=== PATIENT | male | born 1980 | race Caucasian/White ===

== ENCOUNTER → 2020-11-23 08:59 | Outpatient (CLI) | payer OTHER, SELFPAY ==
[2020-11-23] MEDS: Lidocaine 2% (5ml sdv) 5 ML VIAL.MPF INFILT (09:00)
[2020-11-23] MEDS: Iopamidol 10 ML in Syringe 1 EACH 600 ML IV (09:00)
--- NOTE | 2020-11-23 09:05 | MRI_ITS ---
STUDY: MR LEFT HIP ARTHROGRAPHY REASON FOR EXAM: Left hip pain for 2 months. TECHNIQUE: Standardized fat and water weighted pulse sequences were obtained in all 3 orthogonal planes after intra-articular instillation of dilute Dotarem. COMPARISON: Fluoroscopic images from arthrogram preceding the MRI. FINDINGS: Normal hip joint without articular joint space narrowing. Normal acetabulum. There is a tear of the anterosuperior labrum (ASHLEY image 12). Normal femoral head. Normal femoral neck and intratrochanteric region. Normal gluteus minimus, medius and iliopsoas tendons and distal insertions. There is no trochanteric, iliopsoas or iliopectineal bursitis. Normal visualized superior and inferior pubic rami. Normal ischial tuberosity. Normal origin of the hamstring tendons. Normal visualized iliac wing. Normal visualized soft tissue structures of the pelvis. MRI/Lower Ext/Jt Only/W Contrast IMPRESSION: Anterosuperior labral tear. Electronically Signed: Juan Cage MD at 12:38 EDT Tel , Service support ,
--- NOTE | 2020-11-23 09:20 | RAD_ITS ---
EXAM DESCRIPTION: Left hip injection CLINICAL HISTORY: 40 years Male, PAIN IN L HIP COMPARISON: None. TECHNIQUE: 43 seconds of fluoroscopy was performed. The skin site was marked and sterilely prepped and draped in usual fashion. After this LIDOCAINE was instilled along the expected needle tract into the left hip joint. FINDINGS: A 22-gauge spinal needle was inserted into the left hip down to the level of the lateral aspect of the left femoral neck. Intra-articular position of the needle tip was confirmed with injection of about 5 cc of ISOVUE-300. After this, 7 cc of diluted Dotarem was injected into fluoroscopic images were obtained. The patient tolerated the procedure well and was sent to MR for additional imaging. RAD/Arthrogram Hip w/ MRI IMPRESSION: A left hip injection was performed without incident, and the patient was sent to MR for additional imaging. Electronically Signed: Jorge Alberto Jacob DO at 10:48 EDT Tel , Service support ,
== END ==
PROVIDERS: PCP Internal Medicine; Referring Provider Specialist; Visit Provider Specialist
DX: M25.552 Pain in left hip (principal)
CPT/HCPCS: 27093; 73722; 77002; Q9967; A9575

== ENCOUNTER 2020-11-23 21:04 | Emergency (ER) | payer OTHER, SELFPAY ==
[2020-11-23 21:05] VITALS: BP 149/99; PULSE 99; RESP 18; TEMP 36.3; O2SAT 98; BMI 40.4
[2020-11-23] MEDS: oxyCODONE 5 MG Tablet PO (22:28)
--- NOTE | 2020-11-23 22:47 | ED.VIS.LOWEX ---
HPI History of Present Illness Chief Complaint: Lower Extremity Injury Narrative Narrative: Patient presenting with left hip pain for months. States is worse today. Patient had MRI and left hip injection today and was not given results of his testing. Apparently had a labral tear on MRI. Patient will be following up with Dr. Ferguson. Patient is here for worsening pain. He is ambulatory. He denies systemic signs or symptoms. Denies paresthesias. PFSH PFSH Home Medications bupropion HCl 300 mg PO DAILY 08/02/13 [History Last Taken 08/07/13 10:30 300 mg] levothyroxine [Synthroid] 88 mcg PO DAILY 08/02/13 [History Last Taken 08/07/13 10:30 200 mcg] liothyronine [Cytomel] 50 mcg PO DAILY 08/02/13 [History Last Taken 08/07/13 10:30 50 mcg] naproxen 500 mg PO BID PRN PRN #20 tab 08/03/13 [Rx Last Taken 08/07/13 10:30 500 mg] ondansetron [Zofran Odt] 8 mg PO Q8H PRN PRN #10 08/03/13 [Rx Last Taken 08/06/13 21:00 8 mg] oxycodone-acetaminophen 1 - 2 tab PO Q6H PRN PRN #20 tab 08/03/13 [Rx Last Taken 08/07/13 10:30 2 tabs] phenazopyridine 200 mg PO TID #20 tab 08/08/13 [Rx Last Taken Unknown] cetirizine 10 mg PO DAILY 11/23/20 [History Last Taken Unknown] oxycodone-acetaminophen [Percocet] 1 tab PO Q6H PRN 3 Days #12 tab 11/23/20 [Rx Last Taken Unknown] Allergy/AdvReac Type Severity Reaction Status Date / Time vancomycin Allergy Hives Verified 11/23/20 21:07 Social History Smoking Status: Former smoker ROS ROS ED Constitutional Constitutional ED: Denies chills, fever(s) or sweats Eyes Eyes: Denies blurry vision or change in vision ENT ENT ED: Denies ear pain, rhinorrhea or sore throat Cardiovascular Cardiovascular: Denies chest pain, palpitations or racing heartbeat Respiratory/Chest Respiratory/Chest: Denies cough, dyspnea or sputum Gastrointestinal Gastrointestinal: Denies abdominal pain, constipation, diarrhea or vomiting Genitourinary Genitourinary ED: Denies dysuria, hematuria or urinary frequency Musculoskeletal Musculoskeletal: Reports other Details: Left hip pain ; Denies myalgias or neck pain Integumentary Denies abscess, Abrasions or rash Neurologic Neurologic: Denies headache(s), paresthesias or weakness Psychiatric Psychiatric: Denies anxiety, depression, suicidal ideation or suicidal thoughts Endocrine Endocrinology: Denies polydipsia or polyuria EXAM Physical Exam Const Vital Signs: 11/23/20 21:05 Temperature 97.4 F L Temperature Source Temporal Pulse Rate 99 Respiratory Rate 18 Blood Pressure 149/99 H Blood Pressure Mean 115 Pulse Ox 98 Oxygen Delivery Method Room Air Positive well nourished General Appearance ED: NAD HEENT normocephalic and atraumatic Resp normal respiratory effort and clear to auscultation bilaterally Cardio regular rate and regular rhythm Extremity Extremity Narrative: Tenderness to palpation over left hip. Negative logroll. Patient is weightbearing and walking in the room. Injection site in the left hip shows no erythema or swelling. There is no ecchymosis. Neuro oriented x3 Sensorium / Orientation: alert Psych mental status grossly normal Skin Lesions: no lesions Rashes: no rashes MDM MDM MDM Narrative Medical decision making narrative: Patient had MRI today which showed a labral tear in the left hip. Patient was unaware of this finding until he arrived to the ED. Patient has continuing pain and has not been prescribed any pain medication as of yet. Patient has no erythema or swelling at the injection site in the left hip. MRI was reviewed and does show a labral tear. Patient will be given oxycodone in the ED and Percocet for home. He will follow up with Dr. Ferguson. Impression: 1. Left hip pain with labral tear Discharge Plan Triage Chief Complaint: Lower Extremity Injury ED Provider: Wilmer Castro Dx/Rx/DC Orders Instructions: Arthroscopy Hip Repair Labral Tear Prescriptions: New oxycodone-acetaminophen [Percocet] 5-325 mg tablet 1 tab PO Q6H PRN (Reason: pain) 3 Days Qty: 12 RF: 0 No Action liothyronine [Cytomel] 50 MCG tablet 50 mcg PO DAILY RF: 0 levothyroxine [Synthroid] 200 MCG tablet 88 mcg PO DAILY RF: 0 bupropion HCl 300 MG tablet extended release 24 hr 300 mg PO DAILY RF: 0 ondansetron [Zofran ODT] 8 MG tablet,disintegrating 8 mg PO Q8H PRN PRN (Reason: Nausea) Qty: 10 RF: 0 oxycodone-acetaminophen 1 TABLET tablet 1 - 2 tab PO Q6H PRN PRN (Reason: Pain) Qty: 20 RF: 0 naproxen 500 MG tablet 500 mg PO BID PRN PRN (Reason: Pain) Qty: 20 RF: 0 phenazopyridine 200 MG tablet 200 mg PO TID Qty: 20 RF: 0 cetirizine 10 mg tablet 10 mg PO DAILY RF: 0 Primary Care Provider: Joe Faria Referrals: Joe Faria MD [Primary Care Provider] - Disposition Disposition: Home, Self Care
== END 2020-11-23 23:13 | disposition home or self-care (01) ==
PROVIDERS: Emergency Provider Student in an Organized Health Care Education/Training Program; PCP Internal Medicine
DX: S73.102A Unspecified sprain of left hip, initial encounter (principal); X58.XXXA Exposure to other specified factors, initial encounter; Y93.89 Activity, other specified; Y92.9 Unspecified place or not applicable; Y99.9 Unspecified external cause status; Z87.891 Personal history of nicotine dependence
CPT/HCPCS: 99283

== ENCOUNTER → 2020-12-30 11:09 | Outpatient (CLI) | payer OTHER, SELFPAY ==
--- NOTE | 2020-12-30 11:40 | RAD_ITS ---
STUDY: X-RAY CHEST REASON FOR EXAM: Male, 40 years old. ENCOUNTER FOR PREPROCEDURAL RESP EXAM TECHNIQUE: PA and lateral views of the chest. COMPARISON: Comparison is made with prior study dated 11/08/2011. FINDINGS: The lungs are clear and expanded. There is no demonstrated pleural abnormality. Normal size heart. Normal mediastinum and sean. Normal visualized pulmonary arteries. Normal visualized aortic arch and descending thoracic aorta. There are mild degenerative changes of the visualized thoracic spine. Normal visualized ribs, clavicles, and shoulders. There is no demonstrated abnormality of the visualized soft tissue structures of the upper abdomen. RAD/Chest PA and Lateral IMPRESSION: Normal x-ray examination of the chest. Electronically Signed: Jorge Asif MD at 14:27 EDT , Service support ,
[2020-12-30 15:40] LABS: Absolute Lymphocyte Count 2.59 X10^3/uL (0.83-4.51); Absolute Neutrophil Count 3.9 X10^3/uL (2.0-7.7); Basophil% 1.3 % (0-1); Eosinophil# 0.19 X10^3/uL; Eosinophils% 2.6 % (0-5); Hematocrit 48.2 % (40-54); Hemoglobin 16.1 g/dL (13.0-16.5); Lymphocyte # 2.59 X10^3/ul (0.83-4.51); Mean Corp Hgb Conc 33.4 g/dL (32-36); Mean Corpuscular Hgb 29.9 pg (27.0-32.0); Mean Corpuscular Volume 89.4 fL (80-94); Mean Platelet Vol. 10.5 fl (6.2-12.0); Monocyte% 8.1 % (0-10); NRBC Flagged by Analyzer 0 % (0-5); Neutrophil # 3.91 X10^3/uL (2.7-7.7); Neutrophil % 52.7 % (47-70); Platelet Count 224 K/mm3 (150-450); RBC Distribution Width CV 12.6 % (11.6-14.6); RBC Distribution Width SD 41.1 fl (35.1-43.9); Red Blood Count 5.39 M/mm3 (4.6-6.2); White Blood Count 7.4 K/mm3 (4.4-11.0)
[2020-12-30 17:00] LABS: Anion Gap 6 (5-15); BUN 17 mg/dL (7-18); BUN/Creat Ratio 18.2 RATIO (10-20); Calcium,Total 9.2 mg/dL (8.5-10.1); Chloride 109 mmol/L (98-107); Creatinine, Serum 0.94 mg/dL (0.70-1.30); EST Glomerular Filtration Rate 95 mL/min (>60); Est Glom Filt Rate - Afr Amer 115 mL/min (>60); Glucose 92 mg/dL (74-106); Sodium Level 139 mmol/L (136-145)
== END ==
PROVIDERS: PCP Internal Medicine; Referring Provider Specialist; Visit Provider Specialist
DX: Z01.818 Encounter for other preprocedural examination (principal); Z01.811 Encounter for preprocedural respiratory examination
CPT/HCPCS: 36415; 71046; 80048; 85025

== ENCOUNTER 2024-06-24 13:50 | Emergency (ER) | payer OTHER, SELFPAY ==
[2024-06-24 13:51] VITALS: BP 170/97; PULSE 89; RESP 15; TEMP 37; O2SAT 100; BMI 43.2
[2024-06-24 13:53] VITALS: BP 170/97; PULSE 89; RESP 15; TEMP 37; O2SAT 100
--- NOTE | 2024-06-24 14:25 | RAD_ITS ---
PROCEDURE: CHEST PA AND LATERAL REASON FOR EXAM: Chest pain. TECHNIQUE: Frontal and lateral views of the chest. COMPARISON: None. FINDINGS: The heart is nonenlarged. The lungs are clear. Degenerative changes of the thoracic vertebrae. RAD/Chest PA and Lateral IMPRESSION: No acute abnormality is seen. Reading Location: [id number]
--- NOTE | 2024-06-24 15:36 | CT_ITS ---
PROCEDURE: CTA CHEST W/ CONTRAST REASON FOR EXAM: Dyspnea, chest pain TECHNIQUE: CTA chest was performed following the administration of IV contrast. MIP reconstructions were generated. CONTRAST: 100 mL Isovue-300 COMPARISON: Radiographs of same date. No prior CT or CTA is available. FINDINGS: Although opacification of the main and central right/left pulmonary arteries is adequate, segmental/subsegmental branches is slightly suboptimally opacified, mildly limiting sensitivity for peripheral pulmonary embolism. Heart/pericardium: Unremarkable. Aorta: Unremarkable. Pulmonary arteries: Normal in caliber. No central or definite pulmonary embolism identified. Lymph nodes: Unremarkable. Lungs/pleura: No focal consolidation. 5 mm subpleural posterior superior segment right lower lobe nodule versus nodular appearance of the tendon atelectasis (series 2, image 118). Airways: Unremarkable. Chest wall: Gynecomastia. Upper abdomen: Grossly unremarkable. Musculoskeletal: Multilevel spondylosis. CT/CTA Chest W/WO Contrast IMPRESSION: 1. No central/definite pulmonary embolism or other acute abnormality identified . 2. 5 mm right lower lobe nodule versus nodular appearance of dependent atelecta sis, statistically benign and requiring no specific follow-up in a low risk patient. Otherwise, recommend follow-up CT ch est in one year per the Fleischner society recommendations for pulmonary nodule follow-up, presuming no history of maligna ncy or known immunosuppression. 3. Additional description as above. Reading Location: [facility]
--- NOTE | 2024-06-24 15:41 | ED.VIS.DYS ---
HPI History of Present Illness Chief Complaint: Shortness of Breath Informant: patient and spouse/S.O. Narrative Narrative: Presents here with spouse worsening dyspnea dry cough pain with deep breath in his chest. States he feels hot. Patient's been feeling ill since April. Had multiple healthcare visits, spouse had influenza at that time he states he tested negative [facility] urgent care diagnosed with clinical pneumonia was placed on doxycycline. He states he was feeling better. Today symptoms returned. Denies tobacco. Denies asthma or COPD. Denies recent travel or surgeries. No history of PE or DVT. He is only on medications for hypothyroidism. No leg swelling or cramping. Prior similar symptoms: No PFSH PFSH Home Medications ?Medication ?Instructions ?Recorded ?Last Taken ?Type bupropion HCl 300 mg 24 hr tablet, 300 mg PO DAILY 08/02/13 08/07/13 10:30 History extended release 300 mg levothyroxine 200 mcg tablet 88 mcg PO DAILY 08/02/13 08/07/13 10:30 History (Synthroid) 200 mcg liothyronine 50 mcg tablet 50 mcg PO DAILY 08/02/13 08/07/13 10:30 History (Cytomel) 50 mcg naproxen 500 mg tablet 500 mg PO BID PRN PRN Pain #20 tabs 08/03/13 08/07/13 10:30 Rx 500 mg ondansetron 8 mg disintegrating 8 mg PO Q8H PRN PRN Nausea ##10 08/03/13 08/06/13 21:00 Rx tablet (Zofran ODT) 8 mg oxycodone-acetaminophen 5 mg-325 1 - 2 tab PO Q6H PRN PRN Pain #20 08/03/13 08/07/13 10:30 Rx mg tablet tabs 2 tabs phenazopyridine 200 mg tablet 200 mg PO TID #20 tabs 08/08/13 Unknown Rx cetirizine 10 mg tablet 10 mg PO DAILY 11/23/20 Unknown History oxycodone-acetaminophen 5 mg-325 1 tab PO Q6H PRN pain 3 days #12 11/23/20 Unknown Rx mg tablet (Percocet) tabs Allergy/AdvReac Type Severity Reaction Status Date / Time vancomycin Allergy Hives Verified 06/24/24 13:53 Social History Smoking Status: Former smoker ROS ROS ED Constitutional Constitutional ED: Denies chills, fever(s) or sweats ENT ENT ED: Denies sore throat Cardiovascular Cardiovascular: Reports chest pain; Denies leg edema, palpitations or racing heartbeat Respiratory/Chest Respiratory/Chest: Reports cough and dyspnea; Denies dyspnea on exertion Gastrointestinal Gastrointestinal: Denies abdominal pain, diarrhea, nausea or vomiting Genitourinary Genitourinary ED: Denies dysuria, hematuria or urinary frequency Musculoskeletal Musculoskeletal: Denies back pain, extremity pain or neck pain Integumentary Denies rash or wounds Neurologic Neurologic: Denies headache(s), paresthesias or weakness EXAM Physical Exam Const Vital Signs: 06/24/24 13:51 06/24/24 13:53 06/24/24 15:51 Temperature 98.6 F 98.6 F Temperature Source Temporal Temporal Pulse Rate 89 89 78 Respiratory Rate 15 15 18 Respiratory Effort Respiratory Depth Respiratory Pattern Blood Pressure 170/97 H 170/97 H 134/83 H Blood Pressure Mean 121 121 100 Pulse Ox 100 100 95 Oxygen Delivery Method Room Air Room Air Room Air 06/24/24 15:51 06/24/24 17:06 06/24/24 18:38 Temperature 98.3 F Temperature Source Pulse Rate 68 58 L Respiratory Rate 18 16 Respiratory Effort Normal Non-Labored Respiratory Depth Normal Respiratory Pattern Normal Blood Pressure 128/75 H 111/83 H Blood Pressure Mean 92 92 Pulse Ox 96 98 Oxygen Delivery Method Room Air Room Air Positive well nourished and well developed General Appearance ED: well developed and NAD HEENT Reports moist mucous membranes normocephalic and atraumatic Eyes General Eye ED: Yes normal appearance of both eyes Neck full ROM Chest Wall Chest: Negative for tenderness Resp normal respiratory effort and normal air movement Effort and Inspection: symmetric chest movement; Negative for respiratory distress Cardio regular rate, regular rhythm and no murmurs Peripheral Pulses: pulses 2+ throughout GI normal to inspection, nondistended, normoactive bowel sounds and non-tender Palpation: Negative for guarding or rebound tenderness present Extremity normal to inspection General Extremety ED: Negative for edema or tenderness General Extremity: Negative for edema Neuro oriented x3 and no sensory deficits noted Sensorium / Orientation: awake and alert Skin no rashes or lesions noted and no wounds MDM MDM MDM Narrative Medical decision making narrative: Interventions / MDM: Differential diagnosis: Chest pain, bronchitis Diagnosis considered but do not suspect: ACS however workup negative. PE however CT negative. Pneumonia however image studies negative. My EKG interpretation: Sinus rate of 75, no ST changes, T wave flattening leads III nonspecific. QTc 424. Imaging independently reviewed and interpreted by myself: Two-view chest x-ray: No acute process also read by radiology. CTA chest: No PE or pneumonia. External documents reviewed: N/A Test considered but not ordered:N/A ED course: Patient workup started in triage. Chest x-ray negative. Basic labs obtained negative. Further discussion the patient had recurrent symptoms chest pain pain with deep breath and dyspnea. Will add cardiac enzymes. EKG added which was normal. Discussed with symptoms worsen today with dyspnea never fully recovered from illness in April. Will obtain CT of the chest for further evaluation. He agrees with this plan. 1835: CTA chest neck for pneumonia or PE. Initial troponin delta troponin was negative. He is reassured on findings. Discussed viral syndrome with his recurrent cough. Outpatient follow-up with his doctor. All questions were answered. Re-evaluation: stable Disposition discussed with patient/family/significant other: Patient Case discussed with consulting clinician: N/A This note was generated with [employer] dictation software. It may contain incorrect words, spelling, and punctuation that were not noted in checking the note before signing. Lab Data Attestation: I reviewed the patient's lab results. Labs: Laboratory Results - last 24 hr 06/24/24 06/24/24 15:49 18:00 WBC 6.5 RBC 4.96 Hgb 15.4 Hct 42.9 MCV 86.5 MCH 31.0 MCHC 35.9 RDW Std Deviation 38.4 RDW Coeff of Liliam 12.4 Plt Count 236 MPV 10.1 Immature Gran % (Auto) 0.300 Neut % (Auto) 51.5 Lymph % (Auto) 34.5 Nash % (Auto) 10.1 H Eos % (Auto) 1.8 Baso % (Auto) 1.8 H Absolute Neuts (auto) 3.4 Absolute Lymphs (auto) 2.25 Nucleated RBC % 0 Sodium 139 Potassium 3.7 Chloride 104 Carbon Dioxide 22.2 Anion Gap 13 BUN 13 Creatinine 1.19 Estim Creat Clear Calc 113.64 Est GFR (MDRD) Non-Af 77 BUN/Creatinine Ratio 11.1 Glucose 108 H Calcium 9.4 Troponin T High Sens 7 Troponin T Hi Sens 2 Hr < 6 Troponin T Hi Sens 2Hr Delta UNABLE TO CALCULATE Radiography Diagnostic Testing: Clinical Impression(s) from Imaging Studies Chest X-Ray 06/24/24 14:25 IMPRESSION: No acute abnormality is seen. Reading Location: [id number] Chest CTA 06/24/24 15:36 IMPRESSION: 1. No central/definite pulmonary embolism or other acute abnormality identified. 2. 5 mm right lower lobe nodule versus nodular appearance of dependent atelectasis, statistically benign and requiring no specific follow-up in a low risk patient. Otherwise, recommend follow-up CT chest in one year per the Fleischner society recommendations for pulmonary nodule follow-up, presuming no history of malignancy or known immunosuppression. 3. Additional description as above. Reading Location: [id number] Discharge Plan Triage Chief Complaint: Shortness of Breath ED Provider: Jose Alvarado Dx/Rx/DC Orders Clinical Impression: Chest pain, Bronchitis, Dyspnea Instructions: ED Bronchitis, No Antibiotic (Adult), ED Chest Pain, Uncertain Cause Prescriptions: No Action liothyronine [Cytomel] 50 MCG tablet 50 mcg PO DAILY Patient Comments: hypothryroidism levothyroxine [Synthroid] 200 MCG tablet 88 mcg PO DAILY Patient Comments: hypothryoidism bupropion HCl 300 MG tablet extended release 24 hr 300 mg PO DAILY Patient Comments: depression ondansetron [Zofran ODT] 8 MG tablet,disintegrating 8 mg PO Q8H PRN PRN (Reason: Nausea) Qty: 10 0RF Patient Comments: nausea oxycodone-acetaminophen 1 TABLET tablet 1 - 2 tab PO Q6H PRN PRN (Reason: Pain) Qty: 20 0RF Patient Comments: pain naproxen 500 MG tablet 500 mg PO BID PRN PRN (Reason: Pain) Qty: 20 0RF Patient Comments: pain phenazopyridine 200 MG tablet 200 mg PO TID Qty: 20 0RF Patient Comments: burning w/ urination cetirizine 10 mg tablet 10 mg PO DAILY Patient Comments: TAKE 1 TABLET BY MOUTH EVERY DAY oxycodone-acetaminophen [Percocet] 5-325 mg tablet 1 tab PO Q6H PRN (Reason: pain) 3 Days Qty: 12 0RF Primary Care Provider: Joe Faria Referrals: Joe Faria MD [Primary Care Provider] - 1 Week Activity Restrictions/Additional Instructions: EKG cardiac workup negative. Your CT chest negative for pneumonia or pulmonary embolism. Your COVID, flu, RSV negative. Monitor symptoms and follow-up with your doctor for further testing as needed. Print Language: Somali Disposition Disposition: Home, Self Care Discharge Date/Time: 06/24/24 18:41
[2024-06-24 15:51] VITALS: BP 134/83; PULSE 78; RESP 18; O2SAT 95
[2024-06-24 16:01] LABS: Absolute Lymphocyte Count 2.25 X10^3/uL (0.83-4.51); Absolute Neutrophil Count 3.4 X10^3/uL (2.0-7.7); Basophil# 0.12 X10^3/uL; Basophil% 1.8 % (0-1); Eosinophil# 0.12 X10^3/uL; Eosinophils% 1.8 % (0-5); Hematocrit 42.9 % (40-54); Hemoglobin 15.4 g/dL (13.0-16.5); Lymphocyte # 2.25 X10^3/ul (0.83-4.51); Lymphocyte % 34.5 % (19-41); Mean Corp Hgb Conc 35.9 g/dL (32-36); Mean Corpuscular Volume 86.5 fL (80-94); Mean Platelet Vol. 10.1 fl (6.2-12.0); Monocyte# 0.66 X10^3/uL; Monocyte% 10.1 % (0-10); NRBC Flagged by Analyzer 0 % (0-5); Neutrophil # 3.36 X10^3/uL (2.7-7.7); Neutrophil % 51.5 % (47-70); Platelet Count 236 K/mm3 (150-450); RBC Distribution Width CV 12.4 % (11.6-14.6); RBC Distribution Width SD 38.4 fl (35.1-43.9); Red Blood Count 4.96 M/mm3 (4.6-6.2); White Blood Count 6.5 K/mm3 (4.4-11.0)
[2024-06-24 16:39] LABS: Anion Gap 13 (5-15); BUN 13 mg/dL (4-19); BUN/Creat Ratio 11.1 RATIO (10-20); Calcium,Total 9.4 mg/dL (7.6-11.0); Carbon Dioxide 22.2 mmol/L (21.0-32.0); Chloride 104 mmol/L (98-108); Creatinine, Serum 1.19 mg/dL (0.70-1.20); EST Glomerular Filtration Rate 77 (>60); Estimated Creatinine Clearance 113.64 ml/min (50-250); Glucose 108 mg/dL (70-99); Potassium 3.7 mmol/L (3.3-5.1); Sodium Level 139 mmol/L (133-145)
[2024-06-24 17:06] VITALS: BP 128/75; PULSE 68; RESP 18; O2SAT 96
[2024-06-24 17:06] LABS: Troponin T High Sensitivity 7 ng/L (<=19)
[2024-06-24 18:32] LABS: TROPONIN VARIANCE 2 HR UNABLE TO CALCULATE; Troponin T High Sens 2 HR < 6 ng/L (<=22)
[2024-06-24 18:38] VITALS: BP 111/83; PULSE 58; RESP 16; TEMP 36.8; O2SAT 98
== END 2024-06-24 18:41 | disposition home or self-care (01) ==
PROVIDERS: Emergency Provider Emergency Medicine; PCP Internal Medicine; Referring Provider Emergency Medicine; Visit Provider Emergency Medicine
DX: J40 Bronchitis, not specified as acute or chronic (principal); Z87.891 Personal history of nicotine dependence; E03.9 Hypothyroidism, unspecified; R07.9 Chest pain, unspecified; R06.00 Dyspnea, unspecified
CPT/HCPCS: 71046; 71275; 80048; 84484; 85025; 87631; 93005; 99284; Q9967; A4216

== ENCOUNTER 2024-09-15 13:01 | Day surgery (SDC) | payer OTHER, SELFPAY ==
[2024-09-15] VITALS (7 sets, daily range): BP systolic 119–136; BP diastolic 60–83; PULSE 62–79; RESP 12–16; TEMP 36.2–36.9; O2SAT 95–100; BMI 44.6
--- NOTE | 2024-09-15 13:36 | HP.PCM_ITS ---
HPI - General General Date of Admission: 09/15/24 Date of Service: 09/15/24 Chief Complaint: GERD HPI Narrative SHANNON CHASE, is a 44 M who presents with the Chief Complaint: heartburn Over the past 2 months pt has been having burning epigastric pain and nausea. He notes he has also had two occurrences of PNA. His PCP recommended pulmonology for his symptoms but he thinks it is GI in nature. His pain is constant and worse with fatty foods. He is having nausea but had not vomited yet. He does not smoke. Endorses drinking alcohol 3-4 timer per week but since this has started he has not drank. He has had a lot of stress and anxiety lately with work and he feels this may be a apart of it. He has started OTC omeprazole twice a day and noticed some benefit. He is avoiding certain foods that he finds triggering. He still has his gallbladder. [facility] Medical History Anxiety Alcohol use Thyroid disease Back pain Dietary restriction History of ulceration Gastric reflux CPAP (continuous positive airway pressure) dependence Non-smoker History of pain when walking Chest pain Home Medications ?Medication ?Instructions ?Recorded ?Last Taken ?Type levothyroxine 200 mcg tablet 88 mcg PO DAILY 08/02/13 08/07/13 10:30 History (Synthroid) 200 mcg cetirizine 10 mg tablet 10 mg PO DAILY 11/23/20 Unkn own History liothyronine 50 mcg tablet 25 mcg PO DAILY 07/10/24 Un known History (Cytomel) vonoprazan 10 mg tablet (Voquezna) 10 mg PO QDAY #30 t abs 07/29/24 Unknown Rx ondansetron 4 mg disintegrating 4 mg PO Q8H PRN nausea and vomiting 09/10/24 Unknown History tablet Allergy/AdvReac Type Severity Reaction Status Date / Time vancomycin Allergy Hives Verified 09/15/24 13:38 Surgical History Hx of total hip arthroplasty History of cystoscopy Social History Smoking Status: Never smoker ROS Constitutional Constitutional: Denies fatigue, fever(s), poor appetite, weight gain or weight loss Gastrointestinal Gastrointestinal: Denies belching, bloating, change in bowel habits, change in stool character, chewing difficulty, coffee ground emesis, constipation, cramping, diarrhea, dyspepsia, dysphagia, early satiety, excessive flatus, fecal incontinence, heartburn, hematemesis, hematochezia, hemorrhoids, loose stools, melena, nausea, odynophagia, rectal bleeding, tenesmus, vomiting or weight changes Physical Exam Const alert, oriented x3, no apparent distress and healthy appearing General Appearance: cooperative GI normal to inspection, nondistended, normoactive bowel sounds, soft to palpation, non-tender and non-distended Percussion: normal to percussion Rectal Exam: deferred Assessment & Plan Assessment/Plan (1) GERD (gastroesophageal reflux disease): PLAN: Assessment and Plan Assessment and Plan (1) Gastroesophageal reflux disease: Plan: This is a 44 yo male pt here today for evaluation of epigastric pain and heartburn for 2 months. Pt has not had heartburn like this before. He endorses having a lot of stress in his life at this time. OTC omeprazole has been somewhat helpful. I will prescribe Pantoprazole 40 mg BID. I advised he take this 30 minutes before he eat. I also sent in famotidine 20 mg for him to take if he has breakthrough heartburn. He will be scheduled for an ED to assess his upper GI tract. If his symptoms continue will consider prescribing Voquenza. He is agreeable to plan and will f/u after procedure. -EGD -Pantoprazole 40 mg BID -Famotidine PRN -Consider Voquezna -f/u after procedure Medications:
[2024-09-15] MEDS: Lactated Ringers 1,000 ML 15 ML IV (13:45)
--- NOTE | 2024-09-15 13:58 | PRE.ANES_ITS ---
ASA Classification* ASA Classification ASA Classification: 3 Assessment & Plan Anesthesia* Anesthesia Assessment Anesthesia Assessment: Discussed sedation and/or anesthesia options, risks, benefits, and alternatives with patient/parents/legal guardian/POA. Questions invited. The patient/parents/legal guardian/POA seems to understand and agrees to proceed with anesthesia plan. Reviewed the physical assessment, medical history, allergy history and patient home medications list prior to surgery/procedure/anesthetic and documented any changes. Performed airway and anesthesia risk assessments. Anesthesia Type Anesthesia Type: MAC History Source History Obtained from:: Patient and Chart Anesthesia Focused Assessment* Temperature: 97.8 F Pulse Rate: 62 Blood Pressure: 136/83 Respiratory Rate: 12 Pulse Ox: 100 Oxygen Delivery Method: Room Air Airway Assessment Mouth opens: >3 cm Mallampati Score: II Teeth Condition: Intact Neck Range of motion (ROM): Limited ROM (Slight decrease in extension) Focused Labs Anesthesia Preop lab: CBC WBC 6.5 K/mm3 (4.4-11.0) 06/24/24 15:49 06/24/24 RBC 4.96 M/mm3 (4.6-6.2) 06/24/24 15:49 06/24/24 Hgb 15.4 g/dL (13.0-16.5) 06/24/24 15:49 06/24/24 Hct 42.9 % (40-54) 06/24/24 15:49 06/24/24 Plt Count 236 K/mm3 (150-450) 06/24/24 15:49 06/24/24 CHEMISTRY Potassium 3.7 mmol/L (3.3-5.1) 06/24/24 15:49 06/24/24 Sodium 139 mmol/L (133-145) 06/24/24 15:49 06/24/24 Phosphorus 1.9 mg/dL (2.5-4.9) L 01/12/13 08:49 01/12/13 BUN 13 mg/dL (4-19) 06/24/24 15:49 06/24/24 Creatinine 1.19 mg/dL (0.70-1.20) 06/24/24 15:49 06/24/24 Glucose 108 mg/dL (70-99) H 06/24/24 15:49 06/24/24 TSH < 0.01 uIU/mL (0.358-3.74) L 05/07/13 07:06 COAG Pre-Assessment Diagnosis/Proposed Procedure Planned Operative Procedure(s): EGD Anesthesia History 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 When Was Last Pacemaker Check QUESTION #4 FULL TEXT: You/Your Family Experience fever (hyperthermia) with Anesthesia Last Oral Intake Last Oral intake: Last Oral Intake NPO since 08:00 09/15/24 13:45 Meds taken in AM with sips of Yes 09/15/24 13:45 water? Meds patient instructed to Synthroid, cytomel, voquezna 09/15/24 13:45 take am of surgery Any additional information?: Yes NPO since: 08:00 (Patient took a.m. meds at 8 AM.) Meds taken in AM with sips of water?: Yes PONV PONV - project manager interior design: PONV - project manager interior design Female No 09/10/24 13:37 HX of Motion Sickness Yes 09/10/24 13:37 HX of N/V After Surgery No 09/10/24 13:37 Non-Smoker Yes 09/10/24 13:37 Duration of Surgery greater No 09/10/24 13:37 than 60 minutes Number of Risk Factors 2 09/10/24 13:37 PONV Score Moderate Risk 09/10/24 13:37 Height & Weight Height & Weight: Anesthesia: Height & Weight Height 6 ft 09/15/24 13:45 Weight: 149.1 kg 09/15/24 13:45 Body Mass Index (BMI) 44.6 09/15/24 13:45 Respiratory Assessment Respiratory Assessment - project manager interior design: Respiratory Tract Infection Hx - project manager interior design Hx Respiratory Tract Infection No 09/10/24 13:37 STOP Sleep Apnea STOP Sleep Apnea - project manager interior design: STOP Sleep Apnea - project manager interior design Hx Hypertension No 09/10/24 13:37 Hx Sleep Apnea Yes 09/10/24 13:37 CPAP Yes 09/10/24 13:37 BIPAP No 09/10/24 13:37 Do you snore loudly (louder than talking or can be heard Do you often feel tired/ fatigued/ sleepy during daytime? Has anyone observed you stop breathing during sleep? STOP Results Positive 09/10/24 13:37 QUESTION #5 FULL TEXT : Do you snore loudly (louder than talking or can be heard through closed doors)? 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 confused, unrespo /Reproduction History /Reproductive History - project manager interior design: /Reproductive Hx- project manager interior design Hx Now No 09/10/24 13:37 Gestational Age (in weeks): EDC: Hx Hx Para Hx Section SAB No 09/10/24 13:37 Active Medications Active Medications: Current Medications Generic Name Dose Route Start Last Admin Trade Name Freq PRN Reason Stop Dose Admin Lactated Ringer's 1,000 mls @ 15 mls/hr 09/15/24 13:30 09/15/24 13:45 IV 15 mls/hr .Q48H GUZMAN Administration PFSH Medical History Anxiety Alcohol use Thyroid disease Back pain Dietary restriction History of ulceration Gastric reflux CPAP (continuous positive airway pressure) dependence Non-smoker History of pain when walking Chest pain Home Medications ?Medication ?Instructions ?Recorded ?Last Taken ?Type levothyroxine 200 mcg tablet 88 mcg PO DAILY 08/02/13 09/15/24 History (Synthroid) cetirizine 10 mg tablet 10 mg PO DAILY 11/23/20 Unkn own History liothyronine 50 mcg tablet 25 mcg PO DAILY 07/10/24 History (Cytomel) vonoprazan 10 mg tablet (Voquezna) 10 mg PO QDAY #30 t abs 07/29/24 09/15/24 Rx ondansetron 4 mg disintegrating 4 mg PO Q8H PRN nausea and vomiting 09/10/24 Unknown History tablet Allergy/AdvReac Type Severity Reaction Status Date / Time vancomycin Allergy Hives Verified 09/15/24 13:38 Surgical History Hx of total hip arthroplasty History of cystoscopy Social History Smoking Status: Never smoker Review of Systems (Anesthesia) ROS Narrative System reviewed and no additional complaints, except as documented.
--- NOTE | 2024-09-15 14:15 | EGD_PTH ---
PATIENT: SHANNON CHASE LOC: EN U#:[id number] AGE/SX: 44/M ROOM: RE09/15/[address]: Dr. Santiago Holden DO : 1980 BED: DIS: 09/15/2024 SPEC #: [id number] RECD: 09/15/24 16:46 STATUS: MARIVEL ALDEN #: [id number] RAZA: 09/15/24 14:[address]: Santiago Holden DEPT: SURGICAL PATHOLOGY RECD BY: César Franco ENTERED: 09/16/24 08:56 SP TYPE: EGD BIOPSY LIN DR: Dr. Joe Faria MD Tissues: A - Esophagus, NOS B - Duodenum, NOS C - Gastric mucous membrane Procedures: Immunohistochemical Stains Surgery Specimen Level IV HEADER OPERATION: EGD with biopsy PRE-OP DIAGNOSIS: GERD TISSUE SUBMITTED: A- Distal esophagus biopsy, B- Duodenum biopsy, C- Gastric body biopsy MICROSCOPIC DIAGNOSIS A. Esophagus, distal, biopsy: Squamous mucosa with reactive changes. Columnar mucosa, negative for goblet cell metaplasia. B. Small bowel, duodenum, biopsy: Normal villous architecture with no specific pathologic change. Negative for increased intraepithelial lymphocytes. C. Stomach, gastric body, biopsy: Oxyntic mucosa with features of reactive gastropathy. IHC negative for H.pylori organisms. MICROSCOPIC DESCRIPTION Slides are reviewed. All matched controls reacted appropriately. These tests were developed and their performance characteristics determined by [facility]. They may not have been cleared or approved by the U.S. Food and Drug Administration. The FDA has determined that such clearance or approval is not necessary. The above immunohistochemical/dualISH markers are ordered and reviewed by the Pathologist. GROSS DESCRIPTION A. Received in formalin in a container labeled with the patient's name, date of , and distal esophagus biopsy are 3 holden-pink strips of mucosal tissue ranging from 0.4 x 0.3 x 0.2 cm to 0.8 x 0.2 x 0.2 cm. Submitted in toto in A1. B. Received in formalin in a container labeled with the patient's name, date of , and duodenum biopsy are multiple holden-pink fragments of mucosal tissue measuring 1.2 x 0.5 x 0.2 cm in aggregate. Submitted in toto in B1. C. Received in formalin in a container labeled with the patient's name, date of , and gastric body biopsy for H. pylori and path are 2 holden-pink fragments of mucosal tissue measuring 0.3 x 0.3 x 0.2 cm and 0.5 x 0.2 x 0.2 cm. Submitted in toto in C1. B 09-16-2024 CPT:79843s7,10197
--- NOTE | 2024-09-15 14:53 | PCM.POST.ANE ---
Anesthesia: Postop Eval I Current Vital Signs Temperature: 98.5 F Pulse Rate: 79 Blood Pressure: 119/73 Respiratory Rate: 16 Pulse Ox: 97 Oxygen Delivery Method: Room Air Assessment Airway patent: Yes Spontaneous unlabored respirations: Yes Mental status: Asleep nausea: No Vomiting: No Anesthesia Complication: No Fluid Hydration Crystalloid volume administer (ml): 500 Total IV fluid infused: 500 Progress Note Anesthesia document: Postop Eval 1 completed: Yes
--- NOTE | 2024-09-15 14:56 | OP.CCLET_ITS ---
09/15/2024 Joe Faria [address] [place] [address] Re : Upper GI endoscopy procedure for Haim Hurtado Dear Dr. Faria This procedure was performed on Sunday, September 15, 2024. My impressions and recommendations are as follows: Impressions : - Z-line irregular, 40 cm from the incisors. Biopsied. - Erythematous mucosa in the gastric body. Biopsied. - Erythematous duodenopathy. Biopsied. Recommendations : - Await pathology results. - Continue present medications. My findings are described in the full procedure note, which is enclosed. If I can be of further assistance, please feel free to contact me at . Sincerely, Santiago Holden, 09/15/2024 2:56:20 PM This report has been signed electronically.
--- NOTE | 2024-09-15 14:56 | OP.EGD_ITS ---
Patient Name: Haim Hurtado Procedure Date: 09/15/2024 2:27 PM Date of : 1980 Age: 44 Procedure: Upper GI endoscopy Indications: Epigastric abdominal pain, Heartburn Providers: DO Karolina Navas MD: Joe Faria Medicines: Monitored Anesthesia Care Patient Profile: This is a 44 year old male. Refer to note in patient chart for documentation of history and physical. Patient has symptoms of chronic dyspepsia, chronic heartburn and chronic nausea. Complications: No immediate complications. Procedure: Pre-Anesthesia Assessment: - Prior to the procedure, a History and Physical was performed, and patient medications and allergies were reviewed. The patient is competent. The risks and benefits of the procedure and the sedation options and risks were discussed with the patient. All questions were answered and informed consent was obtained. Patient identification and proposed procedure were verified by the physician in the pre-procedure area. Mental Status Examination: alert and oriented. Airway Examination: normal oropharyngeal airway and neck mobility. Respiratory Examination: clear to auscultation. CV Examination: normal. Prophylactic Antibiotics: The patient does not require prophylactic antibiotics. Prior Anticoagulants: The patient has taken no anticoagulant or antiplatelet agents. ASA Grade Assessment: II - A patient with mild systemic disease. After reviewing the risks and benefits, the patient was deemed in satisfactory condition to undergo the procedure. The anesthesia plan was to use monitored anesthesia care (MAC). Immediately prior to administration of medications, the patient was re-assessed for adequacy to receive sedatives. The heart rate, respiratory rate, oxygen saturations, blood pressure, adequacy of pulmonary ventilation, and response to care were monitored throughout the procedure. The physical status of the patient was re-assessed after the procedure. After obtaining informed consent, the endoscope was passed under direct vision. Throughout the procedure, the patient's blood pressure, pulse, and oxygen saturations were monitored continuously. The Endoscope was introduced through the mouth, and advanced to the third part of the duodenum. Small bowel enteroscopy was deemed necessary. The upper GI endoscopy was accomplished without difficulty. The patient tolerated the procedure well. Scope In: 2:36:12 PM Scope Out: 2:41:46 PM Total Procedure Duration Time 0 hours 5 minutes 34 seconds Findings: The Z-line was irregular and was found 40 cm from the incisors. Biopsies were taken with a cold forceps for histology. Verification of patient identification for the specimen was done. Estimated blood loss was minimal. Patchy mildly erythematous mucosa without bleeding was found in the gastric body. Biopsies were taken with a cold forceps for histology. Verification of patient identification for the specimen was done. Estimated blood loss was minimal. Biopsies were taken with a cold forceps for Helicobacter pylori testing. Verification of patient identification for the specimen was done. Estimated blood loss was minimal. Patchy mildly erythematous mucosa without active bleeding and with no stigmata of bleeding was found in the first portion of the duodenum. Biopsies were taken with a cold forceps for histology. Impression: - Z-line irregular, 40 cm from the incisors. Biopsied. - Erythematous mucosa in the gastric body. Biopsied. - Erythematous duodenopathy. Biopsied. Recommendation: - Await pathology results. - Continue present medications. Procedure Code(s): --- Professional --- 81837, Small intestinal endoscopy, enteroscopy beyond second portion of duodenum, not including ileum; with biopsy, single or multiple CPT copyright 2021 [employer]. All rights reserved. The codes documented in this report are preliminary and upon general accounting clerk review may be revised to meet current compliance requirements. Santiago Holden DO 09/15/2024 2:56:20 PM This report has been signed electronically. Number of Addenda: 0 Note Initiated On: 09/15/2024 2:27 PM
--- NOTE | 2024-09-15 20:42 | PCM.POSTANE2 ---
Anesthesia Postop Eval I Sum Postop Eval Completion status Anesthesia document: Postop Eval 1 completed: Yes Anesthesia Postop Eval I Summary Anesthesia Postop Eval I Summary: Anesthesia Postop Eval I: Assessment Summary Airway patent Yes 09/15/24 14:56 [email or web address] Spontaneous unlabored Yes 09/15/24 14:56 [email or web address] respirations Mental status Asleep 09/15/24 14:56 [email or web address] nausea No 09/15/24 14:56 [email or web address] Vomiting No 09/15/24 14:56 [email or web address] Anesthesia Postop Eval I: Fluid Summary Crystalloid volume administer 500 09/15/24 14:56 [email or web address] (ml) Colloids volume administered ( ml) Blood Product volume administered (ml) Total IV fluid infused 500 09/15/24 14:56 [email or web address] Anesthesia Postop Eval I: Summary Notes Anesthesia Complication No 09/15/24 14:56 [email or web address] Anesthesia Complication Comment: Post-operative progress note Anesthesia: Postop Eval II Evaluation Mental status: Awake and Calm Pain Level: 0 nausea: No Vomiting: No Complications Anesthesia Complication: No
== END 2024-09-15 15:33 | disposition home or self-care (01) ==
LOC: EN 13:08 → AC 13:11
PROVIDERS: PCP Internal Medicine; Referring Provider Internal Medicine; Visit Provider Internal Medicine Gastroenterology
PROC: 0DJ08ZZ Inspection of Upper Intestinal Tract, Via Natural or Artificial Opening Endoscopic (ICD-10-PCS; CPT 43235; principal; 2024-09-15 14:10)
DX: K21.9 Gastro-esophageal reflux disease without esophagitis (principal); Z79.890 Hormone replacement therapy; Z99.89 Dependence on other enabling machines and devices; R10.13 Epigastric pain
CPT/HCPCS: 43239; 88305; 88342; J2405

== ENCOUNTER → 2024-10-07 | Outpatient (CLI) | payer OTHER, SELFPAY ==
--- NOTE | 2024-10-07 07:23 | US_ITS ---
PROCEDURE: GALLBLADDER 10/07/2024 REASON FOR EXAM: ABD PAIN COMPARISON: None FINDINGS: Liver: Diffusely echogenic suggesting fatty infiltration. Hepatomegaly. The liver measures 18.4 cm. Gallbladder: Unremarkable Common bile duct: Normal measuring 4.2 mm . Pancreas: Visualized portions are unremarkable. The distal body and tail are obscured by bowel gas. Other: Visualized portions of the right kidney are unremarkable. No right upper quadrant ascites. US/Gallbladder IMPRESSION: Hepatomegaly and fatty infiltration of the liver. Reading Location: [place] [id number]
--- OUTSIDE RECORDS SUMMARY | 2024-10-07 07:36 | XMS RPT_ITS | CCD ---
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 Name Role Phone PEPPER MANJARREZ, ANNA GENE Unavailable Unavaila ble GANREBA JR, ANNA GENE Unavailable Unavaila ble GANGEL, ANNA Unavailable Unavailable GANGEL, ANNA Unavailable Unavailable Faria, Joe Unavailable Unavailable GANGEL, ANNA Unavailable Unavailable GANGEL, ANNA Unavailable Unavailable Bienvenido, Joe Unavailable Unavailable GANGEL, ANNA Unavailable Unavailable Joe Faria MD Primary Care Provider [phone] Joe Faria MD Primary Care Provider Joe Faria MD Primary Care Provider [phone] Maria Alejandra APRN.RN [facility], Caorl M Unavailable DR JOE FARIA MD Primary Care Physician DR JOE FARIA MD Primary Care Unavaila claire WILCOX MD, RICHARD Og Attending Unavail able Dr. Joe Faria MD Primary Care Provider Dr. Jose Alvarado DO Attending Provider Dr. Jose Alvarado DO Referring Provider Dr. Jose Alvarado DO Emergency Provider Dr. Joe Faria MD Referring Provider Jossie Angela Attending Provider Dr. Santiago Holden DO Attending Provider Dr. Santiago Holden DO Other Provider JOE FARIA Primary Care Unavailable JOE FARIA Primary Care Unavailable JOE FARIA Referring Unavailable JOE FARIA Primary Care Unavailable JOE FARIA Primary Care Unavailable FARIA, JACOBO Attending Unavailable FARIA, JACOBO Primary Care Unavailable FARIA, JACOBO Primary Care Unavailable FARIA, JACOBO Attending Unavailable FARIA, JACOBO Primary Care Unavailable FARRAH BORDEN Referring Unavailable FARIA, JACOBO Primary Care Unavailable FARIA, JACOBO Referring Unavailable FARIA, JACOBO Primary Care Unavailable SELF Referring Unavailable FARIA, JACOBO Attending Unavailable FARIA, JACOBO Primary Care Unavailable FARIA, JACOBO Primary Care Unavailable FARIA, JACOBO Attending Unavailable Faria, Joe Primary Care Unavailable Jossie Hall Attending Unavailable Faria, Joe Referring Unavailable Santiago Holden Consulting Unavailable Santiago Holden Attending Unavailable Faria, Joe Primary Care Unavailable Faria, Joe Referring Unavailable Faria, Joe Primary Care Unavailable AtanasJossie garcia Attending Unavailable Jossie Hall Referring Unavailable Faria, Joe Primary Care Unavailable Jossie Hall Attending Unavailable RiveranasJossie garcia Referring Unavailable Santiago Holden Attending Unavailable Faria, Joe Primary Care Unavailable Faria, Joe Referring Unavailable Faria, Joe Referring Unavailable Jossie Hall Attending Unavailable Faria, Joe Primary Care Unavailable Jose Alvarado Attending Unavailable Jose Alvarado Referring Unavailable Faria, Joe Primary Care Unavailable Allergies Allergy Classification Reported Allergen(s) Allergy Type Date of Onset Reaction(s) Facility (20 sources) Vancomycin; Translations: [VANCOMYCIN] Drug Allergy 02-08-2013 Rash [facility] Other [facility] Medications Current Medications Medication Drug Class(es) Dates Sig (Normalized) Sig (Original) amoxicillin 875 mg oral tablet (2 sources) Penicillin-class Antibacterial Start: 03-16-2024 End: 03-23-2024 take 1 tablet by mouth twice daily amoxicillin (AMOXIL) 875 mg tablet Take 1 tablet by mouth two times a day for 7 days. 14 tablet 03/16/2024 03/23/2024 Active cetirizine hydrochloride 10 mg oral tablet (20 sources) Histamine-1 Receptor Antagonist Start: 09-21-2020 End: 02-04-2024 take 1 tablet by mouth once daily cetirizine (ZYRTEC) 10 mg tablet Indications: Allergic rhinitis, unspecified seasonality, unspecified trigger Take 1 tablet by mouth once daily. 90 tablet 3 02/04/2024 Active Comment on above: Take 1 tablet by michael th once daily. colestipol hydrochloride 1000 mg oral tablet (2 sources) Bile Acid Sequestrant Start: 09-29-2024 End: 09-29-2024 Colestipol 1 gram tablet Active 1 g PO daily September 29, 2024 10:24am CPAP (20 sources) Start: 09-21-2020 CPAP Indications: SHERIN (obstructive sleep apnea) Mask Fitting requested (per patient preference, try Dream ricci nasal tube like head gear) optional chin strap (if indicated), filters, tubing / heated tubing, heated humidity and lifetime supplies. Dx. SHERIN G47.33 327.23 1 Device 09/21/2020 Active Start: 09-21-2020 CPAP Indicatio ns: SHERIN (obstructive sleep apnea) Mask Fitting requested (per patient preference, try Dream ricci nasal tube like head gear) optional chin strap (if indicated), filters, tubing / heated tubing, heated humidity and lifetime supplies. Dx. SHERIN G47.33 327.23 1 Device 0 09/21/2020 Active Start: 01-02-2017 CPAP Indicatio ns: SHERIN (obstructive sleep apnea) AutoPAP 7-20 cmH2O, suitable mask, humidity, filters. Lifetime supplies. Dx: G47.ee 1 Device 01/02/2017 Active Start: 01-02-2017 CPAP Indicatio ns: SHERIN (obstructive sleep apnea) AutoPAP 7-20 cmH2O, suitable mask, humidity, filters. Lifetime supplies. Dx: G47.ee 1 Device 0 01/02/2017 Active Comment on above: AutoPAP 7-20 cmH2O, suitable mask, humidity, filters. Lifetime supplies. Dx: G47.ee Mask Fitting request ed (per patient preference, try Dream ricci nasal tube like head gear) optional chin strap (if indicated), filters, tubing / heated tubing, heated humidity and lifetime supplies. Dx. SHERIN G47.33 327.23 doxycycline hyclate 100 mg oral tablet (2 sources) Tetracycline-class Drug Start: 05-29-19 End: 06-05-19 take 1 tablet by mouth twice daily doxycycline (VIBRA-TABS) 100 mg tablet Indications: Sinobronchitis Take 1 tablet by mouth two times a day for 7 days. 14 tablet 05/29/2024 06/05/2024 Active fluticasone propionate 0.05 mg/actuat metered dose nasal spray (20 sources) Corticosteroid Start: 06-25-19 End: 11-30-19 take 2 spray(s) by mouth once daily fluticasone (FLONASE) 50 mcg/actuation nasal spray Indications: ETD (Eustachian tube dysfunction), bilateral Use 2 Sprays in each nostril once daily. Rinse mouth after use. 1 Each 11 11/29/2022 Active Start: 07-28-2019 End: 06-21-2022 take 2 spray(s) by mouth once daily fluticasone (FLONASE) 50 mcg/actuation nasal spray Indications: ETD (Eustachian tube dysfunction), bilateral Use 2 Sprays in each nostril once daily. Rinse mouth after use. 1 Bottle 5 09/21/2020 03/04/2021 Discontinued Comment on above: Use 2 Sprays in each nostril once daily. Rinse mouth after use. levothyroxine sodium 0.088 mg oral tablet (20 sources) l-Thyroxine Start: 06-25-19 End: 07-02-19 take 1 tablet by mouth once daily before breakfast levothyroxine (SYNTHROID) 88 mcg tablet Indications: Acquired hypothyroidism Take 1 tablet by mouth daily before breakfast. 90 tablet 1 07/01/2024 Active Start: 01-29-2020 End: 06-21-2022 take 1 tablet by mouth once daily before breakfast levothyroxine (SYNTHROID) 88 mcg tablet Indications: Acquired hypothyroidism Take 1 tablet by mouth daily before breakfast. 90 tablet 3 06/22/2021 06/21/2022 Discontinued Start: 08-02-2013 Levothyroxine (Synthroid) 200 MCG tablet Active 88 ug PO DAILY August 02, 2013 12:00am Comment on above: Take 1 tablet by michael th daily before breakfast. liothyronine sodium 0.05 mg oral tablet (20 sources) l-Triiodothyronine Start: 3 End: 4 take 1 tablet by mouth once daily liothyronine (CYTOMEL) 25 mcg tablet Indications: Acquired hypothyroidism Take 1 tablet by mouth once daily. 90 tablet 3 02/04/2024 Active Start: 07-04-2020 End: 06-21-2022 take 1 tablet by mouth once daily liothyronine (CYTOMEL) 25 mcg tablet Indications: Acquired hypothyroidism Take 1 tablet by mouth once daily. 90 tablet 3 06/22/2021 06/21/2022 Discontinued Start: 08-02-2013 End: 07-10-2024 take 1 tablet by mouth once daily Liothyronine (Cytomel) 50 mcg tablet Active 25 ug PO DAILY July 10, 2024 11:12am Comment on above: Take 1 tablet by michael once daily. ondansetron 4 mg disintegrating oral tablet (6 sources) Serotonin-3 Receptor Antagonist Start: 07-15-19 End: 09-11-19 take 1 tablet by mouth every eight hours as needed for nausea and vomiting Ondansetron 4 mg tablet,disintegrati ng Active 4 mg PO Q8H as needed for nausea and vomiting September 10, 2024 12:00am Start: 08-03-2013 End: 07-10-2024 take 1 tablet by mouth every eight hours as needed for nausea Ondansetron (Zofran Odt) 8 MG tablet,disintegrating Discontinued 8 mg PO EVERY 8 HOURS NEEDED as needed for Nausea August 03, 2013 12:00am July 10, 2024 11:11am pantoprazole 40 mg delayed release oral tablet (3 sources) Proton Pump Inhibitor Start: 09-29-2024 take 1 tablet by mouth twice daily Pantoprazole 40 mg tablet,delayed release (DR/EC) Active 40 mg PO TWICE A DAY September 29, 2024 12:00am Start: 07-10-2024 End: 09-10-2024 take 1 tablet by mouth once daily Pantoprazole 40 mg tablet,delayed release (DR/EC) Discontinued 40 mg PO daily 60 July 10, 2024 12:00am September 10, 2024 1:36pm phentermine hydrochloride 37.5 mg oral tablet (20 sources) Sympathomimetic Amine Anorectic Start: 12-16-2023 End: 03-15-2024 take 1 tablet by mouth once daily Phentermine HCl 37.5 mg tablet Indications: Obesity, Class III, BMI 40-49.9 (morbid obesity) (HCC) Take 1 tablet by mouth once daily for 90 days. 30 tablet 2 12/16/2023 03/15/2024 Active Start: 08-22-2023 End: 09-21-2023 take 1 capsule by mouth once daily Phentermine HCl 37.5 mg capsule Indications: Obesity, Class III, BMI 40-49.9 (morbid obesity) (HCC) Take 1 capsule by mouth once daily for 30 days. 30 capsule 0 08/22/2023 09/21/2023 Active Start: 06-06-2023 End: 08-05-2023 take 1 capsule by mouth once daily Phentermine HCl 37.5 mg capsule Indications: Obesity, Class III, BMI 40-49.9 (morbid obesity) (HCC) Take 1 capsule by mouth once daily for 30 days. Do not start before July 06, 2023. 30 capsule 0 07/06/2023 08/05/2023 Active Start: 08-29-2022 End: 02-27-2023 Phentermine HCl 37.5 mg caps ule Indications: Obesity, Class III, BMI 40-49.9 (morbid obesity) (HCC) Take 1 capsule by mouth once daily for 30 days. Do not start before January 28, 2023. 30 capsule 0 01/28/2023 02/27/2023 Start: 03-24-2022 End: 04-23-2022 Phentermine HCl 37.5 mg caps ule Indications: Obesity, Class III, BMI 40-49.9 (morbid obesity) (HCC) Take 1 capsule by mouth once daily for 30 days. Do not start before March 24, 2022. 30 capsule 0 03/24/2022 04/23/2022 Active Start: 01-25-2022 End: 03-19-2022 Phentermine HCl 37.5 mg caps ule Indications: Obesity, Class III, BMI 40-49.9 (morbid obesity) (HCC) Take 1 capsule by mouth once daily for 30 days. Do not start before February 23, 2022. 30 capsule 0 02/23/2022 03/19/2022 Discontinued Start: 10-17-2020 End: 11-14-2020 take 1 capsule by mouth once daily Phentermine HCl 37.5 mg capsule Indications: Obesity, Class II, BMI 35-39.9 Take 1 capsule by mouth once daily for 30 days. 30 capsule 10/17/2020 11/14/2020 Discontinued Comment on above: Take 1 capsule by mo uth once daily for 30 days. Take 1 capsule by mo uth once daily for 30 days. Do not start before March 24, 2022. Take 1 capsule by mo uth once daily for 30 days. Do not start before February 23, 2022. Take 1 capsule by mo uth once daily for 30 days. Do not start before October 29, 2022. Take 1 capsule by mo uth once daily for 30 days. Do not start before September 28, 2022. Take 1 capsule by mo uth once daily for 30 days. Do not start before January 28, 2023. Take 1 capsule by mo uth once daily for 30 days. Do not start before December 29, 2022. Take 1 capsule by mo uth once daily for 30 days. Do not start before July 06, 2023. Take 1 capsule by mo uth once daily for 30 days. Do not start before June 06, 2023. predniSONE 20 mg oral tablet (1 source) Start: End: take 1 tablet by mouth once daily predniSONE (DELTASONE) 20 mg tablet Indications: Subacute cough Take 1 tablet by mouth once daily for 5 days. 5 tablet 07/01/2024 07/06/2024 Active Vonoprazan (Voquezna) 10 mg tablet (2 sources) Start: 5 take 1 tablet by mouth once daily Vonoprazan (Voquezna) 10 mg tablet Active 10 mg PO daily July 29, 2024 12:00am vonoprazan (VOQUEZNA) 10 mg tablet (1 source) Start: 5 take 1 tablet by mouth once daily vonoprazan (VOQUEZNA) 10 mg tablet Indications: Gastroesophageal reflux disease, unspecified whether esophagitis present Take 1 tablet by mouth once daily. 09/21/2024 Active Completed/Discontinued Medications Medication Drug Class(es) Dates Sig (Normalized) Sig (Original) acetaminophen 325 mg / oxyCODONE hydrochloride 5 mg oral tablet (4 sources) Opioid Agonist Start: 08-03-2013 End: 07-10-2024 Oxycodone-Acetaminop hen (Percocet) 5-325 mg tablet Discontinued 1 {tbl} PO EVERY 6 HOURS as needed for pain 12 3 November 23, 2020 July 10, 2024 11:11am [id number] 200 actuat albuterol 0.09 mg/actuat metered dose inhaler (9 sources) beta2-Adrenergic Agonist Start: 03-20-2017 End: 11-29-2022 take 2 puff(s) by inhalation every four hours as needed for wheezing albuterol HFA (VENTOLIN HFA) 90 mcg/actuation inhaler Indications: URI with cough and congestion Inhale 2 Puffs as instructed every 4 hours as needed for Wheezing/Shortness of Breath. 1 Inhaler 3 03/20/2017 11/29/2022 Discontinued Comment on above: Inhale 2 Puffs as in structed every 4 hours as needed for Wheezing/Shortness of Breath. 24 hr buPROPion hydrochloride 300 mg extended release oral tablet (2 sources) Aminoketone Start: 08-02-2013 End: 07-10-2024 take 1 tablet by mouth once daily Bupropion Hcl 300 MG tablet extended release 24 hr Discontinued 300 mg PO DAILY August 02, 2013 12:00am July 10, 2024 11:12am famotidine 20 mg oral tablet (3 sources) Histamine-2 Receptor Antagonist Start: 07-10-2024 End: 09-21-2024 take 1 tablet by mouth once daily Famotidine 20 mg tablet Discontinued 20 mg PO daily July 10, 2024 12:00am September 10, 2024 1:36pm naproxen 500 mg oral tablet (2 sources) Nonsteroidal Anti-inflammatory Drug Start: 08-03-2013 End: 07-10-2024 take 1 tablet by mouth twice daily as needed for pain Naproxen 500 MG tablet Discontinued 500 mg PO TWICE DAILY NEEDED as needed for Pain August 03, 2013 12:00am July 10, 2024 11:12am phenazopyridine hydrochloride 200 mg oral tablet (2 sources) Start: 08-08-2013 End: 07-10-2024 take 1 tablet by mouth three times daily Phenazopyridine 200 MG tablet Discontinued 200 mg PO THREE TIMES A DAY August 08, 2013 12:00am July 10, 2024 11:13am Problems Active Problems Problem Classification Problem Date Documented Da te Episodic/Chronic Calculus of urinary tract (2 sources) Ureteric stone; Translations: [Calculus of ureter] 08-04-2013 Episodic Chronic obstructive pulmonary disease and bronchiectasis (2 sources) Bronchitis; Translations: [Bronchitis, not specified as acute or chronic] 07-02-2024 Episodic Disorders of lipid metabolism (20 sources) Mixed hyperlipidemia; Translations: [Mixed hyperlipidemia] Onset: 7 07-31-2018 Chronic Esophageal disorders (14 sources) Gastroesophageal reflux disease; Translations: [Gastro-esophageal reflux disease without esophagitis] Onset: 5 07-08-2024 Chronic Immunizations and screening for infectious disease (1 source) Needs influenza immunization; Translations: [Encounter for immunization] Episodic Influenza (1 source) Influenza-like illness; Translations: [Influenza due to unidentified influenza virus with other respiratory manifestations] 05-21-2024 Episodic Nausea and vomiting (1 source) Nausea; Translations: [Nausea] Onset: 5 Episodic Nonspecific chest pain (7 sources) Chest pain; Translations: [Other chest pain] Onset: Episodic Nutritional deficiencies (20 sources) Vitamin D deficiency; Translations: [Vitamin D deficiency, unspecified] Onset: 5 01-18-2015 Chronic Other circulatory disease (2 sources) Elevated blood pressure; Translations: [Elevated blood-pressure reading, without diagnosis of hypertension] 12-16-2023 Episodic Other circulatory disease (1 source) Elevated blood-pressure reading, without diagnosis of hypertension; Translations: [Elevated blood pressure reading] Onset: Episodic Other diseases of kidney and ureters (2 sources) Renal insufficiency; Translations: [Disorder of kidney and ureter, unspecified] 08-04-2013 Episodic Other ear and sense organ disorders (1 source) Otalgia, right ear; Translations: [Otalgia, unspecified] 05-21-2024 Episodic Other gastrointestinal disorders (2 sources) Diarrhea; Translations: [Diarrhea, unspecified] 08-04-2013 Episodic Other lower respiratory disease (1 source) Cough; Translations: [Acute cough] 05-29-2024 Episodic Other lower respiratory disease (3 sources) Cough; Translations: [Subacute cough] 07-01-2024 Episodic Other lower respiratory disease (2 sources) Dyspnea; Translations: [Dyspnea, unspecified] 07-02-2024 Episodic Other nervous system disorders (8 sources) Unable to concentrate ; Translations: [Attention and concentration deficit] Onset: 5 05-25-2024 Chronic Other non-traumatic joint disorders (1 source) Hip pain; Translations: [Pain in left hip] 10-20-2020 Episodic Other nutritional; endocrine; and metabolic disorders (20 sources) Body mass index 40+ - severely obese; Translations: [Morbid (severe) obesity due to excess calories] Onset: 0 04-29-2019 Chronic Other nutritional; endocrine; and metabolic disorders (1 source) Morbid (severe) obesity due to excess calories; Translations: [Obesity, Class III, BMI 40-49.9 (morbid obesity) (HCC)] Onset: 0 Chronic Other upper respiratory disease (20 sources) Allergic rhinitis; Translations: [Allergic rhinitis, unspecified] Onset: 5 10-19-2014 Chronic Other upper respiratory infections (1 source) Chronic sinusitis; Translations: [Chronic sinusitis, unspecified] 05-29-2024 Chronic Other upper respiratory infections (3 sources) Acute upper respiratory infection; Translations: [Acute upper respiratory infection, unspecified] Episodic Otitis media and related conditions (3 sources) Dysfunction of bilateral eustachian tubes; Translations: [Other specified disorders of Eustachian tube, bilateral] Episodic Residual codes; unclassified (20 sources) Obstructive sleep apnea syndrome; Translations: [Obstructive sleep apnea (adult) (pediatric)] Onset: 7 07-10-2017 Chronic Residual codes; unclassified (1 source) Viral syndrome; Translations: [Other general symptoms and signs] 05-29-2024 Episodic Sprains and strains (18 sources) Glenoid labrum tear; Translations: [Superior glenoid labrum lesion of unspecified shoulder, initial encounter] Onset: 7 Resolved: 7 03-13-2017 Episodic Thyroid disorders (20 sources) Acquired hypothyroidism; Translations: [Hypothyroidism, unspecified] Onset: 9 Chronic Unclassified (1 source) Unknown / UNK(Unknown) Onset: 8 Unclassified (1 source) Obesity, Class III, BMI 40-49.9 (morbid obesity); Translations: [Obesity, Class III, BMI 40-49.9 (morbid obesity)] Onset: 0 Unclassified (1 source) Earache Onset: 11-25-202 4 Urinary tract infections (2 sources) Urinary tract infectious disease; Translations: [Urinary tract infection, site not specified] 08-04-2013 Episodic Viral infection (2 sources) Disease caused by 2019-nCoV; Translations: [COVID-19] Episodic Past or Other Problems Problem Classification Problem Date Documented Date Episodic/Chronic Abdominal pain (17 sources) Unspecified abdominal pain; Translations: [Flank pain] Onset: 02-06-2018 Resolved: 06-10-2018 06-10-2018 Episodic Anxiety disorders (20 sources) Anxiety; Translations: [Anxiety disorder, unspecified] Onset: 06-10-2009 Resolved: 01-03-2017 01-03-2017 Chronic Conditions associated with dizziness or vertigo (16 sources) Benign paroxysmal positional vertigo; Translations: [Benign paroxysmal vertigo, unspecified ear] Onset: 10-22-2012 Resolved: 10-19-2014 10-19-2014 Episodic Contraceptive and procreative management (18 sources) Patient encounter status; Translations: [Encounter for sterilization] Onset: 02-24-2009 Resolved: 01-04-2010 01-04-2010 Episodic Diabetes mellitus without complication (11 sources) Hyperglycemia; Translations: [Hyperglycemia, unspecified] Onset: 05-25-2024 05-25-2024 Episodic Genitourinary symptoms and ill-defined conditions (20 sources) Frequency of micturition; Translations: [Urgency of urination] Onset: 02-06-2018 Resolved: 12-29-2020 12-29-2020 Episodic Mood disorders (16 sources) Depressive disorder; Translations: [Depressive disorder] Onset: 09-26-2011 Resolved: 04-29-2019 04-29-2019 Chronic Mycoses (16 sources) Candidiasis; Translations: [Candidiasis of skin and nail] Onset: 09-26-2015 Resolved: 03-11-2017 03-11-2017 Episodic Other non-traumatic joint disorders (11 sources) Disorder of hip joint; Translations: [Other specified joint disorders, left hip] Onset: 12-29-2020 12-29-2020 Episodic Other non-traumatic joint disorders (17 sources) Arthropathy of left hip joint; Translations: [Other specified joint disorders, left hip] Onset: 12-29-2020 12-29-2020 Episodic Other non-traumatic joint disorders (16 sources) Pain in left shoulder; Translations: [Pain in joint, shoulder region] Onset: 04-26-2017 Resolved: 06-10-2018 06-10-2018 Episodic Other nutritional; endocrine; and metabolic disorders (16 sources) Morbid obesity; Translations: [Morbid (severe) obesity due to excess calories] Onset: 01-04-2010 Resolved: 04-29-2019 04-29-2019 Chronic Residual codes; unclassified (16 sources) History of operative procedure on shoulder; Translations: [Other specified postprocedural states] Onset: 04-26-2017 Resolved: 06-10-2018 06-10-2018 Episodic Residual codes; unclassified (8 sources) Low motivation; Translations: [Other specified personal risk factors, not elsewhere classified] Onset: 05-25-2024 05-25-2024 Episodic Spondylosis; intervertebral disc disorders; other back problems (16 sources) Backache; Translations: [Dorsalgia, unspecified] Onset: 04-08-2017 Resolved: 05-02-2017 05-02-2017 Episodic Results Test Name Value Interpretation Reference Range Facility Gastroenterology Visit Repor ton 09-29-2024 [address] [facility] [address] [place] [address] OFFICE VISIT Date of Service: 09/29/24 MR#: [id number] Acct: [id number] Name: HAIM CHASE Rep #: [id number] : 1980 Provider: GABRIELA Bright Age/Sex: 44/M [place] [facility] [place] Status: Signed Intake Vital Signs 09/15/24 13:45 09/29/24 10:26 Height 6 ft 6 ft Weight: 339 lb BMI 45.9 Intake Visit Reasons: FU Chief Complaint: heartburn Allergies vancomycin Allergy (Verified 09/29/24 10:08) Hives Medications ???Medication ???Instructions ???Recorded ???Confirmed ???Type levothyroxine 200 mcg tablet 88 mcg PO DAILY 08/02/13 09/29/24 History (Synthroid) cetirizine 10 mg tablet 10 mg PO DAILY 11/23/20 09/29/24 H istory liothyronine 50 mcg tablet 25 mcg PO DAILY 07/10/24 09/29/24 History (Cytomel) vonoprazan 10 mg tablet (Voquezna) 10 mg PO QDAY #30 tabs 07/29/24 09/29/24 Rx ondansetron 4 mg disintegrating 4 mg PO Q8H PRN nausea and vomitin g 09/10/24 09/29/24 History tablet colestipol 1 gram tablet 1 g PO QDAY #30 tabs 09/29/2409/20 Rx pantoprazole 40 mg tablet,delayed 40 mg PO BID #90 tabs 09/29/24 Rx release Nurse's Note: Patient is here states he is still having the chest pain, acid reflux, and heartburn. Seems to be happening all of the time. PFSH Medical History Anxiety Alcohol use Thyroid disease Back pain Dietary restriction History of ulceration Gastric reflux CPAP (continuous positive airway pressure) dependence Non-smoker History of pain when walking Chest pain Surgical History Hx of total hip arthroplasty History of cystoscopy Social History Smoking Status: Never smoker HPI HPI Chief Complaint: heartburn Details: HAIM CHASE, is a 44 M who presents to the office today for f/u. [facility]GI established 3.21.25 for burning epigastric pain and nausea. Pt also having two instance of PNA recently. Pain is worse with dairy foods. Drinks alcohol a few times per week but has not since these symptoms started. Recently started OTC PPI twice a day with some relief. Pt does not smoke. He still has his gallbladder. EGD 5 Z-line irregular, 40 cm from the incisors. Biopsied. - Erythematous mucosa in the gastric body. Biopsied. - Erythematous duodenopathy. Biopsied OV 6..25 Pt continues to have daily issues with heartburn. Voquezna has helped intermittently however it is too expensive for him to continue. He has had weight gain since all of this started. He has been on phentermine in the past for weight loss. ROS Const Constitutional: Positive for fatigue and weight change Gastro GI: Positive for abdominal pain, bloating, change in bowel habits, heartburn and nausea/dyspepsia Musc Musculoskeletal: Positive for joint pain, back pain, stiffness and Arthritis Endo Endocrine: Positive for fatigue and weight change Exam Const General: cooperative Nutritional Appearance: overweight Orientation: alert Resp Effort Inspection: normal respiratory effort GI Inspection: normal to inspection Assessment and Plan Assessment and Plan (1) GERD (gastroesophageal reflux disease): Status: Acute Plan: Haim is a 44 yo male pt here today for f/u after EGD. EGD showing reactive changes in the esophagus and stomach. He continues to have daily heartburn while on Voquezna. Will start him on colestipol to bind bile out of his stomach and esophagus. Voquenza has been too expensive so will send in pantoprazole 40 mg BID. Will order gallbladder US and HIDA scan. He has interest in starting weight loss medication however pt already has heartburn and nausea therefor I do not feel GLP-1 will be a good fit for him. he has had good results in the past with phentermine. Will consider prescription for this. -Start Pantoprazole 40 mg BID -Start colestipol 1 gram daily -Gallbladder US and HIDA scan -Consider phentermine Orders: Orders Hepatobilliary Img w/Pharm Int Today K21.9 - Gastro-esophageal reflux disease without esophagitis Gallbladder Today K21.9 - Gastro-esophageal reflux disease without esophagitis Medications: New colestipol 1 g PO ONCE 30 tabs 1RF pantoprazole 40 mg PO BID 90 tabs 1RF colestipol 1 g PO QDAY 30 tabs 1RF Coding Level of Care Code Off vis,est,level 4 Diagnoses GERD (gastroesophageal reflux disease) K21.9 09/29/24 1038 Date Jossie Ann Signature: Date (if applicable) CC: Normal [facility] NARAYANOVon 09-21-2024 CNOV Office Visit (INTMWS ) -- HAIM CHASE ([id number]) 1980 M Date Time Provider Department 09/21/24 4:20 PM JOE FARIA INTMWS During your visit today, we recorded the following information about you: Pulse Respiration Blood pressure Weight 76/minute 18/minute 132/80 149.3 kg Joe Faria MD 09/21/2024 10:50 PM Signed This note was created using AudioBeta. Subjective Haim Chase is a 44 year old male. He was seeing Dr. Tamara Holden for GERD and just had an upper endoscopy. Biopsy results were pending. He was on vonaprazan (Voquezna). He was again interested in phentermine for weight loss. He was on phentermine most of 2023 with no clear weight loss, and diversion of stated benefit to increased energy, focus, and motivation. His focus was fine now. He did not pursue psychiatry referral. He also had subacute cough which was better, and felt to be more from GERD. He did not pursue pulmonary consultation. Review of Systems Constitutional: Negative for unexpected weight change. Respiratory: Negative for shortness of breath. Cardiovascular: Negative for chest pain. Psychiatric/Behavioral: Negative for decreased concentration. ACTIVE PROBLEM LIST Hypothyroidism Allergic Rhinitis Vitamin D Deficiency SHERIN (obstructive sleep apnea) on AutoPAP Mixed Hyperlipidemia Obesity, Class III, BMI >= 40 Other Specified Joint Disorders, Left Hip Lack of Concentration Lack of Motivation Impaired Glucose Metabolism Social History Tobacco Use Smoking status: Never Smokeless tobacco: Never Substance Use Topics Alcohol use: Not Currently Alcohol/week: 2.0 standard drinks of alcohol Types: 2 Shots of liquor per week Drug use: No Current Outpatient Medications Medication Sig levothyroxine (SYNTHROID) 88 mcg tablet Take 1 tablet by mouth daily before breakfast. cetirizine (ZYRTEC) 10 mg tablet Take 1 tablet by mouth once daily. liothyronine (CYTOMEL) 25 mcg tablet Take 1 tablet by mouth once daily. fluticasone (FLONASE) 50 mcg/actuation nasal spray Use 2 Sprays in each nostril once daily. Rinse mouth after use. CPAP Mask Fitting requested (per patient preference, try Dream ricci nasal tube like head gear) optional chin strap (if indicated), filters, tubing / heated tubing, heated humidity and lifetime supplies. Dx. SHERIN G47.33 327.23 CPAP AutoPAP 7-20 cmH2O, suitable mask, humidity, filters. Lifetime supplies. Dx: G47.ee vonoprazan (VOQUEZNA) 10 mg tablet Take 1 tablet by mouth once daily. No current facility-administered medications for this visit. Objective BP 138/86 Pulse 76 Resp 18 Wt (!) 149.3 kg (329 lb 2.4 oz) BMI 46.43 kg/m? Physical Exam Constitutional: General: He is not in acute distress. Appearance: He is not ill-appearing. Cardiovascular: Heart sounds: Normal heart sounds. Pulmonary: Breath sounds: Normal breath sounds. Neurological: Mental Status: He is alert. BP 132/80 (BP Site: Right Arm, BP Position: Sitting) Latest Ref Rng 09/17/2024 Glucose 74 - 99 mg/dL 126 (H) BUN 9 - 24 mg/dL 12 Creatinine 0.73 - 1.22 mg/dL 0.90 Sodium 136 - 144 mmol/L 138 Potassium 3.7 - 5.1 mmol/L 4.6 Chloride 98 - 107 mmol/L 102 CO2 22 - 30 mmol/L 22 Anion Gap 8 - 15 mmol/L 14 Calcium 8.5 - 10.2 mg/dL 9.2 eGFR >=60 mL/min/1.73m? 108 Cholesterol, Total <200 mg/dL 237 (H) Triglyceride <150 mg/dL 185 (H) HDL Cholesterol >39 mg/dL 47 LDL Cholesterol, Calculated <100 mg/dL 156 (H) Non HDL Cholesterol <130 mg/dL 190 (H) VLDL Cholesterol <30 mg/dL 35 (H) TC:HDL Ratio <5.10 5.04 LDL:HDL Ratio <2.54 3.32 (H) Fasting Time hrs 12 Hemoglobin A1C 4.3 - 5.6 % 5.9 (H) Estimated Average Glucose mg/dL 123 Legend: (H) High ASSESSMENT/PLAN: 1. Impaired glucose metabolism - ICD9: 790.29, ICD10: R73.09 (primary diagnosis) Check for diabetes mellitus. If positive, we can try GLP1a. - GLUC DARIA, 2-HR NON-GEST, 75 GM, FASTING 2. Gastroesophageal reflux disease, unspecified whether esophagitis present - ICD9: 530.81, ICD10: K21.9 - Per Dr. Tamara Holden. - VOQUEZNA 10 MG TABLET 3. Elevated blood pressure reading - ICD9: 796.2, ICD10: R03.0 - Encouraged dietary sodium restriction/DASH diet - Recommended regular aerobic exercise. - Recommend home blood pressure monitoring, to bring results in on next visit - Reviewed risks of HTN and principles of treatment - Goal of BP <130/80 4. Obesity, Class III, BMI >= 40 - ICD9: 278.01, ICD10: E66.813 Weight increasing - I do not recommend more appetite suppressant/stimulant due to risks. - If diabetes, confirmed start GLP1 in addition to diet. 5. Mixed hyperlipidemia - ICD9: 272.2, ICD10: E78.2 - Worsening control - Diet only for now. Joe Faria MD Referring Provider: SELF [200] Allergies As of Date: 09/21/2024 Noted Allergy Reaction VANCOMYCIN 02/08/2013 2 - Rash Comments: (more content not included)... Normal [facility] Basic metabolic 2000 panelon 09-17-2024 Anion gap [Moles/Vol] 14 mmol/L Normal 8-15 [facility] Comment on above: Order Comment: Speci men Type: BLOOD SPECIMENOrdering Facility: [facility] Address: [address] [place] [address] Performed By: #### 2 4321-2, 21568-9 ####[facility] LABCLIA [id number] [place] [address] [place] Calcium [Mass/Vol] 9.2 mg/dL Normal 8.5-10.2 [facility] Comment on above: Order Comment: Speci men Type: BLOOD SPECIMENOrdering Facility: [facility] Address: [address] [place] [address] Performed By: #### 2 4321-2, 52379-7 ####[facility]CL[facility] [id number] [place] [address] [place] Chloride [Moles/Vol] 102 mmol/L Normal 98-107 [facility] Comment on above: Order Comment: Speci men Type: BLOOD SPECIMENOrdering Facility: [facility] Address: [address] [place] [address] Performed By: #### 2 4321-2, 53242-0 ####[facility] LABIA [id number] [place] [id number] [place] CO2 [Moles/Vol] 22 mmol/L Normal 22-30 [facility] Comment on above: Order Comment: Speci men Type: BLOOD SPECIMENOrdering Facility: [facility] Address: [address] [place] [address] Performed By: #### 2 4321-2, 36648-1 ####[facility] LABIA [id number] [place] [address] [place] Creatinine [Mass/Vol] 0.90 mg/dL Normal 0.73-1.22 [facility] Comment on above: Order Comment: Speci men Type: BLOOD SPECIMENOrdering Facility: [facility] Address: [address] [place] [address] Performed By: #### 2 4321-2, 33241-9 ####[facility] LABIA [id number] [place] [address] [place] Creatinine and Glomerular filtration rate.predicted panel (S/P/Bld) 108 mL/min/1.73m??? Normal >=60 [facility] Comment on above: Order Comment: Speci men Type: BLOOD SPECIMENOrdering Facility: [facility] Address: [address] [place] [address] Result Comment: Haylie mated Glomerular Filtration Rate (eGFR) is calculated using the 2020 CKD-EPI creatinine equation. This equation utilizes serum creatinine, sex, and age as parameters. The creatinine assay has traceable calibration to isotope dilution-mass spectrometry. Refer to KDIGO guidelines for clinical interpretation. In patients with unstable renal function, e.g. those with acute kidney injury, the eGFR may not accurately reflect actual GFR. Performed By: #### 2 432-2, 15251-9 ####[facility]IA [id number] [place] [address] [place] Glucose [Mass/Vol] 126 mg/dL High 74-99 [facility] Comment on above: Order Comment: Speci men Type: BLOOD SPECIMENOrdering Facility: [facility] Address: [address] [place] [address] Result Comment: The [place] Diabetes Association (ADA) provides guidance for cutoff values for fasting glucose and random glucose. The ADA defines fasting as no caloric intake for at least 8 hours. Fasting plasma glucose results between 100 to 125 mg/dL indicate increased risk for diabetes (prediabetes). Fasting plasma glucose results greater than or equal to 126 mg/dL meet the criteria for diagnosis of diabetes. In the absence of unequivocal hyperglycemia, results should be confirmed by repeat testing. In a patient with classic symptoms of hyperglycemia or hyperglycemic crisis, random plasma glucose results greater than or equal to 200 mg/dL meet the criteria for diagnosis of diabetes. Reference: Standards of Medical Care in Diabetes 2016, [place] Diabetes Association. Diabetes Care. 2016.39(Suppl 1). Performed By: #### 2 432-, 29773-5 ####[facility]IA [id number] [place] [address] [place] Potassium [Moles/Vol] 4.6 mmol/L Normal 3.7-5.1 [facility] Comment on above: Order Comment: Speci men Type: BLOOD SPECIMENOrdering Facility: [facility] Address: [address] [place] [address] Performed By: #### 2 432-2, 32189-7 ####[facility]IA [id number] [place] [address] [place] Sodium [Moles/Vol] 138 mmol/L Normal 136-144 [facility] Comment on above: Order Comment: Speci men Type: BLOOD SPECIMENOrdering Facility: [facility] Address: [address] [place] [address] Performed By: #### 2 4321-2, 35458-2 ####[facility]CL[facility] [id number] [address] [address] [place] Urea nitrogen [Mass/Vol] 12 mg/dL Normal 9-24 [facility] Comment on above: Order Comment: Speci men Type: BLOOD SPECIMENOrdering Facility: [facility] Address: [address] [place] [address] Performed By: #### 2 4321-2, 10883-0 ####[facility]CL[facility] [id number] [address] [place] [address] [place] HbA1c (Bld)on 09-17-2024 Average glucose Estimated from glycated hemoglobin (Bld) [Mass/Vol] 123 mg/dL Normal [facility] Comment on above: Order Comment: [facility] Type: BLOOD SPECIMENOrdering Facility: [facility] Address: [address] [place] [address] Result Comment: eAG: (Estimated average glucose) is a calculated value from HgbA1c and is public service representative of the average blood glucose level in the last 2-3 month period. Performed By: #### 5 5454-3 ####[facility] [id number] [address] [address] [place] [facility] HbA1c (Bld) [Mass fraction] 5.9 % High 4.3-5.6 [facility] Comment on above: Order Comment: Speci [facility] Type: BLOOD SPECIMENOrdering Facility: [facility] Address: [address] [place] [address] Result Comment: Amer [place] Diabetes Association guidelines indicate that patients with HgbA1c in the range 5.7-6.4% are at increased risk for development of diabetes, and intervention by lifestyle modification may be beneficial. HgbA1c greater or equal to 6.5% is considered diagnostic of diabetes. Performed By: #### 5 5454-3 ####[facility] [id number] [address] [place] [address] [place] Lipid 1996 panelon 05-29-202 5 Cholesterol [Mass/Vol] 237 mg/dL High <200 [facility] Comment on above: Order Comment: Speci men Type: BLOOD SPECIMENOrdering Facility: [facility] Address: [address] [place] [address] Result Comment: <200 mg/dL, Desirable 200-239 mg/dL, Borderline high >239 mg/dL, High Performed By: #### 2 4321-2, 29096-1 ####[facility] [id number] [address], [facility] Cholesterol in HDL [Mass/Vol] 47 mg/dL Normal >39 [facility] Comment on above: Order Comment: Speci men Type: BLOOD SPECIMENOrdering Facility: [facility] Address: [address] [place] [address] Result Comment: 40-5 9 mg/dL, Acceptable >59 mg/dL, High: Negative risk factor for coronary heart disease <40 mg/dL, Low: Positive risk factor for coronary heart disease Performed By: #### 2 4321-2, 98707-2 ####[facility] [id number] [address], [address] [place] [facility] Cholesterol in LDL [Mass/Vol] 156 mg/dL High <100 [facility] Comment on above: Order Comment: Speci men Type: BLOOD SPECIMENOrdering Facility: [facility] Address: [address] [place] [address] Result Comment: <100 mg/dL, Optimal 100-129 mg/dL, Near optimal/above optimal 130-159 mg/dL, Borderline high 160-189 mg/dL, High >189 mg/dL, Very high Secondary prevention optimal LDL Cholesterol levels are recommended to be <70 mg/dL LDL cholesterol is calculated using the Foster-NIH equation. Performed By: #### 2 4321-2, 33911-0 ####[facility]CL[facility] [id number] [facility] [address] [place] [address] [place] Cholesterol in LDL/Cholesterol in HDL [Mass ratio] 3.32 {ratio} High <2.54 [facility] Comment on above: Order Comment: Speci men Type: BLOOD SPECIMENOrdering Facility: [facility] Address: [address] [place] [address] Result Comment: Yazan godoy: 1. National Cholesterol Education Program ATP III Guideline At-A-Glance Quick Desk Reference: National Heart, Lung, and Blood [place]. National Institutes of Health. 2001: NIH Publication No. 01-3305. 2. An International Atherosclerosis Society position paper: global recommendations for the management of dyslipidemia: executive summary, Atherosclerosis. 2014: 232(2):410-413. Performed By: #### 2 4321-2, 33686-2 ####[facility] [id number] [place] [address] [place] Cholesterol in VLDL [Mass/Vol] 35 mg/dL High <30 [facility] Comment on above: Order Comment: Speci men Type: BLOOD SPECIMENOrdering Facility: [facility] Address: [address] [place] [address] Performed By: #### 2 432-2, 52984-0 ####[facility]CL[facility] [id number] [place] [address] [place] Cholesterol non HDL [Mass/Vol] 190 mg/dL High <130 [facility] Comment on above: Order Comment: Vaughni zach Type: BLOOD SPECIMENOrdering Facility: [facility] Address: [address] [place] [address] Result Comment: <130 mg/dL, Optimal 130-159 mg/dL, Near optimal/above optimal 160-189 mg/dL, Borderline high 190-219 mg/dL, High >219 mg/dL, Very high Secondary prevention optimal non HDL Cholesterol levels are recommended to be <100 mg/dL Performed By: #### 2 4321-2, 15502-0 ####[facility]CL[facility] [id number] [address] [address] [place] Cholesterol.total/Chol esterol in HDL [Mass ratio] 5.04 {ratio} Normal <5.10 [facility] Comment on above: Order Comment: Speci men Type: BLOOD SPECIMENOrdering Facility: [facility] Address: [address] [place], [place] [address] Performed By: #### 2 4321-2, 70422-5 ####[facility]CL[facility] [id number] [address] [address] [place] FASTING TIME 12 hrs Normal [facility] Comment on above: Order Comment: Speci men Type: BLOOD SPECIMENOrdering Facility: [facility] Address: [address] [place], [place] [address] Performed By: #### 2 4321-2, 79222-1 ####[facility]CL[facility] [id number] [address] [address] [place] Triglyceride [Mass/Vol] 185 mg/dL High <150 [facility] Comment on above: Order Comment: Speci men Type: BLOOD SPECIMENOrdering Facility: [facility] Address: [address] [place], [place] [address] Result Comment: <150 mg/dL, Normal 150-199 mg/dL, Borderline high 200-499 mg/dL, High >499 mg/dL, Very high Performed By: #### 2 4321-2, 96154-1 ####[facility]CL[facility] [id number] [address] [address] [place] EGD Reporton 09-15-2024 EGD Report [facility] Medical Records Department [address] [place] [address] EGD Report MR#: [id number] Acct: [id number] Name: HAIM CHASE Rep #: [id number] : 1980 44 From: Santiago Holden DO PCP: Dr. Joe Faria MD Status:[facility] Patient Name: Haim Chase Procedure Date: 09/15/2024 2:27 PM Date of : 1980 Age: 44 Procedure: Upper GI endoscopy Indications: Epigastric abdominal pain, Heartburn Providers: Santiago Holden DO Referring MD: Joe Faria Medicines: Monitored Anesthesia Care Patient Profile: This is a 44 year old male. Refer to note in patient chart for documentation of history and physical. Patient has symptoms of chronic dyspepsia, chronic heartburn and chronic nausea. Complications: No immediate complications. Procedure: Pre-Anesthesia Assessment: - Prior to the procedure, a History and Physical was performed, and patient medications and allergies were reviewed. The patient is competent. The risks and benefits of the procedure and the sedation options and risks were discussed with the patient. All questions were answered and informed consent was obtained. Patient identification and proposed procedure were verified by the physician in the pre-procedure area. Mental Status Examination: alert and oriented. Airway Examination: normal oropharyngeal airway and neck mobility. Respiratory Examination: clear to auscultation. CV Examination: normal. Prophylactic Antibiotics: The patient does not require prophylactic antibiotics. Prior Anticoagulants: The patient has taken no anticoagulant or antiplatelet agents. ASA Grade Assessment: II - A patient with mild systemic disease. After reviewing the risks and benefits, the patient was deemed in satisfactory condition to undergo the procedure. The anesthesia plan was to use monitored anesthesia care (MAC). Immediately prior to administration of medications, the patient was re-assessed for adequacy to receive sedatives. The heart rate, respiratory rate, oxygen saturations, blood pressure, adequacy of pulmonary ventilation, and response to care were monitored throughout the procedure. The physical status of the patient was re-assessed after the procedure. After obtaining informed consent, the endoscope was passed under direct vision. Throughout the procedure, the patient's blood pressure, pulse, and oxygen saturations were monitored continuously. The Endoscope was introduced through the mouth, and advanced to the third part of the duodenum. Small bowel enteroscopy was deemed necessary. The upper GI endoscopy was accomplished without difficulty. The patient tolerated the procedure well. Scope In: 2:36:12 PM Scope Out: 2:41:46 PM Total Procedure Duration Time 0 hours 5 minutes 34 seconds Findings: The Z-line was irregular and was found 40 cm from the incisors. Biopsies were taken with a cold forceps for histology. Verification of patient identification for the specimen was done. Estimated blood loss was minimal. Patchy mildly erythematous mucosa without bleeding was found in the gastric body. Biopsies were taken with a cold forceps for histology. Verification of patient identification for the specimen was done. Estimated blood loss was minimal. Biopsies were taken with a cold forceps for Helicobacter pylori testing. Verification of patient identification for the specimen was done. Estimated blood loss was minimal. Patchy mildly erythematous mucosa without active bleeding and with no stigmata of bleeding was found in the first portion of the duodenum. Biopsies were taken with a cold forceps for histology. Impression: - Z-line irregular, 40 cm from the incisors. Biopsied. - Erythematous mucosa in the gastric body. Biopsied. - Erythematous duodenopathy. Biopsied. Recommendation: - Await pathology results. - Continue present medications. Procedure Code(s): --- Professional --- 33640, Small intestinal endoscopy, enteroscopy beyond second portion of duodenum, not including ileum; with biopsy, single or multiple CPT copyright 2021 [place] [employer]. All rights reserved. The codes documented in this report are preliminary and upon wood carver hand review may be revised to meet current compliance requirements. Santiago Holden DO 09/15/2024 2:56:20 PM This report has been signed electronically. Number of Addenda: 0 Note Initiated On: 09/15/2024 2:27 PM 09/15/24 1456 Date Santiago Holden DO Cosigner Signature: Date (if indicated) CC: Dr. Joe Faria MD; Santiago Holden DO Date Dictated: 09/15/24 1427 Date Transcribed: Metal Fabricator: LANDON Signed [facility] Immunohistochemical Stainson 09-15-2024 Immunohistochemical Stains Patient Age/Sex Location Account Attending Physician HAIM CHASE 44/M EN [id number] Santiago Holden DO Specimen: [id number] Received: 09/15/24 Status: MARIVEL Aguayo Num: [id number] Spec Type: EGD BIOPSY Subm Dr: Santiago Holden DO HEADER OPERATION: EGD with biopsy PRE-OP DIAGNOSIS: GERD TISSUE SUBMITTED: A- Distal esophagus biopsy, B- Duodenum biopsy, C- Gastric body biopsy MICROSCOPIC DIAGNOSIS A. Esophagus, distal, biopsy: Squamous mucosa with reactive changes. Columnar mucosa, negative for goblet cell metaplasia. B. Small bowel, duodenum, biopsy: Normal villous architecture with no specific pathologic change. Negative for increased intraepithelial lymphocytes. C. Stomach, gastric body, biopsy: Oxyntic mucosa with features of reactive gastropathy. IHC negative for H.pylori organisms. MICROSCOPIC DESCRIPTION Slides are reviewed. All matched controls reacted appropriately. These tests were developed and their performance characteristics determined by [facility]. They may not have been cleared or approved by the U.S. Food and Drug Administration. The FDA has determined that such clearance or approval is not necessary. The above immunohistochemical/dualIS H markers are ordered and reviewed by the Pathologist. GROSS DESCRIPTION A. Received in formalin in a container labeled with the patient's name, date of , and distal esophagus biopsy are 3 holden-pink strips of mucosal tissue ranging from 0.4 x 0.3 x 0.2 cm to 0.8 x 0.2 x 0.2 cm. Submitted in toto in A1. B. Received in formalin in a container labeled with the patient's name, date of , and duodenum biopsy are multiple holden-pink fragments of mucosal tissue measuring 1.2 x 0.5 x 0.2 cm in aggregate. Submitted in toto in B1. C. Received in formalin in a container labeled with the patient's name, date of , and gastric body biopsy for H. pylori and path are 2 holden-pink fragments of mucosal tissue measuring 0.3 x 0.3 x 0.2 cm and 0.5 x 0.2 x 0.2 cm. Submitted in toto in C1. [facility] 09-16-2024 [facility] HOSPITAL:[id number] Patient Age/Sex Location Account Attending Physician HAIM CHASE/Mariya EN [id number] Santiago Holden DO Signed (signature on file) Dr. Areli Cosby MD 09/21/24 1211 Normal [facility] Comment on above: Performed By: #### P [facility] #### [facility] Laboratory [address] [place], [address] MR/POSTOP.ANE 09-15-2024 MR/POSTOP.[facility] Medical Records Department [address] [place] [address] Anesthesia Postop Eval I 09/15/24 1453 MR#: [id number] Acct: [id number] Name: HAIM CHASE Rep #: [id number] : 1980 44 From: Alex Jensen PCP: Dr. Joe Faria MD Status:REG [facility] Y Race: C Location: [place] [address] Anesthesia: Postop Eval I Current Vital Signs Temperature: 98.5 F Pulse Rate: 79 Blood Pressure: 119/73 Respiratory Rate: 16 Pulse Ox: 97 Oxygen Delivery Method: Room Air Assessment Airway patent: Yes Spontaneous unlabored respirations: Yes Mental status: Asleep nausea: No Vomiting: No Anesthesia Complication: No Fluid Hydration Crystalloid volume administer (ml): 500 Total IV fluid infused: 500 Progress Note Anesthesia document: Postop Eval 1 completed: Yes 09/15/241455 Date Alex Ann Signature: Date CC: Signed Normal [facility] MR/[id number] 09-15-2024 MR/POSTOPAN2 [facility] Medical Records Department [address] [place] [address] Anesthesia Postop Eval II 09/15/242041 MR#: [id number] Acct: [id number] Name: HAIM CHASE Rep #: [id number] : 1980 44 From: Hill Mast MD PCP: Dr. Joe Faria MD Status:[facility] Y Race: C Location: EN Anesthesia Postop Eval I Sum Postop Eval Completion status Anesthesia document: Postop Eval 1 completed: Yes Anesthesia Postop Eval I Summary Anesthesia Postop Eval I Summary: Anesthesia Postop Eval I: Assessment Summary Airway patent Yes 09/15/24 14:56 [email or web address] Spontaneous unlabored Yes 09/15/24 14:56 [email or web address] respirations Mental status Asleep 09/15/24 14:56 [email or web address] nausea No 09/15/24 14:56 [email or web address] Vomiting No 09/15/24 14:56 [email or web address] Anesthesia Postop Eval I: Fluid Summary Crystalloid volume administer 500 09/15/24 14:56 [email or web address] (ml) Colloids volume administered ( ml) Blood Product volume administered (ml) Total IV fluid infused 500 09/15/24 14:56 [email or web address] Anesthesia Postop Eval I: Summary Notes Anesthesia Complication No 09/15/24 14:56 [email or web address] Anesthesia Complication Comment: Post-operative progress note Anesthesia: Postop Eval II Evaluation Mental status: Awake and Calm Pain Level: 0 nausea: No Vomiting: No Complications Anesthesia Complication: No 09/15/242042 Date Hill Mast MD Cosigner Signature: Date CC: Signed Normal [facility] Gastroenterology Visit Repor anen 07-10-[address] [facility] [address] [place] [address] OFFICE VISIT Date of Service: 07/10/24 MR#: [id number] Acct: [id number] Name: HAIM CHASE Rep #: [id number] : 1980 Provider: GABRIELA Bright Age/Sex: 44/M [place] [facility] [place] Status: Signed Intake Vital Signs 06/24/24 13:51 Height 5 ft 11 in Intake Visit Reasons: Gastroesophageal reflux disease (GERD) Chief Complaint: heartburn Allergies vancomycin Allergy (Verified 06/24/24 13:53) Hives Have you fallen in the past year?: No Nurse's Note: OV 07.10.24 Pt here to establish care with [facility]. Pt reports GERD symptoms, nausea,and upper abdominal pain. No prior hx of EGD or colonoscopy. Pt states he started taking omeprazole OTC and find it a little helpful. [facility] Social History Smoking Status: Never smoker HPI HPI Chief Complaint: heartburn Details: HAIM CHASE, is a 44 M who presents to the office today for establishment with [facility]. Over the past 2 months pt has been having burning epigastric pain and nausea. He notes he has also had two occurrences of PNA. His PCP recommended pulmonology for his symptoms but he thinks it is GI in nature. His pain is constant and worse with fatty foods. He is having nausea but had not vomited yet. He does not smoke. Endorses drinking alcohol 3-4 timer per week but since this has started he has not drank. He has had a lot of stress and anxiety lately with work and he feels this may be a apart of it. He has started OTC omeprazole twice a day and noticed some benefit. He is avoiding certain foods that he finds triggering. He still has his gallbladder. ROS Const Constitutional: Positive for fatigue; No fever(s) or weight change ENT ENT: No difficulty swallowing Gastro GI: Positive for abdominal pain, bloating, heartburn, excessive flatus and nausea/dyspepsia; No belching, change in bowel habits, change in stool character, coffee ground emesis, constipation, cramping, diarrhea, difficulty swallowing, feeling full early, incontinent of stools, Vomiting blood/hematemesis, Blood in stool, loose stools, Black,tarry stools, pain with swallowing, vomiting or other Musc Musculoskeletal: Positive for joint pain, back pain, stiffness and Arthritis Skin Skin: No yellowing of the eye or itchy eyes Psych Psychiatric: Positive for anxiety and No depression Endo Endocrine: Positive for fatigue; No weight change Aller/Imm Allergy/Immunologic: No itchy eyes Jake/Lymp Hematologic/Lymphatic: No easy bleeding or easy bruising Exam Const General: cooperative and comfortable Nutritional Appearance: average body habitus and well nourished HENMT Head: normal to inspection Ears: hearing grossly normal bilaterally Nose: external nose normal Face and sinus: normal facial exam Eyes General: appearance normal, both eyes and all related structures Neck Neck: normal visual inspection Chest Chest palpation inspection: normal inspection of the chest and normal palpation of entire chest wall Resp Effort Inspection: normal respiratory effort Auscultation: Bilateral: Clear to Auscultation Cardio Palpation: normal PMI Rate: regular rate Rhythm: regular rhythm GI Inspection: normal to inspection Auscultation: normal bowel sounds Percussion: normal to percussion Palpation: no hepatosplenomegaly Skin General: no rashes or lesions noted Neuro General: patient alert Extrem General: normal to inspection Psych Affect: normal affect Assessment and Plan Assessment and Plan (1) Gastroesophageal reflux disease: Plan: This is a 44 yo male pt here today for evaluation of epigastric pain and heartburn for 2 months. Pt has not had heartburn like this before. He endorses having a lot of stress in his life at this time. OTC omeprazole has been somewhat helpful. I will prescribe Pantoprazole 40 mg BID. I advised he take this 30 minutes before he eat. I also sent in famotidine 20 mg for him to take if he has breakthrough heartburn. He will be scheduled for an ED to assess his upper GI tract. If his symptoms continue will consider prescribing Voquenza. He is agreeable to plan and will f/u after procedure. -EGD -Pantoprazole 40 mg BID -Famotidine PRN -Consider Voquezna -f/u after procedure Medications: New pantoprazole 40 mg PO QDAY 60 tabs 2RF famotidine 20 mg PO QDAY 30 tabs 1RF Discontinued oxycodone-acetaminophen 5-325 mg Discontinued Reason: Pt no longer taking 1 - 2 tabs PO Q6H PRN PRN 20 tabs Pain ondansetron (Zofran ODT) Discontinued Reason: Pt no longer taking 8 mg PO Q8H PRN PRN #10 Nausea naproxen Discontinued Reason: Pt no longer taking 500 mg PO BID PRN PRN 20 tabs Pain phenazopyridine Discontinued Reason: Pt no longer taking 20 (more content not included)... Normal [facility] CNOVon 07-01-2024 CNOV Office Visit (INTMWS ) -- HAIM CHASE ([id number]) 1980 M Date Time Provider Department 07/01/24 4:00 PM JOE FARIA INTMWS During your visit today, we recorded the following information about you: Temperature Pulse Blood pressure 98.7 degrees 80/minute 124/80 Joe Faria MD 07/01/2024 11:17 PM Signed This note was created using CellARideriter. Subjective Patient presents with: ER F/U Haim Chase is a 44 year old male. He was in the ER 06/24/24 for chest pain and bronchitis. Work up for acute coronary syndrome and pulmonary embolism were negative (including labs and CTA of the chest). He continued with cough, productive at times, with some dyspnea and chest tightness. He started using his 's albuterol nebulizer with only slight improvement. He's had recurrent respiratory illness in the past 3 months, having been treated for upper respiratory infection, otitis media, flu, sinobronchitis. Review of Systems Constitutional: Negative for chills, diaphoresis and fever. HENT: Negative for congestion, sore throat and trouble swallowing. Respiratory: Positive for cough, chest tightness and shortness of breath. Cardiovascular: Negative for palpitations and leg swelling. Gastrointestinal: Negative for abdominal pain, constipation and diarrhea. Genitourinary: Negative for difficulty urinating. Neurological: Negative for dizziness and headaches. ACTIVE PROBLEM LIST Hypothyroidism Allergic Rhinitis Vitamin D Deficiency SHERIN (obstructive sleep apnea) on AutoPAP Mixed Hyperlipidemia Obesity, Class III, BMI >= 40 Other Specified Joint Disorders, Left Hip Lack of Concentration Lack of Motivation Impaired Glucose Metabolism Social History Tobacco Use Smoking status: Never Smokeless tobacco: Never Substance Use Topics Alcohol use: Not Currently Alcohol/week: 2.0 standard drinks of alcohol Types: 2 Shots of liquor per week Drug use: No Current Outpatient Medications Medication Sig cetirizine (ZYRTEC) 10 mg tablet Take 1 tablet by mouth once daily. liothyronine (CYTOMEL) 25 mcg tablet Take 1 tablet by mouth once daily. fluticasone (FLONASE) 50 mcg/actuation nasal spray Use 2 Sprays in each nostril once daily. Rinse mouth after use. CPAP Mask Fitting requested (per patient preference, try Dream ricci nasal tube like head gear) optional chin strap (if indicated), filters, tubing / heated tubing, heated humidity and lifetime supplies. Dx. SHERIN G47.33 327.23 CPAP AutoPAP 7-20 cmH2O, suitable mask, humidity, filters. Lifetime supplies. Dx: G47.ee levothyroxine (SYNTHROID) 88 mcg tablet Take 1 tablet by mouth daily before breakfast. predniSONE (DELTASONE) 20 mg tablet Take 1 tablet by mouth once daily for 5 days. No current facility-administered medications for this visit. Objective BP 124/80 (BP Site: Left Arm, BP Position: Sitting, BP Cuff Size: Large Adult) Pulse 80 Temp 37.1 ?C (98.7 ?F) (Temporal) SpO2 99% Physical Exam Constitutional: General: He is not in acute distress. Appearance: He is not ill-appearing or diaphoretic. HENT: Right Ear: Tympanic membrane normal. Nose: No congestion or rhinorrhea. Mouth/Throat: Mouth: Mucous membranes are moist. Pharynx: Oropharynx is clear. Cardiovascular: Rate and Rhythm: Normal rate and regular rhythm. Pulmonary: Effort: Pulmonary effort is normal. Breath sounds: Normal breath sounds. No wheezing or rales. Musculoskeletal: Right lower leg: No edema. Left lower leg: No edema. Lymphadenopathy: Cervical: No cervical adenopathy. Neurological: Mental Status: He is alert. Assessment and Plan 1. Subacute cough - ICD9: 786.2, ICD10: R05.2 (primary diagnosis) Etiology not clear. - CONSULT TO PULMONARY MEDICINE - SPIROMETRY - BASELINE AND POST DILATOR - LUNG VOLUMES - PREDNISONE 20 MG TABLET 2. Acquired hypothyroidism - ICD9: 244.9, ICD10: E03.9 - continue current dose of Synthroid. - LEVOTHYROXINE 88 MCG TABLET 3. SHERIN (obstructive sleep apnea) on AutoPAP - ICD9: 327.23, ICD10: G47.33 - He was using and benefiting from regular CPAP use. Joe Faria MD Allergies As of Date: 07/01/2024 Noted Allergy Reaction VANCOMYCIN 02/08/2013 2 - Rash Comments: Red man syndrome Date Reviewed: 07/01/2024 Reviewed by: Myesha Mansfield LPN - Fully Assessed Reason for Visit: ER F/U [41] Primary Visit Diagnosis:Subacute cough [R05.2] Other Visit Diagnoses:Acquired hypothyroidism [E03.9] SHERIN (obstructive sleep apnea) on AutoPAP [G47.33] Order(s):levothyroxine (SYNTHROID) 88 mcg tabletTake 1 tablet by mouth daily before breakfast.Disp: 90 tabletRfl: 1 CONSULT TO PULMONARY MEDICINE [5672017] Order #: [id number]: 1 SPIROMETRY - BASELINE AND POST DILATOR [4994025] Order #: [id number]: 1 FUTURE LUNG VOLUMES [6681517] Order #: [id number]: 1 FUTURE predniSONE (more content not included)... Normal [facility] Absolute lymphocyte countOrd ered By: Jose Alvarado on 06-24-2024 Lymphocytes Auto (Unsp spec) [#/Vol] 2.25 10*3/uL 0.83-4.51 [facility] Absolute neutrophil countOrd ered By: Jose Alvarado on 06-24-2024 Neutrophils (Bld) [#/Vol] 3.4 10*3/uL 2.0-7.7 [facility] Anion gap in Serum or Plasma Ordered By: Jose Alvarado on 06-24-2024 Anion gap [Moles/Vol] 13 mmol/L 5-15 [facility] Automated lymphocyte count a s percentage of total leukocytesOrdered By: Jose Alvarado on 06-24-2024 Lymphocytes/100 WBC Auto (Unsp spec) 34.5 % - [facility] BUN/creatinine ratioOrdered By: Jose Alvarado on 06-24-2024 Urea nitrogen/Creatinine [Mass ratio] 11.1 mg/mg 10- [facility] Basic Metabolic Profile (BMP )on 06-24-2024 BUN/CRE 11.1 RATIO Normal - [facility] Comment on above: Performed By: #### L 500.2500, L100.0100 #### [facility] Laboratory [address] [place], [address] Calcium [Mass/Vol] 9.4 mg/dL Normal 7.6-11.0 [facility] Comment on above: Performed By: #### L 500.2500, L100.0100 #### [facility] [address] [place], [address] Chloride [Moles/Vol] 104 mmol/L Normal 98-108 [facility] Comment on above: Performed By: #### L 500.2500, L100.0100 #### [facility] [address] [place], [address] CO2 [Moles/Vol] 22.2 mmol/L Normal 21.0-32.0 [facility] Comment on above: Performed By: #### L 500.2500, L100.0100 #### [facility] [address] [place], [address] Creatinine [Mass/Vol] 1.19 mg/dL Normal 0.70-1.20 [facility] Comment on above: Performed By: #### L 500.2500, L100.0100 #### [facility] [address] [place], [address] ECRCL 113.64 ml/min Normal 50-250 [facility] Comment on above: Performed By: #### L 500.2500, L100.0100 #### [facility] [address] [place], [address] GAP 13 Normal 5-15 [facility] Comment on above: Performed By: #### L 500.2500, L100.0100 #### [facility] [address] [place], [address] GFR/1.73 sq M.predicted among non-blacks MDRD (S/P/Bld) [Vol rate/Area] 77 mL/min/{1.73_m2} Normal >60 [facility] Comment on above: Result Comment: mL/m in/1.73m2 CKD-EPI Creatinine Equation (2020) Performed By: #### L 500.2500, L100.0100 #### [facility] [address] [place], [address] Glucose [Mass/Vol] 108 mg/dL High 70-99 [facility] Comment on above: Performed By: #### L 500.2500, L100.0100 #### [facility] [address] [place], [address] Potassium [Moles/Vol] 3.7 mmol/L Normal 3.3-5.1 [facility] Comment on above: Performed By: #### L 500.2500, L100.0100 #### [facility] [address] [place], [address] Sodium [Moles/Vol] 139 mmol/L Normal 133-145 [facility] Comment on above: Performed By: #### L 500.2500, L100.0100 #### [facility] [address] [place], [address] Urea nitrogen [Mass/Vol] 13 mg/dL Normal 4-19 [facility] Comment on above: Performed By: #### L 500.2500, L100.0100 #### [facility] [address] [place], [address] Basophil percentageOrdered B y: Jose Alvarado on 06-24-2024 Basophils/100 WBC (Bld) 1.8 % High 0-1 [facility] CBC W/Diff, Automatedon Absolute Lymph 2.25 X10 3/uL Normal 0.83-4.51 [facility] Comment on above: Performed By: #### L 500.2500, L100.0100 #### [facility] [address] [place], [address] Absolute Neut 3.4 X10 3/uL Normal 2.0-7.7 [facility] Comment on above: Performed By: #### L 500.2500, L100.0100 #### [facility] [address] [place], [address] Basophils/100 WBC (Bld) 1.8 % High 0-1 [facility] Comment on above: Performed By: #### L 500.2500, L100.0100 #### [facility] [address] [place], [address] Eosinophils/100 WBC (Bld) 1.8 % Normal 0-5 [facility] Comment on above: Performed By: #### L 500.2500, L100.0100 #### [facility] [address] [place], [address] Erythrocyte distribution width (RBC) [Ratio] 12.4 % Normal 11.6-14.6 [facility] Comment on above: Performed By: #### L 500.2500, L100.0100 #### [facility] [address] [place], [address] Hematocrit (Bld) [Volume fraction] 42.9 % Normal 40-54 [facility] Comment on above: Performed By: #### L 500.2500, L100.0100 #### [facility] [address] [place], [address] Hemoglobin (Bld) [Mass/Vol] 15.4 g/dL Normal 13.0-16.5 [facility] Comment on above: Performed By: #### L 500.2500, L100.0100 #### [facility] [address] [place], [address] IG% 0.300 Normal 0.0-0.9 [facility] Comment on above: Result Comment: IG% - Immature Granulocytes (promyelocytes, myelocytes and metamyelocytes) > 1% indicates that a LEFT SHIFT is Present. Performed By: #### L 500.2500, L100.0100 #### [facility] [address] [place], [address] Lymphocytes/100 WBC (Bld) 34.5 % Normal 19-41 [facility] Comment on above: Performed By: #### L 500.2500, L100.0100 #### [facility] [address] [place], [address] MCH (RBC) [Entitic mass] 31.0 pg Normal 27.0-32.0 [facility] Comment on above: Performed By: #### L 500.2500, L100.0100 #### [facility] [address] [place], [address] MCHC (RBC) [Mass/Vol] 35.9 g/dL Normal 32-36 [facility] Comment on above: Performed By: #### L 500.2500, L100.0100 #### [facility] [address] [place], [address] MCV (RBC) [Entitic vol] 86.5 fL Normal 80-94 [facility] Comment on above: Performed By: #### L 500.2500, L100.0100 #### [facility] [address] [place], [address] Monocytes/100 WBC (Bld) 10.1 % High 0-10 [facility] Comment on above: Performed By: #### L 500.2500, L100.0100 #### [facility] [address] [place], [address] Neutrophils/100 WBC (Bld) 51.5 % Normal 47-70 [facility] Comment on above: Performed By: #### L 500.2500, L100.0100 #### [facility] [address] [place], [address] Nucleated RBC (Bld) [#/Vol] 0 10*3/uL Normal 0-5 [facility] Comment on above: Performed By: #### L 500.2500, L100.0100 #### [facility] [address] [place], [address] Platelet mean volume (Bld) [Entitic vol] 10.1 fL Normal 6.2-12.0 [facility] Comment on above: Performed By: #### L 500.2500, L100.0100 #### [facility] [address] [place], [address] Platelets (Bld) [#/Vol] 236 10*3/uL Normal 150-450 [facility] Comment on above: Performed By: #### L 500.2500, L100.0100 #### [facility] [address] [place], [address] RBC (Bld) [#/Vol] 4.96 10*6/uL Normal 4.6-6.2 [facility] Comment on above: Performed By: #### L 500.2500, L100.0100 #### [facility] [address] [place], [address] RDW SD 38.4 fl Normal 35.1-43.9 [facility] Comment on above: Performed By: #### L 500.2500, L100.0100 #### [facility] [address] [place], [address] WBC (Bld) [#/Vol] 6.5 10*3/uL Normal 4.4-11.0 [facility] Comment on above: Performed By: #### L 500.2500, L100.0100 #### [facility] [address] [place], [address] CTA Chest W/WO Contraston CTA Chest W/WO Contrast [facility] Imaging Services [address] [facility] [place] [address] CTA Chest W/WO Contrast MR#: [id number] Acct: [id number] Name: HAIM CHASE Rep #: [id number] : 1980 M 44 From: Federico Hernandez MD PCP: Dr. Joe Faria MD Status: REG ER Study: CTA Chest W/WO Contrast Date of Exam: 06/24/24 Exam# [id number] Ordering Dr: Jose Alvarado DO PROCEDURE: CTA CHEST W/ CONTRAST REASON FOR EXAM: Dyspnea, chest pain TECHNIQUE: CTA chest was performed following the administration of IV contrast. MIP reconstructions were generated. CONTRAST: 100 mL Isovue-300 COMPARISON: Radiographs of same date. No prior CT or CTA is available. FINDINGS: Although opacification of the main and central right/left pulmonary arteries is adequate, segmental/subsegmental branches is slightly suboptimally opacified, mildly limiting sensitivity for peripheral pulmonary embolism. Heart/pericardium: Unremarkable. Aorta: Unremarkable. Pulmonary arteries: Normal in caliber. No central or definite pulmonary embolism identified. Lymph nodes: Unremarkable. Lungs/pleura: No focal consolidation. 5 mm subpleural posterior superior segment right lower lobe nodule versus nodular appearance of the tendon atelectasis (series 2, image 118). Airways: Unremarkable. Chest wall: Gynecomastia. Upper abdomen: Grossly unremarkable. Musculoskeletal: Multilevel spondylosis. CT/CTA Chest W/WO Contrast IMPRESSION: 1. No central/definite pulmonary embolism or other acute abnormality identified. 2. 5 mm right lower lobe nodule versus nodular appearance of dependent atelectasis, statistically benign and requiring no specific follow-up in a low risk patient. Otherwise, recommend follow-up CT chest in one year per the Fleischner society recommendations for pulmonary nodule follow-up, presuming no history of malignancy or known immunosuppression. 3. Additional description as above. Reading Location: [id number] CC: Dr. Jose Alvarado DO; Dr. Joe Faria MD Metal Fabricator: Signed Normal [facility] Carbon dioxide, total [Moles /volume] in Central venous bloodOrdered By: Jose Alvarado on 06-24-2024 CO2 [Moles/Vol] 22.2 mmol/L 21.0-32.0 [facility] Chest PA and Lateralon 06-24 Chest PA and Lateral [facility] Imaging Services [address] [place] [id number] Chest PA and Lateral MR#: [id number] Acct: [id number] Name: HAIM CHASE Rep #: [id number] : 1980 M 44 From: Jorge joshua MD PCP: Dr. Joe Faria MD Status: PRE ER Study: Chest PA and Lateral Date of Exam: 06/24/24 Exam# [id number] Ordering Dr: Provider,Ed P. PROCEDURE: CHEST PA AND LATERAL REASON FOR EXAM: Chest pain. TECHNIQUE: Frontal and lateral views of the chest. COMPARISON: None. FINDINGS: The heart is nonenlarged. The lungs are clear. Degenerative changes of the thoracic vertebrae. RAD/Chest PA and Lateral IMPRESSION: No acute abnormality is seen. Reading Location: [id number] CC: Dr. Joe Faria MD; ED PHYSICIAN PROVIDER Metal Fabricator: Signed Normal [facility] Chloride assayOrdered By: Derek Alvarado on 06-24-2024 Chloride [Moles/Vol] 104 mmol/L 98-108 [facility] Emergency Department Summary on 06-24-2024 Emergency Department Summary [facility] Medical Records Department [address] [place] [address] Emergency Department Summary 06/24/24 MR#: [id number] Acct: [id number] Name: HAIM CHASE Rep #: [id number] : 1980 44 From: Jose Maharaj PCP: Dr. Joe Faria MD Status:DEP ER Location: ED HPI History of Present Illness Chief Complaint: Shortness of Breath Informant: patient and spouse/S.O. Narrative Narrative: Presents here with spouse worsening dyspnea dry cough pain with deep breath in his chest. States he feels hot. Patient's been feeling ill since April. Had multiple healthcare visits, spouse had influenza at that time he states he tested negative [facility] urgent care diagnosed with clinical pneumonia was placed on doxycycline. He states he was feeling better. Today symptoms returned. Denies tobacco. Denies asthma or COPD. Denies recent travel or surgeries. No history of PE or DVT. He is only on medications for hypothyroidism. No leg swelling or cramping. Prior similar symptoms: No PFSH PFS Home Medications ???Medication ???Instructions ???Recorded ???Last Taken ???Type bupropion HCl 300 mg 24 hr tablet, 300 mg PO DAILY 08/02/13 4 10:30 History extended release 300 mg levothyroxine 200 mcg tablet 88 mcg PO DAILY 08/02/13 08/07/13 10:30 History (Synthroid) 200 mcg liothyronine 50 mcg tablet 50 mcg PO DAILY 08/02/13 08/07/13 10:30 History (Cytomel) 50 mcg naproxen 500 mg tablet 500 mg PO BID PRN PRN Pain #20 tab s 08/03/13 08/07/13 10:30 Rx 500 mg ondansetron 8 mg disintegrating 8 mg PO Q8H PRN PRN Nausea ##10 08/06/13 21:00 Rx tablet (Zofran ODT) 8 mg oxycodone-acetaminophen 5 mg-325 1 - 2 tab PO Q6H PRN PRN Pain #20 08/03/13 08/07/13 10:30 Rx mg tablet tabs 2 tabs phenazopyridine 200 mg tablet 200 mg PO TID #20 tabs 08/08/13 Un known Rx cetirizine 10 mg tablet 10 mg PO DAILY 11/23/20 Unknown Hi story oxycodone-acetaminophen 5 mg-325 1 tab PO Q6H PRN pain 3 days #12 0 11/23/20 Unknown Rx mg tablet (Percocet) tabs Allergy/AdvReac Type Severity Reaction Status Date / Time vancomycin Allergy Hives Verified 06/24/24 13:53 Social History Smoking Status: Former smoker ROS ROS ED Constitutional Constitutional ED: Denies chills, fever(s) or sweats ENT ENT ED: Denies sore throat Cardiovascular Cardiovascular: Reports chest pain; Denies leg edema, palpitations or racing heartbeat Respiratory/Chest Respiratory/Chest: Reports cough and dyspnea; Denies dyspnea on exertion Gastrointestinal Gastrointestinal: Denies abdominal pain, diarrhea, nausea or vomiting Genitourinary Genitourinary ED: Denies dysuria, hematuria or urinary frequency Musculoskeletal Musculoskeletal: Denies back pain, extremity pain or neck pain Integumentary Denies rash or wounds Neurologic Neurologic: Denies headache(s), paresthesias or weakness EXAM Physical Exam Const Vital Signs: 06/24/24 13:51 06/24/24 13:53 06/24/24 15:51 Temperature 98.6 F 98.6 F Temperature Source Temporal Temporal Pulse Rate 89 89 78 Respiratory Rate 15 15 18 Respiratory Effort Respiratory Depth Respiratory Pattern Blood Pressure 170/97 H 170/97 H 134/83 H Blood Pressure Mean 121 121 100 Pulse Ox 100 100 95 Oxygen Delivery Method Room Air Room Air Room Air 06/24/24 15:51 06/24/24 17:06 06/24/24 18:38 Temperature 98.3 F Temperature Source Pulse Rate 68 58 L Respiratory Rate 18 16 Respiratory Effort Normal Non-Labored Respiratory Depth Normal Respiratory Pattern Normal Blood Pressure 128/75 H 111/83 H Blood Pressure Mean 92 92 Pulse Ox 96 98 Oxygen Delivery Method Room Air Room Air Positive well nourished and well developed General Appearance ED: well developed and NAD HEENT Reports moist mucous membranes normocephalic and atraumatic Eyes General Eye ED: Yes normal appearance of both eyes Neck full ROM Chest Wall Chest: Negative for tenderness Resp normal respiratory effort and normal air movement Effort and Inspection: symmetric chest movement; Negative for respiratory distress Cardio regular rate, regular rhythm and no murmurs Peripheral Pulses: pulses 2+ throughout GI normal to inspection, nondistended, normoactive bowel sounds and non-tender Palpation: Negative for guarding or rebound tenderness present Extremity normal to inspection General Extremety ED: Negative for edema or tenderness General Extremity: Negative for edema Neuro oriented x3 and no sensory deficits noted Sensorium / Orientation: awake and alert Skin no rashes or lesions noted and no wounds MDM MDM MDM Narrative Medical decision making narrative: Interventions / MDM: Dif (more content not included)... Normal [facility] Eosinophil percentageOrdered By: Jose Alvarado on 06-24-2024 Eosinophils/100 WBC (Bld) 1.8 % 0-5 [facility] Erythrocyte distribution wid th ratioOrdered By: Jose Alvarado on 06-24-2024 Erythrocyte distribution width (RBC) [Ratio] 12.4 % 11.6-14.6 [facility] Erythrocyte distribution wid th standard deviationOrdered By: Jose Alvarado on 06-24-2024 Erythrocyte distribution width (RBC) [Ratio] 38.4 fl 35.1-43.9 [facility] Glomerular filtration rate ( GFR) estimation/1.73 sq m using serum, plasma, or whole bOrdered By: Jose Alvarado on 06-24-2024 GFR/1.73 sq M.predicted among non-blacks MDRD (S/P/Bld) [Vol rate/Area] 77 mL/min/{1.73_m2} >60 [facility] Comment on above: mL/min/1.73m2 CKD-EP I Creatinine Equation (2020) Hematocrit Auto (Bld) [Volum e fraction]Ordered By: Jose Alvarado on 06-24-2024 Hematocrit (Bld) [Volume fraction] 42.9 % 40-54 [facility] Hemoglobin measurementOrdere d By: Jose Alvarado on 06-24-2024 Hemoglobin (Bld) [Mass/Vol] 15.4 g/dL 13.0-16.5 [facility] Immature granulocytes/100 WB C Auto (Bld)Ordered By: Jose Alvarado on 06-24-2024 Immature granulocytes/100 WBC (Bld) 0.300 % 0.0-0.9 [facility] Comment on above: IG% - Immature Granu locytes (promyelocytes, myelocytes and metamyelocytes) > 1% indicates that a LEFT SHIFT is Present. Influenza virus A and B and SARS-CoV-2 (COVID-19) and Respiratory syncytial virus RNAOrdered By: Jose Alvarado on 06-24-2024 SARS-CoV-2 (COVID-19) RNA LASHONDA+probe Ql (Unsp spec) [facility] [id number] 06-24-2024 Trop T Delta UNABLE TO CALCULATE Normal [facility] Comment on above: Result Comment: [place] ble to calculate due to result outside of linear range UNABLE TO CALCULATE Performed By: #### L 499.0042 #### [facility] [address] [place], [address] Trop T High Sen < 6 Normal <=22 [facility] Comment on above: Performed By: #### L 499.0042 #### [facility] [address] [place], [address] [id number] 06-24-2024 Trop T Delta Normal [facility] Comment on above: Result Comment: Canc elled via OM: Order cancelled - Patient discharged Performed By: #### L 499.0043 #### [facility] [address] [place], [address] Trop T High Sen Normal <=19 [facility] Comment on above: Result Comment: Canc elled via OM: Order cancelled - Patient discharged Performed By: #### L 499.0043 #### [facility] [address] [place], [address] [id number] 06-24-2024 Trop T High Sen 7 ng/L Normal <=19 [facility] Comment on above: Performed By: #### L 501.4021 #### [facility] [address] [place], [address] M100.678on 06-24-2024 M100.678 Pending SARS-CoV-2 (COVID 19) Negative INFLUENZA A Negative INFLUENZA B Negative RSV PCR Negative Normal [facility] Comment on above: Performed By: #### M 739.184 ####[facility] [address] [place], [address] MCV (mean corpuscular volume ) determinationOrdered By: Jose Alvarado on 06-24-2024 MCV (RBC) [Entitic vol] 86.5 fL 80-94 [facility] Mean corpuscular hemoglobin (MCH) determinationOrdered By: Jose Alvarado on 06-24-2024 MCH (RBC) [Entitic mass] 31.0 pg 27.0-32.0 [facility] Mean corpuscular hemoglobin concentration (MCHC) determinationOrdered By: Jose Alvarado on 06-24-2024 MCHC (RBC) [Mass/Vol] 35.9 g/dL 32-36 [facility] Mean platelet volume determi nationOrdered By: Jose Alvarado on 06-24-2024 Platelet mean volume (Bld) [Entitic vol] 10.1 fL 6.2-12.0 [facility] Monocyte percentageOrdered B y: Jose Alvarado on 06-24-2024 Monocytes/100 WBC (Bld) 10.1 % High 0-10 [facility] Neutrophil percentageOrdered By: Jose Alvarado on 06-24-2024 Neutrophils/100 WBC (Bld) 51.5 % 47-70 [facility] No Panel InformationOrdered By: Jose Alvarado on 06-24-2024 Troponin T Hi Sensitivity 2Hr Delta UNABLE TO CALCULATE [facility] Comment on above: Unable to calculate due to result outside of linear rangeUNABLE TO CALCULATE Troponin T High Sensitivity 7 ng/L <19 [facility] Nucleated red blood cell per centageOrdered By: Jose Alvarado on 06-24-2024 Nucleated RBC/100 WBC (Bld) [Ratio] 0 % 0-5 [facility] Platelet countOrdered By: Derek Alvarado on 06-24-2024 Platelets (Bld) [#/Vol] 236 10*3/uL 150-450 [facility] Potassium measurement (mass/ volume)Ordered By: Jose Alvarado on 06-24-2024 Potassium (Unsp spec) [Mass/Vol] 3.7 mmol/L 3.3-5.1 [facility] RBC Auto (Bld) [#/Vol]Ordere d By: Jose Alvarado on 06-24-2024 RBC (Bld) [#/Vol] 4.96 10*6/uL 4.6-6.2 [facility] Serum creatinine measurement (mass/volume)Ordered By: Jose Alvarado on 06-24-2024 Creatinine [Mass/Vol] 1.19 mg/dL 0.70-1.20 [facility] Serum glucose measurement (m ass/volume)Ordered By: Jose Alvarado on 06-24-2024 Glucose [Mass/Vol] 108 mg/dL High 70-99 [facility] Serum or plasma calcium marty urement (mass/volume)Ordered By: Jose Alvarado on 06-24-2024 Calcium [Mass/Vol] 9.4 mg/dL 7.6-11.0 [facility] Serum or plasma urea nitroge n measurement (mass/volume)Ordered By: Jose Alvarado on 06-24-2024 Urea nitrogen [Mass/Vol] 13 mg/dL 4-19 [facility] Sodium levelOrdered By: Jose Alvarado on 06-24-2024 Sodium [Moles/Vol] 139 mmol/L 133-145 [facility] Troponin T.cardiac [Mass/vol ume] in Serum or Plasma by High sensitivity methodOrdered By: Jose Alvarado on 06-24-2024 Troponin T.cardiac High sensitivity method [Mass/Vol] < 6 ng/L <22 [facility] White blood cell (WBC) count Ordered By: Jose Alvarado on 06-24-2024 WBC (Bld) [#/Vol] 6.5 10*3/uL 4.4-11.0 [facility] CNOVon 06-04-2024 CNOV Office Visit ([facility] ) -- HAIM CHASE ([id number]) 1980 M Date Time Provider Department 06/04/24 3:30 PM CONSTANTINE BOYCE [facility] During your visit today, we recorded the following information about you: Temperature Pulse Respiration Blood pressure 98.6 degrees 85/minute 24/minute 142/95 Weight 148.2 kg Constantine Boyce APRN.CNP 06/04/2024 3:49 PM Signed This note was created using NoteWriter. Subjective Haim Chase is a 44 year old male. HPI Pt was seen here 05/21 and 05/29 for respiratory symptoms, fatigue, cough, body aches. Symptoms have not improved. He was put on Doxycycline 05/29 but again notes no improvement of symptoms. No fevers but does not chills. He notes that he did have some chest pain and was seen in the ER May 25 with an extensive workup with no acute findings noted. Review of Systems As above Objective BP 142/95 Pulse 85 Temp 37 ?C (98.6 ?F) Resp 24 Wt (!) 148.2 kg (326 lb 11.6 oz) SpO2 99% BMI 46.09 kg/m? Physical Exam Vitals and nursing note reviewed. Constitutional: General: He is not in acute distress. Appearance: Normal appearance. He is not ill-appearing. HENT: Head: Normocephalic. Mouth/Throat: Mouth: Mucous membranes are moist. Eyes: Conjunctiva/sclera: Conjunctivae normal. Cardiovascular: Rate and Rhythm: Normal rate and regular rhythm. Pulmonary: Effort: Pulmonary effort is normal. Breath sounds: Normal breath sounds. Musculoskeletal: General: Normal range of motion. Cervical back: Normal range of motion. Skin: General: Skin is warm and dry. Neurological: General: No focal deficit present. Mental Status: He is alert. Psychiatric: Mood and Affect: Mood normal. Behavior: Behavior normal. Assessment and Plan ASSESSMENT/PLAN: 1. Viral illness - ICD9: 079.99, ICD10: B34.9 -Patient had negative flu and COVID testing May 21 and then negative flu testing May 29. Per patient he had an extensive workup at the emergency department May 25 including cardiac evaluation and most likely chest x-ray which he states was unremarkable. Discussed with him that symptoms are most likely viral in origin and we did discuss possible retesting for viral illness which he declines at this time as there is no specific treatment indicated. I discussed with him that I did not feel that additional antibiotics were indicated at this time and recommended continued symptomatic treatment and close follow-up with PCP to which patient was agreeable. Constantine Boyce APRN.RN HOME HEALTH Allergies As of Date: 06/04/2024 Noted Allergy Reaction VANCOMYCIN 02/08/2013 2 - Rash Comments: Red man syndrome Date Reviewed: 06/04/2024 Reviewed by: Constantine Boyce APRN.RN HOME HEALTH - Fully Assessed Reason for Visit: Cough [28] Cmt: Chest congestion, SOB, PEDRO, bodyaches x2 weeks Primary Visit Diagnosis:Viral illness [B34.9] Prescriptions as of 06/04/2024 - doxycycline (VIBRA-TABS) 100 mg tablet Take 1 tablet by mouth two times a day for 7 days. - cetirizine (ZYRTEC) 10 mg tablet Take 1 tablet by mouth once daily. - liothyronine (CYTOMEL) 25 mcg tablet Take 1 tablet by mouth once daily. - levothyroxine (SYNTHROID) 88 mcg tablet Take 1 tablet by mouth daily before breakfast. - fluticasone (FLONASE) 50 mcg/actuation nasal spray Use 2 Sprays in each nostril once daily. Rinse mouth after use. - CPAP Mask Fitting requested (per patient preference, try Dream ricci nasal tube like head gear) optional chin strap (if indicated), filters, tubing / heated tubing, heated humidity and lifetime supplies. Dx. SHERIN G47.33 327.23 - CPAP AutoPAP 7-20 cmH2O, suitable mask, humidity, filters. Lifetime supplies. Dx: G47.ee Problem List As Of Date 06/04/2024 Noted Resolved Hypothyroidism [E03.9] 04/28/2008 Sterilization [Z30.2] 02/24/2009 01/04/2010 Anxiety [F41.9] 06/10/2009 01/03/2017 Stress Reaction [F43.0] 06/10/2009 01/04/2010 Morbid Obesity [E66.01] 01/04/2010 04/29/2019 Routine general medical examination at [facility]*01/04/2010 10/19/2014 Class: Chronic Depressive disorder [F32.A] 09/26/2011 04/29/2019 BPPV (benign paroxysmal positional vertigo) [H8*10/22/2012 10/19/2014 Allergic rhinitis [J30.9] 10/19/2014 Vitamin D deficiency [E55.9] 01/18/2015 Candidiasis of skin and nail [B37.2] 09/26/2015 03/11/2017 SHERIN (obstructive sleep apnea) on AutoPAP [G47.3*11/17/2016 Labral tear of shoulder [S43.439A] 02/20/2017 03/13/2017 Upper back pain on left side [M54.9] 04/08/2017 05/02/2017 Left shoulder pain [M25.512] 04/26/2017 06/10/2018 Status post labral repair of shoulder [Z98.890] 04/26/2017 06/10/2018 Urinary frequency [R35.0] 02/06/2018 12/29/2020 Urinary urgency [R39.15] 02/06/2018 04/29/2019 Flank pain [R10.9] 02/06/2018 06/10/2018 Urgency of urination [R39.15] 03/19/2018 12/29/2020 Urination frequency [R35.0] 03/19/2018 06/10/2018 Mixed hyperli (more content not included)... Normal [facility] CNOVon 05-29-2024 CNOV Office Visit ([facility] ) -- HAIM CHASE ([id number]) 1980 M Date Time Provider Department 05/29/24 10:30 AM FARRAH BORDEN [facility] During your visit today, we recorded the following information about you: Temperature Pulse Respiration Blood pressure 99.1 degrees 95/minute 19/minute 158/88 Weight 147.4 kg Farrah Borden APRN.CNP 05/29/2024 11:38 AM Signed Subjective HPI HPI Haim Chase is a 44 year old male who presents today for CC of cough, congestion, body aches. This started 2 weeks ago. Has tried otc medication for relief. Symptoms are worsened by notghing. Risk factors sick exposures at work. .Patient presents with: Cough: Sinus, chest congestion, body aches x 2 weeks PAST MEDICAL HISTORY Diagnosis Date Allergic rhinitis 10/19/2014 Anxiety 06/10/2009 Intolerant of Celexa (anorgasmia) -- did well on Zoloft 200 mg, in the mid-s --> restarted Zoloft 12/2009 BPPV (benign paroxysmal positional vertigo) 10/22/2012 COVID-19 03/18/2022 Depressive disorder 09/26/2011 Hypothyroidism 04/28/[address] Mcleod, who retired; MASSIVE weight loss, improvement in cold intolerance, with treatment; Labs tend to be normal, clinically excellent reponse, normalization of hypothermic basal body temperature Mixed hyperlipidemia 12/27/2016 Morbid Obesity 01/04/2010 SHERIN (obstructive sleep apnea) 01/02/2017 [facility] AutoPAP Other specified joint disorders, left hip 12/29/2020 Renal calculi PAST SURGICAL HISTORY Procedure Laterality Date ARTHROSCOPY KNEE DIAGNOSTIC W/WO SYNOVIAL BX SPX Right 09/22/2014 meniscus tear, Dr. Cabrera ARTHROSCOPY KNEE DIAGNOSTIC W/WO SYNOVIAL BX SPX Left 11/24/2010 Medial meniscectomy, chondroplasty patella AND medial femoral condyle CYSTOSCOPY 03/10/2018 CYSTOSCOPY, URETERAL STENT CHANGE/INSERTION Right 08/03/2013 CYSTOSCOPY, URETERAL STENT CHANGE/INSERTION Right 08/07/2013 PAST SURGICAL HISTORY OF WISDOM TEETH REM LESION TRUNK,ARM,LEG 0.6 -1.0CM Right 10/26/2015 Exc. neal cyst right post. shoulder SHOULDER ARTHROSCOPY/SURGERY Left 03/13/2017 SKIN BX, 1 LESION 1989 Skin biopsy, foot age 8 TOTAL HIP REPLACEMENT Left 01/06/2021 VASECTOMY UNI/BI SPX W/POSTOP SEMEN EXAMS Bilateral 10/19/2015 ALLERGIES Vancomycin MEDICATIONS cetirizine (ZYRTEC) 10 mg tablet Take 1 tablet by mouth once daily. liothyronine (CYTOMEL) 25 mcg tablet Take 1 tablet by mouth once daily. levothyroxine (SYNTHROID) 88 mcg tablet Take 1 tablet by mouth daily before breakfast. fluticasone (FLONASE) 50 mcg/actuation nasal spray Use 2 Sprays in each nostril once daily. Rinse mouth after use. CPAP Mask Fitting requested (per patient preference, try Dream ricci nasal tube like head gear) optional chin strap (if indicated), filters, tubing / heated tubing, heated humidity and lifetime supplies. Dx. SHERIN G47.33 327.23 CPAP AutoPAP 7-20 cmH2O, suitable mask, humidity, filters. Lifetime supplies. Dx: G47.ee doxycycline (VIBRA-TABS) 100 mg tablet Take 1 tablet by mouth two times a day for 7 days. FAMILY HISTORY Problem Relation Age of Onset Diabetes Mother Diabetes Father Factor 5 Leiden Sister DVT Sister Kidney stones Sister No Known Problems Sister No Known Problems Sister Thyroid Brother hyperthyroidism Social History Tobacco Use Smoking status: Never Smokeless tobacco: Never Substance Use Topics Alcohol use: Not Currently Alcohol/week: 2.0 standard drinks of alcohol Types: 2 Shots of liquor per week Drug use: No Review of Systems Constitutional: Positive for chills, fever and malaise/fatigue. HENT: Positive for congestion. Negative for ear pain, nosebleeds and sore throat. Respiratory: Positive for cough and sputum production. Negative for shortness of breath and wheezing. Musculoskeletal: Negative for neck pain. Skin: Negative for itching and rash. Objective Blood pressure 158/88, pulse 95, temperature 37.3 ?C (99.1 ?F), resp. rate 19, weight (!) 147.4 kg (324 lb 15.3 oz), SpO2 99%. Physical Exam Constitutional: General: He is not in acute distress. Appearance: He is ill-appearing. He is not toxic-appearing or diaphoretic. HENT: Head: Normocephalic and atraumatic. Cardiovascular: Rate and Rhythm: Normal rate and regular rhythm. Heart sounds: Normal heart sounds, S1 normal and S2 normal. Pulmonary: Effort: Pulmonary effort is normal. Breath sounds: Normal breath sounds. Lymphadenopathy: Cervical: No cervical adenopathy. Right cervical: No superficial cervical adenopathy. Left cervical: No superficial cervical adenopathy. Neurological: Mental Status: He is alert and oriented to person, place, and time. Gait: Gait is intact. ASSESSMENT/PLAN: 1. Sinobronchitis - ICD9: 473.9, 490, ICD10: J32.9, J40 (primary diagnosis) - Will begin treatment with as per antibiotic as written, see (more content not included)... Normal [facility] INFLUENZA A&B MOLECULAR (POC )on 05-29-2024 Flu A (POCT) Negative Negative [facility] Flu B (POCT) Negative Negative [facility] Procedural Control Valid [facility] Location:[facility], [address] [place] [address], [place], [place], [id number] [place] [address] POINT OF CARE [facility] XR CHEST 2V FRONTAL/LATon XR CHEST 2V FRONTAL/LAT * * *Final Report* * * DATE OF EXAM: May 29 2024 11:08AM WOX [id number] - XR CHEST 2V FRONTAL/LAT / PROCEDURE REASON: Acute cough * * * * Physician Interpretation * * * * EXAMINATION: CHEST RADIOGRAPH (2 VIEW FRONTAL and LATERAL) CLINICAL HISTORY: Acute cough MQ: XC2_6 EXAM DATE/TIME: 05/29/2024 11:08 AM COMPARISON: 03/08/2017 RESULT: Lines, tubes, and devices: None. Lungs and pleura: No consolidation. No lung mass. No pleural effusion. No pneumothorax. Cardiomediastinal silhouette: Normal cardiomediastinal silhouette. Bones and soft tissues: Unremarkable. IMPRESSION: No acute radiographic abnormality. Metal Fabricator: PAM Transcribe Date/Time: May 29 2024 11:11A Dictated by : DAVID BRENNAN MD This examination was interpreted and the report reviewed and electronically signed by: DAVID BRENNAN MD on May 29 2024 11:11AM EST [id number] Normal [facility] XR Chest PA and Lateralon IMPRESSION: No acute radiographic abnormality. Metal Fabricator: Bungolow Transcribe Date/Time: May 29 2024 11:11A Dictated by : DAVID BRENNAN MD This examination was interpreted and the report reviewed and electronically signed by: DAVID BRENNAN MD on May 29 2024 11:11AM EST DIVISION OF RADIOLOGY * * *Final Report* * * DATE OF EXAM: May 29 2024 11:08AM WOX [id number] - XR CHEST 2V FRONTAL/LAT / PROCEDURE REASON: Acute cough * * * * Physician Interpretation * * * * EXAMINATION: CHEST RADIOGRAPH (2 VIEW FRONTAL & LATERAL) CLINICAL HISTORY: Acute cough MQ: XC2_6 EXAM DATE/TIME: 05/29/2024 11:08 AM COMPARISON: 03/08/2017 RESULT: Lines, tubes, and devices: None. Lungs and pleura: No consolidation. No lung mass. No pleural effusion. No pneumothorax. Cardiomediastinal silhouette: Normal cardiomediastinal silhouette. Bones and soft tissues: Unremarkable. DIVISION OF RADIOLOGY Provider, [facility] - 05/29/2024 * * *Final Report* * * DATE OF EXAM: May 29 2024 11:08AM WOX [id number] - XR CHEST 2V FRONTAL/LAT / PROCEDURE REASON: Acute cough * * * * Physician Interpretation * * * * EXAMINATION: CHEST RADIOGRAPH (2 VIEW FRONTAL & LATERAL) CLINICAL HISTORY: Acute cough MQ: XC2_6 EXAM DATE/TIME: 05/29/2024 11:08 AM COMPARISON: 03/08/2017 RESULT: Lines, tubes, and devices: None. Lungs and pleura: No consolidation. No lung mass. No pleural effusion. No pneumothorax. Cardiomediastinal silhouette: Normal cardiomediastinal silhouette. Bones and soft tissues: Unremarkable. IMPRESSION IMPRESSION: No acute radiographic abnormality. Metal Fabricator: PSCB Transcribe Date/Time: May 29 2024 11:11A Dictated by : DAVID BRENNAN MD This examination was interpreted and the report reviewed and electronically signed by: DAVID BRENNAN MD on May 29 2024 11:11AM EST [facility] Radiology Study observation (narrative) [facility] XR Chest PA and LateralOrder ed By: [facility] Provider on 05-29-2024 [facility] .Auto Diffon 05-25-2024 Basophil, Absolute 0.1 10 3/mcL Normal 0.0-0.2 [facility] Comment on above: Performed By: #### C ADNY MELO ANEU, GFR, ADIFF, MDW, TROPHLeah #### [facility] [address] [place], [place] [address] Basophils/100 WBC (Bld) 1.3 % Normal 0.0-2.5 [facility] Comment on above: Performed By: #### C BC, BMP, ANEU, GFR, ADIFF, MDW, TROPHS #### [address] [address] Eosinophil, Absolute 0.2 10 3/mcL Normal 0.0-0.7 [facility] Comment on above: Performed By: #### C BC, BMP, ANEU, GFR, ADIFF, MDW, TROPHS #### [address] [address] Eosinophils/100 WBC (Bld) 2.9 % Normal 0.0-7.0 [facility] Comment on above: Performed By: #### C BC, BMP, ANEU, GFR, ADIFF, MDW, TROPHS #### [address] [address] [address] Lymphocyte, Absolute 3.2 10 3/mcL Normal 0.9-4.3 [facility] Comment on above: Performed By: #### C BC, BMP, ANEU, GFR, ADIFF, MDW, TROPHS #### [address] [address] Lymphocytes/100 WBC (Bld) 41.0 % High 20.0-40.0 [facility] Comment on above: Performed By: #### C BC, BMP, ANEU, GFR, ADIFF, MDW, TROPHS #### [address] [address] Monocyte, Absolute 0.6 10 3/mcL Normal 0.1-1.4 [facility] Comment on above: Performed By: #### C BC, BMP, ANEU, GFR, ADIFF, MDW, TROPHS #### [address] [address] Monocytes/100 WBC (Bld) 7.8 % Normal 2.0-13.0 [facility] Comment on above: Performed By: #### C BC, BMP, ANEU, GFR, ADIFF, MDW, TROPHS #### [address] [address] Neutrophils/100 WBC (Bld) 47.0 % Low 50.0-75.0 [facility] Comment on above: Performed By: #### C BC, BMP, ANEU, GFR, ADIFF, W, TROPHS #### [address] [address] .GFRon 05-25-2024 GFR Non- 78 ml/min/1.73sqm [facility] Comment on above: Result Comment: GFR Population mean for , Non- Americans Ages 20-29 = 116 mL/min/1.73 sq.m. Ages 30-39 = 107 mL/min/1.73 sq.m. Ages 40-49 = 99 mL/min/1.73 sq.m. Ages 50-59 = 93 mL/min/1.73 sq.m. Ages 60-69 = 85 mL/min/1.73 sq.m. Ages 70+ = 75 mL/min/1.73 sq.m. Chronic Kidney Disease: Less than 60 mL/min/1.73 square meters End Stage Renal Disease: Less than 15 mL/min/1.73 square meters Performed By: #### C BC, BMP, ANEU, GFR, ADIFF, W, TROPHS #### [address] [address] GFR 94 ml/min/1.73sqm [facility] Comment on above: Result Comment: GFR Population mean for , Non- Americans Ages 20-29 = 116 mL/min/1.73 sq.m. Ages 30-39 = 107 mL/min/1.73 sq.m. Ages 40-49 = 99 mL/min/1.73 sq.m. Ages 50-59 = 93 mL/min/1.73 sq.m. Ages 60-69 = 85 mL/min/1.73 sq.m. Ages 70+ = 75 mL/min/1.73 sq.m. Chronic Kidney Disease: Less than 60 mL/min/1.73 square meters End Stage Renal Disease: Less than 15 mL/min/1.73 square meters Performed By: #### C BC, BMP, ANEU, GFR, ADIFF, MDW, TROPHS #### [address] [address] .MDWon 05-25-2024 Monocyte Distribution Width 16.99 Normal 0.00-20.00 [facility] Comment on above: Result Comment: For ED adult patients suspected of sepsis, MDW<=20.0 does not rule out sepsis or risk of sepsis Performed By: #### C BC, BMP, ANEU, GFR, ADIFF, MDW, TROPHS #### [address] [address] .NEUABSon 05-25-2024 Neutrophil, Absolute 3.7 10 3/mcL Normal 2.3-8.1 [facility] Comment on above: Performed By: #### C BC, BMP, ANEU, GFR, ADIFF, MDW, TROPHS #### [place] [address] BMPon 05-25-2024 BUN/Creatinine Ratio 14 ratio Normal 7-27 [facility] Comment on above: Order Comment: Hemol yzed Performed By: #### C BC, BMP, ANEU, GFR, ADIFF, MDW, TROPHS #### [address] [address] Calcium [Mass/Vol] 9.1 mg/dL Normal 8.4-10.2 [facility] Comment on above: Order Comment: Hemol yzed Performed By: #### C BC, BMP, ANEU, GFR, ADIFF, MDW, TROPHS #### [address] [address] Chloride [Moles/Vol] 99 mmol/L Normal 98-107 [facility] Comment on above: Order Comment: Hemol yzed Performed By: #### C BC, BMP, ANEU, GFR, ADIFF, MDW, TROPHS #### [address] [address] CO2 [Moles/Vol] 27 mmol/L Normal 22-29 [facility] Comment on above: Order Comment: Hemol yzed Performed By: #### C BC, BMP, ANEU, GFR, ADIFF, MDW, TROPHS #### [place] [address] [place], [place] [address] Creatinine [Mass/Vol] 1.04 mg/dL Normal 0.70-1.30 [facility] Comment on above: Order Comment: Hemol yzed Result Comment: Test ing performed on Siemens Dimension EXL analyzer using a modified kinetic Tyesha technique. Performed By: #### C BC, BMP, ANEU, GFR, ADIFF, MDW, TROPHS #### [address] [address] Electrolyte Balance 8.0 mEq/L Normal 4.0-15.0 [facility] Comment on above: Order Comment: Hemol yzed Performed By: #### C BC, BMP, ANEU, GFR, ADIFF, MDW, TROPHS #### [place] [address] Glucose [Mass/Vol] 134 mg/dL High 70-105 [facility] Comment on above: Order Comment: Hemol yzed Performed By: #### C BC, BMP, ANEU, GFR, ADIFF, MDW, TROPHS #### [address] [address] Potassium [Moles/Vol] 3.8 mmol/L Normal 3.5-5.1 [facility] Comment on above: Order Comment: Hemol yzed Performed By: #### C BC, BMP, ANEU, GFR, ADIFF, MDW, TROPHS #### [address] [address] Sodium [Moles/Vol] 134 mmol/L Low 136-145 [facility] Comment on above: Order Comment: Hemol yzed Performed By: #### C BC, BMP, ANEU, GFR, ADIFF, MDW, TROPHS #### [place] [id number] Urea nitrogen [Mass/Vol] 15 mg/dL Normal 7-18 [facility] Comment on above: Order Comment: Hemol yzed Performed By: #### C BC, BMP, ANEU, GFR, ADIFF, MDW, TROPHS #### [address] [address] CBCon 05-25-2024 Erythrocyte distribution width (RBC) [Ratio] 13.5 % Normal 11.5-15.5 [facility] Comment on above: Performed By: #### C BC, BMP, ANEU, GFR, ADIFF, MDW, TROPHS #### [place] [address] Hematocrit (Bld) [Volume fraction] 49.9 % Normal 40.0-52.0 [facility] Comment on above: Performed By: #### C BC, BMP, ANEU, GFR, ADIFF, MDW, TROPHS #### [place] [address] Hgb 17.2 G/dL Normal 13.0-17.5 [facility] Comment on above: Performed By: #### C BC, BMP, ANEU, GFR, ADIFF, MDW, TROPHS #### [place] [address] MCH (RBC) [Entitic mass] 30.7 pg Normal 27.0-33.0 [facility] Comment on above: Performed By: #### C BC, BMP, ANEU, GFR, ADIFF, MDW, TROPHS #### [place] [address] MCHC 34.5 G/dL Normal 32.0-36.0 [facility] Comment on above: Performed By: #### C BC, BMP, ANEU, GFR, ADIFF, MDW, TROPHS #### [place] [address] MCV (RBC) [Entitic vol] 89.2 fL Normal 81.0-100.0 [facility] Comment on above: Performed By: #### C BC, BMP, ANEU, GFR, ADIFF, MDW, TROPHS #### [place] [id number] Platelet 228 10 3/mcL Normal 150-450 [facility] Comment on above: Performed By: #### C BC, BMP, ANEU, GFR, ADIFF, MDW, TROPHS #### [place] [address] [place], [place] [address] Platelet mean volume (Bld) [Entitic vol] 7.9 fL Normal 6.4-10.5 [facility] Comment on above: Performed By: #### C BC, BMP, ANEU, GFR, ANGELICA RIOS, GREGG #### [place] [address] [place], [place] [address] RBC 5.59 10 6/mcL Normal 4.50-6.00 [facility] Comment on above: Performed By: #### C BC, BMP, ANEU, GFR, ANGELICA RIOS, GREGG #### [place] [address] [place], [place] [address] WBC 7.8 10 3/mcL Normal 4.5-10.8 [facility] Comment on above: Performed By: #### C BC, BMP, ANEU, GFR, ANGELICA RIOS, GREGG #### [address] [address] CNOVon 05-25-2024 CNOV Office Visit (INTMWS ) -- HAIM CHASE ([id number]) 1980 M Date Time Provider Department 05/25/24 5:40 PM JOE FARIA INTMWS During your visit today, we recorded the following information about you: Temperature Pulse Blood pressure Weight 97.6 degrees 82/minute 129/88 142.7 kg Height 1.793 m Joe Faria MD 05/25/2024 11:45 PM Signed This note was created using NoteWriter. Subjective Haim Chase is a 44 year old male. He was here for phentermine refill. He had good results with diet and phentermine courses in the past. Weight loss has diminished with time. In the past year, he has been on phentermine most of year. Follow ups have been less consistent but refill requests continued. Weight loss has not resulted. He reported even trying a medication cocktail from [employer] website consisting of bupropion, naltrexone, and metformin which he tried for one month, but did not tolerate due to GI side effects. I pointed out lack of follow up and weight loss. He indicated feeling better on phentermine because without the phentermine, he had less motivation, less energy, and less focus. Another concern was an ER visit for chest pain. Records from [facility] ER were not received, but he reported he was ruled out for heart disease. He was using his CPAP regularly and benefiting from CPAP treatment. He seemed to indicate he will be out of supplies. Review of Systems Constitutional: Negative for unexpected weight change. Respiratory: Negative for shortness of breath. Cardiovascular: Negative for chest pain and palpitations. Psychiatric/Behavioral: Positive for decreased concentration. Negative for dysphoric mood. The patient is not nervous/anxious. ACTIVE PROBLEM LIST Hypothyroidism Allergic Rhinitis Vitamin D Deficiency SHERIN (obstructive sleep apnea) on AutoPAP Mixed Hyperlipidemia Obesity, Class III, BMI >= 40 Other Specified Joint Disorders, Left Hip Social History Tobacco Use Smoking status: Never Smokeless tobacco: Never Substance Use Topics Alcohol use: Not Currently Alcohol/week: 2.0 standard drinks of alcohol Types: 2 Shots of liquor per week Drug use: No Current Outpatient Medications Medication Sig cetirizine (ZYRTEC) 10 mg tablet Take 1 tablet by mouth once daily. liothyronine (CYTOMEL) 25 mcg tablet Take 1 tablet by mouth once daily. levothyroxine (SYNTHROID) 88 mcg tablet Take 1 tablet by mouth daily before breakfast. fluticasone (FLONASE) 50 mcg/actuation nasal spray Use 2 Sprays in each nostril once daily. Rinse mouth after use. CPAP Mask Fitting requested (per patient preference, try Dream ricci nasal tube like head gear) optional chin strap (if indicated), filters, tubing / heated tubing, heated humidity and lifetime supplies. Dx. SHERIN G47.33 327.23 CPAP AutoPAP 7-20 cmH2O, suitable mask, humidity, filters. Lifetime supplies. Dx: G47.ee No current facility-administered medications for this visit. Objective BP 129/88 (BP Site: Left Arm, BP Position: Sitting, BP Cuff Size: Large Adult) Pulse 82 Temp 36.4 ?C (97.6 ?F) (Temporal) Ht 179.3 cm (5' 10.6) Wt (!) 142.7 kg (314 lb 9.5 oz) SpO2 98% BMI 44.38 kg/m? Physical Exam Constitutional: General: He is not in acute distress. Appearance: He is not ill-appearing. Cardiovascular: Rate and Rhythm: Normal rate. Heart sounds: No murmur heard. No gallop. Pulmonary: Breath sounds: Normal breath sounds. Musculoskeletal: Right lower leg: No edema. Left lower leg: No edema. Psychiatric: Mood and Affect: Mood normal. Behavior: Behavior normal. Latest Ref Rng 03/20/2024 Protein, Total 6.3 - 8.0 g/dL 7.2 Albumin 3.9 - 4.9 g/dL 4.3 Calcium 8.5 - 10.2 mg/dL 9.4 Bilirubin, Total 0.2 - 1.3 mg/dL 0.4 Alkaline Phosphatase 38 - 113 U/L 57 AST 14 - 40 U/L 47 (H) ALT 10 - 54 U/L 54 Glucose 74 - 99 mg/dL 173 (H) BUN 9 - 24 mg/dL 12 Creatinine 0.73 - 1.22 mg/dL 0.94 Sodium 136 - 144 mmol/L 139 Potassium 3.7 - 5.1 mmol/L 4.2 Chloride 98 - 107 mmol/L 104 CO2 22 - 30 mmol/L 21 (L) Anion Gap 8 - 15 mmol/L 14 eGFR >=60 mL/min/1.73m? 103 WBC 3.70 - 11.00 k/uL 5.77 RBC 4.20 - 6.00 m/uL 5.30 Hemoglobin 13.0 - 17.0 g/dL 16.2 Hematocrit 39.0 - 51.0 % 47.6 MCV 80.0 - 100.0 fL 89.8 MCH 26.0 - 34.0 pg 30.6 MCHC 30.5 - 36.0 g/dL 34.0 RDW-CV 11.5 - 15.0 % 12.3 Platelet Count 150 - 400 k/uL 235 MPV 9.0 - 12.7 fL 10.5 Absolute nRBC <0.01 k/uL <0.01 Cholesterol, Total <200 mg/dL 204 (H) Triglyceride <150 mg/dL 236 (H) HDL Cholesterol >39 mg/dL 45 Non HDL Cholesterol <130 mg/dL 159 (H) Fasting Time hrs 0 VLDL Cholesterol <30 mg/dL 47 (H) TC:HDL Ratio <5.10 4.53 LDL Cholesterol <100 mg/dL 112 (H) LDL:HDL Ratio <2.54 2.49 TSH 0.270 - 4.200 mIU/L 1.970 Free T4 0.9 - 1.7 ng/dL 0.8 (L) Legend: (H) High (L) Low Assessment and Plan 1. Merari (more content not included)... Normal [facility] HEMOGLOBIN A1C (POC)on 05-25 HbA1c (Bld) [Mass fraction] 6.0 % Abnormal 4.3 - 5.6 % [facility] Comment on above: Location:[address], [place], [address] Point of care (POC) Hemoglobin A1c (HGBA1C) testing is intended to assess glucose control and provide a management tool for patients known to have diabetes and their healthcare providers. Target HGBA1C levels may depend on specific clinical circumstances. POC HGBA1C is not intended for use as a diagnostic or screening test; laboratory-based testing should be used for diagnostic purposes. The following information is supplemental and may not be applicable to specific diabetes management situations: The POC device parking line painter provides a normal range of 4.2% to 6.5% for the HGBA1C POC test. However, the [place] [employer] guidelines indicate that patients with HGBA1C in the range of 5.7% to 6.4% are at increased risk for development of diabetes and that intervention by lifestyle modification may be beneficial. A HGBA1C level greater than or equal to 6.5% is considered diagnostic of diabetes, pending confirmatory testing. Use of HGBA1C testing to evaluate glucose control may not be appropriate for patients with hemoglobin variants or other conditions (e.g. anemia) that alter red blood cell lifespan. Interpretation and review of laboratory results Abnormal [facility] LABORATORYOrdered By: SYSTEM SYSTEM on 05-25-2024 Calcium [Mass/Vol] 9.1 mg/dL Normal 8.4 - 10. 2 mg/dL AO ADM SS Chloride [Moles/Vol] 99 mmol/L Normal 98 - 10 7 mmol/L AO ADM SS CO2 [Moles/Vol] 27 mmol/L Normal 22 - 29 mmol/L AO ADM SS Creatinine [Mass/Vol] 1.04 mg/dL Normal 0.70 - 1.30 mg/dL AO ADM SS Comment on above: Interpretive Data: T esting performed on Siemens Dimension EXL analyzer using a modified kinetic Tyesha technique. Electrolyte Balance 8.0 mEq/L Normal 4.0 - 15 .0 mEq/L AO ADM SS GFR/1.73 sq M.predicted among blacks MDRD (S/P/Bld) [Vol rate/Area] 94 ml/min/1.73sqm Invalid Interpretation Code AO Chemistry S Comment on above: Interpretive Data: GFR Population mean for , Non- Americans Ages 20-29 = 116 mL/min/1.73 sq.m. Ages 30-39 = 107 mL/min/1.73 sq.m. Ages 40-49 = 99 mL/min/1.73 sq.m. Ages 50-59 = 93 mL/min/1.73 sq.m. Ages 60-69 = 85 mL/min/1.73 sq.m. Ages 70+ = 75 mL/min/1.73 sq.m. Chronic Kidney Disease: Less than 60 mL/min/1.73 square meters End Stage Renal Disease: Less than 15 mL/min/1.73 square meters GFR/1.73 sq M.predicted among non-blacks MDRD (S/P/Bld) [Vol rate/Area] 78 ml/min/1.73sqm Invalid Interpretation Code AO Chemistry S Comment on above: Interpretive Data: GFR Population mean for , Non- Americans Ages 20-29 = 116 mL/min/1.73 sq.m. Ages 30-39 = 107 mL/min/1.73 sq.m. Ages 40-49 = 99 mL/min/1.73 sq.m. Ages 50-59 = 93 mL/min/1.73 sq.m. Ages 60-69 = 85 mL/min/1.73 sq.m. Ages 70+ = 75 mL/min/1.73 sq.m. Chronic Kidney Disease: Less than 60 mL/min/1.73 square meters End Stage Renal Disease: Less than 15 mL/min/1.73 square meters Glucose [Mass/Vol] 134 mg/dL High 70 - 105 mg/dL AO ADM SS Potassium [Moles/Vol] 3.8 mmol/L Normal 3.5 - 5.1 mmol/L AO ADM SS Sodium [Moles/Vol] 134 mmol/L Low 136 - 145 mmol/L AO ADM SS Troponin I.cardiac DL <= 0.01 ng/mL [Mass/Vol] 8 ng/L Normal 0 - 76 ng/L AO ADM SS Comment on above: Interpretive Data: H igh Sensitive Troponin I Reference Ranges: Female: 0-51 ng/L Male: 0-76 ng/L Testing performed on Craft Dragon using a homogeneous sandwich chemiluminescent immunoassay based on Skai technology. Urea nitrogen [Mass/Vol] 15 mg/dL Normal 7 - 18 mg/dL AO ADM SS Urea nitrogen/Creatinine [Mass ratio] 14 ratio Normal 7 - 27 ratio AO ADM SS Basophils (Bld) [#/Vol] 0.1 103/mcL Normal 0.0 - 0.2 10^3/mcL AO Workflow SS Basophils/100 WBC (Bld) 1.3 % Normal 0.0 - 2.5 % AO Workflow SS Eosinophil, Absolute 0.2 103/mcL Normal 0.0 - 0 .7 10^3/mcL AO Workflow SS Eosinophils/100 WBC (Bld) 2.9 % Normal 0.0 - 7.0 % AO Workflow SS Erythrocyte distribution width (RBC) [Ratio] 13.5 % Normal 11.5 - 15.5 % AO Workflow SS Hematocrit (Bld) [Volume fraction] 49.9 % Normal 40.0 - 52.0 % AO Workflow SS Hemoglobin (Bld) [Mass/Vol] 17.2 G/dL Normal 13.0 - 17.5 G/dL AO Workflow SS Lymphocytes (Bld) [#/Vol] 3.2 103/mcL Normal 0.9 - 4.3 10^3/mcL AO Workflow SS Lymphocytes/100 WBC (Bld) 41.0 % High 20.0 - 40.0 % AO Workflow SS MCH (RBC) [Entitic mass] 30.7 pg Normal 27.0 - 33.0 pg AO Workflow SS MCHC 34.5 G/dL Normal 32.0 - 36.0 G/dL AO Workflow SS MCV (RBC) [Entitic vol] 89.2 fL Normal 81.0 - 100.0 fL AO Workflow SS Monocyte distribution width Auto (Bld) [Entitic vol] 16.99 1 Normal 0.00 - 20.00 AO Workflow SS Comment on above: Result Comment: For ED adult patients suspected of sepsis, MDW<=20.0 does not rule out sepsis or risk of sepsis Monocytes (Bld) [#/Vol] 0.6 103/mcL Normal 0.1 - 1.4 10^3/mcL AO Workflow SS Monocytes/100 WBC (Bld) 7.8 % Normal 2.0 - 13.0 % AO Workflow SS Neutrophils (Bld) [#/Vol] 3.7 103/mcL Normal 2.3 - 8.1 10^3/mcL AO Workflow SS Neutrophils/100 WBC (Bld) 47.0 % Low 50.0 - 75.0 % AO Workflow SS Platelet mean volume (Bld) [Entitic vol] 7.9 fL Normal 6.4 - 10.5 fL AO Workflow SS Platelets (Bld) [#/Vol] 228 103/mcL Normal 150 - 450 10^3/mcL AO Workflow SS RBC (Bld) [#/Vol] 5.59 106/mcL Normal 4.50 - 6.0 0 10^6/mcL AO Workflow SS Troponin I.cardiac DL <= 0.01 ng/mL [Mass/Vol] 10 ng/L Normal 0 - 76 ng/L AO ADM SS Comment on above: Interpretive Data: H igh Sensitive Troponin I Reference Ranges: Female: 0-51 ng/L Male: 0-76 ng/L Testing performed on Craft Dragon using a homogeneous sandwich chemiluminescent immunoassay based on Skai technology. WBC (Bld) [#/Vol] 7.8 103/mcL Normal 4.5 - 10.8 10^3/mcL AO Workflow SS [facility] 05-25-2024 High Sensitivity Troponin I 8 ng/L Normal 0-76 [facility] Comment on above: Result Comment: High Sensitive Troponin I Reference Ranges: Female: 0-51 ng/L Male: 0-76 ng/L Testing performed on [employer] EXL using a homogeneous sandwich chemiluminescent immunoassay based on Skai technology. Performed By: #### T [facility] #### [place] [address] [place], [place] [address] High Sensitivity Troponin I 10 ng/L Normal 0-76 [facility] Comment on above: Result Comment: High Sensitive Troponin I Reference Ranges: Female: 0-51 ng/L Male: 0-76 ng/L Testing performed on Craft Dragon using a homogeneous sandwich chemiluminescent immunoassay based on Skai technology. Performed By: #### C KAMERON, DANY, CRISTAL, GABRIEL DEL ANGEL MDW, GREGG #### [place] [address] [place], [place] [address] XR CHEST 1 VIEWon 05-25-2024 XR CHEST 1 VIEW ORIGINAL EXAMINATION: ONE XRAY VIEW OF THE CHEST 05/25/2024 9:46 am COMPARISON: None. HISTORY: ORDERING SYSTEM PROVIDED HISTORY: Reason for Exam: chest pain FINDINGS: Borderline low lung volumes. Cardiomediastinal silhouette is within normal limits. No overt edema. No focal consolidation. Costophrenic angles are sharp. No pneumothorax. No acute osseous abnormality. IMPRESSION: No acute cardiopulmonary process. Interpreted by: Екатерина Norton Preliminary Report By: Екатерина Norton Electronically signed By Екатерина Norton Dictated Date: 05/25/2024 9:50:57 AM Prelim Date: 05/25/2024 9:51:26 AM Sign Date: 05/25/2024 9:51:26 AM [facility]ing Provider[facility] -- HAIM CHASE ([id number]) 1980 M Date Time Provider Department 05/21/24 6:00 PM PAULINO VAZQUEZ [facility] During your visit today, we recorded the following information about you: Temperature Pulse Respiration Blood pressure 98.1 degrees 66/minute 20/minute 146/89 Weight 146 kg Paulino Vazquez MD 05/21/2024 6:43 PM Signed Patient presents with: Ear Pain: R ear pain x 5 days Pain, Sinus: Pressure pain, headache,SOB, nausea, diarrhea, chest fullness, x 5 days HPI: Feeling sick for 5 days. Positive symptoms: Cough, Shortness of breath, Chest tightness, chest pounding sometimes, scratchy throat, Earache, Sinus/head pressure, Nasal Congestion, Rhinorrhea, Headache, Nausea, Diarrhea, Negative symptoms: Chest pain, Fever, Vomiting, OTC: Cold Medicine, Ibuprofen Past history of pneumonia. MEDICATIONS: Current Outpatient Medications Medication Sig cetirizine (ZYRTEC) 10 mg tablet Take 1 tablet by mouth once daily. liothyronine (CYTOMEL) 25 mcg tablet Take 1 tablet by mouth once daily. levothyroxine (SYNTHROID) 88 mcg tablet Take 1 tablet by mouth daily before breakfast. fluticasone (FLONASE) 50 mcg/actuation nasal spray Use 2 Sprays in each nostril once daily. Rinse mouth after use. CPAP Mask Fitting requested (per patient preference, try Dream ricci nasal tube like head gear) optional chin strap (if indicated), filters, tubing / heated tubing, heated humidity and lifetime supplies. Dx. SHERIN G47.33 327.23 CPAP AutoPAP 7-20 cmH2O, suitable mask, humidity, filters. Lifetime supplies. Dx: G47.ee No current facility-administered medications for this visit. ALLERGIES: ALLERGIES Allergen Reactions Vancomycin Rash Red man syndrome VITALS: BP 146/89 Pulse 66 Temp 36.7 ?C (98.1 ?F) Resp 20 Wt (!) 146 kg (321 lb 14 oz) SpO2 99% BMI 46.18 kg/m? PHYSICAL EXAM: GEN: mildly ill appearing HEENT: PERRL, EOMI, conjunctiva clear Ears: canals clear. TMs without erythema, bulge, or effusion Sinuses: non-tender frontal sinus, non-tender maxillary sinuses Throat: moist mucous membranes, mild erythema, no exudate Neck: supple, no thyromegaly, no lymphadenopathy HEART: regular rate, regular rhythm, no murmurs LUNGS: clear to auscultation, no wheezes or crackles, no increased WOB ASSESSMENT/PLAN: 1. Influenza-like illness - ICD9: 487.1, ICD10: J11.1 (primary diagnosis) 2. Otalgia, right - ICD9: 388.70, ICD10: H92.01 - suspect influenza; differential includes COVID-19 or other viral URI. He is beyond the therapeutic window for antiviral treatment. He would like testing - his has asthma. - Discussed supportive care treatment with home isolation (fever free for 24 hours and improving symptoms), rest, cold medicine, and analgesia. - Red flags to seek further treatment include chest pain, shortness of breath, late onset fever, and lethargy; in the ER if severe. Paulino Vazquez MD Allergies As of Date: 05/21/2024 Noted Allergy Reaction VANCOMYCIN 02/08/2013 2 - Rash Comments: Red man syndrome Date Reviewed: 03/16/2024 Reviewed by: Shari Elias MA - Fully Assessed Reason for Visit: Ear Pain [817] Cmt: R ear pain x 5 days Pain, Sinus [857] Cmt: Pressure pain, headache,SOB, nausea, diarrhea, chest fullness, x 5 days Primary Visit Diagnosis:Influenza-like illness [J11.1] Other Visit Diagnosis:Otalgia, right [H92.01] Order(s):COVID AND INFLUENZA A/B AND RSV PCR, ROUTINE [SQCVFLRS] Order #: [id number]. #:[id number] Prescriptions as of 05/21/2024 - cetirizine (ZYRTEC) 10 mg tablet Take 1 tablet by mouth once daily. - liothyronine (CYTOMEL) 25 mcg tablet Take 1 tablet by mouth once daily. - levothyroxine (SYNTHROID) 88 mcg tablet Take 1 tablet by mouth daily before breakfast. - fluticasone (FLONASE) 50 mcg/actuation nasal spray Use 2 Sprays in each nostril once daily. Rinse mouth after use. - CPAP Mask Fitting requested (per patient preference, try Dream ricci nasal tube like head gear) optional chin strap (if indicated), filters, tubing / heated tubing, heated humidity and lifetime supplies. Dx. SHERIN G47.33 327.23 - CPAP AutoPAP 7-20 cmH2O, suitable mask, humidity, filters. Lifetime supplies. Dx: G47.ee Problem List As Of Date 05/21/2024 Noted Resolved Hypothyroidism [E03.9] 04/28/2008 Sterilization [Z30.2] 02/24/2009 01/04/2010 Anxiety [F41.9] 06/10/2009 01/03/2017 Stress Reaction [F43.0] 06/10/2009 01/04/2010 Morbid Obesity [E66.01] 01/04/2010 04/29/2019 Routine general medical examination at a health*01/04/2010 10/19/2014 Class: Chronic Depressive disorder [F32.A] 09/26/2011 04/29/2019 BPPV (benign paroxysmal positional vertigo) [H8*10/22/2012 10/19/2014 Allergic rhinitis [J30.9] 10/19/2014 Vitamin D deficiency [E55.9] 01/18/2015 Candidiasis of skin and nail [B37.2] 09/26/2015 03/11/2017 OS (more content not included)... Normal [facility] COVID AND INFLUENZA A/B AND RSV PCR, ROUTINEon 05-21-2024 SARS-CoV-2 (COVID-19) RNA LASHONDA+probe Ql (Unsp spec) SARS-COV-2 (AGENT OF COVID-19) RNA: Not detected INFLUENZA A RNA: Not detected INFLUENZA B RNA: Not detected RESPIRATORY SYNCYTIAL VIRUS (RSV) RNA: Not detected Normal [facility] Comment on above: Performed By: #### C VFLRS ####[facility] [id number] [place] [address] [place] CBC panel Auto (Bld)on 03-20 Erythrocyte distribution width (RBC) [Ratio] 12.3 % Normal 11.5-15.0 [facility] Comment on above: Order Comment: Speci men Type: BLOOD SPECIMENOrdering Facility: [facility] Address: [address] [place] [address] Performed By: #### 5 [id number] ####[facility] [id number] [place], [place] [address] [place] Hematocrit (Bld) [Volume fraction] 47.6 % Normal 39.0-51.0 [facility] Comment on above: Order Comment: Speci men Type: BLOOD SPECIMENOrdering Facility: [facility] Address: [address] [place] [address] Performed By: #### 5 8410-2 ####[facility] LABCL[facility] [id number] [place] [address] [place] Hemoglobin (Bld) [Mass/Vol] 16.2 g/dL Normal 13.0-17.0 [facility] Comment on above: Order Comment: Speci men Type: BLOOD SPECIMENOrdering Facility: [facility] Address: [address] [place] [address] Performed By: #### 5 8410-2 ####[facility] LABIA [id number] [place] [address] [place] MCH (RBC) [Entitic mass] 30.6 pg Normal 26.0-34.0 [facility] Comment on above: Order Comment: Speci men Type: BLOOD SPECIMENOrdering Facility: [facility] Address: [address] [place] [address] Performed By: #### 5 8410-2 ####[facility]CL[facility] [id number] [place] [address] [place] MCHC (RBC) [Mass/Vol] 34.0 g/dL Normal 30.5-36.0 [facility] Comment on above: Order Comment: Speci men Type: BLOOD SPECIMENOrdering Facility: [facility] Address: [address] [place] [address] Performed By: #### 5 8410-2 ####[facility] LABIA [id number] [place] [address] [place] MCV (RBC) [Entitic vol] 89.8 fL Normal 80.0-100.0 [facility] Comment on above: Order Comment: Speci men Type: BLOOD SPECIMENOrdering Facility: [facility] Address: [address] [place] [address] Performed By: #### 5 8410-2 ####[facility]CL[facility] [id number] [place] [address] [place] Nucleated RBC (Bld) [#/Vol] 10*3/uL Normal <0.01 [facility] Comment on above: Order Comment: Speci men Type: BLOOD SPECIMENOrdering Facility: [facility] Address: [address] [place] [address] Performed By: #### 5 8410-2 ####[facility]CL[facility] [id number] [place] [address] [place] Platelet mean volume (Bld) [Entitic vol] 10.5 fL Normal 9.0-12.7 [facility] Comment on above: Order Comment: Speci men Type: BLOOD SPECIMENOrdering Facility: [facility] Address: [address] [place] [address] Performed By: #### 5 8410-2 ####[facility] LABIA [id number] [place] [address] [place] Platelets (Bld) [#/Vol] 235 10*3/uL Normal 150-400 [facility] Comment on above: Order Comment: Speci men Type: BLOOD SPECIMENOrdering Facility: [facility] Address: [address] [place] [address] Performed By: #### 5 8410-2 ####[facility]IA [id number] [place] [address] [place] RBC (Bld) [#/Vol] 5.30 10*6/uL Normal 4.20-6.00 [facility] Comment on above: Order Comment: Speci men Type: BLOOD SPECIMENOrdering Facility: [facility] Address: [address] [place] [address] Performed By: #### 5 8410-2 ####[facility]CL[facility] [id number] [place] [address] [place] WBC (Bld) [#/Vol] 5.77 10*3/uL Normal 3.70-11.00 [facility] Comment on above: Order Comment: Speci men Type: BLOOD SPECIMENOrdering Facility: [facility] Address: [address] [place] [address] Performed By: #### 5 8410-2 ####[facility] LABIA [id number] [place] [address] [place] Comprehensive metabolic 2000 panelon 03-20-2024 Albumin [Mass/Vol] 4.3 g/dL Normal 3.9-4.9 [facility] Comment on above: Order Comment: Speci men Type: BLOOD SPECIMENOrdering Facility: [facility] Address: [address] [place] [address] Performed By: #### 2 4331-1, 3016-3, 3024-7, 71464-9 ####[facility] [id number] [place] [address] [place] ALP [Catalytic activity/Vol] 57 U/L Normal 38-113 [facility] Comment on above: Order Comment: Speci men Type: BLOOD SPECIMENOrdering Facility: [facility] Address: [address] [place] [address] Performed By: #### 2 4331-1, 3016-3, 3024-7, 07749-5 ####[facility] [id number] [place] [address] [place] ALT [Catalytic activity/Vol] 54 U/L Normal 10-54 [facility] Comment on above: Order Comment: Speci men Type: BLOOD SPECIMENOrdering Facility: [facility] Address: [address] [place] [address] Performed By: #### 2 4331-1, 3016-3, 3024-7, 96549-9 ####[facility] LABIA [id number] [place] [address] [place] Anion gap [Moles/Vol] 14 mmol/L Normal 8-15 [facility] Comment on above: Order Comment: Speci men Type: BLOOD SPECIMENOrdering Facility: [facility] Address: [address] [place] [address] Performed By: #### 2 4331-1, 3016-3, 3024-7, 31318-1 ####[facility]CL[facility] [id number] [address] [address] [place] AST [Catalytic activity/Vol] 47 U/L High 14-40 [facility] Comment on above: Order Comment: Speci men Type: BLOOD SPECIMENOrdering Facility: [facility] Address: [address] [place] [address] Performed By: #### 2 4331-1, 3016-3, 3027, 20381-9 ####[facility]IA [id number] [place] [address] [place] Bilirubin [Mass/Vol] 0.4 mg/dL Normal 0.2-1.3 [facility] Comment on above: Order Comment: Speci men Type: BLOOD SPECIMENOrdering Facility: [facility] Address: [address] [place] [address] Performed By: #### 2 4331-1, 3016-3, 3027, 53043-8 ####[facility]IA [id number] [place] [address] [place] Calcium [Mass/Vol] 9.4 mg/dL Normal 8.5-10.2 [facility] Comment on above: Order Comment: Speci men Type: BLOOD SPECIMENOrdering Facility: [facility] Address: [address] [place] [address] Performed By: #### 2 4331-1, 3016-3, 302-7, 29424-2 ####[facility]IA [id number] [place] [address] [place] Chloride [Moles/Vol] 104 mmol/L Normal 98-107 [facility] Comment on above: Order Comment: Speci men Type: BLOOD SPECIMENOrdering Facility: [facility] Address: [address] [place] [address] Performed By: #### 2 4331-1, 3016-3, 302-7, 53999-5 ####[facility] [id number] [address] [address] [place] CO2 [Moles/Vol] 21 mmol/L Low 22-30 [facility] Comment on above: Order Comment: Speci men Type: BLOOD SPECIMENOrdering Facility: [facility] Address: [address] [place], [place] [address] Performed By: #### 2 4331-1, 6-3, 3023-7, 06881-2 ####[facility] [id number] [place] [address] [place] Creatinine [Mass/Vol] 0.94 mg/dL Normal 0.73-1.22 [facility] Comment on above: Order Comment: Speci men Type: BLOOD SPECIMENOrdering Facility: [facility] Address: [address] [place] [address] Performed By: #### 2 4331-1, 6-3, 7, 10868-5 ####[facility] [id number] [place] [address] [place] Creatinine and Glomerular filtration rate.predicted panel (S/P/Bld) 103 mL/min/1.73m??? Normal >=60 [facility] Comment on above: Order Comment: Speci men Type: BLOOD SPECIMENOrdering Facility: [facility] Address: [address] [place], [place] [address] Result Comment: Haylie mated Glomerular Filtration Rate (eGFR) is calculated using the 2020 CKD-EPI creatinine equation. This equation utilizes serum creatinine, sex, and age as parameters. The creatinine assay has traceable calibration to isotope dilution-mass spectrometry. Refer to KDIGO guidelines for clinical interpretation. In patients with unstable renal function, e.g. those with acute kidney injury, the eGFR may not accurately reflect actual GFR. Performed By: #### 2 4331-1, 3016-3, 302-7, 44303-8 ####[facility]CL[facility] [id number] [address] [address] [place] Glucose [Mass/Vol] 173 mg/dL High 74-99 [facility] Comment on above: Order Comment: Speci men Type: BLOOD SPECIMENOrdering Facility: [facility] Address: [address] [place] [address] Result Comment: The [place] [employer] Association (ADA) provides guidance for cutoff values for fasting glucose and random glucose. The ADA defines fasting as no caloric intake for at least 8 hours. Fasting plasma glucose results between 100 to 125 mg/dL indicate increased risk for diabetes (prediabetes). Fasting plasma glucose results greater than or equal to 126 mg/dL meet the criteria for diagnosis of diabetes. In the absence of unequivocal hyperglycemia, results should be confirmed by repeat testing. In a patient with classic symptoms of hyperglycemia or hyperglycemic crisis, random plasma glucose results greater than or equal to 200 mg/dL meet the criteria for diagnosis of diabetes. Reference: Standards of Medical Care in Diabetes 2016, [place] [employer]. Diabetes Care. 2016.39(Suppl 1). Performed By: #### 2 4331-1, 3016-3, 3024-7, 17987-9 ####[facility] [id number] [place] [address] [place] Potassium [Moles/Vol] 4.2 mmol/L Normal 3.7-5.1 [facility] Comment on above: Order Comment: Speci men Type: BLOOD SPECIMENOrdering Facility: [facility] Address: [address] [place] [address] Performed By: #### 2 4331-1, 3016-3, 3024-7, 96909-6 ####[facility] [id number] [place] [address] [place] Protein [Mass/Vol] 7.2 g/dL Normal 6.3-8.0 [facility] Comment on above: Order Comment: Speci men Type: BLOOD SPECIMENOrdering Facility: [facility] Address: [address] [place] [address] Performed By: #### 2 4331-1, 3016-3, 3024-7, 29722-6 ####[facility]CL[facility] [id number] [place] [address] [place] Sodium [Moles/Vol] 139 mmol/L Normal 136-144 [facility] Comment on above: Order Comment: Speci men Type: BLOOD SPECIMENOrdering Facility: [facility] Address: [address] [place] [address] Performed By: #### 2 4331-1, 3016-3, 302-7, 48536-1 ####[facility]CL[facility] [id number] [place] [address] [place] Urea nitrogen [Mass/Vol] 12 mg/dL Normal 9-24 [facility] Comment on above: Order Comment: Speci men Type: BLOOD SPECIMENOrdering Facility: [facility] Address: [address] [place] [address] Performed By: #### 2 4331-1, 3016-3, 302-7, 53950-6 ####[facility]CL[facility] [id number] [place] [address] [place] Lipid 1996 panelon 4 Cholesterol [Mass/Vol] 204 mg/dL High <200 [facility] Comment on above: Order Comment: Speci men Type: BLOOD SPECIMENOrdering Facility: [facility] Address: [address] [place] [address] Result Comment: <200 mg/dL, Desirable 200-239 mg/dL, Borderline high >239 mg/dL, High Performed By: #### 2 4331-1, 3016-3, 302-7, 98138-6 ####[facility]CL[facility] [id number] [place] [address] [place] Cholesterol in HDL [Mass/Vol] 45 mg/dL Normal >39 [facility] Comment on above: Order Comment: Speci men Type: BLOOD SPECIMENOrdering Facility: [facility] Address: [address] [place] [address] Result Comment: 40-5 9 mg/dL, Acceptable >59 mg/dL, High: Negative risk factor for coronary heart disease <40 mg/dL, Low: Positive risk factor for coronary heart disease Performed By: #### 2 4331-1, 3016-3, 3024-7, 90962-0 ####[facility]CL[facility] [id number] [place] [address] [place] Cholesterol in LDL [Mass/Vol] 112 mg/dL High <100 [facility] Comment on above: Order Comment: Radha zach Type: BLOOD SPECIMENOrdering Facility: [facility] Address: [address] [place] [address] Result Comment: <100 mg/dL, Optimal 100-129 mg/dL, Near optimal/above optimal 130-159 mg/dL, Borderline high 160-189 mg/dL, High >189 mg/dL, Very high Secondary prevention optimal LDL Cholesterol levels are recommended to be < 70 mg/dL Performed By: #### 2 4331-1, 3016-3, 302-7, 52774-4 ####[facility]CL[facility] [id number] [place] [address] [place] Cholesterol in LDL/Cholesterol in HDL [Mass ratio] 2.49 {ratio} Normal <2.54 [facility] Comment on above: Order Comment: Radha serrano Type: BLOOD SPECIMENOrdering Facility: [facility] Address: [address] [place] [address] Result Comment: Refe rence: 1. National Cholesterol Education Program ATP III Guideline At-A-Glance Quick Desk Reference: National Heart, Lung, and Blood [place]. National Institutes of Health. 2001: NIH Publication No. 01-3305. 2. An International Atherosclerosis Society position paper: global recommendations for the management of dyslipidemia: executive summary, Atherosclerosis. 2014: 232(2):410-413. Performed By: #### 2 4331-1, 3016-3, 3024-7, 11004-5 ####[facility]CL[facility] [id number] [address] [address] [place] Cholesterol in VLDL [Mass/Vol] 47 mg/dL High <30 [facility] Comment on above: Order Comment: Speci men Type: BLOOD SPECIMENOrdering Facility: [facility] Address: [address] [place], [place] [address] Performed By: #### 2 4331-1, 6-3, 3023-7, 90053-0 ####[facility]CL[facility] [id number] [address] [address] [place] Cholesterol non HDL [Mass/Vol] 159 mg/dL High <130 [facility] Comment on above: Order Comment: Speci men Type: BLOOD SPECIMENOrdering Facility: [facility] Address: [address] [place] [address] Result Comment: <130 mg/dL, Optimal 130-159 mg/dL, Near optimal/above optimal 160-189 mg/dL, Borderline high 190-219 mg/dL, High >219 mg/dL, Very high Secondary prevention optimal non HDL Cholesterol levels are recommended to be <100 mg/dL Performed By: #### 2 4331-1, 6-3, 3023-7, ####[facility]CL[facility] [id number] [address] [address] [place] Cholesterol.total/Chol esterol in HDL [Mass ratio] 4.53 {ratio} Normal <5.10 [facility] Comment on above: Order Comment: Speci men Type: BLOOD SPECIMENOrdering Facility: [facility] Address: [address] [place] [address] Performed By: #### 2 4331-1, 6-3, 3023-7, ####[facility] [id number] [address] [address] [place] FASTING TIME 0 hrs Normal [facility] Comment on above: Order Comment: Speci men Type: BLOOD SPECIMENOrdering Facility: [facility] Address: [address] [place] [address] Result Comment: pait ent did not fast but stil wanted to proceed with testing Performed By: #### 2 4331-1, 3016-3, 7, ####[facility] [id number] [place] [address] [place] Triglyceride [Mass/Vol] 236 mg/dL High <150 [facility] Comment on above: Order Comment: Speci men Type: BLOOD SPECIMENOrdering Facility: [facility] Address: [address] [place] [address] Result Comment: <150 mg/dL, Normal 150-199 mg/dL, Borderline high 200-499 mg/dL, High >499 mg/dL, Very high Performed By: #### 2 4331-1, 6-3, 7, ####[facility] [id number] [place] [address] [place] T4 Free SerPl-mCncon 024 Free T4 [Mass/Vol] 0.8 ng/dL Low 0.9-1.7 [facility] Comment on above: Order Comment: Speci men Type: BLOOD SPECIMENOrdering Facility: [facility] Address: [address] [place] [address] Performed By: #### 2 4331-1, 6-3, 7, ####[facility] [id number] [place] [address] [place] TSH SerPl-aCncon 03-20-2024 TSH Qn 1.970 m[IU]/L Normal 0.270-4.200 [facility] Comment on above: Order Comment: Speci men Type: BLOOD SPECIMENOrdering Facility: [facility] Address: [address] [place] [address] Performed By: #### 2 4331-1, 6-3, 7, 66672-5 ####[facility] LABSHAUNA [id number] [place] [address] [place] CNOVon 03-16-2024 CNOV Office Visit (UCW[facility] ) -- HAIM CHASE ([id number]) 1980 M Date Time Provider Department 03/16/24 9:15 AM DAVID LOZADA [facility] During your visit today, we recorded the following information about you: Temperature Pulse Respiration Blood pressure 97.3 degrees 70/minute 16/minute 122/80 Weight 143.5 kg David Lozada PA 03/16/2024 8:54 AM Signed This note was created using CellARideriter. Subjective Haim Chase is a 43 year old male. HPI 43-year-old male presents for sinus congestion, ear pain. Patient states that he has had nasal congestion for the past 4 to 5 days. He started getting right ear pain a few days ago as well. He denies any cough. No fevers. No sore throat. Still able to eat and drink. Has taken ibuprofen [id number]-[id number] with minimal improvement. No other complaint. PAST MEDICAL HISTORY Diagnosis Date - Allergic rhinitis 10/19/2014 - Anxiety 06/10/2009 Intolerant of Celexa (anorgasmia) -- did well on Zoloft 200 mg, in the mid-s --> restarted Zoloft 12/2009 - BPPV (benign paroxysmal positional vertigo) 10/22/2012 - COVID-19 03/18/2022 - Depressive disorder 09/26/2011 - Hypothyroidism 04/28/[address] Mcleod, who retired; MASSIVE weight loss, improvement in cold intolerance, with treatment; Labs tend to be normal, clinically excellent reponse, normalization of hypothermic basal body temperature - Mixed hyperlipidemia 12/27/2016 - Morbid Obesity 01/04/2010 - SHERIN (obstructive sleep apnea) 01/02/2017 [facility] AutoPAP - Other specified joint disorders, left hip 12/29/2020 - Renal calculi PAST SURGICAL HISTORY Procedure Laterality Date - ARTHROSCOPY KNEE DIAGNOSTIC W/WO SYNOVIAL BX SPX Right 09/22/2014 meniscus tear, Dr. Cabrera - ARTHROSCOPY KNEE DIAGNOSTIC W/WO SYNOVIAL BX SPX Left 11/24/2010 Medial meniscectomy, chondroplasty patella AND medial femoral condyle - CYSTOSCOPY 03/10/2018 - CYSTOSCOPY, URETERAL STENT CHANGE/INSERTION Right 08/03/2013 - CYSTOSCOPY, URETERAL STENT CHANGE/INSERTION Right 08/07/2013 - PAST SURGICAL HISTORY OF WISDOM TEETH - REM LESION TRUNK,ARM,LEG 0.6 -1.0CM Right 10/26/2015 Exc. neal cyst right post. shoulder - SHOULDER ARTHROSCOPY/SURGERY Left 03/13/2017 - SKIN BX, 1 LESION 1988 Skin biopsy, foot age 8 - TOTAL HIP REPLACEMENT Left 01/06/2021 - VASECTOMY UNI/BI SPX W/POSTOP SEMEN EXAMS Bilateral 10/19/2015 ALLERGIES Vancomycin MEDICATIONS - cetirizine (ZYRTEC) 10 mg tablet Take 1 tablet by mouth once daily. - liothyronine (CYTOMEL) 25 mcg tablet Take 1 tablet by mouth once daily. - levothyroxine (SYNTHROID) 88 mcg tablet Take 1 tablet by mouth daily before breakfast. - fluticasone (FLONASE) 50 mcg/actuation nasal spray Use 2 Sprays in each nostril once daily. Rinse mouth after use. - CPAP Mask Fitting requested (per patient preference, try Dream ricci nasal tube like head gear) optional chin strap (if indicated), filters, tubing / heated tubing, heated humidity and lifetime supplies. Dx. SHERIN G47.33 327.23 - CPAP AutoPAP 7-20 cmH2O, suitable mask, humidity, filters. Lifetime supplies. Dx: G47.ee - amoxicillin (AMOXIL) 875 mg tablet Take 1 tablet by mouth two times a day for 7 days. FAMILY HISTORY Problem Relation Age of Onset - Diabetes Mother - Diabetes Father - Factor 5 Leiden Sister - DVT Sister - Kidney stones Sister - No Known Problems Sister - No Known Problems Sister - Thyroid Brother hyperthyroidism Social History Tobacco Use - Smoking status: Never - Smokeless tobacco: Never Substance Use Topics - Alcohol use: Not Currently Alcohol/week: 2.0 standard drinks of alcohol Types: 2 Shots of liquor per week - Drug use: No Review of Systems Constitutional: Negative for chills and fever. HENT: Positive for congestion and ear pain. Negative for sore throat. Respiratory: Negative for cough and shortness of breath. Gastrointestinal: Negative for diarrhea and vomiting. Objective BP 122/80 Pulse 70 Temp 36.3 ?C (97.3 ?F) Resp 16 Wt (!) 143.5 kg (316 lb 5.8 oz) SpO2 97% BMI 45.39 kg/m? Physical Exam Vitals and nursing note reviewed. Constitutional: General: He is not in acute distress. Appearance: Normal appearance. He is not toxic-appearing. HENT: Right Ear: Tympanic membrane is erythematous and bulging. Left Ear: Tympanic membrane and ear canal normal. Nose: Congestion present. Mouth/Throat: Mouth: Mucous membranes are moist. Eyes: Conjunctiva/sclera: Conjunctivae normal. Cardiovascular: Rate and Rhythm: Normal rate and regular rhythm. Pulmonary: Effort: Pulmonary effort is normal. Breath sounds: Normal breath sounds. Skin: General: Skin is warm and dry. Neurological: Mental Status: He is alert. Assessment and Plan ASSESSMENT/PLAN: 1. URI, acute - ICD9: 465.9, ICD10: J06.9 (primary genaro (more content not included)... Normal [facility] CNOVon 12-16-2023 CNOV Office Visit (INTMWS ) -- HAIM CHASE ([id number]) 1980 M Date Time Provider Department 12/16/23 5:00 PM JOE FARIA [facility] During your visit today, we recorded the following information about you: Temperature Pulse Blood pressure Weight 97.2 degrees 71/minute 131/90 145 kg Joe Faria MD 12/16/2023 5:25 PM Signed This note was created using NoteWriter. Subjective Haim Chase is a 43 year old male. He was here for another course of phentermine. He has less efficacy earlier this year, and we could not obtain semaglutide. He was still following his calorie restricted diet. Exercise was limited due to work and storm clean up chores in his house. He also had some irritability from phentermine. His obstructive sleep apnea was controlled, and he was using his CPAP regularly. He was due for labs. Review of Systems Constitutional: Negative for appetite change and fatigue. Respiratory: Negative for shortness of breath. Cardiovascular: Negative for chest pain and palpitations. Psychiatric/Behavioral: Negative for sleep disturbance. ACTIVE PROBLEM LIST Hypothyroidism Allergic Rhinitis Vitamin D Deficiency SHERIN (obstructive sleep apnea) on AutoPAP Mixed Hyperlipidemia Obesity, Class III, BMI >= 40 Other Specified Joint Disorders, Left Hip Social History Tobacco Use Smoking status: Never Smokeless tobacco: Never Substance Use Topics Alcohol use: Not Currently Alcohol/week: 2.0 standard drinks of alcohol Types: 2 Shots of liquor per week Drug use: No Current Outpatient Medications Medication Sig levothyroxine (SYNTHROID) 88 mcg tablet Take 1 tablet by mouth daily before breakfast. liothyronine (CYTOMEL) 25 mcg tablet Take 1 tablet by mouth once daily. cetirizine (ZYRTEC) 10 mg tablet Take 1 tablet by mouth once daily. fluticasone (FLONASE) 50 mcg/actuation nasal spray Use 2 Sprays in each nostril once daily. Rinse mouth after use. CPAP Mask Fitting requested (per patient preference, try Dream ricci nasal tube like head gear) optional chin strap (if indicated), filters, tubing / heated tubing, heated humidity and lifetime supplies. Dx. SHERIN G47.33 327.23 CPAP AutoPAP 7-20 cmH2O, suitable mask, humidity, filters. Lifetime supplies. Dx: G47.ee No current facility-administered medications for this visit. Objective BP 131/90 (BP Site: Left Arm, BP Position: Sitting, BP Cuff Size: Large Adult) Pulse 71 Temp 36.2 ?C (97.2 ?F) (Temporal) Wt (!) 145 kg (319 lb 10.7 oz) BMI 45.87 kg/m? Physical Exam Constitutional: General: He is not in acute distress. Appearance: He is not ill-appearing. HENT: Head: Normocephalic. Cardiovascular: Rate and Rhythm: Normal rate and regular rhythm. Heart sounds: No murmur heard. No gallop. Pulmonary: Breath sounds: Normal breath sounds. Musculoskeletal: Right lower leg: No edema. Left lower leg: No edema. Neurological: Mental Status: He is alert. Psychiatric: Mood and Affect: Mood normal. Assessment and Plan 1. Obesity, Class III, BMI >= 40 - ICD9: 278.01, ICD10: E66.01 (primary diagnosis) Weight increasing - Behavioral and pharmacological intervention - PHENTERMINE 37.5 MG TABLET - COMPLETE BLOOD COUNT - Shared medical decision making was done. Discussed medication dosage, usage, goals of therapy, and side effects. We agreed to resume full strength. He is given prescription for 3 months. If there is no demonstrated weight loss in 3 months, we agreed we will stop there. 2. Screening for depression - ICD9: V79.0, ICD10: Z13.31 - DEPRESSION SCREENING 3. Encounter for screening examination for other mental health and behavioral disorders - ICD9: V79.8, ICD10: Z13.39 - ANXIETY SCREENING 4. Acquired hypothyroidism - ICD9: 244.9, ICD10: E03.9 - continue current dose of medications. - THYROID STIMULATING HORMONE - T4 FREE/FREE THYROXINE 5. Mixed hyperlipidemia - ICD9: 272.2, ICD10: E78.2 - Control undetermined, due for labs - Counseled on healthy diet and regular exercise - Discussed need for and benefit of weight loss. BMI 45.87 kg/(m2) - COMPREHENSIVE METABOLIC PANEL - LIPID PANEL BASIC 6. Elevated blood pressure reading - ICD9: 796.2, ICD10: R03.0 - Encouraged dietary sodium restriction/DASH diet - Discussed need and benefit for weight loss. - Goal of BP <130/80 7. SHERIN (obstructive sleep apnea) on AutoPAP - ICD9: 327.23, ICD10: G47.33 - Patient is using and benefiting from regular CPAP use. Joe Faria MD Allergies As of Date: 12/16/2023 Noted Allergy Reaction VANCOMYCIN 02/08/2013 2 - Rash Comments: Red man syndrome Date Reviewed: 12/16/2023 Reviewed by: Myesha Mansfield LPN - Fully Assessed Reason for Visit: Medication review [Other] Primary Visit Diagnosis:Obesity, Class III, BMI >= 40 [E66.01] Other Visit Diagnoses:Screening for depressi (more content not included)... Normal [facility] Fernandez STREP A MOLECULAR (POC)on Procedural Control Valid [facility] Strep A (POCT) Negative Negative [facility] XR Pelvis and Hip - left AP and Lateral frogon 10-20-2020 IMPRESSION: No acute osseous abnormality identified. Possible right-sided coxa valga. This may be related to patient positioning. Metal Fabricator: PSCB Transcribe Date/Time: Oct 20 2020 12:58P Dictated by : JAMES MEDRANO MD This examination was interpreted and the report reviewed and electronically signed by: JAMES MEDRANO MD on Oct 20 2020 1:03PM [facility] DIVISION OF RADIOLOGY * * *Final Report* * * DATE OF EXAM: Oct 20 2020 12:27PM WOX [id number] - XR HIP 3V PELV+ AP/LAT LT / PROCEDURE REASON: Acute hip pain, left * * * * Physician Interpretation * * * * Pelvis and left hip radiographs HISTORY: 40 years old Clinical information: Acute hip pain, left pt states a month ago got covid shot in left arm and left hip started to hurt, anterior groin, lateral side down leg and posterior side, yesterday had 2nd shot in right arm and now right hip is also starting to hurt denies inj TECHNIQUE: Images: XR HIP 3V PELV+ AP/LAT LT Comparison: October 30, 2016 RESULT: Findings: Superior left hip joint space is maintained. Mild osteophyte formation involving the left superior acetabulum. Possible right-sided coxa valga (right femoral neck to femur angle is approximately 146 degrees). No fracture or dislocation. Superior right hip joint space is maintained. Mild osteophyte formation involving the right acetabulum. Remainder of the imaged pelvis is intact. Pubic symphysis and SI joints are intact. DIVISION OF RADIOLOGY Provider, Yon Jackson - 10/20/2020 * * *Final Report* * * DATE OF EXAM: Oct 20 2020 12:27PM WOX [id number] - XR HIP 3V PELV+ AP/LAT LT / PROCEDURE REASON: Acute hip pain, left * * * * Physician Interpretation * * * * Pelvis and left hip radiographs HISTORY: 40 years old Clinical information: Acute hip pain, left pt states a month ago got covid shot in left arm and left hip started to hurt, anterior groin, lateral side down leg and posterior side, yesterday had 2nd shot in right arm and now right hip is also starting to hurt denies inj TECHNIQUE: Images: XR HIP 3V PELV+ AP/LAT LT Comparison: October 30, 2016 RESULT: Findings: Superior left hip joint space is maintained. Mild osteophyte formation involving the left superior acetabulum. Possible right-sided coxa valga (right femoral neck to femur angle is approximately 146 degrees). No fracture or dislocation. Superior right hip joint space is maintained. Mild osteophyte formation involving the right acetabulum. Remainder of the imaged pelvis is intact. Pubic symphysis and SI joints are intact. IMPRESSION IMPRESSION: No acute osseous abnormality identified. Possible right-sided coxa valga. This may be related to patient positioning. Metal Fabricator: PAM Transcribe Date/Time: Oct 20 2020 12:58P Dictated by : JAMES MEDRANO MD This examination was interpreted and the report reviewed and electronically signed by: JAMES MEDRANO MD on Oct 20 2020 1:03PM EST [facility] Radiology Study observation (narrative) [facility] XR Pelvis and Hip - left AP and Lateral frogOrdered By: Ccf Provider on 10-20-2020 [facility] ANES Ruth 03-07-2018 ANES POST HNO ID: [id number] thor: Patt Oropzeaervice: AnesthesiologyAuthor Type: PhysicianType: Anesthesia PostOpFiled: 03/07/2018 7:00 PMNote Text:POST ANESTHESIA EVALUATION NOTESERVICE DATE: 03/07/2018SERVICE TIME: 7:00 PMDOB: 1980Vitals: 03/07/1817Temp: 36.5 ?C (97.7 ?F) 37.2 ?C (99 ?F) 03/07/1817BP: 144/85 128/77 122/107 138/74 11/16/008050 03/07/1817Pulse: 70 74 73 66 03/07/1817Resp: 16 16 18 17 03/07/1817SpO2: 97% 99% 100%Validated Vital Signs: YesPOST ANES STATUS: No apparent anesthetic complications. The patient isappropriately hydrated with stable respiratory and cardiovascular status.Patient has safe and adequate airway control. The patient has appropriatepain relief and no significant post operative nausea or vomiting. Thepatient has achieved baseline mental status.Intra-Operative Events: No Significant Anesthesia EventsFurther assessment by Anesthesia Service: NoneOther Remarks:SIGNATURE: Patt Lora MD PATIENT NAME: Haim ChaseDATE: March 07, 2018 : 7:00 PM PAGER/CONTACT #: [phone] [facility] ANES PREOPon 03-07-2018 ANES PREOP HNO ID: [id number] thor: TERRY Perezervice: AnesthesiologyAuthor Type: PhysicianType: Anesthesia PreOpFiled: 03/07/2018 4:09 PMNote Text: ANESTHESIOLOGY DAY OF SURGERY NOTESERVICE DATE: 03/07/2018SERVICE TIME: 4:08 PMDOB: 1980Procedure(s) (LRB):CYSTOSCOPY, RETROPYELOGRAM (N/A)Surgeon(s):Anna Garcia Jr.Estimated body mass index is 43.83 kg/m? as calculated from the following: Height as of 12/31/17: 182.9 cm (6'). Weight as of 02/04/18: 146.6 kg (323 lb 3.2 oz).Most recent hematocrit and potassium results:Hematocrit 46.8 12/27/2016Potassium 4.3 12/27/2016ANES DOS/PREOP NOTE:Vitals: BP: 144/85Pulse: 70Resp: 16Temp: 36.5 ?C (97.7 ?F)SpO2: 97%ACTIVE PROBLEM LISTHypothyroidismMorbid ObesityAllergic RhinitisVitamin D DeficiencyOSA (obstructive sleep apnea) on AutoPAPLeft Shoulder PainStatus Post Labral Repair of ShoulderUrinary FrequencyUrinary UrgencyFlank PainPAST MEDICAL HISTORYDiagnosis Date- Allergic rhinitis 10/19/2014- Anxiety 06/10/2009 Intolerant of Celexa (anorgasmia) -- did well on Zoloft 200 mg, in themid-2000's --> restarted Zoloft 12/2009- BPPV (benign paroxysmal positional vertigo) 10/22/2012- Depression 09/26/2011- Morbid Obesity 01/04/2010- SHERIN (obstructive sleep apnea) 01/02/2017 [facility] AutoPAP- Renal calculi- Unspecified hypothyroidism 2008 HypothyroidismPAST SURGICAL HISTORYProcedure Laterality Date- KNEE SCOPE,DIAGNOSTIC Right 09/22/2014 meniscus tear, Dr. Cabrera- KNEE SCOPE,DIAGNOSTIC Left 10/2011 Arthroscopy, knee- PAST SURGICAL HISTORY OF WISDOM TEETH- PAST SURGICAL HISTORY OF KIDNEY STENT X2- REM LESION TRUNK,ARM,LEG 0.6 -1.0CM Right 10/26/15 Exc. neal cyst right post. shoulder- SHOULDER ARTHROSCOPY/SURGERY Left 03/13/2017- SKIN BX, 1 LESION 1988 Skin biopsy, foot age 8- VASECTOMY Bilateral 10/19/15FAMILY HISTORYProblem Relation Age of Onset- Diabetes Mother- Diabetes Father- Thyroid Brother hyperthyroidismSocial History:Social HistorySubstance Use Topics- Smoking status: Never Smoker- Smokeless tobacco: Never Used- Alcohol use 3.0 oz/week 2 Cans of Beer (12oz) per weekNo current facility-administered medications on file prior to encounter.Current Outpatient Prescriptions on File Prior to Encounter:liothyronine (CYTOMEL) 25 mcg tablet Take 1 tablet by mouth once daily.levothyroxine (SYNTHROID) 88 mcg tablet Take 1 tablet by mouth dailybefore breakfast.CPAP AutoPAP 7-20 cmH2O, suitable mask, humidity, filters. Lifetimesupplies. Dx: G47.eeceFAZolin (ANCEF, KEFZOL) 1 gram injection Inject 2 g intravenously onetime only for 1 dose.tolterodine ER (DETROL LA) 4 mg 24 hr capsule Take 1 capsule by mouth oncedaily.COMPOUNDED PRESCRIPTION Fluowart Gel: Fluorocracil (5) 5%, salicylic acid15%, cjbio-m-wvwhxmk (2) 0.195%, cimetidine 5% in anhydrous base.SIG:apply to each wart with cotton swab BID. [place] area around wart withlight film of Vaseline. Cover with bandage.CPAP Mask Fitting requested (per patient preference, try Dream ricci nasaltube like head gear) optional chin strap (if indicated), filters, tubing/ heated tubing, heated humidity and lifetime supplies. Dx. SHERIN G47.97090.23Orlistat 60 mg capsule Take 1 capsule by mouth three times daily withmeals. Over the counter for weight loss.Etodolac 500 mg tablet TAKE 1 TABLET BY MOUTH TWICE DAILY FOR PAIN. TAKEWITH FOOD.fluticasone (FLONASE) 50 mcg/actuation nasal spray Use 2 Sprays in eachnostril once daily. Rinse mouth after use.cetirizine (ZYRTEC) 10 mg tablet Take 1 tablet by mouth once daily.albuterol HFA (VENTOLIN HFA) 90 mcg/actuation inhaler Inhale 2 Puffs asinstructed every 4 hours as needed for Wheezing/Shortness of Breath.No current facility-administered medications for this encounter.Allergies:ALLERG IESAllergen Reactions- Vancomycin Rash Red man syndromeDOS EXAM: Adequate NPO status: YesAnesthetic risks, benefits, alternatives, personnel and consent discussed:YesPatient agrees to proceed: YesPrevious Anesthesia: No history of adverse event.Airway Assessment: MP 3; Neck ROM: Full ROM without neurologic symptoms;Airway Evaluation: No significant abnormalitiesSymptoms of Sleep Apnea: NoneDentition: Teeth intactAdditional Physical Exam:Lungs: Patient health status unchanged since recent history and physical.See history and physical for exam findings.Cardiac: Patient health status unchanged since recent history andphysical. See history and physical for exam findings.Additional Pertinent Findings: N/ABlood Products: Not anticipated for this procedure.Anesthetic Plan: General, Standard ASA MonitorsPain Management Plan: Parenteral or OralASA Class: 3Other Medical Problems: NoneChronic Beta Mila medication administered within 24 hours: N/AI have interviewed and examined the patient. I have reviewed the medicalrecord and/or the pre-anesthesia evaluation, pertinent labs, and testresults.Significant changes in the patient's condition since the History andPhysical, not otherwise documented in primary service progress notes: [facility] contains updated information obtained within 48 hours ofSurgery/Procedure.SIGNAT URE: Alex Arteaga MD PATIENT NAME: Haim Agosto: March 07, 2018 : 4:08 PM CSN: [id number] [facility] HISTORY PHYSICALon 8 HISTORY PHYSICAL HNO ID: [id number] thor: Anna Garcia Jr.Service: (none)Author Type: PhysicianType: HANDPFiled: 03/07/2018 4:42 PMNote Text:UPDATED HISTORY AND PHYSICAL EXAMINATIONSERVICE DATE: 03/07/2018SERVICE TIME: 4:41 PMPHYSICAL EXAM MUST BE COMPLETED ON ADMISSIONThe History and Physical (completed in the past 30 days) has been reviewedand the patient has been examined. The contents accurately reflect thepatient's condition with the following additions or revisions since theHANDP was completed.Heart rrrLungs ctabExamination indicates no changes.This HANDP can be found in the Electronic Medical Record dated 02/04/18.SIGNATURE: Anna Garcia Jr, MD PATIENT NAME: Haim SmithTE: March 07, 2018 : 4:41 PM PAGER: [phone] [facility] OPERATIVE NOon 03-07-2018 OPERATIVE NO HNO ID: [id number] thor: Robert SalterService: UrologyAuthor Type: ResidentType: Operative ReportFiled: 03/07/2018 5:33 PMNote Text: -------Attestation signed by Anna Garcia Jr. at 03/10/2018 8:21 AMI was present for the entire procedure and directly participated in thecritical and daniel portions of the surgery. I was immediately available toprovide assistance throughout the entire case.Anna Garcia Jr, MD ----OPERATIVE/PROCEDURE REPORTLOG ID: [id number]/PROCEDURE DATE: 03/07/2018INCISION/PROCEDU RE START TIME: 5:14 PMINCISION CLOSE/PROCEDURE END TIME: 5:22 PMSURGEON(S)/PROCEDURALIST (S) AND DRILL PRESS OPERATOR NUMERICAL CONTROL(S):Surgeon(s) and Role: * Anna Garcia Jr. - Primary * Robert (Res) Gaetano - Resident - AssistingNo Additional StaffSURGERY/PROCEDURE(S): Cystoscopy, pyelogramsANESTHESIA: GeneralSURGERY/PROCEDURE DETAILS:Haim Chase is a 37 year old patient who presents with urinaryurgency and frequency, with a history of nephrolithiasis. Had a CT scanin Dec 2017 that was negative for pathology. After having a discussionon treatment options, risks and benefits, the patient wishes to proceedforward with surgical intervention.Patient was brought to the operating room and identified using nameband/number. A thorough time out was performed and everyone present was inagreement. Patient was placed on OR table. Anesthesia and lines weremaintained by the anesthesia team.Patient was placed in the dorsal lithotomy position, prepped withBetadine, and draped in the usual sterile fashion. Pressure points werepadded. A 22.5 Cameroonian sheath rigid cystoscope was used to inspect both theurethra and bladder. Prostate was normal in appearance andnon-obstructing. After thorough inspection bladder mucosa appeared normalwith two ureteral orifices in orthotopic position. Retrograde pyelogramswere performed bilaterally. An 8 italian cone tip catheter was used toinject contrast to opacify the ureters and renal pelvis. No fillingdefects or hydronephrosis noted. Good drain out of contrast into bladder.Patient awoken from anesthesia having tolerated the procedure well.Haim Chase Was transferred to recovery room.PRE-OP/PRE-PROCEDURE DIAGNOSIS: Urinary frequency [R35.0]Flank pain [R10.9]POST-OP/POST-PROCED URE DIAGNOSIS: Urinary frequency [R35.0]Flank pain [R10.9]ESTIMATED BLOOD LOSS: 0 mlSPECIMENS: NoneIMPLANTABLE DEVICES: NoneDRAINS: NoneCOMPLICATIONS: NonePARTICIPATION IN SURGERY/PROCEDURE: Resident performed the procedure,under direct supervision and the remainder of the procedure was performedby the primary surgeon/proceduralist with assistance.SIGNATURE: Robert Salter MD PATIENT NAME: Haim ChaseDATE: March 07, 2018 : 5:31 PM PAGER/CONTACT #: [phone] Normal [facility] OR FLUORO UP TO 1 HOURon OR FLUORO UP TO 1 HOUR Performed at [facility] APPROVED BY: Mil Mcadams MD IMPRESSION: 1 minute 43 seconds of fluoroscopy time was utilized for this exam. Normal [facility] OR UROGRAM WITH RETROGRADEon 03-07-2018 Protein mass conc Performed at [facility] APPROVED BY: Golden Headley MD RETROGRADE UROGRAM: CLINICAL INDICATION: Frequency of micturition. COMPARISON: None. Thirteen small jzrad-sm-reer C-arm images of the upper urinary tracts are obtained during a bilateral retrograde urogram. There is no definite filling defect within the visualized ureters. There is suboptimal opacification of the right renal pelvis. Within this constraint, there is no definite filling defect within the intrarenal collecting systems. Fluoroscopy time: 1 minute and 43 seconds IMPRESSION: Bilateral retrograde urogram findings as described above. Correlate with operative report. Normal [facility] HOSPon 02-06-2018 HOSP Patient:Irene Chase TMRN: Height:6' 0(1.829 m)Weight:No patient weight recorded within the last 30 days.Outpatient Medications as of 03/07/18:ceFAZolin (ANCEF, KEFZOL) 1 gram injectiontolterodine ER (DETROL LA) 4 mg 24 hr capsuleCOMPOUNDED PRESCRIPTIONliothyronine (CYTOMEL) 25 mcg tabletlevothyroxine (SYNTHROID) 88 mcg tabletCPAPOrlistat 60 mg capsuleEtodolac 500 mg tabletfluticasone (FLONASE) 50 mcg/actuation nasal spraycetirizine (ZYRTEC) 10 mg tabletalbuterol HFA (VENTOLIN HFA) 90 mcg/actuation inhalerCPAPAdmission/Clini c Administered Medications as of 03/07/18:lactated ringers infusionmeperidine (PF) 12.5 mg injection (DEMEROL)albuterol 2.5 mg /3 mL (0.083 %) 2.5 mg (PROVENTIL)fentaNYL 50 mcg/mL 50 mcg injection (SUBLIMAZE)morphine 3 mg injectionoxyCODONE IR 5 mg tab(s) (ROXICODONE)ondansetron (PF) 4 mg injection (ZOFRAN)ondansetron (PF) 4 mg injection (ZOFRAN)lidocaine 10 mg/mL (1 %) 1-2 mg injection (XYLOCAINE)lactated ringers infusionceFAZolin iv piggyback 2 g in D5W (iso-osmotic) 100 mL (ANCEF)Problem List:Hypothyroidism [E03.9]Morbid Obesity [E66.01]Allergic rhinitis [J30.9]Vitamin D deficiency [E55.9]SHERIN (obstructive sleep apnea) on AutoPAP [G47.33]Left shoulder pain [M25.512]Status post labral repair of shoulder [Z98.890]Urinary frequency [R35.0]Urinary urgency [R39.15]Flank pain [R10.9]Allergies:Vancomyci nDate Verified: 03/07/18Lab ValuesNo results within the last 30 days for the following basenames: K,HCTNo progress notes entered within the past 30 days Normal [facility] OBSOLETEon 01-24-2018 OBSOLETE Refill (AKURFL) RAFAEL CHASE ([id number]) 1980 MDate Time Provider Etucfidzhn96/5/18 ANNA GARCIA JR During your visit today, we recorded the following information about you:Bing Frost Cma 01/24/2018 11:44 AM SignedPharmacy faxed requesting the following refill.Pending Prescriptions Disp Refills OXYBUTYNIN CHLORIDE ER 10 MG TABLET,EXTENDED RELEASE 24 HR 90 tablet 3 Sig: Take 1 tablet by mouth once daily. JR: NoPatient last appointment: 01/20/2018Patient Phone numbers: [phone] (home)Request is for script(s) to be escript to pharmacy.Bing Arzolanba CmaAllergies As of Date: 01/24/2018 Noted Allergy ReactionVANCOMYCIN 02/08/2013 2 - Rash Comments: Red man syndromeDate Reviewed: 01/09/2018Reviewed by: Deidre Welch Ct - Fully AssessedReason for Visit: Refill Request [94]Order(s):oxybutynin ER (DITROPAN XL) 10 mg 24 hr tabletTake 1 tablet by mouth once daily.Disp: 90 tabletRfl: 3Prescriptions as of 01/24/2018 Sig: OXYBUTYNIN CHLORIDE ER 10 MG * Take 1 tablet by mouth once d* COMPOUNDED PRESCRIPTION Fluowart Gel: Fluorocracil (5* LIOTHYRONINE 25 MCG TABLET Take 1 tablet by mouth once d* LEVOTHYROXINE 88 MCG TABLET Take 1 tablet by mouth daily * CPAP Mask Fitting requested (per p* ORLISTAT 60 MG CAPSULE Take 1 capsule by mouth three* ETODOLAC 500 MG TABLET TAKE 1 TABLET BY MOUTH TWICE * Patient not taking: Reported on 12/17/2017 FLUTICASONE 50 MCG/ACTUATION * Use 2 Sprays in each nostril * CETIRIZINE 10 MG TABLET Take 1 tablet by mouth once d* ALBUTEROL SULFATE HFA 90 MCG/* Inhale 2 Puffs as instructed * CPAP AutoPAP 7-20 cmH2O, suitable *Problem List As Of Date 01/24/2018 Noted Resolved Hypothyroidism [E03.9] INVALID FOR* More... Sterilization [Z30.2] INVALID FOR*01/04/2010 Anxiety [F41.9] INVALID FOR*01/03/2017 More... Stress Reaction [F43.0] INVALID FOR*01/04/2010 Morbid Obesity [E66.01] INVALID FOR* Routine general medical examination at a [facility]*INVALID FOR*10/19/2014 Class: Chronic Depression [F32.9] INVALID FOR*09/05/2016 BPPV (benign paroxysmal positional vertigo) [H8*INVALID FOR*10/19/2014 Allergic rhinitis [J30.9] INVALID FOR* Vitamin D deficiency [E55.9] INVALID FOR* Candidiasis of skin and nail [B37.2] INVALID FOR*03/11/2017 SHERIN (obstructive sleep apnea) on AutoPAP [G47.3*INVALID FOR* More... Labral tear of shoulder [S43.439A] INVALID FOR*03/13/2017 More... Upper back pain on left side [M54.9] INVALID FOR*05/02/2017 Left shoulder pain [M25.512] INVALID FOR* Status post labral repair of shoulder [Z98.890] INVALID FOR*Prescriptions ordered this encounter Disp Refills Start End OXYBUTYNIN CHLORIDE ER 10 MG TABLET,* 90 t* 3 01/24/2018 01/24/2019 Route: ORAL Sig: Take 1 tablet by mouth once daily.Medications Discontinued During This Encounter oxybutynin ER (DITROPAN XL) 10 mg 24* 30 t* 2 12/31/2017 01/24/2018 Route: ORAL Sig: Take 1 tablet by mouth once daily. Disc: Reason for discontinue is not on file. Status:Closed by ANNA GARCIA MD on 01/24/18 [facility] CNPN Telephone (AKURFL) RAFAEL CHASE ([id number]) 1980 [facility] Time Provider Tcerkpvpxq58/1/18 ANNA GARCIA JR During your visit today, we recorded the following information about you:Foreign Owens RN, RN 01/20/2018 1:42 PM Signed----- Message from Anna Garcia Jr. sent at 01/20/2018 8:38 AM EDT -----Let pt know that ct didn't show any stonesIs he still having the symptoms?No surgery for nowHe should have a fu appt Marylou Owens RN, RN 01/20/2018 1:46 PM SignedAttempted to contact patient with results. Phone is unable to accept messagesat this time.Foreign Owens Maureen Bragg [facility] 01/21/2018 2:43 PM SignedLeft message on phone to return call to office.Marisol Bragg [facility] 01/21/2018 3:00 PM SignedPt notified states he is still having issues : [facility] HospitalB[facility] 01/23/2018 1:26 PM SignedSpoke to pt, still having right sided flank pain and frequency. State voidsabout 3-4times per hour.appt made for at 145pmTrinity Healthflorentino LaraOhioHealthAllergies As of Date: 01/20/2018 Noted Allergy ReactionVANCOMYCIN 02/08/2013 2 - Rash Comments: Red man syndromeDate Reviewed: 01/09/2018Reviewed by: Deidre Welch Ct - Fully AssessedReason for Visit: Results [95]Prescriptions as of 01/20/2018 Sig: OXYBUTYNIN CHLORIDE ER 10 MG * Take 1 tablet by mouth once d* COMPOUNDED PRESCRIPTION Fluowart Gel: Fluorocracil (5* LIOTHYRONINE 25 MCG TABLET Take 1 tablet by mouth once d* CPAP Mask Fitting requested (per p* ORLISTAT 60 MG CAPSULE Take 1 capsule by mouth three* ETODOLAC 500 MG TABLET TAKE 1 TABLET BY MOUTH TWICE * Patient not taking: Reported on 12/17/2017 FLUTICASONE 50 MCG/ACTUATION * Use 2 Sprays in each nostril * CETIRIZINE 10 MG TABLET Take 1 tablet by mouth once d* ALBUTEROL SULFATE HFA 90 MCG/* Inhale 2 Puffs as instructed * CPAP AutoPAP 7-20 cmH2O, suitable *Problem List As Of Date 01/20/2018 Noted Resolved Hypothyroidism [E03.9] INVALID FOR* More... Sterilization [Z30.2] INVALID FOR*01/04/2010 Anxiety [F41.9] INVALID FOR*01/03/2017 More... Stress Reaction [F43.0] INVALID FOR*01/04/2010 Morbid Obesity [E66.01] INVALID FOR* Routine general medical examination at [facility]*INVALID FOR*10/19/2014 Class: Chronic Depression [F32.9] INVALID FOR*09/05/2016 BPPV (benign paroxysmal positional vertigo) [H8*INVALID FOR*10/19/2014 Allergic rhinitis [J30.9] INVALID FOR* Vitamin D deficiency [E55.9] INVALID FOR* Candidiasis of skin and nail [B37.2] INVALID FOR*03/11/2017 SHERIN (obstructive sleep apnea) on AutoPAP [G47.3*INVALID FOR* More... Labral tear of shoulder [S43.439A] INVALID FOR*03/13/2017 More... Upper back pain on left side [M54.9] INVALID FOR*05/02/2017 Left shoulder pain [M25.512] INVALID FOR* Status post labral repair of shoulder [Z98.890] INVALID FOR* Status:Closed by MARISOL BRAGG CMA on 01/21/18 [facility] Vital Signs Date Time Vital Sign Value Performing Clinician Facility 09-29-2024 10:26-0400 Body height 182.[address] Joe Faria MD Work Phone: [facility] 09-29-2024 10:26-0400 Body mass index (BMI) [Ratio] 45.9 kg/m2 Dr. Joe Faria MD Work Phone: [facility] 09-29-2024 10:26-0400 Body weight 153.[address] Joe Faria MD Work Phone: [facility] 09-21-2024 16:57-0400 Diastolic blood pressure 80 mm[Hg] Joe Faria MD Work Phone: [facility] 09-21-2024 16:57-0400 Systolic blood pressure 132 mm[Hg] Joe Faria MD Work Phone: [facility] 09-21-2024 16:06-0400 Body mass index (BMI) [Ratio] 46.43 kg/m2 Joe Faria MD Work Phone: [facility] 09-21-2024 16:06-0400 Body weight 149.3 kg oJe Faria MD Work Phone: [facility] 09-21-2024 16:06-0400 Heart rate 76 /min oJe Faria MD Work Phone: [facility] 09-21-2024 16:06-0400 Respiratory rate 18 /min Joe Faria MD Work Phone: [facility] 09-15-2024 14:56-0400 Body temperature 98.5 [degF] Dr. Joe Faria MD Work Phone: 8(932)[phone] [place] [address] 09-15-2024 14:56-0400 Diastolic blood pressure 73 mm[Hg] Dr. Joe Faria MD Work Phone: 4(886)406-349907 [place] [address] 09-15-2024 14:56-0400 Heart rate 79 /min Dr. Joe Faria MD Work Phone: 2(426)718-896507 [place] [address] 09-15-2024 14:56-0400 Respiratory rate 16 /min Dr. Joe Faria MD Work Phone: 4(187)479-901107 [place] [address] 09-15-2024 14:56-0400 SaO2% (BldA) [Mass fraction] 97 % Dr. Joe Faria MD Work Phone: 4(333)391-409707 [place] [address] 09-15-2024 14:56-0400 Systolic blood pressure 119 mm[Hg] Dr. Joe Faria MD Work Phone: 2(714)206-550827 [place] [address] 09-15-2024 13:45-0400 Body height 182.[address] Joe Faria MD Work Phone: 3(807)364-787027 [place] [address] 09-15-2024 13:45-0400 Body mass index (BMI) [Ratio] 44.6 kg/m2 Dr. Joe Faria MD Work Phone: 8(385)997-086227 [place] [address] 09-15-2024 13:45-0400 Body weight 149.[address] Joe Faria MD Work Phone: 9(445)958-712607 [place] [address] 07-01-2024 16:04-0400 Body temperature 98.71 [degF] Joe Faria MD Work Phone: [facility] 07-01-2024 16:04-0400 Diastolic blood pressure 80 mm[Hg] Joe Faria MD Work Phone: [facility] 07-01-2024 16:04-0400 Heart rate 80 /min Joe Faria MD Work Phone: [facility] 07-01-2024 16:04-0400 SaO2% (BldA) [Mass fraction] 99 % Joe Faria MD Work Phone: [facility] 07-01-2024 16:04-0400 Systolic blood pressure 124 mm[Hg] Joe Faria MD Work Phone: [facility] 06-24-2024 18:38-0500 Body temperature 98.3 [degF] Dr. Joe Faria MD Work Phone: [facility] 06-24-2024 18:38-0500 Diastolic blood pressure 83 mm[Hg] Dr. Joe Faria MD Work Phone: [facility] 06-24-2024 18:38-0500 Heart rate 58 /min Dr. Joe Faria MD Work Phone: [facility] 06-24-2024 18:38-0500 Respiratory rate 16 /min Dr. Joe Faria MD Work Phone: [facility] 06-24-2024 18:38-0500 SaO2% (BldA) [Mass fraction] 98 % Dr. Joe Faria MD Work Phone: [facility] 06-24-2024 18:38-0500 Systolic blood pressure 111 mm[Hg] Dr. Joe Faria MD Work Phone: [facility] 06-24-2024 13:51-0500 Body mass index (BMI) [Ratio] 43.2 kg/m2 Dr. Joe Faria MD Work Phone: [facility] 06-24-2024 13:51-0500 Body weight 140.[address] Joe Faria MD Work Phone: [facility] 06-04-2024 15:34-0500 Body mass index (BMI) [Ratio] 46.09 kg/m2 Constantine Moomaw PHOTOGEOLOGIST.RN HOME HEALTH Work Phone: [facility] 06-04-2024 15:34-0500 Body temperature 98.6 [degF] Constantine Moomaw PHOTOGEOLOGIST.RN HOME HEALTH Work Phone: [facility] 06-04-2024 15:34-0500 Body weight 148.2 kg Constantine Moomaw PHOTOGEOLOGIST.RN HOME HEALTH Work Phone: [facility] 06-04-2024 15:34-0500 Diastolic blood pressure 95 mm[Hg] Constantine Moomaw PHOTOGEOLOGIST.RN HOME HEALTH Work Phone: [facility] 06-04-2024 15:34-0500 Heart rate 85 /min Constantine Moomaw PHOTOGEOLOGIST.RN HOME HEALTH Work Phone: [facility] 06-04-2024 15:34-0500 Respiratory rate 24 /min Cosntantine Moomaw PHOTOGEOLOGIST.RN HOME HEALTH Work Phone: [facility] 06-04-2024 15:34-0500 SaO2% (BldA) [Mass fraction] 99 % Constantine Moomaw PHOTOGEOLOGIST.RN HOME HEALTH Work Phone: [facility] 06-04-2024 15:34-0500 Systolic blood pressure 142 mm[Hg] Constantine Moomaw PHOTOGEOLOGIST.RN HOME HEALTH Work Phone: [facility] 05-29-2024 10:42-0500 Body mass index (BMI) [Ratio] 45.84 kg/m2 Farrah Borden PHOTOGEOLOGIST.RN HOME HEALTH Work Phone: [facility] 05-29-2024 10:42-0500 Body temperature 99.1 [degF] Farrah Borden PHOTOGEOLOGIST.RN HOME HEALTH Work Phone: [facility] 05-29-2024 10:42-0500 Body weight 147.4 kg Farrah Borden PHOTOGEOLOGIST.RN HOME HEALTH Work Phone: [facility] 05-29-2024 10:42-0500 Diastolic blood pressure 88 mm[Hg] Farrah Borden PHOTOGEOLOGIST.RN HOME HEALTH Work Phone: [facility] 05-29-2024 10:42-0500 Heart rate 95 /min Farrah Borden PHOTOGEOLOGIST.RN HOME HEALTH Work Phone: [facility] 05-29-2024 10:42-0500 Respiratory rate 19 /min Farrah King PHOTOGEOLOGIST.RN HOME HEALTH Work Phone: [facility] 05-29-2024 10:42-0500 SaO2% (BldA) [Mass fraction] 99 % Farrah Borden PHOTOGEOLOGIST.RN HOME HEALTH Work Phone: [facility] 05-29-2024 10:42-0500 Systolic blood pressure 158 mm[Hg] Farrah Borden PHOTOGEOLOGIST.RN HOME HEALTH Work Phone: [facility] 05-25-2024 17:44-0500 Diastolic blood pressure 88 mm[Hg] Joe Faria MD Work Phone: [facility] 05-25-2024 17:44-0500 Heart rate 82 /min Joe Faria MD Work Phone: [facility] 05-25-2024 17:44-0500 Systolic blood pressure 129 mm[Hg] Joe Faria MD Work Phone: [facility] 05-25-2024 17:33-0500 Body height 179.3 cm Joe Faria MD Work Phone: [facility] 05-25-2024 17:33-0500 Body mass index (BMI) [Ratio] 44.38 kg/m2 Joe Faria MD Work Phone: [facility] 05-25-2024 17:33-0500 Body temperature 97.59 [degF] Joe Faria MD Work Phone: [facility] 05-25-2024 17:33-0500 Body weight 142.7 kg Joe Faria MD Work Phone: [facility] 05-25-2024 17:33-0500 SaO2% (BldA) [Mass fraction] 98 % Joe Faria MD Work Phone: [facility] 05-25-2024 12:27-0500 Diastolic Blood Pressure Non-Invasive 84 mm[Hg] RICHARD WILCOX MD [facility] 05-25-2024 12:27-0500 Heart rate 65 /min RICHARD WILCOX MD [facility] 05-25-2024 12:27-0500 Respiratory rate 16 /min RICHARD WILCOX MD [facility] 05-25-2024 12:27-0500 Systolic Blood Pressure Non-Invasive 133 mm[Hg] RICHARD WILCOX MD [facility] 05-25-2024 12:02-0500 Diastolic Blood Pressure Non-Invasive 94 mm[Hg] RICHARD WILCOX MD [facility] 05-25-2024 12:02-0500 Heart rate 68 /min RICHARD WILCOX MD [facility] 05-25-2024 12:02-0500 Respiratory rate 18 /min RICHARD WILCOX MD [facility] 05-25-2024 12:02-0500 Systolic Blood Pressure Non-Invasive 131 mm[Hg] RICHARD WILCOX MD [facility] 05-25-2024 11:37-0500 Diastolic Blood Pressure Non-Invasive 95 mm[Hg] RICHARD WILCOX MD [facility] 05-25-2024 11:37-0500 Heart rate 66 /min RICHARD WILCOX MD [facility] 05-25-2024 11:37-0500 Respiratory rate 18 /min RICHARD WILCOX MD [facility] 05-25-2024 11:37-0500 Systolic Blood Pressure Non-Invasive 139 mm[Hg] RICHARD WILCOX MD [facility] 05-25-2024 09:12-0500 Body height 182.9 cm RICHARD WILCOX MD [facility] 05-25-2024 09:12-0500 Body temperature 97.7 [degF] RICHARD WILCOX MD [facility] 05-25-2024 09:12-0500 Body weight 145.5 kg RICHARD WILCOX MD [facility] 05-25-2024 09:12-0500 Heart rate 81 /min RICHARD WILCOX MD [facility] 05-21-2024 18:25-0500 Body mass index (BMI) [Ratio] 46.18 kg/m2 Paulino Vazquez MD Work Phone: [facility] 05-21-2024 18:25-0500 Body temperature 98.1 [degF] Paulino Vazquez MD Work Phone: [facility] 05-21-2024 18:25-0500 Body weight 146 kg Paulino Vazquez MD Work Phone: [facility] 05-21-2024 18:25-0500 Diastolic blood pressure 89 mm[Hg] Paulino Vazquez MD Work Phone: [facility] 05-21-2024 18:25-0500 Heart rate 66 /min Paulino Vazquez MD Work Phone: [facility] 05-21-2024 18:25-0500 Respiratory rate 20 /min Paulino Vazquez MD Work Phone: [facility] 05-21-2024 18:25-0500 SaO2% (BldA) [Mass fraction] 99 % Paulino Vazquez MD Work Phone: [facility] 05-21-2024 18:25-0500 Systolic blood pressure 146 mm[Hg] Paulino Vazquez MD Work Phone: [facility] 03-16-2024 08:46-0500 Body mass index (BMI) [Ratio] 45.39 kg/m2 Krislyn Aberegg PA Work Phone: [facility] 03-16-2024 08:46-0500 Body temperature 97.3 [degF] Krislyn Aberegg PA Work Phone: [facility] 03-16-2024 08:46-0500 Body weight 143.5 kg Krislyn Aberegg PA Work Phone: [facility] 03-16-2024 08:46-0500 Diastolic blood pressure 80 mm[Hg] Krislyn Aberegg PA Work Phone: [facility] 03-16-2024 08:46-0500 Heart rate 70 /min Krislyn Aberegg PA Work Phone: [facility] 03-16-2024 08:46-0500 Respiratory rate 16 /min Krislyn Aberegg PA Work Phone: [facility] 03-16-2024 08:46-0500 SaO2% (BldA) [Mass fraction] 97 % Krislyn Aberegg PA Work Phone: [facility] 03-16-2024 08:46-0500 Systolic blood pressure 122 mm[Hg] Krislyn Aberegg PA Work Phone: [facility] 12-16-2023 17:01-0400 Diastolic blood pressure 90 mm[Hg] Joe Faria MD Work Phone: [facility] 12-16-2023 17:01-0400 Heart rate 71 /min Joe Faria MD Work Phone: [facility] 12-16-2023 17:01-0400 Systolic blood pressure 131 mm[Hg] Joe Faria MD Work Phone: [facility] 12-16-2023 16:52-0400 Body mass index (BMI) [Ratio] 45.87 kg/m2 Joe Faria MD Work Phone: [facility] 12-16-2023 16:52-0400 Body temperature 97.2 [degF] Joe Faria MD Work Phone: [facility] 12-16-2023 16:52-0400 Body weight 145 kg Joe Faria MD Work Phone: [facility] 08-22-2023 17:52-0400 Body mass index (BMI) [Ratio] 43.76 kg/m2 Joe Faria MD Work Phone: [facility] 08-22-2023 17:52-0400 Body weight 138.35 kg Joe Faria MD Work Phone: [facility] 08-22-2023 17:52-0400 Diastolic blood pressure 82 mm[Hg] Joe Faria MD Work Phone: [facility] 08-22-2023 17:52-0400 Heart rate 77 /min Joe Faria MD Work Phone: [facility] 08-22-2023 17:52-0400 Respiratory rate 16 /min Joe Faria MD Work Phone: [facility] 08-22-2023 17:52-0400 SaO2% (BldA) [Mass fraction] 99 % Joe Faria MD Work Phone: [facility] 08-22-2023 17:52-0400 Systolic blood pressure 134 mm[Hg] Joe Faria MD Work Phone: [facility] 11-29-2022 17:48-0400 Body height 177.8 cm Joe Faria MD Work Phone: [facility] 11-29-2022 17:48-0400 Body temperature 96.8 [degF] Joe Faria MD Work Phone: [facility] 11-29-2022 17:48-0400 Body weight 131.54 kg Joe Faria MD Work Phone: [facility] 11-29-2022 17:48-0400 Diastolic blood pressure 84 mm[Hg] Joe Faria MD Work Phone: [facility] 11-29-2022 17:48-0400 Heart rate 82 /min Joe Faria MD Work Phone: [facility] 11-29-2022 17:48-0400 Respiratory rate 16 /min Joe Faria MD Work Phone: [facility] 11-29-2022 17:48-0400 SaO2% (BldA) [Mass fraction] 99 % Joe Faria MD Work Phone: [facility] 11-29-2022 17:48-0400 Systolic blood pressure 126 mm[Hg] Joe Faria MD Work Phone: [facility] 08-29-2022 14:35-0400 Body height 180.3 cm Joe Faria MD Work Phone: [facility] 08-29-2022 14:35-0400 Body weight 141.98 kg Joe Faria MD Work Phone: [facility] 08-29-2022 14:35-0400 Diastolic blood pressure 82 mm[Hg] Joe Faria MD Work Phone: [facility] 08-29-2022 14:35-0400 Heart rate 72 /min Jeo Faria MD Work Phone: [facility] 08-29-2022 14:35-0400 Respiratory rate 16 /min Joe Faria MD Work Phone: [address]-2023 14:35-0400 Systolic blood pressure 126 mm[Hg] Joe Faria MD Work Phone: [facility] 07-03-2022 09:05-0400 Body temperature 97.59 [degF] Krislyn Aberegg PA Work Phone: [facility] 07-03-2022 09:05-0400 Body weight 144.7 kg Krislyn Aberegg PA Work Phone: [facility] 07-03-2022 09:05-0400 Diastolic blood pressure 78 mm[Hg] Krislyn Aberegg PA Work Phone: [facility] 07-03-2022 09:05-0400 Heart rate 72 /min Krislyn Aberegg PA Work Phone: [facility] 07-03-2022 09:05-0400 Respiratory rate 16 /min Krislyn Aberegg PA Work Phone: [facility] 07-03-2022 09:05-0400 SaO2% (BldA) [Mass fraction] 99 % Krislyn Aberegg PA Work Phone: [facility] 07-03-2022 09:05-0400 Systolic blood pressure 118 mm[Hg] Krislyn Aberegg PA Work Phone: [facility] 03-19-2022 16:05-0500 Body height 179.7 cm Joe Faria MD Work Phone: [facility] 03-19-2022 16:05-0500 Body temperature 97 [degF] Joe Faria MD Work Phone: [facility] 03-19-2022 16:05-0500 Body weight 133.72 kg Joe Faria MD Work Phone: [facility] 03-19-2022 16:05-0500 Diastolic blood pressure 76 mm[Hg] Joe Faria MD Work Phone: [facility] 03-19-2022 16:05-0500 Heart rate 72 /min Joe Faria MD Work Phone: [facility] 03-19-2022 16:05-0500 Respiratory rate 20 /min Joe Faria MD Work Phone: [facility] 03-19-2022 16:05-0500 Systolic blood pressure 128 mm[Hg] Joe Faria MD Work Phone: [facility] 01-25-2022 10:30-0400 Body temperature 97.5 [degF] Joe Faria MD Work Phone: [facility] 01-25-2022 10:30-0400 Body weight 141.98 kg Joe Faria MD Work Phone: [facility] 01-25-2022 10:30-0400 Diastolic blood pressure 74 mm[Hg] Joe Faria MD Work Phone: [facility] 01-25-2022 10:30-0400 Heart rate 72 /min Joe Faria MD Work Phone: [facility] 01-25-2022 10:30-0400 Respiratory rate 16 /min Joe Faria MD Work Phone: [facility] 01-25-2022 10:30-0400 Systolic blood pressure 126 mm[Hg] Joe Faria MD Work Phone: [facility] Encounters Encounter Date Encounter Type Care Provider Facility Start: 10-20-2024 ambulatory Joe Pedraza ty:[facility] Start: 10-07-2024 ambulatory Joe Pedraza ty:[facility] Start: 09-29-2024 End: 09-29-2024 Patient encounter procedure Jossie OCHOA -[facility] Work Phone: Start: 09-29-2024 End: 09-29-[address] Joe Faria MD Work Phone: [facility] Work Phone: Start: 09-21-2024 End: 09-21-2024 Patient encounter procedure Joe Faria MD Work Phone: [facility] [place] Comment on above: Impaired glucose met abolism (Primary Dx); Gastroesophageal reflux disease, unspecified whether esophagitis present; Elevated blood pressure reading; Obesity, Class III, BMI >= 40; Mixed hyperlipidemia Start: 09-21-2024 End: 09-21-2024 ambulatory SELF Facility:[facility] Start: 09-17-2024 End: 09-17-2024 ambulatory JOE FARIA Facility:[facility] Start: 09-15-2024 Non-patient / Non-visit Santiago Berry nd DO -[facility] Start: 09-15-2024 End: 09-15-2024 Admission to same day surgery center Santiago Holden DO -Endoscopy Work Phone: Start: 09-15-2024 End: 09-15-[address] Joe Faria MD Work Phone: [facility] Work Phone: Start: 07-10-2024 End: 07-10-2024 Patient encounter procedure Jossie OCHOA [facility] Work Phone: Start: 07-10-2024 End: 07-10-2024 ambulatory Joe Faria [place] [place]: 07-07-2024 End: 07-08-2024 ambulatory Joe Faria MD Work Phone: [facility] [place] Comment on above: Referal Start: 07-01-2024 End: 07-01-2024 ambulatory JOE FARIA Facility:[facility] Start: 07-01-2024 End: 07-01-2024 Patient encounter procedure Joe Faria MD Work Phone: [facility] [place] Comment on above: Subacute cough (Prim shanell Dx); Acquired hypothyroidism; SHERIN (obstructive sleep apnea) on AutoPAP Start: 06-24-2024 End: 06-24-2024 Emergency department patient visit Dr. Jose Maharaj -Emergency Department Work Phone: Start: 06-04-2024 End: 06-04-2024 ambulatory OJE FARIA Facility:[facility] Start: 06-04-2024 End: 06-04-2024 Patient encounter procedure Constantine Josemelvinatemo ALANNA.RN HOME HEALTH Work Phone: [facility] Comment on above: Viral illness (Prima ry Dx) Start: 05-29-2024 End: 05-29-2024 Subsequent hospital visit by physician Oneyda [facility] [place] Work Phone: Radiology Comment on above: Acute cough [R05.1] Start: 05-29-2024 End: 05-29-2024 ambulatory JOE FARIA Facility:[facility] Start: 05-29-2024 End: 05-29-2024 Patient encounter procedure Farrah King ALANNA.RN HOME HEALTH Work Phone: [facility] Comment on above: Sinobronchitis (Prim shanell Dx); Acute cough; Flu-like symptoms Start: 05-25-2024 End: 05-25-2024 ambulatory JOE FARIA Facility:[facility] Start: 05-25-2024 End: 05-25-2024 Patient encounter procedure Joe Faria MD Work Phone: [facility] [place] Comment on above: Chest pain, unspecif ied type (Primary Dx); Obesity, Class III, BMI >= 40; SHERIN (obstructive sleep apnea); Hyperglycemia; Lack of concentration; Lack of motivation; Acquired hypothyroidism; Impaired glucose metabolism; Mixed hyperlipidemia Start: 05-25-2024 End: 05-25-2024 Emergency department patient visit RICHARD WILCOX MD [facility] Start: 05-21-2024 End: 05-21-2024 ambulatory JOE FARIA Facility:[facility] Start: 05-21-2024 End: 05-21-2024 Office outpatient visit 15 minutes Paulino Vazquez MD Work Phone: [facility] Comment on above: Influenza-like illne ss (Primary Dx); Otalgia, right Start: 03-20-2024 End: 03-20-2024 ambulatory JOE FARIA Facility:[facility] Start: 03-16-2024 End: 03-16-2024 Office outpatient visit 25 minutes David OCHOA Work Phone: [facility] Comment on above: URI, acute (Primary Dx); Acute otitis media, right Start: 03-16-2024 End: 03-16-2024 ambulatory Joe Faria MD Work Phone: [facility] [place] Comment on above: Amoxicillin Start: 02-20-2024 End: 02-21-2024 Refill Joe Faria MD Work Phone: [facility] [place] Comment on above: Refill Request Start: 02-04-2024 End: 02-04-2024 Refill Carol Bess APRN.RN HOME HEALTH Work Phone: [facility] [place] Comment on above: Refill Request Start: 12-16-2023 End: 12-16-2023 ambulatory JOE FARIA Facility:[facility] Start: 12-16-2023 End: 12-16-2023 Patient encounter procedure Joe Faria MD Work Phone: [facility] [place] Comment on above: Obesity, Class III, BMI >= 40 (Primary Dx); Screening for depression; Encounter for screening examination for other mental health and behavioral disorders; Acquired hypothyroidism; Mixed hyperlipidemia; Elevated blood pressure reading; SHERIN (obstructive sleep apnea) on AutoPAP Start: 08-22-2023 End: 08-22-2023 Patient encounter procedure Joe Faria MD Work Phone: [facility] [place] Comment on above: Obesity, Class III, BMI >= 40 (Primary Dx); Acquired hypothyroidism Start: 07-11-2023 Refill Carol lowery PHOTOGEOLOGIST.RN HOME HEALTH Work Phone: [facility] [place] Comment on above: Refill Request Start: 06-08-2023 Refill Joe deshpande MD Work Phone: [facility] [place] Comment on above: Refill Request Start: 02-27-2023 Telephone encounter Joe strong MD Work Phone: [facility] [place] Comment on above: Appointment Start: 01-07-2023 Refill Joe deshpande MD Work Phone: [facility] [place] Comment on above: Refill Request Start: 11-29-2022 End: 11-29-2022 Patient encounter procedure Joe Faria MD Work Phone: [facility] [place] Comment on above: Routine medical exam (Primary Dx); Acquired hypothyroidism; Allergic rhinitis, unspecified seasonality, unspecified trigger; ETD (Eustachian tube dysfunction), bilateral; Obesity, Class III, BMI >= 40; SHERIN (obstructive sleep apnea) on AutoPAP; Other specified joint disorders, left hip Start: 11-29-2022 End: 11-29-2022 Patient encounter status Joe Faria MD Work Phone: [facility] Work Phone: Start: 08-29-2022 End: 08-29-2022 Patient encounter procedure Joe Faria MD Work Phone: [facility] [place] Comment on above: Obesity, Class III, BMI >= 40 (Primary Dx); Mixed hyperlipidemia; Acquired hypothyroidism Start: 08-29-2022 Telephone encounter Joe strong MD Work Phone: [facility] [place] Comment on above: Insurance Authorizat ion ([employer] ) Start: 07-03-2022 End: 07-03-2022 Patient encounter procedure David OCHOA Work Phone: [facility] Comment on above: URI, acute (Primary Dx); Sore throat Start: 06-21-2022 Refill Joe deshpande MD Work Phone: [facility] [place] Comment on above: Refill Request Start: 03-19-2022 End: 03-19-2022 Patient encounter procedure Joe Faria MD Work Phone: [facility] [place] Comment on above: COVID-19 (Primary Dx ); Obesity, Class III, BMI >= 40 Start: 01-25-2022 End: 01-25-2022 Patient encounter procedure Joe Faria MD Work Phone: [facility] [place] Comment on above: Obesity, Class III, BMI >= 40 (Primary Dx); Need for influenza vaccination; Acquired hypothyroidism Start: 11-27-2021 Refill Joe deshpande MD Work Phone: [facility] [place] Comment on above: Refill Request Start: 10-20-2020 End: 10-20-2020 Subsequent hospital visit by physician Xr [facility] [place] Work Phone: Radiology Comment on above: Acute hip pain, left [M25.552] Start: 04-23-2018 Patient encounter procedure ANNA GARCIA Facility:[facility] Start: 03-07-2018 End: 03-07-2018 Patient encounter procedure [facility]NA GARC[facility] Start: 03-07-2018 End: 03-07-2018 Evaluation and management of inpatient ANNA GARCIA Facility:[facility] Start: 01-04-2010 End: 10-19-2014 Patient encounter status Joe Faria MD Work Phone: [facility] Procedures Date Procedure Procedure Detail Performing Clinician Start: 09-17-2024 Lipid 1996 panel - Serum or Plasma Soheila Faria MD Work Phone: Start: 09-15-[address] Joe Faria MD Work Phone: Start: 06-24-[address] Soheila Faria MD Work Phone: Start: 06-24-2024 CT angiography of chest with contrast Dr. Joe Faria MD Work Phone: Start: 06-24-2024 X-ray of chest, PA and lateral views Dr. Joe Faria MD Work Phone: Start: 06-24-2024 SARS-CoV-2, Influenza & RSV (PCR) Dr. Chrissy Faria MD Work Phone: Start: 05-29-2024 Radiologic exam chest 2 views Farrah gilliland APRN.RN HOME HEALTH Work Phone: Start: 05-29-2024 INFLUENZA A&B MOLECULAR (POC) Farrah gilliland APRN.RN HOME HEALTH Work Phone: Start: 05-25-2024 Hemoglobin A1c/Hemoglobin.total in Blood Joe Faria MD Work Phone: Start: 03-20-2024 Lipid 1996 panel - Serum or Plasma Paulino Vazquez MD Work Phone: Start: 12-16-2023 Adult depression screening assessment Joe Faria MD Work Phone: Start: 11-29-2022 Lipid 1996 panel - Serum or Plasma Soheila Faria MD Work Phone: Start: 07-03-2022 STREP A MOLECULAR (POC) David OCHOA Work Phone: Start: 01-25-2022 INFLUENZA VACCINE QUADRIVALENT 6 MO - 64 YRS IM Joe Faria MD Work Phone: Start: 10-20-2020 Radex hip unilateral with pelvis 2-3 views Joe Faria MD Work Phone: Start: 09-20-2020 Adult depression screening assessment Joe Faria MD Work Phone: Kidney stone (disorder) RICHARD WILCOX MD Plan of Treatment Date Care Activity Detail Author Start: 09-17-2029 Lipid panel Lipid Screening [facility] Start: 03-20-2029 Lipid panel Lipid Screening [facility] Start: 11-30-2027 Lipid 1996 panel - Serum or Plasma Lipid Screening [facility] Start: 11-30-2027 Lipid panel Lipid Screening [facility] Start: 11-30-2027 LIPID SCREEN LIPID SCREEN [facility] Start: 06-21-2026 LIPID SCREEN LIPID SCREEN [facility] Start: 09-21-2025 Annual PCP Team Older Worker Specialist earl Disease Visit Annual PCP Team Chronic Disease Visit [facility] Start: 07-01-2025 Annual PCP Team Older Worker Specialist earl Disease Visit Annual PCP Team Chronic Disease Visit [facility] Start: 05-25-2025 Annual PCP Team Older Worker Specialist earl Disease Visit Annual PCP Team Chronic Disease Visit [facility] Start: 05-25-2025 Covid-19 Vaccine ( season) Covid-19 Vaccine ( season) [facility] Comment on above: Postponed from 12/21 (Declined at this time) Start: 12-23-2024 End: 12-23-2024 Patient encounter procedure 12/23/2024 4:40 PM EDT Office Visit [facility] [place] [address] [facility] [place] [address] Joe Faria MD [address] [facility] [place], [place] [address] 3 mo follow up [facility] [place] Comment on above: 3 mo follow up Start: 12-21-2024 Influenza vaccination Influenz a Vaccine (Season Ended) [facility] Start: 12-15-2024 Annual PCP Team Older Worker Specialist earl Disease Visit Annual PCP Team Chronic Disease Visit [facility] Start: 12-15-2024 Anxiety Screening Anxiety Screening [facility] Start: 12-15-2024 Depression Screening Depression Scre ening [facility] Start: 10-19-2024 Influenza vaccination Influenza Vacc ine (#1) [facility] Comment on above: Postponed from 12/21 (Declined at this time) Start: 09-26-2024 End: 09-26-2024 ambulatory 09/26/2024 7:30 AM EDT Results Only [facility] [address] [place] [place] [address] 2 hr glucose [facility] Comment on above: 2 hr glucose Start: 09-21-2024 End: 09-21-2024 Patient encounter procedure 09/21/2024 6:00 PM EDT Office Visit [facility] [place] [address] [facility] [place], [place] [address] Joe Faria MD [address] [facility] [place], [place] [id number] 4 month follow-up [facility] [place] Comment on above: 4 month follow-up Start: 09-21-2024 End: 12-21-2024 GLUC DARIA, 2-HR NON-GEST, 75 GM, FASTING GLUC DARIA, 2-HR NON-GEST, 75 GM, FASTING Lab Routine Impaired glucose metabolism Expected: 09/21/2024, Expires: 12/21/2024 [facility] Work Phone: Comment on above: Expected: 09/21/2024 , Expires: 12/21/2024 Start: 09-16-2024 End: 12-16-2024 Basic metabolic 2000 panel - Serum or Plasma BASIC METABOLIC PANEL Lab Routine Impaired glucose metabolism Expected: 09/16/2024, Expires: 12/16/2024 [facility] Work Phone: Comment on above: Expected: 09/16/2024 , Expires: 12/16/2024 Start: 09-16-2024 End: 12-16-2024 Hemoglobin A1c in Blood HEMOGLOBIN A1C Lab Routine Impaired glucose metabolism Expected: 09/16/2024, Expires: 12/16/2024 [facility] Comment on above: Expected: 09/16/2024 , Expires: 12/16/2024 Start: 09-16-2024 End: 12-16-2024 Lipid 1996 panel - Serum or Plasma LIPID PANEL BASIC Lab Routine Mixed hyperlipidemia Expected: 09/16/2024, Expires: 12/16/2024 [facility] Comment on above: Expected: 09/16/2024 , Expires: 12/16/2024 Start: 09-15-2024 Egd transoral biopsy single/multiple EGD BIOPSY SINGLE/MULTIPLE [facility] Start: 09-15-2024 Patient discharge [facility] Start: 08-21-2024 Annual PCP Team Older Worker Specialist earl Disease Visit Annual PCP Team Chronic Disease Visit [facility] Start: 08-21-2024 Hepatitis B Vaccine (1 of 3 - 19+ 3-dose series) Hepatitis B Vaccine (1 of 3 - 19+ 3-dose series) [facility] Comment on above: Postponed from 05/03 (Declined at this time) Start: 07-13-2024 End: 07-13-2024 Patient encounter procedure 07/13/2024 11:00 AM EDT Office Visit Pulmonary Medicine [address] [place] [address] Colleen Dickey MD [address] [place] [address] Subacute cough [R05.2] [facility] Comment on above: Subacute cough [R05. 2] Start: 07-13-2024 End: 07-13-2024 ambulatory [facility] Comment on above: Subacute cough [R05. 2] Start: 06-24-2024 [facility] Start: 06-24-2024 [facility] Start: 04-26-2024 Annual PCP Team Older Worker Specialist earl Disease Visit Annual PCP Team Chronic Disease Visit [facility] Start: 03-23-2024 End: 03-23-2024 Patient encounter procedure 03/23/2024 4:40 PM EST Office Visit [facility] [place] [address] [facility] [place] [id number] Joe Faria MD [address] [facility] [place] [address] Yearly w/3 month follow-up [facility] [place] Comment on above: Yearly w/3 month fol low-up Start: 03-18-2024 End: 03-18-2024 ambulatory 03/18/2024 9:00 AM EST Results Only [facility] [address] [facility] [place] [address] [facility] Start: 03-17-2024 End: 06-16-2024 CBC panel - Blood by Automated count COMPLETE BLOOD COUNT Lab Routine Obesity, Class III, BMI >= 40 Expected: 03/17/2024, Expires: 06/16/2024 [facility] Work Phone: Comment on above: Expected: 03/17/2024 , Expires: 06/16/2024 Start: 03-17-2024 End: 06-16-2024 Comprehensive metabolic 2000 panel - Serum or Plasma COMPREHENSIVE METABOLIC PANEL Lab Routine Mixed hyperlipidemia Expected: 03/17/2024, Expires: 06/16/2024 [facility] Comment on above: Expected: 03/17/2024 , Expires: 06/16/2024 Start: 03-17-2024 End: 06-16-2024 Lipid 1996 panel - Serum or Plasma LIPID PANEL BASIC Lab Routine Mixed hyperlipidemia Expected: 03/17/2024, Expires: 06/16/2024 [facility] Comment on above: Expected: 03/17/2024 , Expires: 06/16/2024 Start: 03-17-2024 End: 06-16-2024 Thyrotropin [Units/volume] in Serum or Plasma THYROID STIMULATING HORMONE Lab Routine Acquired hypothyroidism Expected: 03/17/2024, Expires: 06/16/2024 [facility] Comment on above: Expected: 03/17/2024 , Expires: 06/16/2024 Start: 03-17-2024 End: 06-16-2024 Thyroxine (T4) free [Mass/volume] in Serum or Plasma T4 FREE/FREE THYROXINE Lab Routine Acquired hypothyroidism Expected: 03/17/2024, Expires: 06/16/2024 [facility] Comment on above: Expected: 03/17/2024 , Expires: 06/16/2024 Start: 12-22-2023 Covid-19 Vaccine ( season) Covid-19 Vaccine () [facility] Start: 12-22-2023 Influenza vaccination C [facility] Start: 11-30-2023 ANNUAL PCP TEAM HEADER SET UP OPERATOR EARL DISEASE VISIT ANNUAL PCP TEAM CHRONIC DISEASE VISIT [facility] Start: 09-23-2023 End: 09-23-2023 Patient encounter procedure 09/23/2023 5:20 PM EDT Office Visit [facility] [place] [address] [place] [address] Joe Faria MD [address] [place] [address] 4 Week F/U-[facility]ipe[facility] [place] Comment on above: 4 Week F/U-[facility] Start: 08-30-2023 ANNUAL PCP TEAM HEADER SET UP OPERATOR EARL DISEASE VISIT ANNUAL PCP TEAM CHRONIC DISEASE VISIT [facility] Start: 05-28-2023 Urine microalbumin profile [facility] Start: 03-19-2023 ANNUAL PCP TEAM HEADER SET UP OPERATOR EARL DISEASE VISIT ANNUAL PCP TEAM CHRONIC DISEASE VISIT [facility] Start: 02-19-2023 COVID-19 VACCINE (4 - Booster for Moderna series) COVID-19 VACCINE (4 - Booster for Moderna series) [facility] Comment on above: Postponed from 07/01 (Declined at this time) Start: 02-19-2023 COVID-19 VACCINE (5 - Moderna series) COVID-19 VACCINE (5 - Moderna series) [facility] Comment on above: Postponed from 07/01 (Declined at this time) Start: 01-25-2023 ANNUAL PCP TEAM HEADER SET UP OPERATOR EARL DISEASE VISIT ANNUAL PCP TEAM CHRONIC DISEASE VISIT [facility] Start: 12-21-2022 Covid-19 Vaccine ( season) Covid-19 Vaccine () [facility] Start: 12-21-2022 Influenza vaccination C [facility] Start: 10-24-2022 End: 12-24-2022 Comprehensive metabolic 2000 panel - Serum or Plasma COMP METABOLIC PANEL Lab Routine ETD (Eustachian tube dysfunction), bilateral Expected: 10/24/2022, Expires: 12/24/2022 [facility] Work Phone: Comment on above: Expected: 10/24/2022 , Expires: 12/24/2022 Start: 10-24-2022 End: 12-24-2022 Lipid 1996 panel - Serum or Plasma LIPID PANEL BASIC Lab Routine Mixed hyperlipidemia Expected: 10/24/2022, Expires: 12/24/2022 [facility] Work Phone: Comment on above: Expected: 10/24/2022 , Expires: 12/24/2022 Start: 10-24-2022 End: 12-24-2022 Thyrotropin [Units/volume] in Serum or Plasma TSH BLD Lab Routine Acquired hypothyroidism Expected: 10/24/2022, Expires: 12/24/2022 [facility] Work Phone: Comment on above: Expected: 10/24/2022 , Expires: 12/24/2022 Start: 10-24-2022 End: 12-24-2022 Thyroxine (T4) free [Mass/volume] in Serum or Plasma T4 FREE/FREE THYROX Lab Routine Acquired hypothyroidism Expected: 10/24/2022, Expires: 12/24/2022 [facility] Work Phone: Comment on above: Expected: 10/24/2022 , Expires: 12/24/2022 Start: 07-24-2022 ANNUAL PCP TEAM HEADER SET UP OPERATOR EARL DISEASE VISIT ANNUAL PCP TEAM CHRONIC DISEASE VISIT [facility] Start: 07-03-2022 End: 07-17-2022 Influenza virus A and B RNA and SARS-CoV-2 (COVID-19) N gene panel - Respiratory specimen by LASHONDA with probe detection COVID WITH FLUA+B, ROUTINE Microbiology Routine URI, acute Expected: 07/03/2022, Expires: 07/17/2022 [facility] Work Phone: Comment on above: Expected: 07/03/2022 , Expires: 07/17/2022 Start: 04-22-2022 DEPRESSION ASSESSMENT DEPRESSION ASS ESSMENT [facility] Start: 12-21-2021 Influenza vaccination INFLUENZA (#1) [facility] Start: 09-20-2021 Adult depression screening assessment DEPRESSION SCREENING [facility] Start: 07-01-2021 COVID-19 VACCINE (4 - Booster for Moderna series) COVID-19 VACCINE (4 - Booster for Moderna series) [facility] Start: 1999 Hepatitis B Vaccine (1 of 3 - 19+ 3-dose series) Hepatitis B Vaccine (1 of 3 - 19+ 3-dose series) [facility] Start: 1980 HEPATITIS B (1 of 3 - 3-dose series) HEPATITIS B (1 of 3 - 3-dose series) [facility] Start: 1980 Hepatitis B Vaccine (1 of 3 - 3-dose series) Hepatitis B Vaccine (1 of 3 - 3-dose series) [facility] COVID & INFLUENZA A/ B & RSV PCR, ROUTINE COVID & INFLUENZA A/B & RSV PCR, ROUTINE Microbiology Routine Influenza-like illness Ordered: 05/21/2024 [facility] Work Phone: Comment on above: Ordered: 05/21/2024 End: 07-31-2025 LUNG VOLUMES LUNG VOLUMES PFT Routine Subacute cough 1 Occurrences starting 07/01/2024 until 07/31/2025 [facility] Comment on above: 1 Occurrences starti ng 07/01/2024 until 07/31/2025 Patient Education ED Bronchitis, No Antibiotic (Adult) ED Chest Pain, Uncertain Cause [facility] Work Phone: Patient referral [facility] Work Phone: Radionuclide study o f abdomen [facility] End: 07-31-2025 SPIROMETRY - BASELINE AND POST DILATOR SPIROMETRY - BASELINE AND POST DILATOR PFT Routine Subacute cough 1 Occurrences starting 07/01/2024 until 07/31/2025 [facility] Work Phone: Comment on above: 1 Occurrences starti ng 07/01/2024 until 07/31/2025 [place] [facility] Immun[place] Immunization Date Immunization Notes Care Provider Fa cili 01-25-2022 influenza, injectabl e, quadrivalent, contains preservative Joe Faria MD Work Phone: [facility] Work Phone: 01-25-2022 influenza virus vaccine, unspecified formulation Joe Faria MD Work Phone: [facility] 05-06-2021 Influenza, injectabl e, Madin [place] Canine Kidney, preservative free, quadrivalent Joe Faria MD Work Phone: [facility] Work Phone: 09-20-2020 COVID-19 vaccine, fu ll dose (MODERNA) Joe Faria MD Work Phone: [facility] Work Phone: 02-24-2020 influenza, injectabl e, quadrivalent, contains preservative Joe Faria MD Work Phone: [facility] 05-28-2013 tetanus toxoid, redu erik diphtheria toxoid, and acellular pertussis vaccine, adsorbed Joe Faria MD Work Phone: [facility] Work Phone: 02-20-[address] Joe Faria MD Work Phone: [facility] 02-20-2013 influenza, seasonal, injectable, preservative free Joe Faria MD Work Phone: [facility] Work Phone: 10-21-2011 pneumococcal polysaccharide vaccine, 23 valent Joe Faria MD Work Phone: [facility] Work Phone: 10-21-2011 pneumococcal vaccine , unspecified formulation Dr. Joe Faria MD Work Phone: [facility] 01-04-2009 diphtheria, tetanus toxoids and acellular pertussis vaccine Joe Faria MD Work Phone: [facility] 12-23-1996 TD(adult) unspecifie d formulation Joe Faria MD Work Phone: [facility] Work Phone: NEGATED: Highlighted row has not occurred!12-29-2020 influenza, injectable, quadrivalent, contains preservative Joe Faria MD Work Phone: [facility] Work Phone: Payers Date Payer Category Payer Self-pay 2021 Private Health Insurance MMO [employer] PPO [id number] 2021 Unknown [id number] 2018 Unknown [id number] 1980 Unknown [id number] 1980 Unknown [id number] 1980 Unknown [id number] Self-pay SELF PAY INSURANCE [id number] Unknown [id number] Unknown [id number] Unknown [id number] Unknown [id number] Unknown [id number] Unknown [id number] Unknown [id number] Social History Date Type Detail Facility Start: 09-10-2024 Tobacco smoking stat [facility] Never smoked tobacco [facility] Start: 10-17-2020 End: 07-24-2021 Alcohol intake Current drinker of alcohol (finding) [facility] Start: 07-24-2021 End: 08-29-2022 Alcohol intake [facility] Start: 06-17-2019 End: 05-18-2021 History SDOH Alcohol Frequency 3 [facility] Start: 05-18-2021 End: 01-23-2022 History SDOH Alcohol Std Drinks 1 [facility] Start: 01-22-2020 End: 01-23-2022 History SDOH Social Connections Phone 2 [facility] Start: 05-18-2021 History SDOH Physica l Activity DPW 0 [facility] Start: 07-28-2019 History SDOH Financial 5 [facility] Start: 06-16-2019 Education 15 [facility] Start: 1980 Sex Assigned At Not on file [facility] Start: 09-17-2020 End: 03-19-2022 Exposure to SARS-CoV-2 (event) Not sure [facility] Work Phone: Start: 11-29-2022 End: 09-21-2024 Alcohol intake Ex-drinker (finding) [facility] Start: 01-22-2020 End: 08-29-2022 Social connection and isolation panel [facility] Frequency of Social Gatherings with Friends and Family Not on file [facility] Work Phone: How often to you hav e a drink containing alcohol? 2-4 times a month [facility] Work Phone: How many standard dr inks containing alcohol do you have on a typical day? 1 or 2 [facility] Work Phone: How often do you hav e 6 or more drinks on 1 occasion? Never [facility] Work Phone: Do you feel stress - tense, restless, nervous, or anxious, or unable to sleep at night because your mind is troubled all the time - these days [OSQ] Not at all [facility] (I/We) worried bella er (my/our) food would run out before (I/we) got money to buy more. Never true [facility] Work Phone: In the past 12 month s, was there a time when you were not able to pay the mortgage or rent on time? No [facility] At any time in the p ast 12 months, were you homeless or living in long-term [including now]? Yes [facility] Are you now , , , , never or living with a partner? [facility] How hard is it for y ou to pay for the very basics like food, housing, medical care, and heating Hard [facility] How many standard dr inks containing alcohol do you have on a typical day? 3 or 4 [facility] Start: 05-25-2024 Tobacco smoking status Ex-smoker (fi nding) [facility] Sexual Orientation [facility] Start: 02-23-2024 Sex Male (finding) [facility] Start: 10-27-2020 Alcohol Alcohol [facility] Start: 1980 Sex Assigned At Male W [facility] Medical Equipment Procedure Code Equipment Code Equipment Origin al Text Equipment Identifier Dates Kouts S[employer] Fiberwire 3mm 2 Peek 12.2mm Suture Rotator Cuff - [id number] Start: 03-13-2017 Goals Date Patient Goal Desired Activity /State Functional Status Date Assessment Result Facility 05-25-2024 Functional Status Independent [facility] 05-25-2024 Functional Status Standard Safet y ID band on, Allergy Band on, Call device within reach, Bed in low position, Wheels locked, Electricity off to room outlets [facility] 10-19-2014 Are you deaf, or do you have serious difficulty hearing No 10/19/2014 4:17 PM Graciela Jones LPN No [facility] 10-19-2014 Are you blind, or do you have serious difficulty seeing, even when wearing glasses No 10/19/2014 4:17 PM Graciela Jones LPN No [facility] 10-19-2014 Do you have serious difficulty walking or climbing stairs Yes 10/19/2014 4:17 PM Graciela Jones LPN Yes [facility] 10-19-2014 Do you have difficul ty dressing or bathing No 10/19/2014 4:17 PM Graciela Jones LPN No [facility] 10-19-2014 Because of a physica l, mental, or emotional condition, do you have difficulty doing errands alone such as visiting a physician's office or shopping No 10/19/2014 4:17 PM Graciela Jones LPN No [facility] Mental Status Date Assessment Result Facility 09-15-2024 Cognitive function Voice/Name [facility] Work Phone: 05-25-2024 Mental Status Orientation Oriented x 4 [facility] 05-25-2024 Mental Status [facility] 10-19-2014 Because of a physica l, mental, or emotional condition, do you have serious difficulty concentrating, remembering, or making decisions No 10/19/2014 4:17 PM EDT Graciela Duvall LPN No [facility] Clinical Notes 03-19-2018 to 09-29-2024 Joe Faria MD - 09/21/2024 4:22 PM EDT Note Date & Type Note Facility 09-29-2024 Progress note [facility] 09-21-2024 Note HNO ID: [id number] Author: JOE FARIA MD Service: ? Author Type: Physician Type: Progress Notes Filed: 09/21/2024 22:50 Note Text: This note was created using nPickerter. Subjective Haim Chase is a 44 year old male. He was seeing Dr. Tamara Holden for GERD and just had an upper endoscopy. Biopsy results were pending. He was on vonaprazan (Voquezna). He was again interested in phentermine for weight loss. He was on phentermine most of 2023 with no clear weight loss, and diversion of stated benefit to increased energy, focus, and motivation. His focus was fine now. He did not pursue psychiatry referral. He also had subacute cough which was better, and felt to be more from GERD. He did not pursue pulmonary consultation. Review of Systems Constitutional: Negative for unexpected weight change. Respiratory: Negative for shortness of breath. Cardiovascular: Negative for chest pain. Psychiatric/Behavioral: Negative for decreased concentration. ACTIVE PROBLEM LIST Hypothyroidism Allergic Rhinitis Vitamin D Deficiency SHERIN (obstructive sleep apnea) on AutoPAP Mixed Hyperlipidemia Obesity, Class III, BMI >= 40 Other Specified Joint Disorders, Left Hip Lack of Concentration Lack of Motivation Impaired Glucose Metabolism Social History Tobacco Use Smoking status: Never Smokeless tobacco: Never Substance Use Topics Alcohol use: Not Currently Alcohol/week: 2.0 standard drinks of alcohol Types: 2 Shots of liquor per week Drug use: No Current Outpatient Medications Medication Sig levothyroxine (SYNTHROID) 88 mcg tablet Take 1 tablet by mouth daily before breakfast. cetirizine (ZYRTEC) 10 mg tablet Take 1 tablet by mouth once daily. liothyronine (CYTOMEL) 25 mcg tablet Take 1 tablet by mouth once daily. fluticasone (FLONASE) 50 mcg/actuation nasal spray Use 2 Sprays in each nostril once daily. Rinse mouth after use. CPAP Mask Fitting requested (per patient preference, try Dream ricci nasal tube like head gear) optional chin strap (if indicated), filters, tubing / heated tubing, heated humidity and lifetime supplies. Dx. SHERIN G47.33 327.23 CPAP AutoPAP 7-20 cmH2O, suitable mask, humidity, filters. Lifetime supplies. Dx: G47.ee vonoprazan (VOQUEZNA) 10 mg tablet Take 1 tablet by mouth once daily. No current facility-administered medications for this visit. Objective BP 138/86 Pulse 76 Resp 18 Wt (!) 149.3 kg (329 lb 2.4 oz) BMI 46.43 kg/m? Physical Exam Constitutional: General: He is not in acute distress. Appearance: He is not ill-appearing. Cardiovascular: Heart sounds: Normal heart sounds. Pulmonary: Breath sounds: Normal breath sounds. Neurological: Mental Status: He is alert. BP 132/80 (BP Site: Right Arm, BP Position: Sitting) Latest Ref Rng 09/17/2024 Glucose 74 - 99 mg/dL 126 (H) BUN 9 - 24 mg/dL 12 Creatinine 0.73 - 1.22 mg/dL 0.90 Sodium 136 - 144 mmol/L 138 Potassium 3.7 - 5.1 mmol/L 4.6 Chloride 98 - 107 mmol/L 102 CO2 22 - 30 mmol/L 22 Anion Gap 8 - 15 mmol/L 14 Calcium 8.5 - 10.2 mg/dL 9.2 eGFR >=60 mL/min/1.73m? 108 Cholesterol, Total <200 mg/dL 237 (H) Triglyceride <150 mg/dL 185 (H) HDL Cholesterol >39 mg/dL 47 LDL Cholesterol, Calculated <100 mg/dL 156 (H) Non HDL Cholesterol <130 mg/dL 190 (H) VLDL Cholesterol <30 mg/dL 35 (H) TC:HDL Ratio <5.10 5.04 LDL:HDL Ratio <2.54 3.32 (H) Fasting Time hrs 12 Hemoglobin A1C 4.3 - 5.6 % 5.9 (H) Estimated Average Glucose mg/dL 123 Legend: (H) High ASSESSMENT/PLAN: 1. Impaired glucose metabolism - ICD9: 790.29, ICD10: R73.09 (primary diagnosis) Check for diabetes mellitus. If positive, we can try GLP1a. - GLUC DARIA, 2-HR NON-GEST, 75 GM, FASTING 2. Gastroesophageal reflux disease, unspecified whether esophagitis present - ICD9: 530.81, ICD10: K21.9 - Per Dr. Tamara Holden. - VOQUEZNA 10 MG TABLET 3. Elevated blood pressure reading - ICD9: 796.2, ICD10: R03.0 - Encouraged dietary sodium restriction/DASH diet - Recommended regular aerobic exercise. - Recommend home blood pressure monitoring, to bring results in on next visit - Reviewed risks of HTN and principles of treatment - Goal of BP <130/80 4. Obesity, Class III, BMI >= 40 - ICD9: 278.01, ICD10: E66.813 Weight increasing - I do not recommend more appetite suppressant/stimulant due to risks. - If diabetes, confirmed start GLP1 in addition to diet. 5. Mixed hyperlipidemia - ICD9: 272.2, ICD10: E78.2 - Worsening control - Diet only for now. Joe Faria MD [facility] 09-21-2024 History of Present illness Narrative This note was created using AudioBeta. Subjective Haim Chase is a 44 year old male. He was seeing Dr. Tamara Holden for GERD and just had an upper endoscopy. Biopsy results were pending. He was on vonaprazan (Voquezna). He was again interested in phentermine for weight loss. He was on phentermine most of 2023 with no clear weight loss, and diversion of stated benefit to increased energy, focus, and motivation. His focus was fine now. He did not pursue psychiatry referral. He also had subacute cough which was better, and felt to be more from GERD. He did not pursue pulmonary consultation. Review of Systems Constitutional: Negative for unexpected weight change. Respiratory: Negative for shortness of breath. Cardiovascular: Negative for chest pain. Psychiatric/Behavioral: Negative for decreased concentration. ACTIVE PROBLEM LIST Hypothyroidism Allergic Rhinitis Vitamin D Deficiency SHERIN (obstructive sleep apnea) on AutoPAP Mixed Hyperlipidemia Obesity, Class III, BMI >= 40 Other Specified Joint Disorders, Left Hip Lack of Concentration Lack of Motivation Impaired Glucose Metabolism Social History Tobacco Use Smoking status: Never Smokeless tobacco: Never Substance Use Topics Alcohol use: Not Currently Alcohol/week: 2.0 standard drinks of alcohol Types: 2 Shots of liquor per week Drug use: No Current Outpatient Medications Medication Sig levothyroxine (SYNTHROID) 88 mcg tablet Take 1 tablet by mouth daily before breakfast. cetirizine (ZYRTEC) 10 mg tablet Take 1 tablet by mouth once daily. liothyronine (CYTOMEL) 25 mcg tablet Take 1 tablet by mouth once daily. fluticasone (FLONASE) 50 mcg/actuation nasal spray Use 2 Sprays in each nostril once daily. Rinse mouth after use. CPAP Mask Fitting requested (per patient preference, try Dream ricci nasal tube like head gear) optional chin strap (if indicated), filters, tubing / heated tubing, heated humidity and lifetime supplies. Dx. SHERIN G47.33 327.23 CPAP AutoPAP 7-20 cmH2O, suitable mask, humidity, filters. Lifetime supplies. Dx: G47.ee vonoprazan (VOQUEZNA) 10 mg tablet Take 1 tablet by mouth once daily. No current facility-administered medications for this visit. Objective BP 138/86 Pulse 76 Resp 18 Wt (!) 149.3 kg (329 lb 2.4 oz) BMI 46.43 kg/m Physical Exam Constitutional: General: He is not in acute distress. Appearance: He is not ill-appearing. Cardiovascular: Heart sounds: Normal heart sounds. Pulmonary: Breath sounds: Normal breath sounds. Neurological: Mental Status: He is alert. BP 132/80 (BP Site: Right Arm, BP Position: Sitting) Latest Ref [facility] 09/17/2024 Glucose 74 - 99 mg/dL 126 (H) BUN 9 - 24 mg/dL 12 Creatinine 0.73 - 1.22 mg/dL 0.90 Sodium 136 - 144 mmol/L 138 Potassium 3.7 - 5.1 mmol/L 4.6 Chloride 98 - 107 mmol/L 102 CO2 22 - 30 mmol/L 22 Anion Gap 8 - 15 mmol/L 14 Calcium 8.5 - 10.2 mg/dL 9.2 eGFR >=60 mL/min/1.73m 108 Cholesterol, Total <200 mg/dL 237 (H) Triglyceride <150 mg/dL 185 (H) HDL Cholesterol >39 mg/dL 47 LDL Cholesterol, Calculated <100 mg/dL 156 (H) Non HDL Cholesterol <130 mg/dL 190 (H) VLDL Cholesterol <30 mg/dL 35 (H) TC:HDL Ratio <5.10 5.04 LDL:HDL Ratio <2.54 3.32 (H) Fasting Time hrs 12 Hemoglobin A1C 4.3 - 5.6 % 5.9 (H) Estimated Average Glucose mg/dL 123 Legend: (H) High ASSESSMENT/PLAN: 1. Impaired glucose metabolism - ICD9: 790.29, ICD10: R73.09 (primary diagnosis) Check for diabetes mellitus. If positive, we can try GLP1a. - GLUC DARIA, 2-HR NON-GEST, 75 GM, FASTING 2. Gastroesophageal reflux disease, unspecified whether esophagitis present - ICD9: 530.81, ICD10: K21.9 - Per Dr. Tamara Holden. - VOQUEZNA 10 MG TABLET 3. Elevated blood pressure reading - ICD9: 796.2, ICD10: R03.0 - Encouraged dietary sodium restriction/DASH diet - Recommended regular aerobic exercise. - Recommend home blood pressure monitoring, to bring results in on next visit - Reviewed risks of HTN and principles of treatment - Goal of BP <130/80 4. Obesity, Class III, BMI >= 40 - ICD9: 278.01, ICD10: E66.813 Weight increasing - I do not recommend more appetite suppressant/stimulant due to risks. - If diabetes, confirmed start GLP1 in addition to diet. 5. Mixed hyperlipidemia - ICD9: 272.2, ICD10: E78.2 - Worsening control - Diet only for now. Joe Faria MD documented in this encounter [facility] 09-15-2024 Consult note [facility] 09-15-2024 Procedure note [facility] 09-15-2024 Procedure note [facility] 09-15-2024 Consult note [facility] 09-15-2024 History and physi romelia note [facility] 09-15-2024 Note [facility] Medical Records Department [address] [place] [address] History Physical Exam 09/15/24 1336 MR#: [id number] Acct: [id number] Name: HAIM CHASE Rep #: [id number] : 1980 44 From: [place] Holden DO PCP: Dr. Joe Faria MD Status:REG [facility] [place] Location: [facility]14-1 HPI - General General Date of Admission: 09/15/24 Date of Service: 09/15/24 Chief Complaint: GERD HPI Narrative HAIM CHASE, is a 44 M who presents with the Chief Complaint: heartburn Over the past 2 months pt has been having burning epigastric pain and nausea. He notes he has also had two occurrences of PNA. His PCP recommended pulmonology for his symptoms but he thinks it is GI in nature. His pain is constant and worse with fatty foods. He is having nausea but had not vomited yet. He does not smoke. Endorses drinking alcohol 3-4 timer per week but since this has started he has not drank. He has had a lot of stress and anxiety lately with work and he feels this may be a apart of it. He has started OTC omeprazole twice a day and noticed some benefit. He is avoiding certain foods that he finds triggering. He still has his gallbladder. [facility] Medical History Anxiety Alcohol use Thyroid disease Back pain Dietary restriction History of ulceration Gastric reflux CPAP (continuous positive airway pressure) dependence Non-smoker History of pain when walking Chest pain Home Medications ???Medication ???Instructions ???Recorded ???Last Taken ???Type levothyroxine 200 mcg tablet 88 mcg PO DAILY 08/02/13 08/07/13 10:30 History (Synthroid) 200 mcg cetirizine 10 mg tablet 10 mg PO DAILY 11/23/20 Unknown Hi story liothyronine 50 mcg tablet 25 mcg PO DAILY 07/10/24 Unknown H istory (Cytomel) vonoprazan 10 mg tablet (Voquezna) 10 mg PO QDAY #30 tabs 07/29/24 Unknown Rx ondansetron 4 mg disintegrating 4 mg PO Q8H PRN nausea and vomitin g 09/10/24 Unknown History tablet Allergy/AdvReac Type Severity Reaction Status Date / Time vancomycin Allergy Hives Verified 09/15/24 13:38 Surgical History Hx of total hip arthroplasty History of cystoscopy Social History Smoking Status: Never smoker ROS Constitutional Constitutional: Denies fatigue, fever(s), poor appetite, weight gain or weight loss Gastrointestinal Gastrointestinal: Denies belching, bloating, change in bowel habits, change in stool character, chewing difficulty, coffee ground emesis, constipation, cramping, diarrhea, dyspepsia, dysphagia, early satiety, excessive flatus, fecal incontinence, heartburn, hematemesis, hematochezia, hemorrhoids, loose stools, melena, nausea, odynophagia, rectal bleeding, tenesmus, vomiting or weight changes Physical Exam Const alert, oriented x3, no apparent distress and healthy appearing General Appearance: cooperative GI normal to inspection, nondistended, normoactive bowel sounds, soft to palpation, non-tender and non- distended Percussion: normal to percussion Rectal Exam: deferred Assessment Plan Assessment/Plan (1) GERD (gastroesophageal reflux disease): PLAN: Assessment and Plan Assessment and Plan (1) Gastroesophageal reflux disease: Plan: This is a 44 yo male pt here today for evaluation of epigastric pain and heartburn for 2 months. Pt has not had heartburn like this before. He endorses having a lot of stress in his life at this time. OTC omeprazole has been somewhat helpful. I will prescribe Pantoprazole 40 mg BID. I advised he take this 30 minutes before he eat. I also sent in famotidine 20 mg for him to take if he has breakthrough heartburn. He will be scheduled for an ED to assess his upper GI tract. If his symptoms continue will consider prescribing Voquenza. He is agreeable to plan and will f/u after procedure. -EGD -Pantoprazole 40 mg BID -Famotidine PRN -Consider Voquezna -f/u after procedure Medications: 09/15/24 1341 Cosigner Signature (if applicable): CC: Dr. Joe Faria MD; Santiago Holden DO Signed [facility] 07-10-2024 Evaluation note Diagnosis Onset Date Resolution Gastroesophageal reflux disease noneactive July 10, 2024 10:56am GERD (gastroesophageal reflux disease) acute September 15, 2024 1:01pm [facility] Work Phone: 1(892) 993-402603-21-2025 Evaluation note* Diagnosis Onset Date Resolution Status Admit Date Gastroesophageal reflux disease none active July 10, 2024 10:56am GERD (gastroesophageal reflu x disease) acute September 15, 2024 1:01pm GERD (gastroesophageal reflu x disease) acute September 29, 2024 10:02am [facility] Work Phone: 1(370) 677-936503-19-2025 Miscellaneous Notes* Telephone Encounter - Colleen Gorman MA - 07/08/2024 11:18 AM EDT Faxed consult and office note Colleen Gorman MA * Telephone Encounter - Joe Faria MD - 07/08/2024 8:04 AM EDT ASSESSMENT/PLAN: 1. Chest pain, unspecified type - ICD9: 786.50, ICD10: R07.9 (primary diagnosis) ER visit noted. - CONSULT TO GASTROENTEROLOGY 2. Gastroesophageal reflux disease, unspecified whether esophagitis present - ICD9: 530.81, ICD10: K21.9 - CONSULT TO GASTROENTEROLOGY Joe Faria MD [facility] Tele[facility] encounter Note * Telephone Encounter - Colleen Gorman MA - 07/08/2024 11:18 AM EDT Faxed consult and office note Colleen Gorman MA [facility]03-19-2025 Telephone encounter Note* Telephone Encounter - Joe Faria MD - 07/08/2024 8:04 AM EDT ASSESSMENT/PLAN: 1. Chest pain, unspecified type - ICD9: 786.50, ICD10: R07.9 (primary diagnosis) ER visit noted. - CONSULT TO GASTROENTEROLOGY 2. Gastroesophageal reflux disease, unspecified whether esophagitis present - ICD9: 530.81, ICD10: K21.9 - CONSULT TO GASTROENTEROLOGY Joe Faria MD [facility]03-12-2025 NoteHNO ID: [id number] Author: JOE FARIA MD Service: ? Author Type: Physician Type: Progress Notes Filed: 07/01/2024 23:17 Note Text: This note was created using CellARideriter. Subjective Patient presents with: ER F/U Haim Chase is a 44 year old male. He was in the ER 06/24/24 for chest pain and bronchitis. Work up for acute coronary syndrome and pulmonary embolism were negative (including labs and CTA of the chest). He continued with cough, productive at times, with some dyspnea and chest tightness. He started using his 's albuterol nebulizer with only slight improvement. He's had recurrent respiratory illness in the past 3 months, having been treated for upper respiratory infection, otitis media, flu, sinobronchitis. Review of Systems Constitutional: Negative for chills, diaphoresis and fever. HENT: Negative for congestion, sore throat and trouble swallowing. Respiratory: Positive for cough, chest tightness and shortness of breath. Cardiovascular: Negative for palpitations and leg swelling. Gastrointestinal: Negative for abdominal pain, constipation and diarrhea. Genitourinary: Negative for difficulty urinating. Neurological: Negative for dizziness and headaches. ACTIVE PROBLEM LIST Hypothyroidism Allergic Rhinitis Vitamin D Deficiency SHERIN (obstructive sleep apnea) on AutoPAP Mixed Hyperlipidemia Obesity, Class III, BMI >= 40 Other Specified Joint Disorders, Left Hip Lack of Concentration Lack of Motivation Impaired Glucose Metabolism Social History Tobacco Use Smoking status: Never Smokeless tobacco: Never Substance Use Topics Alcohol use: Not Currently Alcohol/week: 2.0 standard drinks of alcohol Types: 2 Shots of liquor per week Drug use: No Current Outpatient Medications Medication Sig cetirizine (ZYRTEC) 10 mg tablet Take 1 tablet by mouth once daily. liothyronine (CYTOMEL) 25 mcg tablet Take 1 tablet by mouth once daily. fluticasone (FLONASE) 50 mcg/actuation nasal spray Use 2 Sprays in each nostril once daily. Rinse mouth after use. CPAP Mask Fitting requested (per patient preference, try Dream ricci nasal tube like head gear) optional chin strap (if indicated), filters, tubing / heated tubing, heated humidity and lifetime supplies. Dx. SHERIN G47.33 327.23 CPAP AutoPAP 7-20 cmH2O, suitable mask, humidity, filters. Lifetime supplies. Dx: G47.ee levothyroxine (SYNTHROID) 88 mcg tablet Take 1 tablet by mouth daily before breakfast. predniSONE (DELTASONE) 20 mg tablet Take 1 tablet by mouth once daily for 5 days. No current facility-administered medications for this visit. Objective BP 124/80 (BP Site: Left Arm, BP Position: Sitting, BP Cuff Size: Large Adult) Pulse 80 Temp 37.1 ?C (98.7 ?F) (Temporal) SpO2 99% Physical Exam Constitutional: General: He is not in acute distress. Appearance: He is not ill-appearing or diaphoretic. HENT: Right Ear: Tympanic membrane normal. Nose: No congestion or rhinorrhea. Mouth/Throat: Mouth: Mucous membranes are moist. Pharynx: Oropharynx is clear. Cardiovascular: Rate and Rhythm: Normal rate and regular rhythm. Pulmonary: Effort: Pulmonary effort is normal. Breath sounds: Normal breath sounds. No wheezing or rales. Musculoskeletal: Right lower leg: No edema. Left lower leg: No edema. Lymphadenopathy: Cervical: No cervical adenopathy. Neurological: Mental Status: He is alert. Assessment and Plan 1. Subacute cough - ICD9: 786.2, ICD10: R05.2 (primary diagnosis) Etiology not clear. - CONSULT TO PULMONARY MEDICINE - SPIROMETRY - BASELINE AND POST DILATOR - LUNG VOLUMES - PREDNISONE 20 MG TABLET 2. Acquired hypothyroidism - ICD9: 244.9, ICD10: E03.9 - continue current dose of Synthroid. - LEVOTHYROXINE 88 MCG TABLET 3. SHERIN (obstructive sleep apnea) on AutoPAP - ICD9: 327.23, ICD10: G47.33 - He was using and benefiting from regular CPAP use. Joe Faria [facility]03-12-2025 History of Present illness Narrative* Joe Faria MD - 07/01/2024 11:07 PM EDT This note was created using NoteWriter. Subjective Patient presents with: ER F/U Haim Chase is a 44 year old male. He was in the ER 06/24/24 for chest pain and bronchitis. Work up for acute coronary syndrome and pulmonary embolism were negative (including labs and CTA of the chest). He continued with cough, productive at times, with some dyspnea and chest tightness. He started using his 's albuterol nebulizer with only slight improvement. He's had recurrent respiratory illness in the past 3 months, having been treated for upper respiratory infection, otitis media, flu, sinobronchitis. Review of Systems Constitutional: Negative for chills, diaphoresis and fever. HENT: Negative for congestion, sore throat and trouble swallowing. Respiratory: Positive for cough, chest tightness and shortness of breath. Cardiovascular: Negative for palpitations and leg swelling. Gastrointestinal: Negative for abdominal pain, constipation and diarrhea. Genitourinary: Negative for difficulty urinating. Neurological: Negative for dizziness and headaches. ACTIVE PROBLEM LIST Hypothyroidism Allergic Rhinitis Vitamin D Deficiency SHERIN (obstructive sleep apnea) on AutoPAP Mixed Hyperlipidemia Obesity, Class III, BMI >= 40 Other Specified Joint Disorders, Left Hip Lack of Concentration Lack of Motivation Impaired Glucose Metabolism Social History Tobacco Use Smoking status: Never Smokeless tobacco: Never Substance Use Topics Alcohol use: Not Currently Alcohol/week: 2.0 standard drinks of alcohol Types: 2 Shots of liquor per week Drug use: No Current Outpatient Medications Medication Sig cetirizine (ZYRTEC) 10 mg tablet Take 1 tablet by mouth once daily. liothyronine (CYTOMEL) 25 mcg tablet Take 1 tablet by mouth once daily. fluticasone (FLONASE) 50 mcg/actuation nasal spray Use 2 Sprays in each nostril once daily. Rinse mouth after use. CPAP Mask Fitting requested (per patient preference, try Dream ricci nasal tube like head gear) optional chin strap (if indicated), filters, tubing / heated tubing, heated humidity and lifetime supplies. Dx. SHERIN G47.33 327.23 CPAP AutoPAP 7-20 cmH2O, suitable mask, humidity, filters. Lifetime supplies. Dx: G47.ee levothyroxine (SYNTHROID) 88 mcg tablet Take 1 tablet by mouth daily before breakfast. predniSONE (DELTASONE) 20 mg tablet Take 1 tablet by mouth once daily for 5 days. No current facility-administered medications for this visit. Objective BP 124/80 (BP Site: Left Arm, BP Position: Sitting, BP Cuff Size: Large Adult) Pulse 80 Temp 37.1 C (98.7 F) (Temporal) SpO2 99% Physical Exam Constitutional: General: He is not in acute distress. Appearance: He is not ill-appearing or diaphoretic. HENT: Right Ear: Tympanic membrane normal. Nose: No congestion or rhinorrhea. Mouth/Throat: Mouth: Mucous membranes are moist. Pharynx: Oropharynx is clear. Cardiovascular: Rate and Rhythm: Normal rate and regular rhythm. Pulmonary: Effort: Pulmonary effort is normal. Breath sounds: Normal breath sounds. No wheezing or rales. Musculoskeletal: Right lower leg: No edema. Left lower leg: No edema. Lymphadenopathy: Cervical: No cervical adenopathy. Neurological: Mental Status: He is alert. Assessment and Plan 1. Subacute cough - ICD9: 786.2, ICD10: R05.2 (primary diagnosis) Etiology not clear. - CONSULT TO PULMONARY MEDICINE - SPIROMETRY - BASELINE AND POST DILATOR - LUNG VOLUMES - PREDNISONE 20 MG TABLET 2. Acquired hypothyroidism - ICD9: 244.9, ICD10: E03.9 - continue current dose of Synthroid. - LEVOTHYROXINE 88 MCG TABLET 3. SHERIN (obstructive sleep apnea) on AutoPAP - ICD9: 327.23, ICD10: G47.33 - He was using and benefiting from regular CPAP use. Joe Faria MD documented in [facility] encounter[facility] NoteHNO ID: [id number] Author: CONSTANTINE BOYCE APRN.RN HOME HEALTH Service: ? Author Type: Nurse Practitioner Type: Progress Notes Filed: 06/04/2024 15:49 Note Text: This note was created using NoteWriter. Subjective Haim Chase is a 44 year old male. HPI Pt was seen here 05/21 and 05/29 for respiratory symptoms, fatigue, cough, body aches. Symptoms have not improved. He was put on Doxycycline 05/29 but again notes no improvement of symptoms. No fevers but does not chills. He notes that he did have some chest pain and was seen in the ER May 25 with an extensive workup with no acute findings noted. Review of Systems As above Objective BP 142/95 Pulse 85 Temp 37 ?C (98.6 ?F) Resp 24 Wt (!) 148.2 kg (326 lb 11.6 oz) SpO2 99% BMI 46.09 kg/m? Physical Exam Vitals and nursing note reviewed. Constitutional: General: He is not in acute distress. Appearance: Normal appearance. He is not ill-appearing. HENT: Head: Normocephalic. Mouth/Throat: Mouth: Mucous membranes are moist. Eyes: Conjunctiva/sclera: Conjunctivae normal. Cardiovascular: Rate and Rhythm: Normal rate and regular rhythm. Pulmonary: Effort: Pulmonary effort is normal. Breath sounds: Normal breath sounds. Musculoskeletal: General: Normal range of motion. Cervical back: Normal range of motion. Skin: General: Skin is warm and dry. Neurological: General: No focal deficit present. Mental Status: He is alert. Psychiatric: Mood and Affect: Mood normal. Behavior: Behavior normal. Assessment and Plan ASSESSMENT/PLAN: 1. Viral illness - ICD9: 079.99, ICD10: B34.9 -Patient had negative flu and COVID testing May 21 and then negative flu testing May 29. Per patient he had an extensive workup at the emergency department May 25 including cardiac evaluation and most likely chest x-ray which he states was unremarkable. Discussed with him that symptoms are most likely viral in origin and we did discuss possible retesting for viral illness which he declines at this time as there is no specific treatment indicated. I discussed with him that I did not feel that additional antibiotics were indicated at this time and recommended continued symptomatic treatment and close follow-up with PCP to which patient was agreeable. Constantine Boyce APRN.[facility] History of Present illness Narrative* Constantine Boyce APRN.SHERI - 06/04/2024 3:39 PM EST This note was created using NoteWriter. Subjective Haim Chase is a 44 year old male. HPI Pt was seen here 05/21 and 05/29 for respiratory symptoms, fatigue, cough, body aches. Symptoms have not improved. He was put on Doxycycline 05/29 but again notes no improvement of symptoms. No fevers butdoes not chills. He notes that he did have some chest pain and was seen in the ER May 25 with an extensive workup with no acute findings noted. Review of Systems As above Objective BP 142/95 Pulse 85 Temp 37 C (98.6 F) Resp 24 Wt (!) 148.2 kg (326 lb 11.6 oz) SpO2 99% BMI 46.09 kg/m Physical Exam Vitals and nursing note reviewed. Constitutional: General: He is not in acute distress. Appearance: Normal appearance. He is not ill-appearing. HENT: Head: Normocephalic. Mouth/Throat: Mouth: Mucous membranes are moist. Eyes: Conjunctiva/sclera: Conjunctivae normal. Cardiovascular: Rate and Rhythm: Normal rate and regular rhythm. Pulmonary: Effort: Pulmonary effort is normal. Breath sounds: Normal breath sounds. Musculoskeletal: General: Normal range of motion. Cervical back: Normal range of motion. Skin: General: Skin is warm and dry. Neurological: General: No focal deficit present. Mental Status: He is alert. Psychiatric: Mood and Affect: Mood normal. Behavior: Behavior normal. Assessment and Plan ASSESSMENT/PLAN: 1. Viral illness - ICD9: 079.99, ICD10: B34.9 -Patient had negative flu and COVID testing May 21 and then negative flu testing May 29. Per patient he had an extensive workup at the emergency department May 25 including cardiac evaluation and most likely chest x-ray which he states was unremarkable. Discussed with him that symptoms are most likely viral in origin and we did discuss possible retesting for viral illness which he declines at this time as there is no specific treatment indicated. I discussed with him that I did not feel that additional antibiotics were indicated at this time and recommended continued symptomatic treatment and close follow-up with PCP to which patient was agreeable. Constantine Boyce APRN.SHERI documented in this encounterThe [facility] NoteHNO ID: [id number] Author: FARRAH BORDEN APRN.CNP Service: ? Author Type: Nurse Practitioner Type: Progress Notes Filed: 05/29/2024 11:38 Note Text: Subjective HPI HPI Haim Chase is a 44 year old male who presents today for CC of cough, congestion, body aches. This started 2 weeks ago. Has tried otc medication for relief. Symptoms are worsened by notghing. Risk factors sick exposures at work. .Patient presents with: Cough: Sinus, chest congestion, body aches x 2 weeks PAST MEDICAL HISTORY Diagnosis Date Allergic rhinitis 10/19/2014 Anxiety 06/10/2009 Intolerant of Celexa (anorgasmia) -- did well on Zoloft 200 mg, in the mid-s --> restarted Zoloft 12/2009 BPPV (benign paroxysmal positional vertigo) 10/22/2012 COVID-19 03/18/2022 Depressive disorder 09/26/2011 Hypothyroidism 04/28/[address] Mcleod, who retired; MASSIVE weight loss, improvement in cold intolerance, with treatment; Labs tend to be normal, clinically excellent reponse, normalization of hypothermic basal body temperature Mixed hyperlipidemia 12/27/2016 Morbid Obesity 01/04/2010 SHERIN (obstructive sleep apnea) 01/02/2017 [facility] AutoPAP Other specified joint disorders, left hip 12/29/2020 Renal calculi PAST SURGICAL HISTORY Procedure Laterality Date ARTHROSCOPY KNEE DIAGNOSTIC W/WO SYNOVIAL BX SPX Right 09/22/2014 meniscus tear, Dr. Cabrera ARTHROSCOPY KNEE DIAGNOSTIC W/WO SYNOVIAL BX SPX Left 11/24/2010 Medial meniscectomy, chondroplasty patella AND medial femoral condyle CYSTOSCOPY 03/10/2018 CYSTOSCOPY, URETERAL STENT CHANGE/INSERTION Right 08/03/2013 CYSTOSCOPY, URETERAL STENT CHANGE/INSERTION Right 08/07/2013 PAST SURGICAL HISTORY OF WISDOM TEETH REM LESION TRUNK,ARM,LEG 0.6 -1.0CM Right 10/26/2015 Exc. neal cyst right post. shoulder SHOULDER ARTHROSCOPY/SURGERY Left 03/13/2017 SKIN BX, 1 LESION 1989 Skin biopsy, foot age 8 TOTAL HIP REPLACEMENT Left 01/06/2021 VASECTOMY UNI/BI SPX W/POSTOP SEMEN EXAMS Bilateral 10/19/2015 ALLERGIES Vancomycin MEDICATIONS cetirizine (ZYRTEC) 10 mg tablet Take 1 tablet by mouth once daily. liothyronine (CYTOMEL) 25 mcg tablet Take 1 tablet by mouth once daily. levothyroxine (SYNTHROID) 88 mcg tablet Take 1 tablet by mouth daily before breakfast. fluticasone (FLONASE) 50 mcg/actuation nasal spray Use 2 Sprays in each nostril once daily. Rinse mouth after use. CPAP Mask Fitting requested (per patient preference, try Dream ricci nasal tube like head gear) optional chin strap (if indicated), filters, tubing / heated tubing, heated humidity and lifetime supplies. Dx. SHERIN G47.33 327.23 CPAP AutoPAP 7-20 cmH2O, suitable mask, humidity, filters. Lifetime supplies. Dx: G47.ee doxycycline (VIBRA-TABS) 100 mg tablet Take 1 tablet by mouth two times a day for 7 days. FAMILY HISTORY Problem Relation Age of Onset Diabetes Mother Diabetes Father Factor 5 Leiden Sister DVT Sister Kidney stones Sister No Known Problems Sister No Known Problems Sister Thyroid Brother hyperthyroidism Social History Tobacco Use Smoking status: Never Smokeless tobacco: Never Substance Use Topics Alcohol use: Not Currently Alcohol/week: 2.0 standard drinks of alcohol Types: 2 Shots of liquor per week Drug use: No Review of Systems Constitutional: Positive for chills, fever and malaise/fatigue. HENT: Positive for congestion. Negative for ear pain, nosebleeds and sore throat. Respiratory: Positive for cough and sputum production. Negative for shortness of breath and wheezing. Musculoskeletal: Negative for neck pain. Skin: Negative for itching and rash. Objective Blood pressure 158/88, pulse 95, temperature 37.3 ?C (99.1 ?F), resp. rate 19, weight (!) 147.4 kg (324 lb 15.3 oz), SpO2 99%. Physical Exam Constitutional: General: He is not in acute distress. Appearance: He is ill-appearing. He is not toxic-appearing or diaphoretic. HENT: Head: Normocephalic and atraumatic. Cardiovascular: Rate and Rhythm: Normal rate and regular rhythm. Heart sounds: Normal heart sounds, S1 normal and S2 normal. Pulmonary: Effort: Pulmonary effort is normal. Breath sounds: Normal breath sounds. Lymphadenopathy: Cervical: No cervical adenopathy. Right cervical: No superficial cervical adenopathy. Left cervical: No superficial cervical adenopathy. Neurological: Mental Status: He is alert and oriented to person, place, and time. Gait: Gait is intact. ASSESSMENT/PLAN: 1. Sinobronchitis - ICD9: 473.9, 490, ICD10: J32.9, J40 (primary diagnosis) - Will begin treatment with as per antibiotic as written, see orders - Supportive care with plenty of fluids, rest, and analgesia prn. - Follow up in 3-5 days if symptoms persist or worsen. - DOXYCYCLINE HYCLATE 100 MG TABLET 2. Acute cough - ICD9: 786.2, ICD10: R05.1 - XR CHEST 2V FRONTAL/LAT IMPRESSION: No acute radiographic abnormality. (more content not included)...[facility]02-07-2025 History of Present illness Narrative* Farrah Borden APRN.RN HOME HEALTH - 05/29/2024 11:36 AM EST Subjective HPI HPI Haim Chase is a 44 year old male who presents today for CC of cough, congestion, bodyaches. This started 2 weeks ago. Has tried otc medication for relief. Symptoms are worsened by notghing. Risk factors sick exposures at work. .Patient presents with: Cough: Sinus, chest congestion, body aches x 2 weeks PAST MEDICAL HISTORY Diagnosis Date Allergic rhinitis 10/19/2014 Anxiety 06/10/2009 Intolerant of Celexa (anorgasmia) -- did well on Zoloft 200 mg, in the mid- s --> restarted Zoloft 12/2009 BPPV (benign paroxysmal positional vertigo) 10/22/2012 COVID-19 03/18/2022 Depressive disorder 09/26/2011 Hypothyroidism 04/28/[address] Mcleod, who retired; MASSIVE weight loss, improvement in cold intolerance, with treatment; Labs tend to be normal, clinically excellent reponse, normalization of hypothermic basal body temperature Mixed hyperlipidemia 12/27/2016 Morbid Obesity 01/04/2010 SHERIN (obstructive sleep apnea) 01/02/2017 [facility] AutoPAP Other specified joint disorders, left hip 12/29/2020 Renal calculi PAST SURGICAL HISTORY Procedure Laterality Date ARTHROSCOPY KNEE DIAGNOSTIC W/WO SYNOVIAL BX SPX Right 09/22/2014 meniscus tear, Dr. Cabrera ARTHROSCOPY KNEE DIAGNOSTIC W/WO SYNOVIAL BX SPX Left 11/24/2010 Medial meniscectomy, chondroplasty patella & medial femoral condyle CYSTOSCOPY 03/10/2018 CYSTOSCOPY, URETERAL STENT CHANGE/INSERTION Right 08/03/2013 CYSTOSCOPY, URETERAL STENT CHANGE/INSERTION Right 08/07/2013 PAST SURGICAL HISTORY OF WISDOM TEETH REM LESION TRUNK,ARM,LEG 0.6 -1.0CM Right 10/26/2015 Exc. neal cyst right post. shoulder SHOULDER ARTHROSCOPY/SURGERY Left 03/13/2017 SKIN BX, 1 LESION 1988 Skin biopsy, foot age 8 TOTAL HIP REPLACEMENT Left 01/06/2021 VASECTOMY UNI/BI SPX W/POSTOP SEMEN EXAMS Bilateral 10/19/2015 ALLERGIES Vancomycin MEDICATIONS cetirizine (ZYRTEC) 10 mg tablet Take 1 tablet by mouth once daily. liothyronine (CYTOMEL) 25 mcg tablet Take 1 tablet by mouth once daily. levothyroxine (SYNTHROID) 88 mcg tablet Take 1 tablet by mouth daily before breakfast. fluticasone (FLONASE) 50 mcg/actuation nasal spray Use 2 Sprays in each nostril once daily. Rinse mouth after use. CPAP Mask Fitting requested (per patient preference, try Dream ricci nasal tube like head gear) optional chin strap (if indicated), filters, tubing / heated tubing, heated humidity and lifetime supplies. Dx. SHERIN G47.33 327.23 CPAP AutoPAP 7-20 cmH2O, suitable mask, humidity, filters. Lifetime supplies. Dx: G47.ee doxycycline (VIBRA-TABS) 100 mg tablet Take 1 tablet by mouth two times a day for 7 days. FAMILY HISTORY Problem Relation Age of Onset Diabetes Mother Diabetes Father Factor 5 Leiden Sister DVT Sister Kidney stones Sister No Known Problems Sister No Known Problems Sister Thyroid Brother hyperthyroidism Social History Tobacco Use Smoking status: Never Smokeless tobacco: Never Substance Use Topics Alcohol use: Not Currently Alcohol/week: 2.0 standard drinks of alcohol Types: 2 Shots of liquor per week Drug use: No Review of Systems Constitutional: Positive for chills, fever and malaise/fatigue. HENT: Positive for congestion. Negative for ear pain, nosebleeds and sore throat. Respiratory: Positive for cough and sputum production. Negative for shortness of breath and wheezing. Musculoskeletal: Negative for neck pain. Skin: Negative for itching and rash. Objective Blood pressure 158/88, pulse 95, temperature 37.3 C (99.1 F), resp. rate 19, weight (!) 147.4 kg (324 lb 15.3 oz), SpO2 99%. Physical Exam Constitutional: General: He is not in acute distress. Appearance: He is ill-appearing. He is not toxic-appearing or diaphoretic. HENT: Head: Normocephalic and atraumatic. Cardiovascular: Rate and Rhythm: Normal rate and regular rhythm. Heart sounds: Normal heart sounds, S1 normal and S2 normal. Pulmonary: Effort: Pulmonary effort is normal. Breath sounds: Normal breath sounds. Lymphadenopathy: Cervical: No cervical adenopathy. Right cervical: No superficial cervical adenopathy. Left cervical: No superficial cervical adenopathy. Neurological: Mental Status: He is alert and oriented to person, place, and time. Gait: Gait is intact. ASSESSMENT/PLAN: 1. Sinobronchitis - ICD9: 473.9, 490, ICD10: J32.9, J40 (primary diagnosis) - Will begin treatment with as per antibiotic as written, see orders - Supportive care with plenty of fluids, rest, and analgesia prn. - Follow up in 3-5 days if symptoms persist or worsen. - DOXYCYCLINE HYCLATE 100 MG TABLET 2. Acute cough - ICD9: 786.2, ICD10: R05.1 - XR CHEST 2V FRONTAL/LAT IMPRESSION: No acute radiographic abnormality. Dictated by : DAVID BRENNAN MD 3. Flu-like symptoms - ICD9: 780.99, ICD10: R68.89 Flu negative. - INFLUENZA A&B MOLECULAR (POC) Farrah Borden APRN.RN HOME HEALTH documented [facility]The [facility] History of Present illness Narrative* lCara Heredia RT(R) - 05/29/2024 11:10 AM EST Radiology Service Progress Note PATIENT NAME: Haim Chase DATE OF SERVICE: May 29, 2024 TIME: 11:03 AM PATIENT IDENTITY VERIFICATION COMPLETED USING TWO (2) IDENTIFIERS: Name and Date of confirmedby patient verbally. FALL SCREENING: Has the patient had 2 falls in the last year or 1 fall with injury or currently using an Ambulatory Assistive Device (Walker, Cane, Wheelchair, Crutches, etc.)? No PATIENT GENDER DATA: Assigned male at PATIENT RELEVANT IMPLANT DATA REVIEWED: Not Applicable PATIENT PRESENTS WITH AN IMPLANTABLE OR ATTACHED FRENCH LECTURER: No RADIOLOGY DEPARTMENT: General X-ray: Exam(s) Completed: Chest X-Ray PERIPHERAL IV DATA: Not applicable SIGNED BY: RT Jackie(Prince) May 29, 2024 11:03 AM documented in this encounterThe [facility] NoteHNO ID: [id number] Author: CLARA HEREDIA RT(R) Service: Radiology Author Type: Technologist Type: Progress Notes Filed: 05/29/2024 11:09 Note Text: Radiology Service Progress Note PATIENT NAME: Haim Chase DATE OF SERVICE: May 29, 2024 TIME: 11:03 AM PATIENT IDENTITY VERIFICATION COMPLETED USING TWO (2) IDENTIFIERS: Name and Date of confirmed by patient verbally. FALL SCREENING: Has the patient had 2 falls in the last year or 1 fall with injury or currently using an Ambulatory Assistive Device (Walker, Cane, Wheelchair, Crutches, etc.)? No PATIENT GENDER DATA: Assigned male at PATIENT RELEVANT IMPLANT DATA REVIEWED: Not Applicable PATIENT PRESENTS WITH AN IMPLANTABLE OR ATTACHED FRENCH LECTURER: No RADIOLOGY DEPARTMENT: General X-ray: Exam(s) Completed: Chest X-Ray PERIPHERAL IV DATA: Not applicable SIGNED BY: RT Jackie(Prince) May 29, 2024 11:03 [facility]02-03-2025 NoteHNO ID: [id number] Author: JOE FARIA MD Service: ? Author Type: Physician Type: Progress Notes Filed: 05/25/2024 23:45 Note Text: This note was created using CellARideriter. Subjective Haim Chase is a 44 year old male. He was here for phentermine refill. He had good results with diet and phentermine courses in the past. Weight loss has diminished with time. In the past year, he has been on phentermine most of year. Follow ups have been less consistent but refill requests continued. Weight loss has not resulted. He reported even trying a medication cocktail from [employer] website consisting of bupropion, naltrexone, and metformin which he tried for one month, but did not tolerate due to GI side effects. I pointed out lack of follow up and weight loss. He indicated feeling better on phentermine because without the phentermine, he had less motivation, less energy, and less focus. Another concern was an ER visit for chest pain. Records from [facility] ER were not received, but he reported he was ruled out for heart disease. He was using his CPAP regularly and benefiting from CPAP treatment. He seemed to indicate he will be out of supplies. Review of Systems Constitutional: Negative for unexpected weight change. Respiratory: Negative for shortness of breath. Cardiovascular: Negative for chest pain and palpitations. Psychiatric/Behavioral: Positive for decreased concentration. Negative for dysphoric mood. The patient is not nervous/anxious. ACTIVE PROBLEM LIST Hypothyroidism Allergic Rhinitis Vitamin D Deficiency SHERIN (obstructive sleep apnea) on AutoPAP Mixed Hyperlipidemia Obesity, Class III, BMI >= 40 Other Specified Joint Disorders, Left Hip Social History Tobacco Use Smoking status: Never Smokeless tobacco: Never Substance Use Topics Alcohol use: Not Currently Alcohol/week: 2.0 standard drinks of alcohol Types: 2 Shots of liquor per week Drug use: No Current Outpatient Medications Medication Sig cetirizine (ZYRTEC) 10 mg tablet Take 1 tablet by mouth once daily. liothyronine (CYTOMEL) 25 mcg tablet Take 1 tablet by mouth once daily. levothyroxine (SYNTHROID) 88 mcg tablet Take 1 tablet by mouth daily before breakfast. fluticasone (FLONASE) 50 mcg/actuation nasal spray Use 2 Sprays in each nostril once daily. Rinse mouth after use. CPAP Mask Fitting requested (per patient preference, try Dream ricci nasal tube like head gear) optional chin strap (if indicated), filters, tubing / heated tubing, heated humidity and lifetime supplies. Dx. SHERIN G47.33 327.23 CPAP AutoPAP 7-20 cmH2O, suitable mask, humidity, filters. Lifetime supplies. Dx: G47.ee No current facility-administered medications for this visit. Objective BP 129/88 (BP Site: Left Arm, BP Position: Sitting, BP Cuff Size: Large Adult) Pulse 82 Temp 36.4 ?C (97.6 ?F) (Temporal) Ht 179.3 cm (5' 10.6) Wt (!) 142.7 kg (314 lb 9.5 oz) SpO2 98% BMI 44.38 kg/m? Physical Exam Constitutional: General: He is not in acute distress. Appearance: He is not ill-appearing. Cardiovascular: Rate and Rhythm: Normal rate. Heart sounds: No murmur heard. No gallop. Pulmonary: Breath sounds: Normal breath sounds. Musculoskeletal: Right lower leg: No edema. Left lower leg: No edema. Psychiatric: Mood and Affect: Mood normal. Behavior: Behavior normal. Latest Ref Rng 03/20/2024 Protein, Total 6.3 - 8.0 g/dL 7.2 Albumin 3.9 - 4.9 g/dL 4.3 Calcium 8.5 - 10.2 mg/dL 9.4 Bilirubin, Total 0.2 - 1.3 mg/dL 0.4 Alkaline Phosphatase 38 - 113 U/L 57 AST 14 - 40 U/L 47 (H) ALT 10 - 54 U/L 54 Glucose 74 - 99 mg/dL 173 (H) BUN 9 - 24 mg/dL 12 Creatinine 0.73 - 1.22 mg/dL 0.94 Sodium 136 - 144 mmol/L 139 Potassium 3.7 - 5.1 mmol/L 4.2 Chloride 98 - 107 mmol/L 104 CO2 22 - 30 mmol/L 21 (L) Anion Gap 8 - 15 mmol/L 14 eGFR >=60 mL/min/1.73m? 103 WBC 3.70 - 11.00 k/uL 5.77 RBC 4.20 - 6.00 m/uL 5.30 Hemoglobin 13.0 - 17.0 g/dL 16.2 Hematocrit 39.0 - 51.0 % 47.6 MCV 80.0 - 100.0 fL 89.8 MCH 26.0 - 34.0 pg 30.6 MCHC 30.5 - 36.0 g/dL 34.0 RDW-CV 11.5 - 15.0 % 12.3 Platelet Count 150 - 400 k/uL 235 MPV 9.0 - 12.7 fL 10.5 Absolute nRBC <0.01 k/uL <0.01 Cholesterol, Total <200 mg/dL 204 (H) Triglyceride <150 mg/dL 236 (H) HDL Cholesterol >39 mg/dL 45 Non HDL Cholesterol <130 mg/dL 159 (H) Fasting Time hrs 0 VLDL Cholesterol <30 mg/dL 47 (H) TC:HDL Ratio <5.10 4.53 LDL Cholesterol <100 mg/dL 112 (H) LDL:HDL Ratio <2.54 2.49 TSH 0.270 - 4.200 mIU/L 1.970 Free T4 0.9 - 1.7 ng/dL 0.8 (L) Legend: (H) High (L) Low Assessment and Plan 1. Chest pain, unspecified type - ICD9: 786.50, ICD10: R07.9 (primary diagnosis) - Request ER report. 2. Obesity, Class III, BMI >= 40 - ICD9: 278.01, ICD10: E66.01 Weight increasing - Behavioral intervention - I do not recommend phentermine at this point. Medication use has diverged. 3. SHERIN (obstr (more content not included)...[facility]02-03-2025 History of Present illness Narrative* Joe Faria MD - 05/25/2024 6:10 PM EST This note was created using NoteWriter. Subjective Haim Chase is a 44 year old male. He was here for phentermine refill. He had good results with diet and phentermine courses in the past. Weight loss has diminished with time. In the past year, he has been on phentermine most of year.Follow ups have been less consistent but refill requests continued. Weight loss has not resulted. He reported even trying a medication cocktail from [employer] website consisting of bupropion, naltrexone, and metformin which he tried for one month, but did not tolerate due to GI side effects. I pointed out lack of follow up and weight loss. He indicated feeling better on phentermine becausewithout the phentermine, he had less motivation, less energy, and less focus. Another concern was an ER visit for chest pain. Records from [facility] ER were not received,but he reported he was ruled out for heart disease. He was using his CPAP regularly and benefiting from CPAP treatment. He seemed to indicate he will be out of supplies. Review of Systems Constitutional: Negative for unexpected weight change. Respiratory: Negative for shortness of breath. Cardiovascular: Negative for chest pain and palpitations. Psychiatric/Behavioral: Positive for decreased concentration. Negative for dysphoric mood. The patient is not nervous/anxious. ACTIVE PROBLEM LIST Hypothyroidism Allergic Rhinitis Vitamin D Deficiency SHERIN (obstructive sleep apnea) on AutoPAP Mixed Hyperlipidemia Obesity, Class III, BMI >= 40 Other Specified Joint Disorders, Left Hip Social History Tobacco Use Smoking status: Never Smokeless tobacco: Never Substance Use Topics Alcohol use: Not Currently Alcohol/week: 2.0 standard drinks of alcohol Types: 2 Shots of liquor per week Drug use: No Current Outpatient Medications Medication Sig cetirizine (ZYRTEC) 10 mg tablet Take 1 tablet by mouth once daily. liothyronine (CYTOMEL) 25 mcg tablet Take 1 tablet by mouth once daily. levothyroxine (SYNTHROID) 88 mcg tablet Take 1 tablet by mouth daily before breakfast. fluticasone (FLONASE) 50 mcg/actuation nasal spray Use 2 Sprays in each nostril once daily. Rinse mouth after use. CPAP Mask Fitting requested (per patient preference, try Dream ricci nasal tube like head gear) optional chin strap (if indicated), filters, tubing / heated tubing, heated humidity and lifetime supplies. Dx. SHERIN G47.33 327.23 CPAP AutoPAP 7-20 cmH2O, suitable mask, humidity, filters. Lifetime supplies. Dx: G47.ee No current facility-administered medications for this visit. Objective BP 129/88 (BP Site: Left Arm, BP Position: Sitting, BP Cuff Size: Large Adult) Pulse 82 Temp 36.4 C (97.6 F) (Temporal) Ht 179.3 cm (5' 10.6) Wt (!) 142.7 kg (314 lb 9.5 oz) SpO2 98% BMI44.38 kg/m Physical Exam Constitutional: General: He is not in acute distress. Appearance: He is not ill-appearing. Cardiovascular: Rate and Rhythm: Normal rate. Heart sounds: No murmur heard. No gallop. Pulmonary: Breath sounds: Normal breath sounds. Musculoskeletal: Right lower leg: No edema. Left lower leg: No edema. Psychiatric: Mood and Affect: Mood normal. Behavior: Behavior normal. Latest Ref Rng 03/20/2024 Protein, Total 6.3 - 8.0 g/dL 7.2 Albumin 3.9 - 4.9 g/dL 4.3 Calcium 8.5 - 10.2 mg/dL 9.4 Bilirubin, Total 0.2 - 1.3 mg/dL 0.4 Alkaline Phosphatase 38 - 113 U/L 57 AST 14 - 40 U/L 47 (H) ALT 10 - 54 U/L 54 Glucose 74 - 99 mg/dL 173 (H) BUN 9 - 24 mg/dL 12 Creatinine 0.73 - 1.22 mg/dL 0.94 Sodium 136 - 144 mmol/L 139 Potassium 3.7 - 5.1 mmol/L 4.2 Chloride 98 - 107 mmol/L 104 CO2 22 - 30 mmol/L 21 (L) Anion Gap 8 - 15 mmol/L 14 eGFR >=60 mL/min/1.73m 103 WBC 3.70 - 11.00 k/uL 5.77 RBC 4.20 - 6.00 m/uL 5.30 Hemoglobin 13.0 - 17.0 g/dL 16.2 Hematocrit 39.0 - 51.0 % 47.6 MCV 80.0 - 100.0 fL 89.8 MCH 26.0 - 34.0 pg 30.6 MCHC 30.5 - 36.0 g/dL 34.0 RDW-CV 11.5 - 15.0 % 12.3 Platelet Count 150 - 400 k/uL 235 MPV 9.0 - 12.7 fL 10.5 Absolute nRBC <0.01 k/uL <0.01 Cholesterol, Total <200 mg/dL 204 (H) Triglyceride <150 mg/dL 236 (H) HDL Cholesterol >39 mg/dL 45 Non HDL Cholesterol <130 mg/dL 159 (H) Fasting Time hrs 0 VLDL Cholesterol <30 mg/dL 47 (H) TC:HDL Ratio <5.10 4.53 LDL Cholesterol <100 mg/dL 112 (H) LDL:HDL Ratio <2.54 2.49 TSH 0.270 - 4.200 mIU/L 1.970 Free T4 0.9 - 1.7 ng/dL 0.8 (L) Legend: (H) High (L) Low Assessment and Plan 1. Chest pain, unspecified type - ICD9: 786.50, ICD10: R07.9 (primary diagnosis) - Request ER report. 2. Obesity, Class III, BMI >= 40 - ICD9: 278.01, ICD10: E66.01 Weight increasing - Behavioral intervention - I do not recommend phentermine at this point. Medication use has diverged. 3. SHERIN (obstructive sleep apnea) - ICD9: 327.23, ICD10: G47.33 - Aubrey should sent request. - He is using and benefiting from regular CPAP use. 4. Hyperglycemia - ICD9: 790.29, ICD10: R73.9 He may have forgotten that he was not fasting for his last lab. - HEMOGLOBIN A1C (POC) 5. Lack of concentration - ICD9: 799.51, ICD10: R41.840 Concerning for stimulant dependence or stimulant use disorder. - CONSULT TO PSYCHIATRY 6. Lack of motivation - ICD9: V49.89, ICD10: Z91.89 See above. - CONSULT TO PSYCHIATRY 7. Acquired hypothyroidism - ICD9: 244.9, ICD10: E03.9 - Instructed patient on importance of taking on an empty stomach either first thing in the morning or at bedtime. - continue current dose of medications. 8. Impaired glucose metabolism - ICD9: 790.29, ICD10: R73.09 - At risk of diabetes mellitus. - BASIC METABOLIC PANEL - HEMOGLOBIN A1C 9. Mixed hyperlipidemia - ICD9: 272.2, ICD10: E78.2 - Worsening control - Counseled on healthy diet and regular exercise - LIPID PANEL BASIC Joe Faria MD documented in this encounterThe [facility] Hospital Discharge instructions Patient Education 05/25/2024 11:44:12 Chest Pain, Uncertain Cause Uncertain Causes of Chest Pain Chest pain can happen for a number of reasons. Sometimes the cause can't be determined. If your condition does not seem serious, and your pain does not appear to be coming from your heart, your healthcare provider may recommend watching it closely. Sometimes the signs of a serious problem take moretime to appear. Many problems not related to your heart can cause chest pain. These include: Musculoskeletal. Costochondritis is an inflammation of the tissues around the ribs that can occur from trauma or overuse injuries, or a strain of the muscles of the chest wall Respiratory. Pneumonia, collapsed lung (pneumothorax), or inflammation of the lining of the chest and lungs (pleurisy) Gastrointestinal. Esophageal reflux, heartburn, ulcers, or gallbladder disease Anxiety and panic disorders Nerve compression and inflammation Rare miscellaneous problems such as aortic aneurysm (a swelling of the large artery coming out of the heart) or pulmonary embolism (a blood clot in the lungs) Home care After your visit, follow these recommendations: Rest today and avoid strenuous activity. Take any prescribed medicine as directed. Be aware of any recurrent chest pain and notice any changes Follow-up care Follow up with your healthcare provider if you do not start to feel better within 24 hours, or as advised. Call 911 Call 911 if any of these occur: A change in the type of pain: if it feels different, becomes more severe, lasts longer, or begins to spread into your shoulder, arm, neck, jaw or back Shortness of breath or increased pain with breathing Weakness, dizziness, or fainting Rapid heart beat Crushing sensation in your chest When to seek medical advice Call your healthcare provider right away if any of the following occur: Cough with dark colored sputum (phlegm) or blood Fever of 100.4 F (38 C) or higher, or as directed by your healthcare provider Swelling, pain or redness in one leg [id number] The [email or web address]. [address] [place] [address]. All rights reserved. This information is not intended as a substitute for professional medical care. Always follow yourhealthcare professional's instructions. Follow Up Care 05/25/2024 09:05:42 With:JOE FARIA MD Address: [address] [place] [address]- When:2-4 days [facility] 02-03-2025 Note Discharge Instructions Thank you for allowing [facility] to assist you with your healthcare needs. The following is importantdischarge information regarding your hospital visit. Diagnosis from Today's Visit Atypical chest pain What to Do Next Instructions from Your Care Team No qualifying data available. Post Acute Orders No qualifying data available. You Need to Schedule the Following Appointments Follow Up with JOE FARIA MD When:Within 2-4 days [facility]:[address] [facility] [place] [address]- Allergies vancomycin Medications Please ask your primary doctor or pharmacist before taking any other medication not listed, including over the counter drugs, herbal medications, vitamins and or supplements as they may interact withyour home medications. Please take this list to your next doctor s visit. Bring all medications you take, including over the counter medications, herbals and other supplements with you to your doctor s visit. Patients and families are reminded to discard old lists and to update any records with all medication providers or retail pharmacies. Education Materials Uncertain Causes of Chest Pain Chest pain can happen for a number of reasons. Sometimes the cause can't be determined. If your condition does not seem serious, and your pain does not appear to be coming from your heart, your healthcare provider may recommend watching it closely. Sometimes the signs of a serious problem take moretime to appear. Many problems not related to your heart can cause chest pain. These include: Musculoskeletal. Costochondritis is an inflammation of the tissues around the ribs that can occur from trauma or overuse injuries, or a strain of the muscles of the chest wall Respiratory. Pneumonia, collapsed lung (pneumothorax), or inflammation of the lining of the chest and lungs (pleurisy) Gastrointestinal. Esophageal reflux, heartburn, ulcers, or gallbladder disease Anxiety and panic disorders Nerve compression and inflammation Rare miscellaneous problems such as aortic aneurysm (a swelling of the large artery coming out of the heart) or pulmonary embolism (a blood clot in the lungs) Home care After your visit, follow these recommendations: Rest today and avoid strenuous activity. Take any prescribed medicine as directed. Be aware of any recurrent chest pain and notice any changes Follow-up care Follow up with your healthcare provider if you do not start to feel better within 24 hours, or as advised. Call 911 Call 911 if any of these occur: A change in the type of pain: if it feels different, becomes more severe, lasts longer, or begins to spread into your shoulder, arm, neck, jaw or back Shortness of breath or increased pain with breathing Weakness, dizziness, or fainting Rapid heart beat Crushing sensation in your chest When to seek medical advice Call your healthcare provider right away if any of the following occur: Cough with dark colored sputum (phlegm) or blood Fever of 100.4 F (38 C) or higher, or as directed by your healthcare provider Swelling, pain or redness in one leg [phone] The [email or web address]. [address] [place] [address]. All rights reserved. This information is not intended as a substitute for professional medical care. Always follow yourhealthcare professional's instructions. Additional Information VACCINATE! IT SAVES LIVES! Members of the community who have not yet received the COVID-19 vaccine and would like to receive it can visit one of [facility] vaccine clinics. There are many vaccine clinic locations within the [facility]. For locations and available times, please visit www.gettheshot.coronavirus.[place].gov/. It is important to note that some COVID mobile vaccine clinics are held outdoors and may be canceled in rainy or stormy conditions. To learn more about pediatric vaccinations (ages 5-11), we invite you to visit the [facility] webpage. [email or web address]/[email or web address]-[email or web address] [email or web address] learn more about the COVID-19 vaccine, we invite you to visit the CDC website for a list of frequently asked questions. https://www.cdc.gov/coronavirus/2019-ncov/vaccines/faq.html [employer] Patient Portal Access Instructions: Stay connected with your healthcare team and access your personal medical information anytime with the [employer] Patient Portal. If you would like a full copy of your medical records please contact the [facility] Medical Records Department Saturday through Saturday between 8a.m. and 4:30p.m. Please follow the directions below to access the portal: 1.Access the email account you provided upon registration to the hospital.2.Look for an invitation email from [facility].3.Open the email and access the invitation link: Accept Invitation to [employer] [employer]4.Fill in the required carranza to create your account. Sign into [email or web address] with your username and password that you created in the above steps to stay up to date. You can then view a summary of results, a summary of your visits, and the ability to download your summaries to your computer or send the information securely to a physician. Remember that your healthcare information is confidential, so carefully consider who you will allow to register on the [employer] Patient Portal for access to your information. You can also access the [employer] Patient Portal on the [employer] bailey. Simply click on Health Records under [employer] and then click on the [employer] logo. HOW TO SAFELY DISPOSE OF PRESCRIPTION MEDICATIONS Please use one of the following methods to safely dispose of your unused medications. 1.Use a drug disposal kit: the drug disposal pouch allows you to safely discard your old and unuseddrugs. Ask your nurse to give you one when you are discharged.2.Visit a local take-back location: Many local pharmacies and police departments have programs that collect old and unwanted prescriptiondrugs. Call your local pharmacy or go to [email or web address] to find one close to you.3.Make use of household items: Use cat litter or old coffee grounds to dispose medications if other options arenot available. Mix your drugs with these household products, seal them in an airtight container andthrow it into the garbage. Call [facility]: [phone] to be sure your drugs can be disposed of in this way. Some medicines may require a different approach.4.Never flush your medications down the toilet. IF YOU HAVE BEEN PRESCRIBED AN OPIOIDS FOR PAIN If you have been prescribed an opioid (such as hydrocodone, oxycodone or morphine), it is critical to understand the possible side effects and risks of opioid pain medications. Even when taken as directed, opioids can have several side effects including: Tolerance, meaning you might need to take more of a medication for the same pain relief. Nausea, vomiting and/or constipation. Sleepiness, dizziness, dry mouth, confusion, depression or itching. Physical dependence, meaning you have withdrawal symptoms when a medication is stopped ? this can develop within a few days. KNOW YOUR RESPONSIBILITIES It is important to know exactly how much and how often to take the opioid pain medications you are prescribed. Never take opioids in higher amounts or more often than prescribed. Do not combine opioids with alcohol or other drugs that cause drowsiness, such as benzodiazepines, also known as benzos,including diazepam and alprazolam, muscle relaxants or sleep aids. Never sell or share prescriptionopioids. This is illegal. Store opioids in a secure place and out of reach of others (including children, family, friends and visitors). The last page(s) of this document has been signed and retained as a CHART COPY Signatures Patient Education Materials Chest Pain, Uncertain Cause Medication Leaflets My discharge plan and instructions have been reviewed and explained to me and I,HAIM CHASEunderstand my current condition and have read and understand these discharge instructions. I have received a written copy of the plan/instructions. If I have questions, I am aware that I should contact my doctor. Patient/Broke Beater Signature: Date/Time: Relationship to Patient: Witness Name/Signature: Date/Time: [facility]02-03-2025 Note* Exam Date Time Procedure Performing Provider Status 05/25/24 9:46 AM XR Chest 1 View ЕКАТЕРИНА NORTON MD; Auth (Verified) [id number] ORIGINAL EXAMINATION: ONE XRAY VIEW OF THE CHEST 05/25/2024 9:46 am COMPARISON: None. HISTORY: ORDERING SYSTEM PROVIDED HISTORY: Reason for Exam: chest pain FINDINGS: Borderline low lung volumes. Cardiomediastinal silhouette is within normal limits. No overt edema. No focal consolidation. Costophrenic angles are sharp. No pneumothorax. No acute osseous abnormality. IMPRESSION: No acute cardiopulmonary process. Interpreted by: Екатерина Norton Preliminary Report By: Екатерина Norton Electronically signed By Екатерина Norton Dictated Date: 05/25/2024 9:50:57 AM Prelim Date: 05/25/2024 9:51:26 AM Sign Date: 05/25/2024 9:51:26 AM Ordering Provider: RICHARD WILCOX [facility]02-03-2025 Note* Exam Date Time Procedure Performing Provider Status 05/25/24 9:16 AM EKG [ED AOH] - CV RICHARD WILCOX MD; Auth (Verified) ECG Final Report Sinus rhythm Borderline left axis deviation Electronic Signature: RICHARD WILCOX MD 05/25/2024 09:26:36 [facility]01-30-2025 NoteHNO ID: [id number] Author: PAULINO VAZQUEZ MD Service: ? Author Type: Physician Type: Progress Notes Filed: 05/21/2024 18:43 Note Text: Patient presents with: Ear Pain: R ear pain x 5 days Pain, Sinus: Pressure pain, headache,SOB, nausea, diarrhea, chest fullness, x 5 days HPI: Feeling sick for 5 days. Positive symptoms: Cough, Shortness of breath, Chest tightness, chest pounding sometimes, scratchy throat, Earache, Sinus/head pressure, Nasal Congestion, Rhinorrhea, Headache, Nausea, Diarrhea, Negative symptoms: Chest pain, Fever, Vomiting, OTC: Cold Medicine, Ibuprofen Past history of pneumonia. MEDICATIONS: Current Outpatient Medications Medication Sig cetirizine (ZYRTEC) 10 mg tablet Take 1 tablet by mouth once daily. liothyronine (CYTOMEL) 25 mcg tablet Take 1 tablet by mouth once daily. levothyroxine (SYNTHROID) 88 mcg tablet Take 1 tablet by mouth daily before breakfast. fluticasone (FLONASE) 50 mcg/actuation nasal spray Use 2 Sprays in each nostril once daily. Rinse mouth after use. CPAP Mask Fitting requested (per patient preference, try Dream ricci nasal tube like head gear) optional chin strap (if indicated), filters, tubing / heated tubing, heated humidity and lifetime supplies. Dx. SHERIN G47.33 327.23 CPAP AutoPAP 7-20 cmH2O, suitable mask, humidity, filters. Lifetime supplies. Dx: G47.ee No current facility-administered medications for this visit. ALLERGIES: ALLERGIES Allergen Reactions Vancomycin Rash Red man syndrome VITALS: BP 146/89 Pulse 66 Temp 36.7 ?C (98.1 ?F) Resp 20 Wt (!) 146 kg (321 lb 14 oz) SpO2 99% BMI 46.18 kg/m? PHYSICAL EXAM: GEN: mildly ill appearing HEENT: PERRL, EOMI, conjunctiva clear Ears: canals clear. TMs without erythema, bulge, or effusion Sinuses: non-tender frontal sinus, non-tender maxillary sinuses Throat: moist mucous membranes, mild erythema, no exudate Neck: supple, no thyromegaly, no lymphadenopathy HEART: regular rate, regular rhythm, no murmurs LUNGS: clear to auscultation, no wheezes or crackles, no increased WOB ASSESSMENT/PLAN: 1. Influenza-like illness - ICD9: 487.1, ICD10: J11.1 (primary diagnosis) 2. Otalgia, right - ICD9: 388.70, ICD10: H92.01 - suspect influenza; differential includes COVID-19 or other viral URI. He is beyond the therapeutic window for antiviral treatment. He would like testing - his has asthma. - Discussed supportive care treatment with home isolation (fever free for 24 hours and improving symptoms), rest, cold medicine, and analgesia. - Red flags to seek further treatment include chest pain, shortness of breath, late onset fever, and lethargy; in the ER if severe. Paulino Vazquez, [facility]01-30-2025 History of Present illness Narrative* Paulino Vazquez MD - 05/21/2024 6:39 PM EST Patient presents with: Ear Pain: R ear pain x 5 days Pain, Sinus: Pressure pain, headache,SOB, nausea, diarrhea, chest fullness, x 5 days HPI: Feeling sick for 5 days. Positive symptoms: Cough, Shortness of breath, Chest tightness, chest pounding sometimes, scratchy throat, Earache, Sinus/head pressure, Nasal Congestion, Rhinorrhea, Headache, Nausea, Diarrhea, Negative symptoms: Chest pain, Fever, Vomiting, OTC: Cold Medicine, Ibuprofen Past history of pneumonia. MEDICATIONS: Current Outpatient Medications Medication Sig cetirizine (ZYRTEC) 10 mg tablet Take 1 tablet by mouth once daily. liothyronine (CYTOMEL) 25 mcg tablet Take 1 tablet by mouth once daily. levothyroxine (SYNTHROID) 88 mcg tablet Take 1 tablet by mouth daily before breakfast. fluticasone (FLONASE) 50 mcg/actuation nasal spray Use 2 Sprays in each nostril once daily. Rinse mouth after use. CPAP Mask Fitting requested (per patient preference, try Dream ricci nasal tube like head gear) optional chin strap (if indicated), filters, tubing / heated tubing, heated humidity and lifetime supplies. Dx. SHERIN G47.33 327.23 CPAP AutoPAP 7-20 cmH2O, suitable mask, humidity, filters. Lifetime supplies. Dx: G47.ee No current facility-administered medications for this visit. ALLERGIES: ALLERGIES Allergen Reactions Vancomycin Rash Red man syndrome VITALS: BP 146/89 Pulse 66 Temp 36.7 C (98.1 F) Resp 20 Wt (!) 146 kg (321 lb 14 oz) SpO2 99% BMI 46.18 kg/m PHYSICAL EXAM: GEN: mildly ill appearing HEENT: PERRL, EOMI, conjunctiva clear Ears: canals clear. TMs without erythema, bulge, or effusion Sinuses: non-tender frontal sinus, non-tender maxillary sinuses Throat: moist mucous membranes, mild erythema, no exudate Neck: supple, no thyromegaly, no lymphadenopathy HEART: regular rate, regular rhythm, no murmurs LUNGS: clear to auscultation, no wheezes or crackles, no increased WOB ASSESSMENT/PLAN: 1. Influenza-like illness - ICD9: 487.1, ICD10: J11.1 (primary diagnosis) 2. Otalgia, right - ICD9: 388.70, ICD10: H92.01 - suspect influenza; differential includes COVID-19 or other viral URI. He is beyond the therapeutic window for antiviral treatment. He would like testing - his has asthma. - Discussed supportive care treatment with home isolation (fever free for 24 hours and improving symptoms), rest, cold medicine, and analgesia. - Red flags to seek further treatment include chest pain, shortness of breath, late onset fever, and lethargy; in the ER if severe. Paulino Vazquez MD documented in this encounterThe [facility] NoteHNO ID: [id number] Author: DAVID LOZADA PA Service: ? Author Type: Physician Flight Deck Officer Type: Progress Notes Filed: 03/16/2024 08:54 Note Text: This note was created using NoteWriter. Subjective Haim Chase is a 43 year old male. HPI 43-year-old male presents for sinus congestion, ear pain. Patient states that he has had nasal congestion for the past 4 to 5 days. He started getting right ear pain a few days ago as well. He denies any cough. No fevers. No sore throat. Still able to eat and drink. Has taken ibuprofen [id number] with minimal improvement. No other complaint. PAST MEDICAL HISTORY Diagnosis Date - Allergic rhinitis 10/19/2014 - Anxiety 06/10/2009 Intolerant of Celexa (anorgasmia) -- did well on Zoloft 200 mg, in the mid-s --> restarted Zoloft 12/2009 - BPPV (benign paroxysmal positional vertigo) 10/22/2012 - COVID-19 03/18/2022 - Depressive disorder 09/26/2011 - Hypothyroidism 04/28/[address] Mcleod, who retired; MASSIVE weight loss, improvement in cold intolerance, with treatment; Labs tend to be normal, clinically excellent reponse, normalization of hypothermic basal body temperature - Mixed hyperlipidemia 12/27/2016 - Morbid Obesity 01/04/2010 - SHERIN (obstructive sleep apnea) 01/02/2017 [facility] Auto[employer] - Other specified joint disorders, left hip 12/29/2020 - Renal calculi PAST SURGICAL HISTORY Procedure Laterality Date - ARTHROSCOPY KNEE DIAGNOSTIC W/WO SYNOVIAL BX SPX Right 09/22/2014 meniscus tear, Dr. Cabrera - ARTHROSCOPY KNEE DIAGNOSTIC W/WO SYNOVIAL BX SPX Left 11/24/2010 Medial meniscectomy, chondroplasty patella AND medial femoral condyle - CYSTOSCOPY 03/10/2018 - CYSTOSCOPY, URETERAL STENT CHANGE/INSERTION Right 08/03/2013 - CYSTOSCOPY, URETERAL STENT CHANGE/INSERTION Right 08/07/2013 - PAST SURGICAL HISTORY OF WISDOM TEETH - REM LESION TRUNK,ARM,LEG 0.6 -1.0CM Right 10/26/2015 Exc. neal cyst right post. shoulder - SHOULDER ARTHROSCOPY/SURGERY Left 03/13/2017 - SKIN BX, 1 LESION 1989 Skin biopsy, foot age 8 - TOTAL HIP REPLACEMENT Left 01/06/2021 - VASECTOMY UNI/BI SPX W/POSTOP SEMEN EXAMS Bilateral 10/19/2015 ALLERGIES Vancomycin MEDICATIONS - cetirizine (ZYRTEC) 10 mg tablet Take 1 tablet by mouth once daily. - liothyronine (CYTOMEL) 25 mcg tablet Take 1 tablet by mouth once daily. - levothyroxine (SYNTHROID) 88 mcg tablet Take 1 tablet by mouth daily before breakfast. - fluticasone (FLONASE) 50 mcg/actuation nasal spray Use 2 Sprays in each nostril once daily. Rinse mouth after use. - CPAP Mask Fitting requested (per patient preference, try Dream ricci nasal tube like head gear) optional chin strap (if indicated), filters, tubing / heated tubing, heated humidity and lifetime supplies. Dx. SHERIN G47.33 327.23 - CPAP AutoPAP 7-20 cmH2O, suitable mask, humidity, filters. Lifetime supplies. Dx: G47.ee - amoxicillin (AMOXIL) 875 mg tablet Take 1 tablet by mouth two times a day for 7 days. FAMILY HISTORY Problem Relation Age of Onset - Diabetes Mother - Diabetes Father - Factor 5 Leiden Sister - DVT Sister - Kidney stones Sister - No Known Problems Sister - No Known Problems Sister - Thyroid Brother hyperthyroidism Social History Tobacco Use - Smoking status: Never - Smokeless tobacco: Never Substance Use Topics - Alcohol use: Not Currently Alcohol/week: 2.0 standard drinks of alcohol Types: 2 Shots of liquor per week - Drug use: No Review of Systems Constitutional: Negative for chills and fever. HENT: Positive for congestion and ear pain. Negative for sore throat. Respiratory: Negative for cough and shortness of breath. Gastrointestinal: Negative for diarrhea and vomiting. Objective BP 122/80 Pulse 70 Temp 36.3 ?C (97.3 ?F) Resp 16 Wt (!) 143.5 kg (316 lb 5.8 oz) SpO2 97% BMI 45.39 kg/m? Physical Exam Vitals and nursing note reviewed. Constitutional: General: He is not in acute distress. Appearance: Normal appearance. He is not toxic-appearing. HENT: Right Ear: Tympanic membrane is erythematous and bulging. Left Ear: Tympanic membrane and ear canal normal. Nose: Congestion present. Mouth/Throat: Mouth: Mucous membranes are moist. Eyes: Conjunctiva/sclera: Conjunctivae normal. Cardiovascular: Rate and Rhythm: Normal rate and regular rhythm. Pulmonary: Effort: Pulmonary effort is normal. Breath sounds: Normal breath sounds. Skin: General: Skin is warm and dry. Neurological: Mental Status: He is alert. Assessment and Plan ASSESSMENT/PLAN: 1. URI, acute - ICD9: 465.9, ICD10: J06.9 (primary diagnosis) - Discussed viral etiology and rationale for treatment. - Symptomatic treatment with prn analgesia - Supportive care with fluids and rest - The patient may also use OTC cough and cold meds as needed. 2. Acute otitis media, right - ICD9: 382.9, ICD10: H66.91 - Will begin treatment wit (more content not included)...[facility]11-25-2024 History of Present illness Narrative* David Lozada PA - 03/16/2024 8:53 AM EST This note was created using NoteWriter. Subjective Haim Chase is a 43 year old male. HPI 43-year-old male presents for sinus congestion, ear pain. Patient states that he has had nasal congestion for the past 4 to 5 days. He started getting right ear pain a few days ago as well. He denies any cough. No fevers. No sore throat. Still able to eat and drink. Has taken ibuprofen [id number] with minimal improvement. No other complaint. PAST MEDICAL HISTORY Diagnosis Date Allergic rhinitis 10/19/2014 Anxiety 06/10/2009 Intolerant of Celexa (anorgasmia) -- did well on Zoloft 200 mg, in the mid- s --> restarted Zoloft 12/2009 BPPV (benign paroxysmal positional vertigo) 10/22/2012 COVID-19 03/18/2022 Depressive disorder 09/26/2011 Hypothyroidism 04/28/[address] Mcleod, who retired; MASSIVE weight loss, improvement in cold intolerance, with treatment; Labs tend to be normal, clinically excellent reponse, normalization of hypothermic basal body temperature Mixed hyperlipidemia 12/27/2016 Morbid Obesity 01/04/2010 SHERIN (obstructive sleep apnea) 01/02/2017 [facility] AutoPAP Other specified joint disorders, left hip 12/29/2020 Renal calculi PAST SURGICAL HISTORY Procedure Laterality Date ARTHROSCOPY KNEE DIAGNOSTIC W/WO SYNOVIAL BX SPX Right 09/22/2014 meniscus tear, Dr. Cabrera ARTHROSCOPY KNEE DIAGNOSTIC W/WO SYNOVIAL BX SPX Left 11/24/2010 Medial meniscectomy, chondroplasty patella & medial femoral condyle CYSTOSCOPY 03/10/2018 CYSTOSCOPY, URETERAL STENT CHANGE/INSERTION Right 08/03/2013 CYSTOSCOPY, URETERAL STENT CHANGE/INSERTION Right 08/07/2013 PAST SURGICAL HISTORY OF WISDOM TEETH REM LESION TRUNK,ARM,LEG 0.6 -1.0CM Right 10/26/2015 Exc. neal cyst right post. shoulder SHOULDER ARTHROSCOPY/SURGERY Left 03/13/2017 SKIN BX, 1 LESION 1989 Skin biopsy, foot age 8 TOTAL HIP REPLACEMENT Left 01/06/2021 VASECTOMY UNI/BI SPX W/POSTOP SEMEN EXAMS Bilateral 10/19/2015 ALLERGIES Vancomycin MEDICATIONS cetirizine (ZYRTEC) 10 mg tablet Take 1 tablet by mouth once daily. liothyronine (CYTOMEL) 25 mcg tablet Take 1 tablet by mouth once daily. levothyroxine (SYNTHROID) 88 mcg tablet Take 1 tablet by mouth daily before breakfast. fluticasone (FLONASE) 50 mcg/actuation nasal spray Use 2 Sprays in each nostril once daily. Rinse mouth after use. CPAP Mask Fitting requested (per patient preference, try Dream ricci nasal tube like head gear) optional chin strap (if indicated), filters, tubing / heated tubing, heated humidity and lifetime supplies. Dx. SHERIN G47.33 327.23 CPAP AutoPAP 7-20 cmH2O, suitable mask, humidity, filters. Lifetime supplies. Dx: G47.ee amoxicillin (AMOXIL) 875 mg tablet Take 1 tablet by mouth two times a day for 7 days. FAMILY HISTORY Problem Relation Age of Onset Diabetes Mother Diabetes Father Factor 5 Leiden Sister DVT Sister Kidney stones Sister No Known Problems Sister No Known Problems Sister Thyroid Brother hyperthyroidism Social History Tobacco Use Smoking status: Never Smokeless tobacco: Never Substance Use Topics Alcohol use: Not Currently Alcohol/week: 2.0 standard drinks of alcohol Types: 2 Shots of liquor per week Drug use: No Review of Systems Constitutional: Negative for chills and fever. HENT: Positive for congestion and ear pain. Negative for sore throat. Respiratory: Negative for cough and shortness of breath. Gastrointestinal: Negative for diarrhea and vomiting. Objective BP 122/80 Pulse 70 Temp 36.3 C (97.3 F) Resp 16 Wt (!) 143.5 kg (316 lb 5.8 oz) SpO2 97% BMI 45.39 kg/m Physical Exam Vitals and nursing note reviewed. Constitutional: General: He is not in acute distress. Appearance: Normal appearance. He is not toxic-appearing. HENT: Right Ear: Tympanic membrane is erythematous and bulging. Left Ear: Tympanic membrane and ear canal normal. Nose: Congestion present. Mouth/Throat: Mouth: Mucous membranes are moist. Eyes: Conjunctiva/sclera: Conjunctivae normal. Cardiovascular: Rate and Rhythm: Normal rate and regular rhythm. Pulmonary: Effort: Pulmonary effort is normal. Breath sounds: Normal breath sounds. Skin: General: Skin is warm and dry. Neurological: Mental Status: He is alert. Assessment and Plan ASSESSMENT/PLAN: 1. URI, acute - ICD9: 465.9, ICD10: J06.9 (primary diagnosis) - Discussed viral etiology and rationale for treatment. - Symptomatic treatment with prn analgesia - Supportive care with fluids and rest - The patient may also use OTC cough and cold meds as needed. 2. Acute otitis media, right - ICD9: 382.9, ICD10: H66.91 - Will begin treatment with Amoxicillin for 7 days - The patient should also be given OTC decongestants prn for the first 5-7 days of treatment. - Supportive care with plenty of fluids, rest, and analgesia prn. Diagnosis and treatment plan were discussed and questions were answered to the patient's satisfaction. Pt acknowledged understanding of concepts and follow up plan. Specific signs and symptoms that would indicate the need for higher level of care were discussed in detail warranting prompt ER evaluation. GABRIELA Schaffer documented in this encounterThe [facility]11-[facility] Telephone encounter Note * Telephone Encounter - Jodie Johansen LPN - 02/21/2024 10:10 AM EDT Spoke with pt and information listed below given. Pt verbalizes understanding. Jodie Johansen LPN [facility]11-01-2024 Miscellaneous Notes* Telephone Encounter - Jodie Johansen LPN - 02/21/2024 10:10 AM EDT Spoke with pt and information listed below given. Pt verbalizes understanding. Jodie Johansen LPN * Telephone Encounter - Jodie Johansen LPN - 02/20/2024 2:39 PM EDT Left a message for pt to call the office and ask to speak to a nurse. Jodie Johansen LPN * Telephone Encounter - Joe Faria MD - 02/20/2024 11:17 AM EDT Patient's request for medication has been refused. See reason and notify patient. Requested Prescriptions Refused Prescriptions Disp Refills Phentermine HCl 37.5 mg tablet 30 tablet 2 Sig: Take 1 tablet by mouth once daily for 90 days. Refused By: JOE FARIA Reason for Refusal: Patient has requested refill too soon * Telephone Encounter - Myesha Mansfield LPN - 02/20/2024 10:18 AM EDT Patient has been identified by name and date of : Yes Patient phones for refill(s): Requested Prescriptions Pending Prescriptions Disp Refills Phentermine HCl 37.5 mg tablet 30 tablet 2 Sig: Take 1 tablet by mouth once daily for 90 days. Date of last office visit in primary care: 12/16/2023 Date of next office visit in primary care: 03/23/2024 Please advise. Thank you. Myesha Mansfield LPN. documented in this encounterThe [facility]10-31-[facility] Telephone encounter Note * Telephone Encounter - Jodie Johansen LPN - 02/20/2024 2:39 PM EDT Left a message for pt to call the office and ask to speak to a nurse. Jodie Johansen LPN [facility]10-31-2024 Telephone encounter Note* Telephone Encounter - Joe Faria MD - 02/20/2024 11:17 AM EDT Patient's request for medication has been refused. See reason and notify patient. Requested Prescriptions Refused Prescriptions Disp Refills Phentermine HCl 37.5 mg tablet 30 tablet 2 Sig: Take 1 tablet by mouth once daily for 90 days. Refused By: JOE FARIA Reason for Refusal: Patient has requested refill too soon [facility]10-31-2024 Telephone encounter Note* Telephone Encounter - Myesha Mansfield LPN - 02/20/2024 10:18 AM EDT Patient has been identified by name and date of : Yes Patient phones for refill(s): Requested Prescriptions Pending Prescriptions Disp Refills Phentermine HCl 37.5 mg tablet 30 tablet 2 Sig: Take 1 tablet by mouth once daily for 90 days. Date of last office visit in primary care: 12/16/2023 Date of next office visit in primary care: 03/23/2024 Please advise. Thank you. Myesha Mansfield LPN. [facility]10-15-2024 Telephone encounter Note* Telephone Encounter - Nahomi Monte LPN - 02/04/2024 10:05 AM EDT Prescription Refill Information The patient has been identified by name and date of : Yes Caregiver verified no other encounters exist for this prescription request: Yes Caregiver confirmed with patient/requestor that no other refills are due, in the near future, with this provider at this time: Yes The last office visit in the department: 12/16/23 Does the patient have a future office visit with this provider/department: Yes 03/23/24 Requested Prescriptions Pending Prescriptions Disp Refills liothyronine (CYTOMEL) 25 mcg tablet 90 tablet 1 Sig: Take 1 tablet by mouth once daily. Nahomi Monte LPN February 04, 2024 10:08 AM [facility]10-15-2024 Miscellaneous Notes* Telephone Encounter - Nahomi Monte LPN - 02/04/2024 10:05 AM EDT Prescription Refill Information The patient has been identified by name and date of : Yes Caregiver verified no other encounters exist for this prescription request: Yes Caregiver confirmed with patient/requestor that no other refills are due, in the near future, with this provider at this time: Yes The last office visit in the department: 12/16/23 Does the patient have a future office visit with this provider/department: Yes 03/23/24 Requested Prescriptions Pending Prescriptions Disp Refills liothyronine (CYTOMEL) 25 mcg tablet 90 tablet 1 Sig: Take 1 tablet by mouth once daily. Nahomi Monte LPN February 04, 2024 10:08 AM documented in this encounterThe [facility]10-15-[facility] Telephone encounter Note * Telephone Encounter - Nahomi Monte LPN - 02/04/2024 10:02 AM EDT Prescription Refill Information The patient has been identified by name and date of : Yes Caregiver verified no other encounters exist for this prescription request: Yes Caregiver confirmed with patient/requestor that no other refills are due, in the near future, with this provider at this time: Yes The last office visit in the department: 12/16/23 Does the patient have a future office visit with this provider/department: Yes 03/23/24 Requested Prescriptions Pending Prescriptions Disp Refills cetirizine (ZYRTEC) 10 mg tablet 90 tablet 3 Sig: Take 1 tablet by mouth once daily. Nahomi Monte LPN February 04, 2024 10:04 AM [facility]10-15-2024 Miscellaneous Notes* Telephone Encounter - Nahomi Monte LPN - 02/04/2024 10:02 AM EDT Prescription Refill Information The patient has been identified by name and date of : Yes Caregiver verified no other encounters exist for this prescription request: Yes Caregiver confirmed with patient/requestor that no other refills are due, in the near future, with this provider at this time: Yes The last office visit in the department: 12/16/23 Does the patient have a future office visit with this provider/department: Yes 03/23/24 Requested Prescriptions Pending Prescriptions Disp Refills cetirizine (ZYRTEC) 10 mg tablet 90 tablet 3 Sig: Take 1 tablet by mouth once daily. Nahomi Monte LPN February 04, 2024 10:04 AM documented in this encounterThe [facility]08-26-2024 NoteHNO ID: [id number] Author: JOE FARIA MD Service: ? Author Type: Physician Type: Progress Notes Filed: 12/16/2023 17:25 Note Text: This note was created using nPickerter. Subjective Haim Chase is a 43 year old male. He was here for another course of phentermine. He has less efficacy earlier this year, and we could not obtain semaglutide. He was still following his calorie restricted diet. Exercise was limited due to work and storm clean up chores in his house. He also had some irritability from phentermine. His obstructive sleep apnea was controlled, and he was using his CPAP regularly. He was due for labs. Review of Systems Constitutional: Negative for appetite change and fatigue. Respiratory: Negative for shortness of breath. Cardiovascular: Negative for chest pain and palpitations. Psychiatric/Behavioral: Negative for sleep disturbance. ACTIVE PROBLEM LIST Hypothyroidism Allergic Rhinitis Vitamin D Deficiency SHERIN (obstructive sleep apnea) on AutoPAP Mixed Hyperlipidemia Obesity, Class III, BMI >= 40 Other Specified Joint Disorders, Left Hip Social History Tobacco Use Smoking status: Never Smokeless tobacco: Never Substance Use Topics Alcohol use: Not Currently Alcohol/week: 2.0 standard drinks of alcohol Types: 2 Shots of liquor per week Drug use: No Current Outpatient Medications Medication Sig levothyroxine (SYNTHROID) 88 mcg tablet Take 1 tablet by mouth daily before breakfast. liothyronine (CYTOMEL) 25 mcg tablet Take 1 tablet by mouth once daily. cetirizine (ZYRTEC) 10 mg tablet Take 1 tablet by mouth once daily. fluticasone (FLONASE) 50 mcg/actuation nasal spray Use 2 Sprays in each nostril once daily. Rinse mouth after use. CPAP Mask Fitting requested (per patient preference, try Dream ricci nasal tube like head gear) optional chin strap (if indicated), filters, tubing / heated tubing, heated humidity and lifetime supplies. Dx. SHERIN G47.33 327.23 CPAP AutoPAP 7-20 cmH2O, suitable mask, humidity, filters. Lifetime supplies. Dx: G47.ee No current facility-administered medications for this visit. Objective BP 131/90 (BP Site: Left Arm, BP Position: Sitting, BP Cuff Size: Large Adult) Pulse 71 Temp 36.2 ?C (97.2 ?F) (Temporal) Wt (!) 145 kg (319 lb 10.7 oz) BMI 45.87 kg/m? Physical Exam Constitutional: General: He is not in acute distress. Appearance: He is not ill-appearing. HENT: Head: Normocephalic. Cardiovascular: Rate and Rhythm: Normal rate and regular rhythm. Heart sounds: No murmur heard. No gallop. Pulmonary: Breath sounds: Normal breath sounds. Musculoskeletal: Right lower leg: No edema. Left lower leg: No edema. Neurological: Mental Status: He is alert. Psychiatric: Mood and Affect: Mood normal. Assessment and Plan 1. Obesity, Class III, BMI >= 40 - ICD9: 278.01, ICD10: E66.01 (primary diagnosis) Weight increasing - Behavioral and pharmacological intervention - PHENTERMINE 37.5 MG TABLET - COMPLETE BLOOD COUNT - Shared medical decision making was done. Discussed medication dosage, usage, goals of therapy, and side effects. We agreed to resume full strength. He is given prescription for 3 months. If there is no demonstrated weight loss in 3 months, we agreed we will stop there. 2. Screening for depression - ICD9: V79.0, ICD10: Z13.31 - DEPRESSION SCREENING 3. Encounter for screening examination for other mental health and behavioral disorders - ICD9: V79.8, ICD10: Z13.39 - ANXIETY SCREENING 4. Acquired hypothyroidism - ICD9: 244.9, ICD10: E03.9 - continue current dose of medications. - THYROID STIMULATING HORMONE - T4 FREE/FREE THYROXINE 5. Mixed hyperlipidemia - ICD9: 272.2, ICD10: E78.2 - Control undetermined, due for labs - Counseled on healthy diet and regular exercise - Discussed need for and benefit of weight loss. BMI 45.87 kg/(m2) - COMPREHENSIVE METABOLIC PANEL - LIPID PANEL BASIC 6. Elevated blood pressure reading - ICD9: 796.2, ICD10: R03.0 - Encouraged dietary sodium restriction/DASH diet - Discussed need and benefit for weight loss. - Goal of BP <130/80 7. SHERIN (obstructive sleep apnea) on AutoPAP - ICD9: 327.23, ICD10: G47.33 - Patient is using and benefiting from regular CPAP use. Joe Faria [facility]08-26-2024 History of Present illness Narrative* Joe Faria MD - 12/16/2023 5:03 PM EDT This note was created using CellARideriter. Subjective Haim Chase is a 43 year old male. He was here for another course of phentermine. He has less efficacy earlier this year, and we could not obtain semaglutide. He was still following his calorie restricted diet. Exercise was limited due to work and storm clean up chores in his house. He also had some irritability from phentermine. His obstructive sleep apnea was controlled, and he was using his CPAP regularly. He was due for labs. Review of Systems Constitutional: Negative for appetite change and fatigue. Respiratory: Negative for shortness of breath. Cardiovascular: Negative for chest pain and palpitations. Psychiatric/Behavioral: Negative for sleep disturbance. ACTIVE PROBLEM LIST Hypothyroidism Allergic Rhinitis Vitamin D Deficiency SHERIN (obstructive sleep apnea) on AutoPAP Mixed Hyperlipidemia Obesity, Class III, BMI >= 40 Other Specified Joint Disorders, Left Hip Social History Tobacco Use Smoking status: Never Smokeless tobacco: Never Substance Use Topics Alcohol use: Not Currently Alcohol/week: 2.0 standard drinks of alcohol Types: 2 Shots of liquor per week Drug use: No Current Outpatient Medications Medication Sig levothyroxine (SYNTHROID) 88 mcg tablet Take 1 tablet by mouth daily before breakfast. liothyronine (CYTOMEL) 25 mcg tablet Take 1 tablet by mouth once daily. cetirizine (ZYRTEC) 10 mg tablet Take 1 tablet by mouth once daily. fluticasone (FLONASE) 50 mcg/actuation nasal spray Use 2 Sprays in each nostril once daily. Rinse mouth after use. CPAP Mask Fitting requested (per patient preference, try Dream ricci nasal tube like head gear) optional chin strap (if indicated), filters, tubing / heated tubing, heated humidity and lifetime supplies. Dx. SHERIN G47.33 327.23 CPAP AutoPAP 7-20 cmH2O, suitable mask, humidity, filters. Lifetime supplies. Dx: G47.ee No current facility-administered medications for this visit. Objective BP 131/90 (BP Site: Left Arm, BP Position: Sitting, BP Cuff Size: Large Adult) Pulse 71 Temp 36.2 C (97.2 F) (Temporal) Wt (!) 145 kg (319 lb 10.7 oz) BMI 45.87 kg/m Physical Exam Constitutional: General: He is not in acute distress. Appearance: He is not ill-appearing. HENT: Head: Normocephalic. Cardiovascular: Rate and Rhythm: Normal rate and regular rhythm. Heart sounds: No murmur heard. No gallop. Pulmonary: Breath sounds: Normal breath sounds. Musculoskeletal: Right lower leg: No edema. Left lower leg: No edema. Neurological: Mental Status: He is alert. Psychiatric: Mood and Affect: Mood normal. Assessment and Plan 1. Obesity, Class III, BMI >= 40 - ICD9: 278.01, ICD10: E66.01 (primary diagnosis) Weight increasing - Behavioral and pharmacological intervention - PHENTERMINE 37.5 MG TABLET - COMPLETE BLOOD COUNT - Shared medical decision making was done. Discussed medication dosage, usage, goals of therapy, and side effects. We agreed to resume full strength. He is given prescription for 3 months. If there is no demonstrated weight loss in 3 months, we agreed we will stop there. 2. Screening for depression - ICD9: V79.0, ICD10: Z13.31 - DEPRESSION SCREENING 3. Encounter for screening examination for other mental health and behavioral disorders - ICD9: V79.8, ICD10: Z13.39 - ANXIETY SCREENING 4. Acquired hypothyroidism - ICD9: 244.9, ICD10: E03.9 - continue current dose of medications. - THYROID STIMULATING HORMONE - T4 FREE/FREE THYROXINE 5. Mixed hyperlipidemia - ICD9: 272.2, ICD10: E78.2 - Control undetermined, due for labs - Counseled on healthy diet and regular exercise - Discussed need for and benefit of weight loss. BMI 45.87 kg/(m^2) - COMPREHENSIVE METABOLIC PANEL - LIPID PANEL BASIC 6. Elevated blood pressure reading - ICD9: 796.2, ICD10: R03.0 - Encouraged dietary sodium restriction/DASH diet - Discussed need and benefit for weight loss. - Goal of BP <130/80 7. SHERIN (obstructive sleep apnea) on AutoPAP - ICD9: 327.23, ICD10: G47.33 - Patient is using and benefiting from regular CPAP use. Joe Faria MD documented in this encounterThe [facility]05-02-[facility]24 History of Present illness Narrative* Joe Faria MD - 08/22/2023 6:16 PM EDT This note was created using CellARideriter. Subjective Haim Chase is a 43 year old male. We tried to get him semaglutide injection, since he hadIrritability with phentermine. Semaglutide was cost prohibitive, so he resumed phentermine. It has not been as effective as before. Review of Systems Constitutional: Negative. Respiratory: Negative. Cardiovascular: Negative. Psychiatric/Behavioral: Negative. ACTIVE PROBLEM LIST Hypothyroidism Allergic Rhinitis Vitamin D Deficiency SHERIN (obstructive sleep apnea) on AutoPAP Mixed Hyperlipidemia Obesity, Class III, BMI >= 40 Other Specified Joint Disorders, Left Hip Social History Tobacco Use Smoking status: Never Smokeless tobacco: Never Substance Use Topics Alcohol use: Not Currently Alcohol/week: 2.0 standard drinks of alcohol Types: 2 Shots of liquor per week Drug use: No Objective Blood Pressure 134/82 Pulse 77 Respiration 16 Weight (Abnormal) 138.3 kg (305 lb) Oxygen Saturation 99% Body Mass Index 43.76 kg/m Physical Exam Constitutional: Appearance: He is not ill-appearing. Cardiovascular: Rate and Rhythm: Normal rate and regular rhythm. Pulmonary: Breath sounds: Normal breath sounds. Musculoskeletal: Right lower leg: No edema. Left lower leg: No edema. Neurological: Mental Status: He is alert. Psychiatric: Mood and Affect: Mood normal. Assessment and Plan 1. Obesity, Class III, BMI >= 40 - ICD9: 278.01, ICD10: E66.01 (primary diagnosis) Weight increasing - We discussed lack of efficacy. We agreed to one more month, and he will improve lifestyle measures. Demonstrated weight loss is needed to complete 6 months of medication. - PHENTERMINE 37.5 MG CAPSULE 2. Acquired hypothyroidism - ICD9: 244.9, ICD10: E03.9 - continue current dose of Synthroid - LEVOTHYROXINE 88 MCG TABLET Joe Faria MD documented in this encounterThe [facility]03-22-2024 Miscellaneous Notes* Telephone Encounter - Trevin Brady Ma - 07/12/2023 10:07 AM EDT Requested Prescriptions Pending Prescriptions Disp Refills liothyronine (CYTOMEL) 25 mcg tablet 90 tablet 1 Sig: Take 1 tablet by mouth once daily. Date of last office visit in primary care: 04/26/2023 Date of next office visit in primary care: 07/25/2023 Please advise. Thank you. Trevin Brady Ma. documented in this encounterThe [facility]02-19-2024 Miscellaneous Notes* Telephone Encounter - Myesha Mansfield LPN - 06/10/2023 1:53 PM EST Called [facility]/[place], Patient has refill at pharmacy. Next appt w/PCP, 07/25/2023 Myesha Mansfield LPN documented in this encounterThe [facility]11-08-2023 Miscellaneous Notes* Telephone Encounter - Myesha Mansfield LPN - 02/27/2023 3:51 PM EST Spoke to Minh, he has agreed to come in @ 5 PM. Myesha Mansfield LPN * Telephone Encounter - Myesha Mansfield LPN - 02/27/2023 10:13 AM EST Left message for Patient to call, Dr. Faria has a meeting that evening. Asking if Minh can comeinto the office at 5. Myesha Mansfield LPN documented in this encounterThe [facility]09-18-2023 Miscellaneous Notes* Telephone Encounter - Nahomi Monte LPN - 01/07/2023 4:46 PM EDT Last office visit: 11/29/22 Next appointment scheduled: 03/04/23 Last labs: 11/29/22 last TSH documented in this encounterThe [facility]08-10-2023 Instructions* Patient Instructions* Joe Faria MD - 11/29/2022 6:34 PM EDT HEP B VACCINE SERIES RECOMMENDED. documented in this encounterThe [facility]08-10-2023 History of Present illness Narrative* Joe Faria MD - 11/29/2022 6:17 PM EDT This note was created using CellARideriter. Subjective Patient presents with: Yearly Exam Haim Chase is a 42 year old male. He was losing weight on phentermine, and generally following his diet. He enjoyed golfing and was getting golfing related joint pains of his left elbow andhips. He was wondering if he should be tested for lupus. His thyroid and lipids were controlled. Hewas using his AutoPAP nightly with good results and benefit. Review of Systems Constitutional: Negative for activity change, appetite change, chills, fatigue, fever and unexpected weight change. HENT: Negative for congestion and postnasal drip. Eyes: Negative for visual disturbance. Respiratory: Negative for cough, shortness of breath and wheezing. Cardiovascular: Negative for chest pain, palpitations and leg swelling. Gastrointestinal: Negative for abdominal pain, constipation and diarrhea. Genitourinary: Negative for difficulty urinating and dysuria. Musculoskeletal: Positive for arthralgias. Negative for back pain and gait problem. Skin: Negative for rash. Neurological: Negative for dizziness, light-headedness, numbness and headaches. Psychiatric/Behavioral: Negative for dysphoric mood and sleep disturbance. The patient is not nervous/anxious. PAST MEDICAL HISTORY Diagnosis Date Allergic rhinitis 10/19/2014 Anxiety 06/10/2009 Intolerant of Celexa (anorgasmia) -- did well on Zoloft 200 mg, in the mid- s --> restarted Zoloft 12/2009 BPPV (benign paroxysmal positional vertigo) 10/22/2012 COVID-19 03/18/2022 Depressive disorder 09/26/2011 Hypothyroidism 04/28/[address] Mcleod, who retired; MASSIVE weight loss, improvement in cold intolerance, with treatment; Labs tend to be normal, clinically excellent reponse, normalization of hypothermic basal body temperature Mixed hyperlipidemia 12/27/2016 Morbid Obesity 01/04/2010 SHERIN (obstructive sleep apnea) 01/02/2017 [facility] AutoPAP Other specified joint disorders, left hip 12/29/2020 Renal calculi PAST SURGICAL HISTORY Procedure Laterality Date ARTHROSCOPY KNEE DIAGNOSTIC W/WO SYNOVIAL BX SPX Right 09/22/2014 meniscus tear, Dr. Cabrera ARTHROSCOPY KNEE DIAGNOSTIC W/WO SYNOVIAL BX SPX Left 11/24/2010 Medial meniscectomy, chondroplasty patella & medial femoral condyle CYSTOSCOPY 03/10/2018 CYSTOSCOPY, URETERAL STENT CHANGE/INSERTION Right 08/03/2013 CYSTOSCOPY, URETERAL STENT CHANGE/INSERTION Right 08/07/2013 PAST SURGICAL HISTORY OF WISDOM TEETH REM LESION TRUNK,ARM,LEG 0.6 -1.0CM Right 10/26/2015 Exc. neal cyst right post. shoulder SHOULDER ARTHROSCOPY/SURGERY Left 03/13/2017 SKIN BX, 1 LESION 1988 Skin biopsy, foot age 8 TOTAL HIP REPLACEMENT Left 01/06/2021 VASECTOMY UNI/BI SPX W/POSTOP SEMEN EXAMS Bilateral 10/19/2015 FAMILY HISTORY Problem Relation Age of Onset Diabetes Mother Diabetes Father Thyroid Brother hyperthyroidism Social History Tobacco Use Smoking status: Never Smokeless tobacco: Never Substance Use Topics Alcohol use: Yes Alcohol/week: 5.0 standard drinks of alcohol Types: 2 Cans of Beer (12oz) per week Drug use: No ALLERGIES Allergen Reactions Vancomycin Rash Red man syndrome Current Outpatient Medications Medication Sig levothyroxine (SYNTHROID) 88 mcg tablet Take 1 tablet by mouth daily before breakfast. liothyronine (CYTOMEL) 25 mcg tablet Take 1 tablet by mouth once daily. cetirizine (ZYRTEC) 10 mg tablet Take 1 tablet by mouth once daily. fluticasone (FLONASE) 50 mcg/actuation nasal spray Use 2 Sprays in each nostril once daily. Rinse mouth after use. CPAP Mask Fitting requested (per patient preference, try Dream ricci nasal tube like head gear) optional chin strap (if indicated), filters, tubing / heated tubing, heated humidity and lifetime supplies. Dx. SHERIN G47.33 327.23 albuterol HFA (VENTOLIN HFA) 90 mcg/actuation inhaler Inhale 2 Puffs as instructed every 4 hours asneeded for Wheezing/Shortness of Breath. CPAP AutoPAP 7-20 cmH2O, suitable mask, humidity, filters. Lifetime supplies. Dx: G47.ee No current facility-administered medications for this visit. Objective BP 126/84 Pulse 82 Temp 36 C (96.8 F) (Temporal) Resp 16 Ht 177.8 cm (5' 10) Wt 131.5 kg(290 lb) SpO2 99% BMI 41.61 kg/m Physical Exam Constitutional: General: He is not in acute distress. Appearance: He is obese. He is not ill-appearing. HENT: Head: Normocephalic. Eyes: Extraocular Movements: Extraocular movements intact. Conjunctiva/sclera: Conjunctivae normal. Pupils: Pupils are equal, round, and reactive to light. Cardiovascular: Rate and Rhythm: Normal rate and regular rhythm. Heart sounds: No murmur heard. No gallop. Pulmonary: Effort: Pulmonary effort is normal. Breath sounds: Normal breath sounds. Abdominal: Palpations: Abdomen is soft. Tenderness: There is no abdominal tenderness. Musculoskeletal: General: No swelling, tenderness or deformity. Normal range of motion. Cervical back: Neck supple. No tenderness. Right lower leg: No edema. Left lower leg: No edema. Lymphadenopathy: Cervical: No cervical adenopathy. Skin: General: Skin is warm and dry. Neurological: General: No focal deficit present. Mental Status: He is alert. Psychiatric: Mood and Affect: Mood normal. Behavior: Behavior normal. Labs in process. Assessment and Plan 1. Routine medical exam - ICD9: V70.0, ICD10: Z00.00 (primary diagnosis) - Counseled on healthy diet and regular exercise - Discussed need for and benefit of weight loss. BMI 41.61 kg/(m^2) - Counseled on limiting alcohol intake to 2 drinks per day - Depression screening tool completed and reviewed with patient. Based on score and interview, patient is not at risk for depression and recommended no further intervention at this time. - Hepatitis B vaccine series discussed and recommended. Patient undecided. 2. Acquired hypothyroidism - ICD9: 244.9, ICD10: E03.9 - Instructed patient on importance of taking on an empty stomach either first thing in the morning or at bedtime. - continue current dose of Synthroid 3. Allergic rhinitis, unspecified seasonality, unspecified trigger - ICD9: 477.9, ICD10: J30.9 Controlled. - CETIRIZINE 10 MG TABLET 4. ETD (Eustachian tube dysfunction), bilateral - ICD9: 381.81, ICD10: H69.93 Controlled. - FLUTICASONE PROPIONATE 50 MCG/ACTUATION NASAL SPRAY,SUSPENSION 5. Obesity, Class III, BMI >= 40 - ICD9: 278.01, ICD10: E66.01 Weight decreasing - Behavioral and pharmacological intervention - PHENTERMINE 37.5 MG CAPSULE - PHENTERMINE 37.5 MG CAPSULE - PHENTERMINE 37.5 MG CAPSULE 6. SHERIN (obstructive sleep apnea) on AutoPAP - ICD9: 327.23, ICD10: G47.33 He was using and benefiting from regular auto PAP use. 7. Other specified joint disorders, left hip - ICD9: 719.85, ICD10: M25.852 Stable. Weight loss should help. Joe Faria MD documented in this encounterThe [facility] Miscellaneous Notes* Telephone Encounter - Colleen Gorman Ma - 08/29/2022 3:39 PM EDT Electronic PA completed for Phentermine and patient notified and will use goodrx Colleen Gorman Ma documented in this encounterThe [facility]05-[facility] History of Present illness Narrative* Joe Faria MD - 08/29/2022 3:10 PM EDT This note was created using [employer]. Subjective Haim Chase is a 42 year old male. Review of Systems ACTIVE PROBLEM LIST Hypothyroidism Allergic Rhinitis Vitamin D Deficiency SHERIN (obstructive sleep apnea) on AutoPAP Mixed Hyperlipidemia Obesity, Class III, BMI >= 40 Other Specified Joint Disorders, Left Hip Social History Tobacco Use Smoking status: Never Smokeless tobacco: Never Substance Use Topics Alcohol use: Yes Alcohol/week: 5.0 standard drinks Types: 2 Cans of Beer (12oz) per week Drug use: No Current Outpatient Medications Medication Sig levothyroxine (SYNTHROID) 88 mcg tablet Take 1 tablet by mouth daily before breakfast. liothyronine (CYTOMEL) 25 mcg tablet Take 1 tablet by mouth once daily. cetirizine (ZYRTEC) 10 mg tablet Take 1 tablet by mouth once daily. fluticasone (FLONASE) 50 mcg/actuation nasal spray Use 2 Sprays in each nostril once daily. Rinse mouth after use. CPAP Mask Fitting requested (per patient preference, try Dream ricci nasal tube like head gear) optional chin strap (if indicated), filters, tubing / heated tubing, heated humidity and lifetime supplies. Dx. SHERIN G47.33 327.23 albuterol HFA (VENTOLIN HFA) 90 mcg/actuation inhaler Inhale 2 Puffs as instructed every 4 hours asneeded for Wheezing/Shortness of Breath. CPAP AutoPAP 7-20 cmH2O, suitable mask, humidity, filters. Lifetime supplies. Dx: G47.ee No current facility-administered medications for this visit. Objective BP 126/82 (BP Site: Left Arm, BP Position: Sitting, BP Cuff Size: Large Adult) Pulse 72 Resp 16 Ht 180.3 cm (5' 11) Wt (!) 142 kg (313 lb) BMI 43.65 kg/m Physical Exam Assessment and Plan * Joe Faria MD - 08/29/2022 3:02 PM EDT This note was created using [employer]. Subjective Haim Chase is a 42 year old male here for another treatment course of phentermine for weight loss. He has responded well to the medication. He continued his diet, a sample of which including 6oz protein, 4 servings vegetables, 2 servings of fruit daily. He exercises on elliptical 3x per week 30 minutes. Review of Systems Constitutional: Negative for fatigue. Respiratory: Negative for shortness of breath. Cardiovascular: Negative for chest pain, palpitations and leg swelling. Neurological: Negative for dizziness and headaches. Psychiatric/Behavioral: Negative for decreased concentration. ACTIVE PROBLEM LIST Hypothyroidism Allergic Rhinitis Vitamin D Deficiency SHERIN (obstructive sleep apnea) on AutoPAP Mixed Hyperlipidemia Obesity, Class III, BMI >= 40 Other Specified Joint Disorders, Left Hip Social History Tobacco Use Smoking status: Never Smokeless tobacco: Never Substance Use Topics Alcohol use: Yes Alcohol/week: 5.0 standard drinks Types: 2 Cans of Beer (12oz) per week Drug use: No Current Outpatient Medications Medication Sig levothyroxine (SYNTHROID) 88 mcg tablet Take 1 tablet by mouth daily before breakfast. liothyronine (CYTOMEL) 25 mcg tablet Take 1 tablet by mouth once daily. cetirizine (ZYRTEC) 10 mg tablet Take 1 tablet by mouth once daily. fluticasone (FLONASE) 50 mcg/actuation nasal spray Use 2 Sprays in each nostril once daily. Rinse mouth after use. CPAP Mask Fitting requested (per patient preference, try Dream ricci nasal tube like head gear) optional chin strap (if indicated), filters, tubing / heated tubing, heated humidity and lifetime supplies. Dx. SHERIN G47.33 327.23 albuterol HFA (VENTOLIN HFA) 90 mcg/actuation inhaler Inhale 2 Puffs as instructed every 4 hours asneeded for Wheezing/Shortness of Breath. CPAP AutoPAP 7-20 cmH2O, suitable mask, humidity, filters. Lifetime supplies. Dx: G47.ee No current facility-administered medications for this visit. Objective BP 126/82 (BP Site: Left Arm, BP Position: Sitting, BP Cuff Size: Large Adult) Pulse 72 Resp 16 Ht 180.3 cm (5' 11) Wt (!) 142 kg (313 lb) BMI 43.65 kg/m Physical Exam Constitutional: Appearance: He is not ill-appearing. Cardiovascular: Rate and Rhythm: Normal rate and regular rhythm. Heart sounds: No murmur heard. No gallop. Pulmonary: Breath sounds: Normal breath sounds. Musculoskeletal: Right lower leg: No edema. Left lower leg: No edema. Neurological: General: No focal deficit present. Mental Status: He is alert. Assessment and Plan 1. Obesity, Class III, BMI >= 40 - ICD9: 278.01, ICD10: E66.01 (primary diagnosis) Weight increasing - PHENTERMINE 37.5 MG CAPSULE - PHENTERMINE 37.5 MG CAPSULE - PHENTERMINE 37.5 MG CAPSULE Discussed medication dosage, usage, goals of therapy, and side effects. 2. Mixed hyperlipidemia - ICD9: 272.2, ICD10: E78.2 - to be determined upon return of lab results 3. Acquired hypothyroidism - ICD9: 244.9, ICD10: E03.9 - continue current dose. Joe Faria MD documented in this encounterThe [facility]03-14-2023 Instructions* Patient Instructions* GABRIELA Schaffer - 07/03/2022 9:23 AM EDT Rest, increase water intake Motrin or Tylenol as needed for fever or pain. Salt water gargles, chloraseptic spray or lozenges as needed for sore throat. Warm beverages, honey. Nasal saline spray as needed Cool mist humidifier at night A cold normally lasts 7-10 days. If your symptoms are lasting longer, develop fever, or worsening by that time instead of improving then return to clinic or follow up with PCP for re-evaluation. Tylenol (generic acetaminophen) 500 mg-2 tabs every 8 hrs. as needed for fever and aches Ibuprofen 600 mg (3-200mg tablets) every 6 hours -Mucinex (generic is fine) Guaifenesin 1200 mg twice daily to help with cough and to thin out mucus documented in this encounterThe [facility]03-14-[facility]23 History of Present illness Narrative* GABRIELA Schaffer - 07/03/2022 9:14 AM EDT This note was created using Cell[employer]. Subjective Haim Chase is a 42 year old male. HPI 42-year-old male presents for sore throat, ear pain, head pressure x2 days. Patient states he has had a sore throat for the past 2 days. Today he woke up with ear pain and pressure, head pressure, sinus congestion. No cough. No fevers. No sick contacts that he is aware of PAST MEDICAL HISTORY Diagnosis Date Allergic rhinitis 10/19/2014 Anxiety 06/10/2009 Intolerant of Celexa (anorgasmia) -- did well on Zoloft 200 mg, in the mid- s --> restarted Zoloft 12/2009 BPPV (benign paroxysmal positional vertigo) 10/22/2012 COVID-19 03/18/2022 Depression 09/26/2011 Depressive disorder 09/26/2011 Hypothyroidism 04/28/[address] Mcleod, who retired; MASSIVE weight loss, improvement in cold intolerance, with treatment; Labs tend to be normal, clinically excellent reponse, normalization of hypothermic basal body temperature Mixed hyperlipidemia 12/27/2016 Morbid Obesity 01/04/2010 SHERIN (obstructive sleep apnea) 01/02/2017 [facility] AutoPAP Other specified joint disorders, left hip 12/29/2020 Renal calculi PAST SURGICAL HISTORY Procedure Laterality Date ARTHROSCOPY KNEE DIAGNOSTIC W/WO SYNOVIAL BX SPX Right 09/22/2014 meniscus tear, Dr. Cabrera ARTHROSCOPY KNEE DIAGNOSTIC W/WO SYNOVIAL BX SPX Left 11/24/2010 Medial meniscectomy, chondroplasty patella & medial femoral condyle CYSTOSCOPY 03/10/2018 CYSTOSCOPY, URETERAL STENT CHANGE/INSERTION Right 08/03/2013 CYSTOSCOPY, URETERAL STENT CHANGE/INSERTION Right 08/07/2013 PAST SURGICAL HISTORY OF WISDOM TEETH REM LESION TRUNK,ARM,LEG 0.6 -1.0CM Right 10/26/2015 Exc. neal cyst right post. shoulder SHOULDER ARTHROSCOPY/SURGERY Left 03/13/2017 SKIN BX, 1 LESION 1988 Skin biopsy, foot age 8 TOTAL HIP REPLACEMENT Left 01/06/2021 VASECTOMY UNI/BI SPX W/POSTOP SEMEN EXAMS Bilateral 10/19/2015 ALLERGIES Vancomycin MEDICATIONS levothyroxine (SYNTHROID) 88 mcg tablet Take 1 tablet by mouth daily before breakfast. liothyronine (CYTOMEL) 25 mcg tablet Take 1 tablet by mouth once daily. cetirizine (ZYRTEC) 10 mg tablet Take 1 tablet by mouth once daily. fluticasone (FLONASE) 50 mcg/actuation nasal spray Use 2 Sprays in each nostril once daily. Rinse mouth after use. CPAP Mask Fitting requested (per patient preference, try Dream ricci nasal tube like head gear) optional chin strap (if indicated), filters, tubing / heated tubing, heated humidity and lifetime supplies. Dx. SHERIN G47.33 327.23 albuterol HFA (VENTOLIN HFA) 90 mcg/actuation inhaler Inhale 2 Puffs as instructed every 4 hours asneeded for Wheezing/Shortness of Breath. CPAP AutoPAP 7-20 cmH2O, suitable mask, humidity, filters. Lifetime supplies. Dx: G47.ee FAMILY HISTORY Problem Relation Age of Onset Diabetes Mother Diabetes Father Thyroid Brother hyperthyroidism Social History Tobacco Use Smoking status: Never Smokeless tobacco: Never Substance Use Topics Alcohol use: Yes Alcohol/week: 5.0 standard drinks Types: 2 Cans of Beer (12oz) per week Drug use: No Review of Systems Constitutional: Negative for chills and fever. HENT: Positive for congestion, ear pain, sinus pressure and sore throat. Respiratory: Negative for cough and shortness of breath. Gastrointestinal: Negative for diarrhea and vomiting. Objective BP 118/78 Pulse 72 Temp 36.4 C (97.6 F) (Tympanic) Resp 16 Wt (!) 144.7 kg (319 lb) SpO2 99% BMI 44.81 kg/m Physical Exam Vitals and nursing note reviewed. Constitutional: General: He is not in acute distress. Appearance: Normal appearance. He is not toxic-appearing. HENT: Right Ear: Ear canal normal. A middle ear effusion is present. Left Ear: Ear canal normal. A middle ear effusion is present. Ears: Comments: Clear fluid behind both TMs bilaterally. Mild. No signs of infection. Nose: Congestion present. Mouth/Throat: Mouth: Mucous membranes are moist. Pharynx: Uvula midline. Posterior oropharyngeal erythema present. No oropharyngeal exudate. Tonsils: No tonsillar exudate. Eyes: Conjunctiva/sclera: Conjunctivae normal. Cardiovascular: Rate and Rhythm: Normal rate and regular rhythm. Pulmonary: Effort: Pulmonary effort is normal. Breath sounds: Normal breath sounds. Skin: General: Skin is warm and dry. Neurological: Mental Status: He is alert. Assessment and Plan ASSESSMENT/PLAN: 1. URI, acute - ICD9: 465.9, ICD10: J06.9 (primary diagnosis) - Discussed viral etiology and rationale for treatment. - Symptomatic treatment with prn analgesia - Supportive care with fluids and rest - COVID WITH FLUA+B, ROUTINE - out of Tamiflu window 2. Sore throat - ICD9: 462, ICD10: J02.9 - suspect viral - Alere Strep Test negative, no culture pending - Discussed supportive care treatment with fluids, rest and analgesia. - STREP A MOLECULAR (POC) Diagnosis and treatment plan were discussed and questions were answered to the patient's satisfaction. Pt acknowledged understanding of concepts and follow up plan. Specific signs and symptoms that would indicate the need for higher level of care were discussed in detail warranting prompt ER evaluation. GABRIELA Schaffer documented in this encounterThe [facility]03-06-2023 Miscellaneous Notes* Telephone Encounter - Trevin Brady Ma - 06/25/2022 4:52 PM EST Notified via [employer], * Telephone Encounter - Joe Faria MD - 06/24/2022 2:12 PM EST Follow up in October. Fasting labs ordered. * Telephone Encounter - Myesha Mansfield LPN - 06/21/2022 3:49 PM EST Patient has been identified by name and date of : Yes, Patient phones for refill(s): Requested Prescriptions Pending Prescriptions Disp Refills levothyroxine (SYNTHROID) 88 mcg tablet 90 tablet 3 Sig: Take 1 tablet by mouth daily before breakfast. liothyronine (CYTOMEL) 25 mcg tablet 90 tablet 3 Sig: Take 1 tablet by mouth once daily. cetirizine (ZYRTEC) 10 mg tablet 90 tablet 1 Sig: Take 1 tablet by mouth once daily. fluticasone (FLONASE) 50 mcg/actuation nasal spray 1 Each 5 Sig: Use 2 Sprays in each nostril once daily. Rinse mouth after use. Date of last office visit in primary care: 03/19/2022 No future appt scheduled. Last 2 Encounter Wt Readings: Date: Wt: 03/19/2022 133.7 kg (294 lb 12.8 oz) 02/19/2022 133.8 kg (295 lb) Previous labs/tests for medication: Thyroid: TSH Date Value 06/21/2021 7.200 mIU/L 10/10/2020 4.210 uU/mL Please advise. Thank you. Myesha Mansfield LPN documented in this encounterThe [facility]11-28-2022 History of Present illness Narrative* Joe Faria MD - 03/19/2022 4:33 PM EST This note was created using [employer]. Subjective Patient presents with: Recheck Covid Positive Haim Chase is a 41 year old male. He was here for medication assisted weight loss, his last month of phentermine. His weight loss was less this time around. He had traveled for the holiday. He also developed flu like symptoms 7 days ago, and tested + for Covid this weekend. Symptoms were resolving other than fatigue. Review of Systems Constitutional: Positive for fatigue. Negative for chills and fever. HENT: Positive for ear pain. Respiratory: Negative for cough and shortness of breath. Gastrointestinal: Negative. Neurological: Negative. ACTIVE PROBLEM LIST Hypothyroidism Allergic Rhinitis Vitamin D Deficiency SHERIN (obstructive sleep apnea) on AutoPAP Mixed Hyperlipidemia Obesity, Class III, BMI >= 40 Other Specified Joint Disorders, Left Hip Current Outpatient Medications Medication Sig cetirizine (ZYRTEC) 10 mg tablet Take 1 tablet by mouth once daily. fluticasone (FLONASE) 50 mcg/actuation nasal spray Use 2 Sprays in each nostril once daily. Rinse mouth after use. levothyroxine (SYNTHROID) 88 mcg tablet Take 1 tablet by mouth daily before breakfast. liothyronine (CYTOMEL) 25 mcg tablet Take 1 tablet by mouth once daily. CPAP Mask Fitting requested (per patient preference, try Dream ricci nasal tube like head gear) optional chin strap (if indicated), filters, tubing / heated tubing, heated humidity and lifetime supplies. Dx. SHERIN G47.33 327.23 albuterol HFA (VENTOLIN HFA) 90 mcg/actuation inhaler Inhale 2 Puffs as instructed every 4 hours asneeded for Wheezing/Shortness of Breath. CPAP AutoPAP 7-20 cmH2O, suitable mask, humidity, filters. Lifetime supplies. Dx: G47.ee [START ON 03/24/2022] Phentermine HCl 37.5 mg capsule Take 1 capsule by mouth once daily for 30 days. Do not start before March 24, 2022. No current facility-administered medications for this visit. Objective BP 128/76 (BP Site: Left Arm, BP Position: Sitting, BP Cuff Size: Large Adult) Pulse 72 Temp 36.1 C (97 F) (Temporal) Resp 20 Ht 179.7 cm (5' 10.75) Wt 133.7 kg (294 lb 12.8 oz) BMI 41.41 kg/m Physical Exam HENT: Right Ear: No middle ear effusion. Tympanic membrane is injected. Left Ear: Tympanic membrane normal. Pulmonary: Effort: No respiratory distress. Breath sounds: Normal breath sounds. No wheezing or rales. Neurological: Mental Status: He is alert. Assessment and Plan 1. COVID-19 - ICD9: 079.89, ICD10: U07.1 (primary diagnosis) - Continue symptom care, supportive care. - We discussed PAXLOVID, but he declined, and on further review he is beyond the window for the EUAtreatment. Ending Home Isolation - When you can be around others after you had or likely had COVID-19 When you can be around others after you had or likely had COVID-19 If You Test Positive for COVID-19 (Isolation) Everyone, regardless of vaccination status: Stay home for 5 days. Note: Day 0 is your first day of symptoms or the date of collection of a positive viral test if no symptoms. Day 1 is the first full day after symptoms developed or test specimen was collected. If you have no symptoms or your symptoms are resolving after 5 days, you can leave your house. Continue to wear a mask around others for 5 additional days. If you have a fever, continue to stay home until your fever resolves, even if it is longer than 5 days. 2. Obesity, Class III, BMI >= 40 - ICD9: 278.01, ICD10: E66.01 Weight decreasing - Behavioral intervention and - Pharmacological intervention - PHENTERMINE 37.5 MG CAPSULE oJe Faria MD documented in this encounterThe [facility]10-06-2022 History of Present illness Narrative* Joe Faria MD - 01/25/2022 10:24 AM EDT This note was created using [employer]. Subjective Patient presents with: Weight Problem Immunizations: Flu vaccination Haim Chase is a 41 year old male here for another round of medication assisted weight loss. His diet had regressed to food at golf clubs. He will resume his diet from prior weight loss program directions. He played golf for exercise. Review of Systems Constitutional: Negative. Cardiovascular: Negative. Neurological: Negative. Psychiatric/Behavioral: Negative. ACTIVE PROBLEM LIST Hypothyroidism Allergic Rhinitis Vitamin D Deficiency SHERIN (obstructive sleep apnea) on AutoPAP Mixed Hyperlipidemia Obesity, Class III, BMI >= 40 Other Specified Joint Disorders, Left Hip Current Outpatient Medications Medication Sig cetirizine (ZYRTEC) 10 mg tablet Take 1 tablet by mouth once daily. fluticasone (FLONASE) 50 mcg/actuation nasal spray Use 2 Sprays in each nostril once daily. Rinse mouth after use. levothyroxine (SYNTHROID) 88 mcg tablet Take 1 tablet by mouth daily before breakfast. liothyronine (CYTOMEL) 25 mcg tablet Take 1 tablet by mouth once daily. CPAP Mask Fitting requested (per patient preference, try Dream ricci nasal tube like head gear) optional chin strap (if indicated), filters, tubing / heated tubing, heated humidity and lifetime supplies. Dx. SHERIN G47.33 327.23 albuterol HFA (VENTOLIN HFA) 90 mcg/actuation inhaler Inhale 2 Puffs as instructed every 4 hours asneeded for Wheezing/Shortness of Breath. CPAP AutoPAP 7-20 cmH2O, suitable mask, humidity, filters. Lifetime supplies. Dx: G47.ee Phentermine HCl 37.5 mg capsule Take 1 capsule by mouth once daily for 30 days. No current facility-administered medications for this visit. Objective BP 126/74 (BP Site: Left Arm, BP Position: Sitting, BP Cuff Size: Large Adult) Pulse 72 Temp 36.4 C (97.5 F) (Temporal) Resp 16 Wt (!) 142 kg (313 lb) BMI 44.91 kg/m Physical Exam Constitutional: Appearance: He is obese. He is not ill-appearing. Cardiovascular: Rate and Rhythm: Normal rate and regular rhythm. Pulmonary: Breath sounds: Normal breath sounds. Musculoskeletal: Right lower leg: No edema. Left lower leg: No edema. Neurological: Mental Status: He is alert. Psychiatric: Mood and Affect: Mood normal. Assessment and Plan 1. Obesity, Class III, BMI >= 40 - ICD9: 278.01, ICD10: E66.01 (primary diagnosis) Weight increasing - He declined referral to nutrition. Resume weight loss diet. Regular exercise. - PHENTERMINE 37.5 MG CAPSULE. Discussed medication dosage, usage, goals of therapy, and side effects. 2. Need for influenza vaccination - ICD9: V04.81, ICD10: Z23 - INFLUENZA VACCINE QUADRIVALENT 6 MO - 64 YRS IM 3. Acquired hypothyroidism - ICD9: 244.9, ICD10: E03.9 - continue current dose of Synthroid - Order labs at follow up in 4 weeks. Joe Faria MD documented in this encounterThe [facility]08-08-2022 Miscellaneous Notes* Telephone Encounter - Myesha Mansfield LPN - 11/27/2021 8:18 PM EDT Spoke w/Minh, he has refills on Levothyroxine & Cytomel. Patient to check with pharmacy. Myesha Mansfield LPN documented in this encounterThe [facility] Of [facility]07-01-2021 History of Present illness Narrative* Clara Heredia RT(R) - 10/20/2020 12:20 PM EDT Radiology Service Progress Note PATIENT NAME: Haim Chase DATE OF SERVICE: October 20, 2020 TIME: 12:27 PM PATIENT IDENTITY VERIFICATION COMPLETED USING TWO (2) IDENTIFIERS: Name and Date of confirmedby patient verbally. FALL SCREENING: Has the patient had 2 falls in the last year or 1 fall with injury or currently using an Ambulatory Assistive Device (Walker, Cane, Wheelchair, Crutches, etc.)? No PATIENT GENDER DATA: Male PATIENT RELEVANT IMPLANT DATA REVIEWED: Not Applicable RADIOLOGY DEPARTMENT: General X-ray: Exam(s) Completed: Pelvis X-Ray: Pelvis with Hip Left PERIPHERAL IV DATA: Not applicable SIGNED BY: RT Jackie(R) October 20, 2020 12:27 PM documented in this encounterThe [facility]11-28-2018 History of Past illness Narrative* Problem Noted Date Resolved Date Urgency of urination 03/19/2018 12/29/2020 Overview: Added automatically from request for surgery [id number] Urination frequency 03/19/2018 06/10/2018 Overview: Added automatically from request for surgery [id number] Urinary frequency 02/06/2018 12/29/2020 Overview: Added automatically from request for surgery [id number] Urinary urgency 02/06/2018 04/29/2019 Overview: Added automatically from request for surgery [id number] Flank pain 02/06/2018 06/10/2018 Overview: Added automatically from request for surgery [id number] Left shoulder pain 04/26/2017 06/10/2018 Status post labral repair of shoulder 04/26/2017 06/10/2018 Upper back pain on left side 04/08/201702/2018 Labral tear of shoulder 02/20/2017 03/13/20 Overview: Added automatically from request for surgery [id number] Candidiasis of skin and nail 09/26/2015 BPPV (benign paroxysmal positional vertigo) 0706/201210/19/2014 Depressive disorder 09/26/2011 04/29/2019 Morbid Obesity 01/04/2010 04/29/2019 Routine general medical exam ination at a health care facility 01/04/2010 10/19/2014 Anxiety 06/10/2009 01/03/2017 Overview: Intolerant of Celexa (anorgasmia) -- did well on Zoloft 200 mg, in the mid- s --> restarted Zoloft 12/2009 Stress reaction 06/10/2009 01/04/2010 Sterilization 02/24/2009 01/04/2010 documented as of this encounter (statuses as of 11/28/2021) [facility] History of Past illness Narrative* Problem Noted Date Resolved Date Urgency of urination 03/19/2018 12/29/2020 Overview: Added automatically from request for surgery [id number] Urination frequency 03/19/2018 06/10/2018 Overview: Added automatically from request for surgery [id number] Urinary frequency 02/06/2018 12/29/2020 Overview: Added automatically from request for surgery [id number] Urinary urgency 02/06/2018 04/29/2019 Overview: Added automatically from request for surgery [id number] Flank pain 02/06/2018 06/10/2018 Overview: Added automatically from request for surgery [id number] Left shoulder pain 04/26/2017 06/10/2018 Status post labral repair of shoulder 04/26/2017 06/10/2018 Upper back pain on left side 04/08/201702/2018 Labral tear of shoulder 02/20/2017 03/13/20 17 Overview: Added automatically from request for surgery [id number] Candidiasis of skin and nail 09/26/2015 BPPV (benign paroxysmal positional vertigo) 07/0 06/201210/19/2014 Depressive disorder 09/26/2011 04/29/2019 Morbid Obesity 01/04/2010 04/29/2019 Routine general medical exam ination at a health care facility 01/04/2010 10/19/2014 Anxiety 06/10/2009 01/03/2017 Overview: Intolerant of Celexa (anorgasmia) -- did well on Zoloft 200 mg, in the mid- s --> restarted Zoloft 12/2009 Stress reaction 06/10/2009 01/04/2010 Sterilization 02/24/2009 01/04/2010 documented as of this encounter (statuses as of 01/25/2022) [facility]11-28-2018 History of Past illness Narrative* Problem Noted Date Resolved Date Urgency of urination 03/19/2018 12/29/2020 Overview: Added automatically from request for surgery [id number] Urination frequency 03/19/2018 06/10/2018 Overview: Added automatically from request for surgery [id number] Urinary frequency 02/06/2018 12/29/2020 Overview: Added automatically from request for surgery [id number] Urinary urgency 02/06/2018 04/29/2019 Overview: Added automatically from request for surgery [id number] Flank pain 02/06/2018 06/10/2018 Overview: Added automatically from request for surgery [id number] Left shoulder pain 04/26/2017 06/10/2018 Status post labral repair of shoulder 04/26/2017 06/10/2018 Upper back pain on left side 04/08/201702/2018 Labral tear of shoulder 02/20/2017 03/13/20 17 Overview: Added automatically from request for surgery [id number] Candidiasis of skin and nail 09/26/2015 BPPV (benign paroxysmal positional vertigo) 06/201210/19/2014 Depressive disorder 09/26/2011 04/29/2019 Morbid Obesity 01/04/2010 04/29/2019 Routine general medical exam ination at a health care facility 01/04/2010 10/19/2014 Anxiety 06/10/2009 01/03/2017 Overview: Intolerant of Celexa (anorgasmia) -- did well on Zoloft 200 mg, in the mid- s --> restarted Zoloft 12/2009 Stress reaction 06/10/2009 01/04/2010 Sterilization 02/24/2009 01/04/2010 documented as of this encounter (statuses as of 03/19/2022) [facility]11-28[facility]2018 History of Past illness Narrative* Problem Noted Date Resolved Date Urgency of urination 03/19/2018 12/29/2020 Overview: Added automatically from request for surgery [id number] Urination frequency 03/19/2018 06/10/2018 Overview: Added automatically from request for surgery [id number] Urinary frequency 02/06/2018 12/29/2020 Overview: Added automatically from request for surgery [id number] Urinary urgency 02/06/2018 04/29/2019 Overview: Added automatically from request for surgery [id number] Flank pain 02/06/2018 06/10/2018 Overview: Added automatically from request for surgery [id number] Left shoulder pain 04/26/2017 06/10/2018 Status post labral repair of shoulder 04/26/2017 06/10/2018 Upper back pain on left side 04/08/201702/2018 Labral tear of shoulder 02/20/2017 03/13/20 17 Overview: Added automatically from request for surgery [id number] Candidiasis of skin and nail 09/26/2015 BPPV (benign paroxysmal positional vertigo) 07/0 06/201210/19/2014 Depressive disorder 09/26/2011 04/29/2019 Morbid Obesity 01/04/2010 04/29/2019 Routine general medical exam ination at a health care facility 01/04/2010 10/19/2014 Anxiety 06/10/2009 01/03/2017 Overview: Intolerant of Celexa (anorgasmia) -- did well on Zoloft 200 mg, in the mid- --> restarted Zoloft 12/2009 Stress reaction 06/10/2009 01/04/2010 Sterilization 02/24/2009 01/04/2010 documented as of this encounter (statuses as of 06/26/2022) [facility]11[facility] History of Past illness Narrative* Problem Noted Date Resolved Date Urgency of urination 03/19/2018 12/29/2020 Overview: Added automatically from request for surgery [id number] Urination frequency 03/19/2018 06/10/2018 Overview: Added automatically from request for surgery [id number] Urinary frequency 02/06/2018 12/29/2020 Overview: Added automatically from request for surgery [id number] Urinary urgency 02/06/2018 04/29/2019 Overview: Added automatically from request for surgery [id number] Flank pain 02/06/2018 06/10/2018 Overview: Added automatically from request for surgery [id number] Left shoulder pain 04/26/2017 06/10/2018 Status post labral repair of shoulder 04/26/2017 06/10/2018 Upper back pain on left side 04/08/201702/2018 Labral tear of shoulder 02/20/2017 03/13/20 17 Overview: Added automatically from request for surgery [id number] Candidiasis of skin and nail 09/26/2015 BPPV (benign paroxysmal positional vertigo) 07/0 06/201210/19/2014 Depressive disorder 09/26/2011 04/29/2019 Morbid Obesity 01/04/2010 04/29/2019 Routine general medical exam ination at a health care facility 01/04/2010 10/19/2014 Anxiety 06/10/2009 01/03/2017 Overview: Intolerant of Celexa (anorgasmia) -- did well on Zoloft 200 mg, in the mid- --> restarted Zoloft 12/2009 Stress reaction 06/10/2009 01/04/2010 Sterilization 02/24/2009 01/04/2010 documented as of this encounter (statuses as of 07/03/2022) [facility] History of Past illness Narrative* Problem Noted Date Resolved Date Urgency of urination 03/19/2018 12/29/2020 Overview: Added automatically from request for surgery [id number] Urination frequency 03/19/2018 06/10/2018 Overview: Added automatically from request for surgery [id number] Urinary frequency 02/06/2018 12/29/2020 Overview: Added automatically from request for surgery [id number] Urinary urgency 02/06/2018 04/29/2019 Overview: Added automatically from request for surgery [id number] Flank pain 02/06/2018 06/10/2018 Overview: Added automatically from request for surgery [id number] Left shoulder pain 04/26/2017 06/10/2018 Status post labral repair of shoulder 04/26/2017 06/10/2018 Upper back pain on left side 04/08/201702/2018 Labral tear of shoulder 02/20/2017 03/13/20 17 Overview: Added automatically from request for surgery [id number] Candidiasis of skin and nail 09/26/2015 BPPV (benign paroxysmal positional vertigo) 07/0 06/201210/19/2014 Depressive disorder 09/26/2011 04/29/2019 Morbid Obesity 01/04/2010 04/29/2019 Routine general medical exam ination at a health care facility 01/04/2010 10/19/2014 Anxiety 06/10/2009 01/03/2017 Overview: Intolerant of Celexa (anorgasmia) -- did well on Zoloft 200 mg, in the mid- s --> restarted Zoloft 12/2009 Stress reaction 06/10/2009 01/04/2010 Sterilization 02/24/2009 01/04/2010 documented as of this encounter (statuses as of 08/30/2022) [facility] History of Past illness Narrative* Problem Noted Date Resolved Date Urgency of urination 03/19/2018 12/29/2020 Overview: Added automatically from request for surgery [id number] Urination frequency 03/19/2018 06/10/2018 Overview: Added automatically from request for surgery [id number] Urinary frequency 02/06/2018 12/29/2020 Overview: Added automatically from request for surgery [id number] Urinary urgency 02/06/2018 04/29/2019 Overview: Added automatically from request for surgery [id number] Flank pain 02/06/2018 06/10/2018 Overview: Added automatically from request for surgery [id number] Left shoulder pain 04/26/2017 06/10/2018 Status post labral repair of shoulder 04/26/2017 06/10/2018 Upper back pain on left side 04/08/201702/2018 Labral tear of shoulder 02/20/2017 03/13/20 17 Overview: Added automatically from request for surgery [id number] Candidiasis of skin and nail 09/26/2015 BPPV (benign paroxysmal positional vertigo) 0706/201210/19/2014 Depressive disorder 09/26/2011 04/29/2019 Morbid Obesity 01/04/2010 04/29/2019 Routine general medical exam ination at a health care facility 01/04/2010 10/19/2014 Anxiety 06/10/2009 01/03/2017 Overview: Intolerant of Celexa (anorgasmia) -- did well on Zoloft 200 mg, in the mid- s --> restarted Zoloft 12/2009 Stress reaction 06/10/2009 01/04/2010 Sterilization 02/24/2009 01/04/2010 documented as of this encounter (statuses as of 08/31/2022) [facility]11[facility] History of Past illness Narrative* Problem Noted Date Diagnosed Date Resolved Date Urgency of urination 03/19/2018 021 Overview: Added automatically from request for surgery [id number] Urination frequency 03/19/2018 06/10/19 19 Overview: Added automatically from request for surgery [id number] Urinary frequency 02/06/2018 12/29/2020 Overview: Added automatically from request for surgery [id number] Urinary urgency 02/06/2018 04/29/2019 Overview: Added automatically from request for surgery [id number] Flank pain 02/06/2018 06/10/2018 Overview: Added automatically from request for surgery [id number] Left shoulder pain 04/26/2017 9 Status post labral repair of shoulder 04/26/2017 06/10/2018 Upper back pain on left side 04/08/2017 05/02/2017 Labral tear of shoulder 02/20/201702/21 Overview: Added automatically from request for surgery [id number] Candidiasis of skin and nail 09/26/2015 03/11/2017 BPPV (benign paroxysmal positional vertigo) 10/22/2012 10/19/2014 Depressive disorder 09/26/2011 04/29/19 20 Morbid Obesity 01/04/2010 04/29/2019 Routine general medical exam ination at a health care facility 01/04/2010 10/19/2014 Anxiety 06/10/2009 01/03/2017 Overview: Intolerant of Celexa (anorgasmia) -- did well on Zoloft 200 mg, in the mid- --> restarted Zoloft 12/2009 Stress reaction 06/10/2009 01/04/2010 Sterilization 02/24/2009 01/04/2010 documented as of this encounter (statuses as of 11/30/2022) [facility] History of Past illness Narrative* Problem Noted Date Diagnosed Date Resolved Date Urgency of urination 03/19/2018 021 Overview: Added automatically from request for surgery [id number] Urination frequency 03/19/2018 06/10/19 19 Overview: Added automatically from request for surgery [id number] Urinary frequency 02/06/2018 12/29/2020 Overview: Added automatically from request for surgery [id number] Urinary urgency 02/06/2018 04/29/2019 Overview: Added automatically from request for surgery [id number] Flank pain 02/06/2018 06/10/2018 Overview: Added automatically from request for surgery [id number] Left shoulder pain 04/26/2017 9 Status post labral repair of shoulder 04/26/2017 06/10/2018 Upper back pain on left side 04/08/2017 05/02/2017 Labral tear of shoulder 02/20/201702/21 Overview: Added automatically from request for surgery [id number] Candidiasis of skin and nail 09/26/2015 03/11/2017 BPPV (benign paroxysmal positional vertigo) 10/22/2012 10/19/2014 Depressive disorder 09/26/2011 04/29/19 Morbid Obesity 01/04/2010 04/29/2019 Routine general medical exam ination at a health care facility 01/04/2010 10/19/2014 Anxiety 06/10/2009 01/03/2017 Overview: Intolerant of Celexa (anorgasmia) -- did well on Zoloft 200 mg, in the mid- 2000's --> restarted Zoloft 12/2009 Stress reaction 06/10/2009 01/04/2010 Sterilization 02/24/2009 01/04/2010 documented as of this encounter (statuses as of 01/08/2023) [facility] History of Past illness Narrative* Problem Noted Date Diagnosed Date Resolved Date Urgency of urination 03/19/2018 021 Overview: Added automatically from request for surgery [id number] Urination frequency 03/19/2018 06/10/19 19 Overview: Added automatically from request for surgery [id number] Urinary frequency 02/06/2018 12/29/2020 Overview: Added automatically from request for surgery [id number] Urinary urgency 02/06/2018 04/29/2019 Overview: Added automatically from request for surgery [id number] Flank pain 02/06/2018 06/10/2018 Overview: Added automatically from request for surgery [id number] Left shoulder pain 04/26/2017 9 Status post labral repair of shoulder 04/26/2017 06/10/2018 Upper back pain on left side 04/08/2017 05/02/2017 Labral tear of shoulder 02/20/201702/21 Overview: Added automatically from request for surgery [id number] Candidiasis of skin and nail 09/26/2015 03/11/2017 BPPV (benign paroxysmal positional vertigo) 10/22/2012 10/19/2014 Depressive disorder 09/26/2011 04/29/19 20 Morbid Obesity 01/04/2010 04/29/2019 Routine general medical exam ination at a health care facility 01/04/2010 10/19/2014 Anxiety 06/10/2009 01/03/2017 Overview: Intolerant of Celexa (anorgasmia) -- did well on Zoloft 200 mg, in the mid- --> restarted Zoloft 12/2009 Stress reaction 06/10/2009 01/04/2010 Sterilization 02/24/2009 01/04/2010 documented as of this encounter (statuses as of 02/28/2023) [facility] History of Past illness Narrative* Problem Noted Date Diagnosed Date Resolved Date Urgency of urination 03/19/2018 021 Overview: Added automatically from request for surgery [id number] Urination frequency 03/19/2018 06/10/19 19 Overview: Added automatically from request for surgery [id number] Urinary frequency 02/06/2018 12/29/2020 Overview: Added automatically from request for surgery [id number] Urinary urgency 02/06/2018 04/29/2019 Overview: Added automatically from request for surgery [id number] Flank pain 02/06/2018 06/10/2018 Overview: Added automatically from request for surgery [id number] Left shoulder pain 04/26/2017 9 Status post labral repair of shoulder 04/26/2017 06/10/2018 Upper back pain on left side 04/08/2017 05/02/2017 Labral tear of shoulder 02/20/201702/21 Overview: Added automatically from request for surgery [id number] Candidiasis of skin and nail 09/26/2015 03/11/2017 BPPV (benign paroxysmal positional vertigo) 10/22/2012 10/19/2014 Depressive disorder 09/26/2011 04/29/19 20 Morbid Obesity 01/04/2010 04/29/2019 Routine general medical exam ination at a health care facility 01/04/2010 10/19/2014 Anxiety 06/10/2009 01/03/2017 Overview: Intolerant of Celexa (anorgasmia) -- did well on Zoloft 200 mg, in the mid- s --> restarted Zoloft 12/2009 Stress reaction 06/10/2009 01/04/2010 Sterilization 02/24/2009 01/04/2010 documented as of this encounter (statuses as of 06/10/2023) [facility] History of Past illness Narrative* Problem Noted Date Diagnosed Date Resolved Date Urgency of urination 03/19/2018 021 Overview: Added automatically from request for surgery [id number] Urination frequency 03/19/2018 06/10/19 19 Overview: Added automatically from request for surgery [id number] Urinary frequency 02/06/2018 12/29/2020 Overview: Added automatically from request for surgery [id number] Urinary urgency 02/06/2018 04/29/2019 Overview: Added automatically from request for surgery [id number] Flank pain 02/06/2018 06/10/2018 Overview: Added automatically from request for surgery [id number] Left shoulder pain 04/26/2017 9 Status post labral repair of shoulder 04/26/2017 06/10/2018 Upper back pain on left side 04/08/2017 05/02/2017 Labral tear of shoulder 02/20/201702/21 Overview: Added automatically from request for surgery [id number] Candidiasis of skin and nail 09/26/2015 03/11/2017 BPPV (benign paroxysmal positional vertigo) 10/22/2012 10/19/2014 Depressive disorder 09/26/2011 04/29/19 Morbid Obesity 01/04/2010 04/29/2019 Routine general medical exam ination at a health care facility 01/04/2010 10/19/2014 Anxiety 06/10/2009 01/03/2017 Overview: Intolerant of Celexa (anorgasmia) -- did well on Zoloft 200 mg, in the mid- 1999's --> restarted Zoloft 12/2009 Stress reaction 06/10/2009 01/04/2010 Sterilization 02/24/2009 01/04/2010 documented as of this encounter (statuses as of 07/12/2023) [facility] Note Date/Time September 15, 2024 2:03p [facility] Medical Records Department [address] [place] [address] Pre-Anesthesia Evaluation 09/15/24 1358 MR#: [id number] Acct: [id number] Name: HAIM CHASE Rep #:[id number] : 1980 44 From: Hill Mast MD PCP: Dr. Joe Faria MD Status:R EG SDC Y Race: C Location: [place] [address] ASA Classification* ASA Classification ASA Classification: 3 Assessment & Plan Anesthesia* Anesthesia Assessment Anesthesia Assessment: Discussed sedation and/or anesthesia options, risks, benefits, and alternatives with patient/parents/legal guardian/POA. Questions invited. The patient/parents/legal guardian/POA seems to understand and agrees to proceedwith anesthesia plan. Reviewed the physical assessment, medical history, allergy history and patient home medications list prior to surgery/procedure/anesthetic and documented any changes. Performed airway and anesthesia risk assessments. Anesthesia Type Anesthesia Type: MAC History Source History Obtained from:: Patient and Chart Anesthesia Focused Assessment* Temperature: 97.8 F Pulse Rate: 62 Blood Pressure: 136/83 Respiratory Rate: 12 Pulse Ox: 100 Oxygen Delivery Method: Room Air Airway Assessment Mouth opens: >3 cm Mallampati Score: II Teeth Condition: Intact Neck Range of motion (ROM): Limited ROM (Slight decrease in extension) Focused Labs Anesthesia Preop lab: CBC WBC 6.5 K/mm3 (4.4-11.0) 06/24/24 15:49 06/24/24 RBC 4.96 M/mm3 (4.6-6.2) 06/24/24 15:49 06/24/24 Hgb 15.4 g/dL (13.0-16.5) 06/24/24 15:49 06/24/24 Hct 42.9 % (40-54) 06/24/24 15:49 06/24/24 Plt Count 236 K/mm3 (150-450) 06/24/24 15:49 06/24/24 CHEMISTRY Potassium 3.7 mmol/L (3.3-5.1) 06/24/24 15:49 06/24/24 Sodium 139 mmol/L (133-145) 06/24/24 15:49 06/24/24 Phosphorus 1.9 mg/dL (2.5-4.9) L 01/12/13 08:49 01/12/13 BUN 13 mg/dL (4-19) 06/24/24 15:49 06/24/24 Creatinine 1.19 mg/dL (0.70-1.20) 06/24/24 15:49 06/24/24 Glucose 108 mg/dL (70-99) H 06/24/24 15:49 06/24/24 TSH < 0.01 uIU/mL (0.358-3.74) L 05/07/13 07:06 COAG Pre-Assessment Diagnosis/Proposed Procedure Planned Operative Procedure(s): EGD Anesthesia History 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 When Was Last Pacemaker Check QUESTION #4 FULL TEXT: You/Your Family Experience fever (hyperthermia) with Anesthesia Last Oral Intake Last Oral intake: Last Oral Intake NPO since 08:00 09/15/24 13:45 Meds taken in AM with sips of Yes 09/15/24 13:45 water? Meds patient instructed to Synthroid, cytomel, voquezna 09/15/24 13:45 take am of surgery Any additional information?: Yes NPO since: 08:00 (Patient took a.m. meds at 8 AM.) Meds taken in AM with sips of water?: Yes PONV PONV - microbiology supervisor: PONV - microbiology supervisor Female No 09/10/24 13:37 HX of Motion Sickness Yes 09/10/24 13:37 HX of N/V After Surgery No 09/10/24 13:37 Non-Smoker Yes 09/10/24 13:37 Duration of Surgery greater No 09/10/24 13:37 than 60 minutes Number of Risk Factors 2 09/10/24 13:37 PONV Score Moderate Risk 09/10/24 13:37 Height & Weight Height & Weight: Anesthesia: Height & Weight Height 6 ft 09/15/24 13:45 Weight: 149.1 kg 09/15/24 13:45 Body Mass Index (BMI) 44.6 09/15/24 13:45 Respiratory Assessment Respiratory Assessment - microbiology supervisor: Respiratory Tract Infection Hx - microbiology supervisor Hx Respiratory Tract Infection No 09/10/24 13:37 STOP Sleep Apnea STOP Sleep Apnea - microbiology supervisor: STOP Sleep Apnea - microbiology supervisor Hx Hypertension No 09/10/24 13:37 Hx Sleep Apnea Yes 09/10/24 13:37 CPAP Yes 09/10/24 13:37 BIPAP No 09/10/24 13:37 Do you snore loudly (louder than talking or can be heard Do you often feel tired/ fatigued/ sleepy during daytime? Has anyone observed you stop breathing during sleep? STOP Results Positive 09/10/24 13:37 QUESTION #5 FULL TEXT : Do you snore loudly (louder than talking or can be heard through closed doors)? 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 Hx Now No 09/10/24 13:37 Gestational Age (in weeks): EDC: Hx Hx Para Hx Section SAB No 09/10/24 13:37 Active Medications Active Medications: Current Medications Generic Name Dose Route Start Last Admin Trade Name Freq PRN Reason Stop Dose Admin Lactated Ringer's 1,000 mls @ 15 mls/hr 09/15/24 13:30 09/15/24 13:45 IV 15 mls/hr .Q48H GUZMAN Administration PFSH Medical History Anxiety Alcohol use Thyroid disease Back pain Dietary restriction History of ulceration Gastric reflux CPAP (continuous positive airway pressure) dependence Non-smoker History of pain when walking Chest pain Home Medications ?Medication ?Instructions ?Recorded ?Last Taken ?Type levothyroxine 200 mcg tablet 88 mcg PO DAILY 08/02/13 09/15/24 History (Synthroid) cetirizine 10 mg tablet 10 mg PO DAILY 11/23/20 Unkn own History liothyronine 50 mcg tablet 25 mcg PO DAILY 07/10/24 History (Cytomel) vonoprazan 10 mg tablet (Voquezna) 10 mg PO QDAY #30 t abs 07/29/24 09/15/24 Rx ondansetron 4 mg disintegrating 4 mg PO Q8H PRN nausea and vomiting 09/10/24 Unknown History tablet Allergy/AdvReac Type Severity Reaction Status Date / Time vancomycin Allergy Hives Verified 09/15/24 13:38 Surgical History Hx of total hip arthroplasty History of cystoscopy Social History Smoking Status: Never smoker Review of Systems (Anesthesia) ROS Narrative System reviewed and no additional complaints, except as documented. 09/15/24 1404 <Electronically signed by Hill dawn MD> Date _ Hill Ann Signature: Date CC: ~ Signed [facility] Work Phone: Consult note Author AA Alex Jensen [facility] Note Date/Time September 15, 2024 2:56p m [facility] Medical Records Department [address] [place] [address] Anesthesia Postop Eval I 09/15/24 145 MR#: [id number] Acct: [id number] Name: HAIM CHASE Rep #:[id number] : 1980 44 From: Alex Jensen PCP: Dr. Joe Faria MD Status:R [facility] Y Race: C Location: [place] [address] Anesthesia: Postop Eval I Current Vital Signs Temperature: 98.5 F Pulse Rate: 79 Blood Pressure: 119/73 Respiratory Rate: 16 Pulse Ox: 97 Oxygen Delivery Method: Room Air Assessment Airway patent: Yes Spontaneous unlabored respirations: Yes Mental status: Asleep nausea: No Vomiting: No Anesthesia Complication: No Fluid Hydration Crystalloid volume administer (ml): 500 Total IV fluid infused: 500 Progress Note Anesthesia document: Postop Eval 1 completed: Yes 09/15/241455 <Electronically signed by Alex Jensen > Date _ Alex Ann Signature: Date CC: ~ Signed [facility] Work Phone: Evaluation + Plan note No data available for this section [facility] Evaluation note* Diagnosis Acquired hypothyroidism Unspecified hypothyroidism documented in this encounter [facility] note* Diagnosis Obesity, Class III, BMI >= 40- Primary Morbid obesity Need for influenza vaccination Need for prophylactic vaccination and inoculation against influenza Acquired hypothyroidism Unspecified hypothyroidism documented in this encounter [facility] note* Diagnosis COVID-19- Primary Obesity, Class III, BMI >= 40 Morbid obesity documented in this encounter [facility] note* Diagnosis Mixed hyperlipidemia- Primary Acquired hypothyroidism Unspecified hypothyroidism ETD (Eustachian tube dysfunction), bilateral Allergic rhinitis, unspecified seasonality, unspecified trigger documented in this encounter [facility] note* Diagnosis URI, acute- Primary Acute upper respiratory infections of unspecified site Sore throat Acute pharyngitis documented in this encounter [facility] note* Diagnosis Obesity, Class III, BMI >= 40- Primary Morbid obesity Mixed hyperlipidemia Acquired hypothyroidism Unspecified hypothyroidism documented in this encounter [facility] note* Diagnosis Routine medical exam- Primary Routine general medical examination at a health care facility Acquired hypothyroidism Unspecified hypothyroidism Allergic rhinitis, unspecified seasonality, unspecified trigger ETD (Eustachian tube dysfunction), bilateral Obesity, Class III, BMI >= 40 Morbid obesity SHERIN (obstructive sleep apnea) on AutoPAP Obstructive sleep apnea (adult) (pediatric) Other specified joint disorders, left hip documented in this encounter [facility] note* Diagnosis Acquired hypothyroidism Unspecified hypothyroidism Allergic rhinitis, unspecified seasonality, unspecified trigger documented in this encounter [facility] note* Diagnosis Obesity, Class III, BMI >= 40 Morbid obesity documented in this encounter [facility] note* Diagnosis Acquired hypothyroidism Unspecified hypothyroidism documented in this encounter [facility] note* Diagnosis Obesity, Class III, BMI >= 40- Primary Morbid obesity Acquired hypothyroidism Unspecified hypothyroidism documented in this encounter [facility] note* Diagnosis Obesity, Class III, BMI >= 40- Primary Morbid obesity Screening for depression Encounter for screening examination for other mental health and behavioral disorders Acquired hypothyroidism Unspecified hypothyroidism Mixed hyperlipidemia Elevated blood pressure reading Elevated blood pressure reading without diagnosis of hypertension SHERIN (obstructive sleep apnea) on AutoPAP Obstructive sleep apnea (adult) (pediatric) documented in this encounter [facility] note* Diagnosis Acute hip pain, left documented in this encounter [facility] note* Diagnosis Allergic rhinitis, unspecified seasonality, unspecified trigger [facility] [place] [facility] Diagnosis Obesity, Class III, BMI >= 40 Morbid obesity [facility] [place] [facility] Diagnosis URI, acute- Primary Acute upper respiratory infections of unspecified site Acute otitis media, right Unspecified otitis media documented in this encounter [facility] note* Diagnosis Influenza-like illness- Primary Influenza with other respiratory manifestations Otalgia, right [facility] [place] [facility]* Diagnosis Chest pain, unspecified type- Primary Obesity, Class III, BMI >= 40 Morbid obesity SHERIN (obstructive sleep apnea) Obstructive sleep apnea (adult) (pediatric) Hyperglycemia Other abnormal glucose Lack of concentration Attention or concentration deficit Lack of motivation Acquired hypothyroidism Unspecified hypothyroidism Impaired glucose metabolism Impaired glucose tolerance test Mixed hyperlipidemia [facility] [place] [facility]* Diagnosis Sinobronchitis- Primary Unspecified sinusitis (chronic) Acute cough Flu-like symptoms Other general symptoms documented in this encounter [facility] note* Diagnosis Viral illness- Primary Unspecified viral infection, in conditions classified elsewhere and of unspecified site documented in this encounter [facility] note* Diagnosis Subacute cough- Primary Cough Acquired hypothyroidism Unspecified hypothyroidism SHERIN (obstructive sleep apnea) on AutoPAP Obstructive sleep apnea (adult) (pediatric) [facility] [place] [facility]* Diagnosis Chest pain, unspecified type- Primary Gastroesophageal reflux disease, unspecified whether esophagitis present documented in this encounter [facility] note* Diagnosis Impaired glucose metabolism- Primary Impaired glucose tolerance test Gastroesophageal reflux disease, unspecified whether esophagitis present Elevated blood pressure reading Elevated blood pressure reading without diagnosis of hypertension Obesity, Class III, BMI >= 40 Morbid obesity Mixed hyperlipidemia [facility] Author Santiago Holden [facility] Note Date/Time September 15, 2024 1:41p m [facility] Medical Records Department [address] [place] [address] History & Physical Exam 09/15/24 1336 MR#: [id number] Acct: [id number] Name: HAIM CHASE Rep #:[id number] : 1980 44 From: Santiago Holden DO PCP: Dr. Joe Faria MD Status:R [facility] Location: AC AC14-1 HPI - General General Date of Admission: 09/15/24 Date of Service: 09/15/24 Chief Complaint: GERD HPI Narrative HAIM CHASE, is a 44 M who presents with the Chief Complaint: heartburn Over the past 2 months pt has been having burning epigastric pain and nausea. [place] he has also had two occurrences of PNA. His PCP recommended pulmonology for his symptoms but he thinks it is GI in nature. His pain is constant and worse with fatty foods. He is having nausea but had not vomited yet. He does notsmoke. Endorses drinking alcohol 3-4 timer per week but since this has started he has not drank. He has had a lot of stress and anxiety lately with work and hefeels this may be a apart of it. He has started OTC omeprazole twice a day and noticed some benefit. He is avoiding certain foods that he finds triggering. He still has his gallbladder. [facility] Medical History Anxiety Alcohol use Thyroid disease Back pain Dietary restriction History of ulceration Gastric reflux CPAP (continuous positive airway pressure) dependence Non-smoker History of pain when walking Chest pain Home Medications ?Medication ?Instructions ?Recorded ?Last Taken ?Type levothyroxine 200 mcg tablet 88 mcg PO DAILY 08/02/13 08/07/13 10:30 History (Synthroid) 200 mcg cetirizine 10 mg tablet 10 mg PO DAILY 11/23/20 Unkn own History liothyronine 50 mcg tablet 25 mcg PO DAILY 07/10/24 Un known History (Cytomel) vonoprazan 10 mg tablet (Voquezna) 10 mg PO QDAY #30 t abs 07/29/24 Unknown Rx ondansetron 4 mg disintegrating 4 mg PO Q8H PRN nausea and vomiting 09/10/24 Unknown History tablet Allergy/AdvReac Type Severity Reaction Status Date / Time vancomycin Allergy Hives Verified 09/15/24 13:38 Surgical History Hx of total hip arthroplasty History of cystoscopy Social History Smoking Status: Never smoker ROS Constitutional Constitutional: Denies fatigue, fever(s), poor appetite, weight gain or weight loss Gastrointestinal Gastrointestinal: Denies belching, bloating, change in bowel habits, change in stool character, chewing difficulty, coffee ground emesis, constipation, cramping, diarrhea, dyspepsia, dysphagia, early satiety, excessive flatus, fecalincontinence, heartburn, hematemesis, hematochezia, hemorrhoids, loose stools, melena, nausea, odynophagia, rectal bleeding, tenesmus, vomiting or weight changes Physical Exam Const alert, oriented x3, no apparent distress and healthy appearing General Appearance: cooperative GI normal to inspection, nondistended, normoactive bowel sounds, soft to palpation,non-tender and non-distended Percussion: normal to percussion Rectal Exam: deferred Assessment & Plan Assessment/Plan (1) GERD (gastroesophageal reflux disease): PLAN: Assessment and Plan Assessment and Plan (1) Gastroesophageal reflux disease: Plan: This is a 44 yo male pt here today for evaluation of epigastric pain and heartburn for 2 months. Pt has not had heartburn like this before. He endorses having a lot of stress in his life at this time. OTC omeprazole has been somewhat helpful. I will prescribe Pantoprazole 40 mg BID. I advised he take this 30 minutes before he eat. I also sent in famotidine 20 mg for him to take if he has breakthrough heartburn. He will be scheduled for an ED to assess his upper GI tract. If his symptoms continue will consider prescribing Voquenza. He is agreeable to plan and will f/u after procedure. -EGD -Pantoprazole 40 mg BID -Famotidine PRN -Consider Voquezna -f/u after procedure Medications: 09/15/24 1341 <Electronically signed by Santiago Holden DO> Cosigner Signature (if applicable): CC: Dr. Joe Faria MD; Santiago Holden DO~ Signed [facility] Work Phone: Progress note Author Jossie Hall [facility] Note Date/Time September 29, 2024 10:3 8am [facility] [address] [place] [address] OFFICE VISIT Date of Service: 09/29/24 MR#: [id number] Acct: [id number] Name: HAIM CHASE Rep #: [id number] : 1980 Provider: GABRIELA Bright Age/Sex: 44/M [place] [facility] Status: Signed Intake Vital Signs 09/15/24 13:45 09/29/24 10:26 Height 6 ft 6 ft Weight: 339 lb BMI 45.9 Intake Visit Reasons: FU Chief Complaint: heartburn Allergies vancomycin Allergy (Verified 09/29/24 10:08) Hives Medications ?Medication ?Instructions ?Recorded ?Confirmed ?Type levothyroxine 200 mcg tablet 88 mcg PO DAILY 08/02/13 09/29/24 History (Synthroid) cetirizine 10 mg tablet 10 mg PO DAILY 11/23/2009/20 History liothyronine 50 mcg tablet 25 mcg PO DAILY 07/10/24 History (Cytomel) vonoprazan 10 mg tablet (Voquezna) 10 mg PO QDAY #30 t abs 07/29/24 09/29/24 Rx ondansetron 4 mg disintegrating 4 mg PO Q8H PRN nausea and vomiting 09/10/24 09/29/24 History tablet colestipol 1 gram tablet 1 g PO QDAY #30 tabs 5 09/29/24 Rx pantoprazole 40 mg tablet,delayed 40 mg PO BID #90 tab s 09/29/24 09/29/24 Rx release Nurse's Note: Patient is here states he is still having the chest pain, acid reflux, and heartburn. Seems to be happening all of the time. PFSH Medical History Anxiety Alcohol use Thyroid disease Back pain Dietary restriction History of ulceration Gastric reflux CPAP (continuous positive airway pressure) dependence Non-smoker History of pain when walking Chest pain Surgical History Hx of total hip arthroplasty History of cystoscopy Social History Smoking Status: Never smoker HPI HPI Chief Complaint: heartburn Details: HAIM CHASE, is a 44 M who presents to the office today for f/u. BGI established 3.21.25 for burning epigastric pain and nausea. Pt also having two instance of PNA recently. Pain is worse with dairy foods. Drinks alcohol a few times per week but has not since these symptoms started. Recently started OTC PPI twice a day with some relief. Pt does not smoke. He still has his gallbladder. EGD 09.15.24 Z-line irregular, 40 cm from the incisors. Biopsied. - Erythematous mucosa in the gastric body. Biopsied. - Erythematous duodenopathy. Biopsied OV 6.10.25 Pt continues to have daily issues with heartburn. Voquezna has helpedintermittently however it is too expensive for him to continue. He has had weight gain since all of this started. He has been on phentermine in the past for weight loss. ROS Const Constitutional: Positive for fatigue and weight change Gastro GI: Positive for abdominal pain, bloating, change in bowel habits, heartburn andnausea/dyspepsia Musc Musculoskeletal: Positive for joint pain, back pain, stiffness and Arthritis Endo Endocrine: Positive for fatigue and weight change Exam Const General: cooperative Nutritional Appearance: overweight Orientation: alert Resp Effort & Inspection: normal respiratory effort GI Inspection: normal to inspection Assessment and Plan Assessment and Plan (1) GERD (gastroesophageal reflux disease): Status: Acute Plan: Haim is a 44 yo male pt here today for f/u after EGD. EGD showing reactive changes in the esophagus and stomach. He continues to have daily heartburn whileon Voquezna. Will start him on colestipol to bind bile out of his stomach and esophagus. Voquenza has been too expensive so will send in pantoprazole 40 mg BID. Will order gallbladder US and HIDA scan. He has interest in starting weightloss medication however pt already has heartburn and nausea therefor I do not feel GLP-1 will be a good fit for him. he has had good results in the past with phentermine. Will consider prescription for this. -Start Pantoprazole 40 mg BID -Start colestipol 1 gram daily -Gallbladder US and HIDA scan -Consider phentermine Orders: Orders Hepatobilliary Img w/Pharm Int Today K21.9 - Gastro-esophageal reflux disease without esophagitis Gallbladder Today K21.9 - Gastro-esophageal reflux disease without esophagitis Medications: New colestipol 1 g PO ONCE 30 tabs 1RF pantoprazole 40 mg PO BID 90 tabs 1RF colestipol 1 g PO QDAY 30 tabs 1RF Coding Level of Care Code Off vis,est,level 4 Diagnoses GERD (gastroesophageal reflux disease) K21.9 09/29/24 1038 <Electronically signed by Jossie OCHOA> Date _ Jossie OCHOA Cosigner Signature: Date (if applicable) CC: ~ [facility] Work Phone: Reason for referral (narrative)No reason for referral information availableWOhio[facility] Work Phone: Summary Purpose Family History No Family History Records FoundNo Family History Records Found No data available for this section No Family History Records FoundNo Family History Records FoundNo Family History Records Found Advance Directives No Advanced Directives Records Found Advance Directive Response Recorded Date/ Time Living Will No June 24, 2024 4:51pm Do you have a Healthcare Power of Printing Services Coordinator? No June 24, 2024 4:51pm Do you have a Healthcare Power of Printing Services Coordinator? No September 10, 2024 1:37pm Advance Directives No August 07, 014 7:58pm Health Concerns Infection Onset Date Last Indicated Resolved Time COVID-19 Rule-Out 07/03/2022 07/03/2022 Reason for Referral Specialty Diagnoses / Procedures Referred By Cristofer denson Referred To Contact Diagnoses Obesity, Class III, BMI 40-49.9 (morbid obesity) ([facility]) Joe Faria MD [address] [place] [address] Referral ID Status Reason Start Date Expiration Date Visits Re quested Visits Authorized [id number] Closed 1 1 Referral ID Status Reason Start Date Expiration Date Visits Re quested Visits Authorized [id number] Closed 1 1 Referral ID Status Reason Start Date Expiration Date Visits Re quested Visits Authorized [id number] Closed 1 1 Referral ID Status Reason Start Date Expiration Date Visits Re quested Visits Authorized [id number] Closed 1 1 Referral ID Status Reason Start Date Expiration Date Visits Re quested Visits Authorized [id number] Closed 1 1 Referral ID Status Reason Start Date Expiration Date Visits Re quested Visits Authorized [id number] Closed 1 1 Referral ID Status Reason Start Date Expiration Date V isits Requested Visits Authorized [id number] Pending Review 1 1 Referral ID Status Reason Start Date Expiration Date V isits Requested Visits Authorized [id number] Pending Review 1 1 Specialty Diagnoses / Procedures Referred By Contac t Referred To Contact Diagnoses Lack of concentration Lack of motivation Procedures CONSULT TO PSYCHIATRY OFFICE/OUTPATIENT [facility] 60 MINUTES Joe Faria MD [address] [place] [address] Referral ID Status Reason Start Date Expiration Date Visits Requested Visits Authorized [id number] Pending Review PCP Requested Referral 05/25/2024 05/25/2025 1 1 Chief Complaint and Reason for Visit Chief Complaint Admit Date SOB June 24, 2024 1:50 pm Gastroesophageal reflux disease (GERD) [facility] 2024 10:56am Reason for Visit Admit Date Gastroesophageal reflux disease July 102024 10:56am GERD (gastroesophageal reflux disease) [facility] 2024 1:01pm Chief Complaint Admit Date SOB June 24, 2024 1:50 pm Gastroesophageal reflux disease (GERD) [facility] 2024 10:56am FU September 29, 2024 10:0 2am Reason for Visit Admit Date Gastroesophageal reflux disease July 102024 10:56am GERD (gastroesophageal reflux disease) [facility] 2024 1:01pm GERD (gastroesophageal reflux disease) [facility] 2024 10:02am Additional Source Comments (unrecognized sect ion and content) No Status Records FoundNo Status Records FoundNo Status Records FoundNo Status Records FoundNo Status Records Found INFORMATION SOURCE (unrecogn ized section and content) DATE CREATED AUTHOR 03/31/2018 [facility] DATE CREATED AUTHOR AUTHOR'S ORGANIZ ATION 04/23/2018 [facility] DATE CREATED AUTHOR AUTHOR'S ORGANIZ ATION 05/30/2024 [facility] DATE CREATED AUTHOR AUTHOR'S ORGANIZ ATION 09/22/2024 [facility] DATE CREATED AUTHOR AUTHOR'S ORGANIZ ATION 10/04/2024 [facility] Source Comments (unrecognize d section and content) In the event this informatio n is protected by the Federal Confidentiality of Alcohol and Drug Abuse Patient Records regulations: The Federal rules restrict any use of the information to criminally investigate or prosecute any alcohol or drug abuse patient.[facility] the event this information is protected by the Federal Confidentiality of Alcohol and Drug Abuse Patient Records regulations: The Federal rules restrict any use of the information to criminally investigate or prosecute any alcohol or drug abuse patient.[facility] the event this information is protected by the Federal Confidentiality of Alcohol and Drug Abuse Patient Records regulations: The Federal rules restrict any use of the information to criminally investigate or prosecute any alcohol or drug abuse patient.[facility] the event this information is protected by the Federal Confidentiality of Alcohol and Drug Abuse Patient Records regulations: The Federal rules restrict any use of the information to criminally investigate or prosecute any alcohol or drug abuse patient.[facility] the event this information is protected by the Federal Confidentiality of Alcohol and Drug Abuse Patient Records regulations: The Federal rules restrict any use of the information to criminally investigate or prosecute any alcohol or drug abuse patient.[facility] the event this information is protected by the Federal Confidentiality of Alcohol and Drug Abuse Patient Records regulations: The Federal rules restrict any use of the information to criminally investigate or prosecute any alcohol or drug abuse patient.[facility] CenterIn the event this information is protected by the Federal Confidentiality of Alcohol and Drug Abuse Patient Records regulations: The Federal rules restrict any use of the information to criminally investigate or prosecute any alcohol or drug abuse patient.[facility] CenterIn the event this information is protected by the Federal Confidentiality of Alcohol and Drug Abuse Patient Records regulations: The Federal rules restrict any use of the information to criminally investigate or prosecute any alcohol or drug abuse patient.[facility] the event this information is protected by the Federal Confidentiality of Alcohol and Drug Abuse Patient Records regulations: The Federal rules restrict any use of the information to criminally investigate or prosecute any alcohol or drug abuse patient.[facility] Center[facility] the event this information is protected by the Federal Confidentiality of Alcohol and Drug Abuse Patient Records regulations: The Federal rules restrict any use of the information to criminally investigate or prosecute any alcohol or drug abuse patient.[facility] the event this information is protected by the Federal Confidentiality of Alcohol and Drug Abuse Patient Records regulations: The Federal rules restrict any use of the information to criminally investigate or prosecute any alcohol or drug abuse patient.[facility] Center[facility] the event this information is protected by the Federal Confidentiality of Alcohol and Drug Abuse Patient Records regulations: The Federal rules restrict any use of the information to criminally investigate or prosecute any alcohol or drug abuse patient.[facility] the event this information is protected by the Federal Confidentiality of Alcohol and Drug Abuse Patient Records regulations: The Federal rules restrict any use of the information to criminally investigate or prosecute any alcohol or drug abuse patient.[facility] the event this information is protected by the Federal Confidentiality of Alcohol and Drug Abuse Patient Records regulations: The Federal rules restrict any use of the information to criminally investigate or prosecute any alcohol or drug abuse patient.[facility] Center[facility] the event this information is protected by the Federal Confidentiality of Alcohol and Drug Abuse Patient Records regulations: The Federal rules restrict any use of the information to criminally investigate or prosecute any alcohol or drug abuse patient.[facility] the event this information is protected by the Federal Confidentiality of Alcohol and Drug Abuse Patient Records regulations: The Federal rules restrict any use of the information to criminally investigate or prosecute any alcohol or drug abuse patient.[facility] CenterIn the event this information is protected by the Federal Confidentiality of Alcohol and Drug Abuse Patient Records regulations: The Federal rules restrict any use of the information to criminally investigate or prosecute any alcohol or drug abuse patient.[facility] CenterIn the event this information is protected by the Federal Confidentiality of Alcohol and Drug Abuse Patient Records regulations: The Federal rules restrict any use of the information to criminally investigate or prosecute any alcohol or drug abuse patient.[facility] CenterIn the event this information is protected by the Federal Confidentiality of Alcohol and Drug Abuse Patient Records regulations: The Federal rules restrict any use of the information to criminally investigate or prosecute any alcohol or drug abuse patient.[facility] CenterIn the event this information is protected by the Federal Confidentiality of Alcohol and Drug Abuse Patient Records regulations: The Federal rules restrict any use of the information to criminally investigate or prosecute any alcohol or drug abuse patient.[facility] CenterIn the event this information is protected by the Federal Confidentiality of Alcohol and Drug Abuse Patient Records regulations: The Federal rules restrict any use of the information to criminally investigate or prosecute any alcohol or drug abuse patient.[facility] CenterIn the event this information is protected by the Federal Confidentiality of Alcohol and Drug Abuse Patient Records regulations: The Federal rules restrict any use of the information to criminally investigate or prosecute any alcohol or drug abuse patient.[facility] CenterIn the event this information is protected by the Federal Confidentiality of Alcohol and Drug Abuse Patient Records regulations: The Federal rules restrict any use of the information to criminally investigate or prosecute any alcohol or drug abuse patient.[facility] CenterIn the event this information is protected by the Federal Confidentiality of Alcohol and Drug Abuse Patient Records regulations: The Federal rules restrict any use of the information to criminally investigate or prosecute any alcohol or drug abuse patient.[facility] CenterIn the event this information is protected by the Federal Confidentiality of Alcohol and Drug Abuse Patient Records regulations: The Federal rules restrict any use of the information to criminally investigate or prosecute any alcohol or drug abuse patient.[facility] CenterIn the event this information is protected by the Federal Confidentiality of Alcohol and Drug Abuse Patient Records regulations: The Federal rules restrict any use of the information to criminally investigate or prosecute any alcohol or drug abuse patient.[facility] Center[facility] the event this information is protected by the Federal Confidentiality of Alcohol and Drug Abuse Patient Records regulations: The Federal rules restrict any use of the information to criminally investigate or prosecute any alcohol or drug abuse patient.[facility] the event this information is protected by the Federal Confidentiality of Alcohol and Drug Abuse Patient Records regulations: The Federal rules restrict any use of the information to criminally investigate or prosecute any alcohol or drug abuse patient.[facility] Reason for Visit (unrecogniz ed section and content) Reason Onset Date Comments Refill Request 11/27/2021 Reason Onset Date Comments Weight Problem Immunizations 01/25/2022 Flu vaccination Reason Comments Recheck Covid Positive Reason Onset Date Comments Refill Request 06/21/2022 Reason Comments Ear Pain Bilateral ear pain, scratchy throat and head pressure x 2 days Reason Comments Insurance Authorization [employer] Reason Comments Weight Problem Reason Comments Yearly Exam Reason Onset Date Comments Refill Request 01/07/2023 Reason Comments Appointment Reason Onset Date Comments Refill Request 06/08/2023 Reason Onset Date Comments Refill Request 07/11/2023 Reason Comments F/U 3 Month Reason Comments Medication review Reason Onset Date Comments Refill Request 02/04/2024 Reason Onset Date Comments Refill Request 02/20/2024 Reason Comments Earache right ear pain, Head stuffiness x 3-4 days Ear Problem Reason Comments Ear Pain R ear pain x 5 days Pain, Sinus Pressure pain, heada merari,SOB, nausea, diarrhea, chest fullness, x 5 days Reason Comments Medication Follow-up Reason Comments Cough Sinus, chest congest ion, body aches x 2 weeks Reason Comments Cough Chest congestion, SO B, PEDRO, bodyaches x2 weeks Reason Comments ER F/U Reason Comments 4 month follow-up Care Teams (unrecognized sec tion and content) [employer]ing Machine Operator Relationship Specialty Start Date End Date Joe Faria MD [address] [place] [address] PCP - General Internal Medicine 10/19/14 Str[employer] Forming Machine Operator Relationship Specialty Start Date End Date Joe Faria MD [address] [place] [address] PCP - General Internal Medicine 10/19/14 Str[employer] Forming Machine Operator Relationship Specialty Start Date End Date Joe Faria MD [address] [place] [address] PCP - General Internal Medicine 10/19/14 Str[employer] Forming Machine Operator Relationship Specialty Start Date End Date Joe Faria MD [address] [place] [address] PCP - General Internal Medicine 10/19/14 Str[employer] Forming Machine Operator Relationship Specialty Start Date End Date Joe Faria MD [address] [place] [address] PCP - General Internal Medicine 10/19/14 Str[employer] Forming Machine Operator Relationship Specialty Start Date End Date Joe Faria MD [address] [place] [address] PCP - General Internal Medicine 10/19/14 Strand Forming Machine Operator Relationship Specialty Start Date End Date Joe Faria MD [address] [place] [address] PCP - General Internal Medicine 10/19/14 Strand Forming Machine Operator Relationship Specialty Start Date End Date Joe Faria MD [address] [place] [address] PCP - General Internal Medicine 10/19/14 Strand Forming Machine Operator Relationship Specialty Start Date End Date Joe Faria MD [address] [place] [address] PCP - General Internal Medicine 10/19/14 Strand Forming Machine Operator Relationship Specialty Start Date End Date Joe Faria MD [address] [place] [address] PCP - General Internal Medicine 10/19/14 Strand Forming Machine Operator Relationship Specialty Start Date End Date Joe Faria MD [address] [place] [address] PCP - General Internal Medicine 10/19/14 Strand Forming Machine Operator Relationship Specialty Start Date End Date Joe Faria MD [address] [place] [address] PCP - General Internal Medicine 10/19/14 Strand Forming Machine Operator Relationship Specialty Start Date End Date Joe Faria MD [address] [place] [address] PCP - General Internal Medicine 10/19/14 Strand Forming Machine Operator Relationship Specialty Start Date End Date Joe Faria MD [address] [place] [address] PCP - General Internal Medicine 10/19/14 Strand Forming Machine Operator Relationship Specialty Start Date End Date Joe Faria MD [address] [place] [address] PCP - General Internal Medicine 10/19/14 Strand Forming Machine Operator Relationship Specialty Start Date End Date Joe Faria MD [address] [place] [address] PCP - General Internal Medicine 10/19/14 Strand Forming Machine Operator Relationship Specialty Start Date End Date Joe Faria MD [address] [place] [address] PCP - General Internal Medicine 10/19/14 Strand Forming Machine Operator Relationship Specialty Start Date End Date Joe Faria MD [address] [place] [address] PCP - General Internal Medicine 10/19/14 Carol Bess, PHOTOGEOLOGIST.RN HOME HEALTH [address] [place] [address] Hand Compositor Internal Medicine 03/30/24 Strand Forming Machine Operator Relationship Specialty Start Date End Date Joe Faria MD [address] [place] [address] PCP - General Internal Medicine 10/19/14 Carol Bess, PHOTOGEOLOGIST.RN HOME HEALTH [address] [place] [address] Hand Compositor Internal Medicine 03/30/24 Strand Forming Machine Operator Relationship Specialty Start Date End Date Joe Faria MD [address] [place] [address] PCP - General Internal Medicine 10/19/14 Carol Bess, PHOTOGEOLOGIST.RN HOME HEALTH [address] [place] [address] Hand Compositor Internal Medicine 03/30/24 Strand Forming Machine Operator Relationship Specialty Start Date End Date Joe Faria MD [address] [place] [address] PCP - General Internal Medicine 10/19/14 Carol Bess, PHOTOGEOLOGIST.RN HOME HEALTH [address] [place] [address] Hand Compositor Internal Medicine 03/30/24 Strand Forming Machine Operator Relationship Specialty Start Date End Date Joe Faria MD [address] [place] [address] PCP - General Internal Medicine 10/19/14 Carol Bess, PHOTOGEOLOGIST.RN HOME HEALTH [address] [place] [address] Hand Compositor Internal Medicine 03/30/24 Strand Forming Machine Operator Relationship Specialty Start Date End Date Joe Faria MD [address] [place] [address] PCP - General Internal Medicine 10/19/14 Carol Bess, PHOTOGEOLOGIST.RN HOME HEALTH [address] [place] [address] Hand Compositor Internal Medicine 03/30/24 Strand Forming Machine Operator Relationship Specialty Start Date End Date Joe Faria MD [address] [place] [address] PCP - General Internal Medicine 10/19/14 Carol Bess, PHOTOGEOLOGIST.RN HOME HEALTH [address] [place] [address] Hand Compositor Internal Medicine 03/30/24 Team Status: Active Member Role Status Dates Dr. Joe Faria MD Primary Care Provider Active Team Status: Inactive Member Role Status Dates Dr. Joe Faria MD Primary Care Provider Active Start: June 24, 2024 End: June 24, 2024 Dr. Jose Alvarado , DO Attending Provider Active Start : June 24, 2024 End: June 24, 2024 Dr. Jose Alvarado DO Referring Provider Active Start : June 24, 2024 End: June 24, 2024 Dr. Jose Alvarado DO Emergency Provider Active Start : June 24, 2024 End: June 24, 2024 Team Status: Inactive Member Role Status Dates Dr. Joe Faria MD Primary Care Provider Active Start: July 10, 2024 End: July 10, 2024 Dr. Joe Faria MD Referring Provider Active Start: July 10, 2024 End: July 10, 2024 GABRIELA Bright Attending Provider Active Start: July 10, 2024 End: July 10, 2024 Team Status: Inactive Member Role Status Dates Dr. Joe Faria MD Primary Care Provider Active Start: September 15, 2024 End: September 15, 2024 Dr. Joe Faria MD Referring Provider Active Start: September 15, 2024 End: September 15, 2024 Dr. Santiago Holden DO Attending Provider Active Start: September 15, 2024 End: September 15, 2024 Team Status: Active Member Role Status Dates Dr. Joe Faria MD Primary Care Provider Active Start: September 15, 2024 Dr. Joe Faria MD Referring Provider Active Start: September 15, 2024 Dr. Santiago Holden DO Attending Provider Active Start: September 15, 2024 Dr. Santiago Holden DO Other Provider Active St art: September 15, 2024 Strand Forming Machine Operator Relationship Specialty Start Date End Date Joe Faria MD [address] [place] [address] PCP - General Internal Medicine 10/19/14 Carol Bess, PHOTOGEOLOGIST.RN HOME HEALTH [address] [place] [address] Hand Compositor Internal Medicine 03/30/24 Team Status: Inactive Member Role Status Dates Dr. Joe Faria MD Primary Care Provider Active Start: September 29, 2024 End: September 29, 2024 Dr. Joe Faria MD Referring Provider Active Start: September 29, 2024 End: September 29, 2024 GABRIELA Bright Attending Provider Active Start: September 29, 2024 End: September 29, 2024 FOR RECORDS PERTAINING TO PATIENTS WHO ARE OR HAVE BEEN ENROLLED IN A CHEMICAL DEPENDENCY/SUBSTANCEABUSE PROGRAM, SOME INFORMATION MAY BE OMITTED. This clinical summary was aggregated from multiple sources. Caution should be exercised in using it in the provision of clinical care. This summary normalizes information from multiple sources, and as a consequence, information in this document may materially change the coding, format and clinical context of patient data. In addition, data may be omitted in some cases. CLINICAL DECISIONS SHOULD BE BASED ON THE PRIMARY CLINICAL RECORDS. [facility]. provides no warranty or guarantee of the accuracy or completeness of information in this document.
== END | disposition home or self-care (01) ==
LOC: US 07:21
PROVIDERS: PCP Internal Medicine; Referring Provider Student in an Organized Health Care Education/Training Program; Visit Provider Student in an Organized Health Care Education/Training Program
DX: K21.9 Gastro-esophageal reflux disease without esophagitis (principal); R10.9 Unspecified abdominal pain
CPT/HCPCS: 76705

== ENCOUNTER → 2025-04-07 | Outpatient (CLI) | payer OTHER, SELFPAY ==
[2025-04-07 17:00] LABS: Hematocrit 44.4 % (40-54); Hemoglobin 15.4 g/dL (13.0-16.5); Immature Granulocytes Count 0.030 X10^3/uL (0.0-0.0); Mean Corp Hgb Conc 34.7 g/dL (32-36); Mean Corpuscular Volume 86.7 fL (80-94); Mean Platelet Vol. 10.3 fl (6.2-12.0); NRBC Flagged by Analyzer 0 % (0-5); Platelet Count 244 K/mm3 (150-450); RBC Distribution Width CV 12.6 % (11.6-14.6); RBC Distribution Width SD 40.0 fl (35.1-43.9); Red Blood Count 5.12 M/mm3 (4.6-6.2); White Blood Count 8.0 K/mm3 (4.4-11.0)
[2025-04-07 17:26] LABS: AST(SGOT) 23 U/L (<=37); Alanine Aminotransfer ALT/SGPT 26 U/L (<=46); Albumin, Serum 4.4 g/dL (3.5-5.0); Alkaline Phosphatase 53 U/L (40-129); Anion Gap 14 (5-15); BUN 17 mg/dL (4-19); BUN/Creat Ratio 15.5 RATIO (10-20); Calcium,Total 9.3 mg/dL (7.6-11.0); Carbon Dioxide 19.7 mmol/L (21.0-32.0); Chloride 106 mmol/L (98-108); Globulin 3.0 g/dL (2.2-4.2); Glucose 89 mg/dL (70-99); Potassium 3.8 mmol/L (3.3-5.1)
== END | disposition home or self-care (01) ==
LOC: LAB 15:57
PROVIDERS: PCP Internal Medicine; Referring Provider Internal Medicine Gastroenterology; Visit Provider Internal Medicine Gastroenterology
DX: K21.9 Gastro-esophageal reflux disease without esophagitis (principal)
CPT/HCPCS: 36415; 80053; 83036; 85025